=== PATIENT | female | born 1965 | race Caucasian/White ===

== ENCOUNTER 2022-01-21 11:51 | Emergency (ER) | payer SELFPAY ==
[2022-01-21 11:54] VITALS: BP 132/82; PULSE 80; RESP 14; TEMP 36.5; O2SAT 98
--- NOTE | 2022-01-21 12:30 | DI.RAD_ITS ---
Exam(s) XR HAND RT COMPLETE EXAM: XR HAND RT COMPLETE CLINICAL HISTORY: hand trauma, abscess dorsum of hand. TECHNIQUE: 2D digital imaging was performed. COMPARISON: No exams were available for comparison FINDINGS: There is prominent dorsal soft tissue swelling over the metacarpal region. No fractures evident. No radiopaque foreign body. Some degenerative changes noted in the metacarpophalangeal joint of the 2n d-index finger. There are no osseous lesions nor erosions. No radiopaque foreign body. IMPRESSION: Prominent soft tissue swelling but no acute osseous findings. No radiopaque foreign body. DATA REPOSITORY: RADIATION DOSE DELIVERED:
--- NOTE | 2022-01-21 12:30 | DI.RAD_ITS ---
Exam(s) XR WRIST RT COMPLETE EXAM: XR WRIST RT COMPLETE CLINICAL HISTORY: hand and wrist trauma, abscess dorsum of hand. TECHNIQUE: 2D digital imaging was performed. COMPARISON: No exams were available for comparison FINDINGS: 3 views There is prominent dorsal soft tissue swelling. No evidence of fracture nor carpal dislocation. No significant ulnar variance. No abnormal soft tis cortney densities. IMPRESSION: Dorsal soft tissue swelling. No significant osseous findings. DATA REPOSITORY: RADIATION DOSE DELIVERED:
--- NOTE | 2022-01-21 12:44 | W.ED.GENAD ---
Discharge Plan Disposition Patient Disposition: HOME Condition: Improving Discharge Details Clinical Impression: Infection of hand, Tendon injury Primary Care Provider: Royer Reed ED Provider: Isma Levine Home Meds and New Rx's Prescriptions: New clindamycin HCl 300 mg capsule 300 mg PO QID 10 Days Qty: 40 0RF clindamycin HCl 300 mg capsule 300 mg PO QID 10 Days Qty: 40 0RF No Action albuterol sulfate 90 mcg/actuation Hfa Aerosol Inhaler 2 puff INHALATION PRN PRN0RF albuterol sulfate [ProAir HFA] 90 mcg/actuation Hfa Aerosol Inhaler 1 puff INHALATION QAM 0RF fluticasone propion-salmeterol [Advair Diskus] 250-50 mcg/dose Blister With Device 1 ea INHALATION QAM 0RF ipratropium-albuterol [DuoNeb] 0.5 mg-3 mg(2.5 mg base)/3 mL Solution For Nebulization 3 ml INHALATION BID 0RF Medical Decision Making 56-year-old female presents with several days of worsening hand pain, after injuring her hand approximately a week ago, has developed an abscess and localized cellulitis, no evidence of lymphangitic streaking, is hemodynamically stable nontoxic, neurovascular exam of limb intact; no external signs of deformity however given multiple incidents of trauma will obtain x-ray of hand and wrist, will start IV antibiotics clindamycin given localized fluctuance and central purulent head, will cover for MRSA, will assess for underlying fracture although unlikely, bedside incision and drainage to be attempted, basic labs; disposition likely home with p.o. antibiotics and strict return precautions Local anesthesia with 1% lidocaine 1 cc was injected in the middle of area of fluctuance, cloudy serous material expressed spontaneously and was helped with lateral pressure, no incision was performed, central area of necrotic tissue was debrided, underneath was shiny fibrous band consistent with extensor tendon of third digit, spoke with orthopedic team here at [facility] who recommended contacting hand specialist at [facility]. Was put in contact with Dr. Resendez of plastic surgery who reviewed case and images of patient's hands, he would like to see patient early next week in clinic to assure wound is properly healing and then consider further repair as needed once initial infection improves. Patient is hemodynamically stable induration and discomfort have greatly improved after local decompression antibiotics. Patient placed in volar splint for comfort. Given home care instructions and strict return precautions for signs of worsening infection. HPI General Date/Time Provider Initiated Documentation: 01/21/22 12:41. HPI Narrative: 56-year-old female history of COPD presents with several days of right hand pain and swelling, injured the dorsum of her hand while moving wood in [place] within the last week, retraumatized left hand but excellently pain dorsum of right hand 2 days ago, has noticed increased redness and swelling. Decreased range of motion of fingers and wrist due to pain. Related Data Home Medications Medication Instructions Recorded Confirmed albuterol sulfate 90 mcg/actuation 2 puff INHALATION PRN PRN 01/21/22 01/21/22 aerosol inhaler albuterol sulfate 90 mcg/actuation 1 puff INHALATION QAM 01/21/22 01/21/22 aerosol inhaler (ProAir HFA) clindamycin HCl 300 mg capsule 300 mg PO QID 10 Days #40 cap 01/21/22 clindamycin HCl 300 mg capsule 300 mg PO QID 10 Days #40 cap 01/21/22 fluticasone 250 mcg-salmeterol 50 1 ea INHALATION QAM 01/21/22 01/21/22 mcg/dose blistr powdr for inhalation (Advair Diskus) ipratropium 0.5 mg-albuterol 3 mg 3 ml INHALATION BID 01/21/22 01/21/22 (2.5 mg base)/3 mL nebulization soln Previous Rx's Medication Instructions Recorded clindamycin HCl 300 mg capsule 300 mg PO QID 10 Days #40 cap 01/21/22 clindamycin HCl 300 mg capsule 300 mg PO QID 10 Days #40 cap 01/21/22 Allergies Allergy/AdvReac Type Severity Reaction Status Date / Time iodine Allergy Severe Anaphylaxis Unverified 01/21/22 12:01 theophylline Allergy Severe can't Unverified 01/21/22 12:01 breath codeine AdvReac Severe tight chest Unverified 01/21/22 12:01 General Stated Complaint: Cellulitis REHAN: 3 Review of Systems Narrative: Review of Systems Constitutional: negative Eyes: negative ENT: negative Cardiovascular: negative Respiratory: negative Gastrointestinal: negative : negative Musculoskeletal: Hand pain Skin: Cellulitis/abscess Neurologic: negative Psych: negative PFSH All Active Problems (Updated 01/21/22 @ 16:51 by Isma Levine MD) Infection of hand (Acute) Tendon injury (Acute) Social History Smoking/Tobacco Use Status: Current every day Smoking risk assessment performed?: Yes Alcohol Intake: current Alcohol Intake frequency: 0-2 drinks per day Drug use: Daily Substance use type: marijuana Details: 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 Do you feel safe at home: Yes Do you feel safe in your relationship?: Yes Exam Narrative Exam Narrative: Physical Examination General: alert, awake, cooperative, resting comfortably, no acute distress HEENT: normocephalic, atraumatic; PERRL, EOM intact, conjunctiva normal; no nasal discharge; moist mucous membranes, oral and pharyngeal mucosa normal, tolerating secretions Neck: supple, trachea midline; full ROM Chest: normal to inspection Respiratory: normal respiratory effort, speaking in full sentences, clear to auscultation, no wheezing, rales or rhonchi Cardiac: regular rate, regular rhythm, S1S2 intact, no murmurs rubs or gallops GI: abdomen soft, non-tender, non-distended; no palpable mass or hepatosplenomegaly Skin: 4.5 cm diameter area of induration erythema and fluctuance to dorsum of right hand, no evidence of lymphangitic streaking wrist or arm Neuro: AAOx3, normal speech, moving all extremities Extremities: Flexion and extension of fingers intact although extension is painful specifically third digit, good capillary refill sensation median radial and ulnar nerve intact, radial pulse intact no external signs of deformity Psych: Appropriate mood and affect Course Vital Signs Vital signs: Vital Signs Temperature 36.5 C 01/21/22 11:54 Pulse 80 01/21/22 11:54 Respiratory Rate 14 01/21/22 11:54 Blood Pressure 132/82 01/21/22 11:54 Pulse Oximetry 98 01/21/22 11:54 Temperature 36.5 C 01/21/22 11:54 Temperature Source Skin 01/21/22 11:54 Pulse 80 01/21/22 11:54 Respiratory Rate 14 01/21/22 11:54 Respiratory Effort 01/21/22 12:04 Blood Pressure 132/82 01/21/22 11:54 Blood Pressure Position Sitting 01/21/22 11:54 Pulse Oximetry 98 01/21/22 11:54 Oxygen Delivery Method Room Air 01/21/22 11:54 Oxygen Flow Rate 0 01/21/22 11:54 Pain Level 6 01/21/22 11:54 Procedures Abscess I/D Site: Hand Side (if applicable): Right Local Anesthetic: Lidocaine 1% Amount of anesthesia used (mL): 1 Technique: Needle Aspiration and Other (Manual decompression, after injection of lidocaine wound self expressed slightly cloudy serous material) Irrigation: Yes Packing used?: None PAWSS Have you Been Recently Intoxicated or Drunk Within the Last 30 days?: No Have you Ever Experienced Previous Episodes of Alcohol Withdrawal?: No Have you ever Experienced Withdrawal Seizures?: No Have you ever Experienced Delirium Tremens(DT)s?: No Have you ever undergone Alcohol Rehabilitation Treatment (i.e, inpt ot outpatient treatment programs)?: No Have you ever Experienced Blackouts?: No Have you ever Combined Alcohol with other Downers within the last 90 days?: No Have you ever Combined Alcohol with any other Substance of Abuse during the last 90 days?: No Positive Blood Alcohol level on Presentation? [PCS.BAL]: No Evidence of Increased Autonomic Activity (i.e. HR>120, tremor, sweating, agitation, nausea)?: No Result: 0
[2022-01-21] MEDS: Ketorolac 15 MG/ML VIAL IVP (13:12)
[2022-01-21 13:21] LABS: Abs Immature Grans 0.01 10^3/uL (0.0-0.06); Absolute Basophil Count 0.08 10^3/uL (0.0-0.2); Absolute Eosinophil Count 0.09 10^3/uL (0.0-0.7); Absolute Lymphocyte Count 2.81 10^3/uL (1.2-3.4); Absolute Monocyte Count 0.87 10^3/uL (0.1-0.8); Absolute Neutrophil Count 5.46 10^3/uL (1.2-6.7); Basophils % 0.9; HCT 45.9 % (36.0-46.0); HGB 14.7 g/dL (11.2-15.7); Immature Grans % 0.1; Lymphocytes % 30.2; MCH 29.6 pg (27.0-33.0); MCV 92.4 fL (80-95); MPV 8.6 fL (8.0-11.0); Monocytes % 9.3; Neutrophils % 58.5; Nucleated RBC 0 %; Platelet Count 317 10^3/uL (130-400); RBC 4.97 10^6/uL (3.93-5.22); RDW 13.9 % (11.7-14.6); RDW-SD 47.5 fL; WBC 9.32 10^3/uL (4.4-10.8)
[2022-01-21] MEDS: CLINDAMYCIN 600 MG/50 ML BAG 100 MG IVPB (13:35)
[2022-01-21] MEDS: Lidocaine 1% Multi-Dose 20 ML VIAL 10 ML IJ (13:43)
[2022-01-21 13:47] LABS: ALT 31 U/L (14-59); AST 26 U/L (15-37); Albumin 3.8 g/dL (3.4-5.0); Alkaline Phosphatase 55 U/L (46-116); Anion Gap 6.1 mmol/L (3-11); BUN 21 mg/dL (7-18); Bilirubin, Total 0.2 mg/dL (0.2-1.0); CO2 29.9 mmol/L (21.0-32.0); CREATININE 0.8 mg/dL (0.55-1.02); Calcium 8.7 mg/dL (8.5-10.1); Chloride 104 mmol/L (98-107); Glucose 93 mg/dL (74-106); Potassium 4.3 mmol/L (3.5-5.1); Sodium 140 mmol/L (136-145); Total Protein 8.1 g/dL (6.4-8.2)
--- NOTE | 2022-01-21 13:52 | DI.VRAD_ITS ---
PROCEDURE INFORMATION: Exam: XR Right Wrist Exam date and time: 01/21/2022 1:23 PM Age: 56 years old Clinical indication: Pain; Hand; Right TECHNIQUE: Imaging protocol: XR Right wrist. Views: 3 or more views. COMPARISON: CR XR HAND RT COMPLETE 01/21/2022 1:22 PM FINDINGS: Bones/joints: Normal. Soft tissues: Normal. IMPRESSION: No acute findings. Dictated and Authenticated by: Chad Rowley MD. Ordering:JOSE J Ashby MD
--- NOTE | 2022-01-21 13:52 | DI.VRAD_ITS ---
PROCEDURE INFORMATION: Exam: XR Right Hand Exam date and time: 01/21/2022 1:22 PM Age: 56 years old Clinical indication: Pain; Hand; Right TECHNIQUE: Imaging protocol: XR Right hand. Views: 3 or more views. COMPARISON: No relevant prior studies available. FINDINGS: Bones/joints: Normal. Soft tissues: Normal. IMPRESSION: No acute findings. Dictated and Authenticated by: Chad Rowley MD. Ordering:JOSE J Ashby MD
[2022-01-21 15:34] VITALS: BP 137/98; PULSE 67; RESP 16; TEMP 36.7; O2SAT 95
[2022-01-21 16:55] VITALS: BP 135/83
== END 2022-01-21 17:05 | disposition home or self-care (01) ==
PROVIDERS: Emergency Provider Emergency Medicine; PCP Internal Medicine
DX: L02.511 Cutaneous abscess of right hand (principal); S66.891A Other injury of other specified muscles, fascia and tendons at wrist and hand level, right hand, initial encounter; X58.XXXA Exposure to other specified factors, initial encounter
CPT/HCPCS: 10160; 29125; 36415; 80053; 96365; 96375; 99284; 73110; 73130; 85025; 99283; J1885; J3490

== ENCOUNTER 2022-01-25 09:25 | Emergency (ER) | payer SELFPAY ==
[2022-01-25 09:40] VITALS: BP 126/82; PULSE 69; RESP 16; TEMP 36.1; O2SAT 96
--- NOTE | 2022-01-25 10:16 | ED.GENADUL_ITS ---
Discharge Plan Disposition Patient Disposition: [facility] Condition: Serious Discharge Details Clinical Impression: Extensor tendinitis of hand, Cellulitis and abscess of hand Primary Care Provider: Royer Reed ED Provider: Gaurang Bermeo Home Meds and New Rx's Prescriptions: No Action albuterol sulfate [ProAir HFA] 90 mcg/actuation Hfa Aerosol Inhaler 1 puff INHALATION QAM 0RF fluticasone propion-salmeterol [Advair Diskus] 250-50 mcg/dose Blister With Device 1 ea INHALATION QAM 0RF ipratropium-albuterol [DuoNeb] 0.5 mg-3 mg(2.5 mg base)/3 mL Solution For Nebulization 3 ml INHALATION BID 0RF clindamycin HCl 300 mg capsule 300 mg PO QID 10 Days Qty: 40 0RF Discharge Data Discharge Date/Time-TO BE ENTERED AT DEPARTURE: 01/25/22 11:51 Medical Decision Making 56-year-old female with abscess cellulitis of the right dorsal hand, extensor tendon was visible on recent incision and drainage 01/21/2022, has been on clindamycin, now with worsening pain and inability to extend third digit and wrist. Concern for extensor tendinitis. I spoke with on-call orthopedic surgeon, Dr. Freeman, discussed ED presentation course, he recommends consultation with [place] specialist at [facility]. Labs reviewed and no leukocytosis noted. Normal ESR. CRP is pending. I spoke with [facility] orthopedic surgeon on-call, discussed ED presentation and course, he recommends transfer for evaluation for potential washout. I spoke with emergency physician Dr. Boles -he will accept the patient in transfer Patient provides informed refusal of plan for ambulance transportation, she will be traveling by private vehicle. CRP noted to be elevated. Lab Data Lab results reviewed: Yes I reviewed the patient's lab results. Labs: Laboratory Tests Range/Units 01/25/22 01/25/22 01/25/22 10:45 10:45 10:45 WBC (4.4-10.8) 10^3/uL 7.54 RBC (3.93-5.22) 10^6/uL 4.87 Hgb (11.2-15.7) g/dL 14.3 Hct (36.0-46.0) % 45.2 MCV (80-95) fL 92.8 MCH (27.0-33.0) pg 29.4 MCHC (32.0-36.0) % 31.6 L RDW (11.7-14.6) % 14.3 Plt Count (130-400) 10^3/uL 291 MPV (8.0-11.0) fL 8.8 Immature Gran % 0.3 Neutrophils % 55.6 Lymphocytes % 35.5 Monocytes % 6.2 Eosinophils % 1.3 Basophils % 1.1 Nucleated RBC % % 0 Absolute Neutrophils (1.2-6.7) 10^3/uL 4.19 Absolute Lymphocytes (1.2-3.4) 10^3/uL 2.68 Absolute Monocytes (0.1-0.8) 10^3/uL 0.47 Absolute Eosinophils (0.0-0.7) 10^3/uL 0.10 Absolute Basophils (0.0-0.2) 10^3/uL 0.08 ESR (0-30) mm/hr 15 C-Reactive Protein (0.0-0.3) mg/dL 0.79 H HPI General Mode of arrival: ambulatory . Date/Time Provider Initiated Documentation: 01/25/22 09:51 . Limitations to Documentation: no limitations . Information obtained by: patient . HPI Narrative: 56-year-old female presents with chief complaint of right hand and wrist pain. Patient notes that she injured her hand on around 01/14/2022 and then developed subsequent inflammation and was seen here in the emergency department on 01/21/2022 and diagnosed with cellulitis and abscess of the hand. Debridement of trauma carotic abscess was performed and extensor tendon of the hand was visualized. Patient was referred to follow-up with orthopedics hand specialist at [facility]. She has a follow-up appointment scheduled for 02/06/2022. She has been taking clindamycin as prescribed and notes that the swelling has improved but pain has worsened. Pain is localized to her dorsal hand that extends into her wrist forearm. Patient denies associated fever. Patient does also note some confusion recently. She states that she has had trouble operating the controls on her kitchen stove stove which is atypical for her. She denies headache. No urinary symptoms. Related Data Home Medications Medication Instructions Recorded Confirmed albuterol sulfate 90 mcg/actuation 1 puff INHALATION QAM 01/21/22 01/25/22 aerosol inhaler (ProAir HFA) clindamycin HCl 300 mg capsule 300 mg PO QID 10 Days #40 cap 01/21/22 01/25/22 fluticasone 250 mcg-salmeterol 50 1 ea INHALATION QAM 01/21/22 01/25/22 mcg/dose blistr powdr for inhalation (Advair Diskus) ipratropium 0.5 mg-albuterol 3 mg 3 ml INHALATION BID 01/21/22 01/25/22 (2.5 mg base)/3 mL nebulization soln Previous Rx's Medication Instructions Recorded clindamycin HCl 300 mg capsule 300 mg PO QID 10 Days #40 cap 01/21/22 Allergies Allergy/AdvReac Type Severity Reaction Status Date / Time iodine Allergy Severe Anaphylaxis Unverified 01/25/22 09:45 theophylline Allergy Severe can't Unverified 01/25/22 09:45 breath codeine AdvReac Severe tight chest Unverified 01/25/22 09:45 General Stated Complaint: Cellulitis REHAN: 3 PFSH All Active Problems (Updated 01/25/22 @ 11:29 by Gaurang Bermeo MD) Infection of hand (Acute) Tendon injury (Acute) Extensor tendinitis of hand (Acute) Cellulitis and abscess of hand (Acute) Social History Smoking/Tobacco Use Status: Current every day Smoking risk assessment performed?: Yes Alcohol Intake: current Alcohol Intake frequency: 0-2 drinks per day Drug use: Daily Substance use type: marijuana Details: 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 Do you feel safe at home: Yes Do you feel safe in your relationship?: Yes Exam Const General: cooperative and no acute distress HENMT Mouth: moist mucous membranes Resp Auscultation: clear to auscultation bilaterally, no rales, no rhonchi and no wheezes Cardio Rate: regular rate and not tachycardic Rhythm: regular rhythm Skin General skin exam: no rashes or lesions noted Neuro General: patient alert, patient awake, patient oriented x3 and tone normal Extrem Right upper extremity: hand Details: abnormal to inspection (Dorsal hand with abscess cellulitis, unable to extend third digit and pain with ext at wrist) Psych Mental Status: mental status grossly normal Course Vital Signs Vital signs: Vital Signs Temperature 36.1 C L 01/25/22 09:40 Pulse 69 01/25/22 09:40 Respiratory Rate 16 01/25/22 09:40 Blood Pressure 126/82 01/25/22 09:40 Pulse Oximetry 96 01/25/22 09:40 Temperature 36.1 C L 01/25/22 09:40 Temperature Source Skin 01/25/22 09:40 Pulse 69 01/25/22 09:40 Respiratory Rate 16 01/25/22 09:40 Respiratory Effort 01/25/22 09:40 Blood Pressure 126/82 01/25/22 09:40 Blood Pressure Position Sitting 01/25/22 09:40 Pulse Oximetry 96 01/25/22 09:40 Oxygen Delivery Method Room Air 01/25/22 09:40 Oxygen Flow Rate 0 01/25/22 09:40 Pain Level 10 01/25/22 09:40
[2022-01-25 10:55] LABS: Abs Immature Grans 0.02 10^3/uL (0.0-0.06); Absolute Basophil Count 0.08 10^3/uL (0.0-0.2); Absolute Lymphocyte Count 2.68 10^3/uL (1.2-3.4); Absolute Monocyte Count 0.47 10^3/uL (0.1-0.8); Absolute Neutrophil Count 4.19 10^3/uL (1.2-6.7); Basophils % 1.1; Eosinophils % 1.3; HCT 45.2 % (36.0-46.0); HGB 14.3 g/dL (11.2-15.7); Immature Grans % 0.3; Lymphocytes % 35.5; MCH 29.4 pg (27.0-33.0); MCHC 31.6 % (32.0-36.0); MCV 92.8 fL (80-95); MPV 8.8 fL (8.0-11.0); Monocytes % 6.2; Neutrophils % 55.6; Nucleated RBC 0 %; Platelet Count 291 10^3/uL (130-400); RBC 4.87 10^6/uL (3.93-5.22); RDW 14.3 % (11.7-14.6); RDW-SD 49.2 fL; WBC 7.54 10^3/uL (4.4-10.8)
[2022-01-25 10:57] LABS: ESR 15 mm/hr (0-30)
[2022-01-25 11:08] LABS: C-Reactive Protein 0.79 mg/dL (0.0-0.3)
== END 2022-01-25 11:51 | disposition short-term general hospital (02) ==
PROVIDERS: Emergency Provider Student in an Organized Health Care Education/Training Program; PCP Internal Medicine
DX: L03.113 Cellulitis of right upper limb (principal); M77.8 Other enthesopathies, not elsewhere classified
CPT/HCPCS: 85652; 99285; 85025; 86140; 99284

== ENCOUNTER 2022-02-05 21:07 | Emergency (ER) | payer SELFPAY ==
[2022-02-05 21:09] VITALS: BP 132/89; PULSE 72; RESP 18; TEMP 36.6; O2SAT 99
--- NOTE | 2022-02-05 21:18 | ED.GENADUL_ITS ---
Discharge Plan Disposition Patient Disposition: HOME Condition: Stable Discharge Details Clinical Impression: Paresthesia Primary Care Provider: Royer Reed ED Provider: Luis Ibarra Home Meds and New Rx's Prescriptions: Continued albuterol sulfate [ProAir HFA] 90 mcg/actuation Hfa Aerosol Inhaler 1 puff INHALATION QAM 0RF fluticasone propion-salmeterol [Advair Diskus] 250-50 mcg/dose Blister With Device 1 ea INHALATION QAM 0RF ipratropium-albuterol 0.5 mg-3 mg(2.5 mg base)/3 mL Solution For Nebulization 3 ml INHALATION BID 0RF Discharge Instructions Additional Instructions: your exam and blood work did not show concerning findings at this time follow up as scheduled with your surgeon if you feel more ill, have severe worsening pain or difficulty breathing return to the emergency department Medical Decision Making 56 yo female who was [place] [facility] [place] with extensor tendinitis of the right hand and had it drained there comes in because she has some tingling in her right elbow and forearm an hour ago. Denies any pain, chest pain, dyspnea, abdomen pain. She had no weakness, no changes in speech or vision. She has a well healing wound on the posterior right hand without erythema or drainage and has normal sensation and pulses, full rom of the hand, elbow and shoulder. No swelling of the arm. NIH of 0, no focal deficits. Suspect this could have been peripheral neuropathy vs muscle spasm but will check for electrolyte abnormalities and reassess. No findings to suggest cva and denies chest pain or dyspnea so do not feel ekg or troponin indicated Pt stable and has no symptoms, labs unremarkable. ambulating without assistance and still NIH of 0. Do not feel further testing indicated, she has f/u with her surgeon tomorrow and return precautions given Differential Diagnosis Differential Diagnosis: paresthesia, infection, wound healing Medical Records Medical records reviewed: Yes I reviewed the patient's medical records. Lab Data Lab results reviewed: Yes I reviewed the patient's lab results. HPI General Mode of arrival: ambulatory . Date/Time Provider Initiated Documentation: 02/05/22 21:08 . Limitations to Documentation: no limitations . Information obtained by: patient . History of Present Illness 56 year old F presents to the emergency department with the chief complaint of right arm tingling, described as mild, Patient started experiencing this hour(s) (1) and it has been constant. improves with No relieving factors improve symptom(s), No exacerbating factors reported . Patient did receive the following treatments prior to arrival, none Related Data Home Medications Medication Instructions Recorded Confirmed albuterol sulfate 90 mcg/actuation 1 puff INHALATION QAM 01/21/22 01/25/22 aerosol inhaler (ProAir HFA) fluticasone 250 mcg-salmeterol 50 1 ea INHALATION QAM 01/21/22 01/25/22 mcg/dose blistr powdr for inhalation (Advair Diskus) ipratropium 0.5 mg-albuterol 3 mg 3 ml INHALATION BID 01/21/22 01/25/22 (2.5 mg base)/3 mL nebulization soln Allergies Allergy/AdvReac Type Severity Reaction Status Date / Time iodine Allergy Severe Anaphylaxis Unverified 01/25/22 09:45 theophylline Allergy Severe can't Unverified 01/25/22 09:45 breath codeine AdvReac Severe tight chest Unverified 01/25/22 09:45 General Stated Complaint: GenMedical REHAN: 3 Review of Systems All systems reviewed & are unremarkable except as noted in HPI and below Constitutional Constitutional: Denies chills, Denies fever(s) and Denies weakness Eyes Eyes: Denies loss of vision ENT Ears, Nose, Mouth, and Throat: Denies change in voice Cardiovascular Cardiovascular: Denies chest pain and Denies dyspnea Respiratory Respiratory: Denies cough and Denies dyspnea Gastrointestinal Gastrointestinal: Denies abdominal pain, Denies nausea and Denies vomiting Integumentary/Breasts Skin/Breast: Denies rash Neurologic Neurologic: Denies loss of vision and Denies weakness PFSH All Active Problems (Updated 02/05/22 @ 22:16 by Luis Ibarra MD) Infection of hand (Acute) Tendon injury (Acute) Extensor tendinitis of hand (Acute) Cellulitis and abscess of hand (Acute) Paresthesia (Acute) Social History Smoking/Tobacco Use Status: Current every day Tobacco Type: cigarettes Smoking risk assessment performed?: Yes Alcohol Intake: current Alcohol Intake frequency: 0-2 drinks per day Drug use: Daily Substance use type: marijuana Details: 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 Do you feel safe at home: Yes Do you feel safe in your relationship?: Yes Exam Const General: no acute distress Orientation: alert HENMS Head: normal to inspection Ears: external ears normal General nose exam: external nose normal Mouth: moist mucous membranes Eyes General: appearance normal, both eyes and all related structures Neck Neck: normal visual inspection Resp Effort & Inspection: normal respiratory effort and able to speak in complete sentences Cardio Rate: regular rate Skin General skin exam: no rashes or lesions noted Neuro General: patient alert and patient oriented x3 Extrem General: full ROM and capillary refill normal Psych Mental Status: mental status grossly normal Course Vital Signs Vital signs: Vital Signs Temperature 36.6 C 02/05/22 21:09 Pulse 72 02/05/22 21:09 Respiratory Rate 18 02/05/22 21:09 Blood Pressure 132/89 02/05/22 21:09 Pulse Oximetry 99 02/05/22 21:09 Temperature 36.6 C 02/05/22 21:09 Temperature Source Tympanic 02/05/22 21:09 Pulse 72 02/05/22 21:09 Respiratory Rate 18 02/05/22 21:09 Respiratory Effort 02/05/22 21:14 Respiratory Depth Normal 02/05/22 21:14 Respiratory Pattern Normal 02/05/22 21:14 Blood Pressure 132/89 02/05/22 21:09 Blood Pressure Position Supine 02/05/22 21:09 Pulse Oximetry 99 02/05/22 21:09 Oxygen Delivery Method Room Air 02/05/22 21:09 Oxygen Flow Rate 0 02/05/22 21:09 Pain Level 0 02/05/22 21:09 PAWSS Have you Been Recently Intoxicated or Drunk Within the Last 30 days?: No Have you Ever Experienced Previous Episodes of Alcohol Withdrawal?: No Have you ever Experienced Withdrawal Seizures?: No Have you ever Experienced Delirium Tremens(DT)s?: No Have you ever undergone Alcohol Rehabilitation Treatment (i.e, inpt ot outpatient treatment programs)?: No Have you ever Experienced Blackouts?: No Have you ever Combined Alcohol with other Downers within the last 90 days?: No Have you ever Combined Alcohol with any other Substance of Abuse during the last 90 days?: No Positive Blood Alcohol level on Presentation? [PCS.BAL]: No Evidence of Increased Autonomic Activity (i.e. HR>120, tremor, sweating, a gitation, nausea)?: No Result: 0
[2022-02-05 21:47] LABS: Abs Immature Grans 0.01 10^3/uL (0.0-0.06); Absolute Basophil Count 0.11 10^3/uL (0.0-0.2); Absolute Eosinophil Count 0.24 10^3/uL (0.0-0.7); Absolute Lymphocyte Count 4.26 10^3/uL (1.2-3.4); Absolute Monocyte Count 0.64 10^3/uL (0.1-0.8); Absolute Neutrophil Count 2.96 10^3/uL (1.2-6.7); Basophils % 1.3; Eosinophils % 2.9; HCT 46.6 % (36.0-46.0); HGB 14.7 g/dL (11.2-15.7); Immature Grans % 0.1; Lymphocytes % 51.8; MCH 29.3 pg (27.0-33.0); MCHC 31.5 % (32.0-36.0); MPV 8.7 fL (8.0-11.0); Monocytes % 7.8; Neutrophils % 36.1; Nucleated RBC 0 %; Platelet Count 365 10^3/uL (130-400); RBC 5.01 10^6/uL (3.93-5.22); RDW 15.4 % (11.7-14.6); RDW-SD 52.4 fL; WBC 8.22 10^3/uL (4.4-10.8)
[2022-02-05 22:02] LABS: ALT 45 U/L (14-59); AST 28 U/L (15-37); Albumin 3.9 g/dL (3.4-5.0); Alkaline Phosphatase 70 U/L (46-116); Anion Gap 8.8 mmol/L (3-11); BUN 24 mg/dL (7-18); Bilirubin, Total 0.3 mg/dL (0.2-1.0); CO2 26.2 mmol/L (21.0-32.0); CREATININE 0.8 mg/dL (0.55-1.02); Calcium 8.7 mg/dL (8.5-10.1); Chloride 104 mmol/L (98-107); Glucose 83 mg/dL (74-106); Potassium 4.8 mmol/L (3.5-5.1); Sodium 139 mmol/L (136-145); Total Protein 8.2 g/dL (6.4-8.2)
== END 2022-02-05 22:21 | disposition home or self-care (01) ==
LOC: ER 22:22
PROVIDERS: Emergency Provider Emergency Medicine; PCP Internal Medicine
DX: R20.2 Paresthesia of skin (principal)
CPT/HCPCS: 36415; 80053; 99281; 85025; 99282

== ENCOUNTER 2022-05-02 14:52 | Outpatient (REF) | payer MEDICAID, SELFPAY ==
[2022-05-02 14:44] LABS: Abs Immature Grans 0.01 10^3/uL (0.0-0.06); Absolute Basophil Count 0.04 10^3/uL (0.0-0.2); Absolute Lymphocyte Count 2.56 10^3/uL (1.2-3.4); Absolute Monocyte Count 0.52 10^3/uL (0.1-0.8); Absolute Neutrophil Count 2.68 10^3/uL (1.2-6.7); Basophils % 0.7; Eosinophils % 1.7; HCT 46.2 % (36.0-46.0); HGB 15.3 g/dL (11.2-15.7); Immature Grans % 0.2; Lymphocytes % 43.3; MCH 31.6 pg (27.0-33.0); MCHC 33.1 % (32.0-36.0); MCV 96 fL (80-95); Monocytes % 8.8; Neutrophils % 45.3; Platelet Count 292 10^3/uL (130-400); RBC 4.84 10^6/uL (3.93-5.22); RDW 13.6 % (11.7-14.6); RDW-SD 48.4 fL; WBC 5.91 10^3/uL (4.4-10.8)
[2022-05-02 15:08] LABS: ALT 30 U/L (14-59); AST 29 U/L (15-37); Alkaline Phosphatase 53 U/L (46-116); Anion Gap 4.1 mmol/L (3-11); BUN 17 mg/dL (7-18); Bilirubin, Total 0.3 mg/dL (0.2-1.0); CO2 31.9 mmol/L (21.0-32.0); CREATININE 0.7 mg/dL (0.55-1.02); Calcium 9.1 mg/dL (8.5-10.1); Chloride 101 mmol/L (98-107); Glucose 80 mg/dL (74-106); Potassium 4.8 mmol/L (3.5-5.1); Sodium 137 mmol/L (136-145); TSH (W/Ref FT4) 1.12 uIU/mL (0.36-3.74)
== END 2022-05-02 14:53 | disposition home or self-care (01) ==
LOC: NCHCN 14:52
PROVIDERS: PCP Internal Medicine; Visit Provider Nurse Practitioner Family
DX: F41.8 Other specified anxiety disorders (principal); F17.200 Nicotine dependence, unspecified, uncomplicated; F19.10 Other psychoactive substance abuse, uncomplicated; R06.09 Other forms of dyspnea; R07.81 Pleurodynia; Z00.00 Encounter for general adult medical examination without abnormal findings
CPT/HCPCS: 80053; 84443; 85025

== ENCOUNTER 2022-05-18 02:05 | Outpatient (CLI) | payer MEDICAID, SELFPAY ==
[2022-05-18] MEDS: Inhaler, Assist Device 1 EACH MC (09:20)
[2022-05-18] MEDS: Albuterol HFA 18 GM 200 PUFF INH IH (09:20)
--- NOTE | 2022-05-18 09:30 | DI.RAD_ITS ---
Exam(s) XR CHEST 2V PA LATERAL EXAM: XR CHEST 2V PA LATERAL CLINICAL HISTORY: EXERTIONAL SOB, R06.09; LT-SIDED CHEST PAIN, R07.81, X6 WEEKS TECHNIQUE: 2D digital imaging was performed of the chest. Two images were obtained. PA and lateral views were obtained. COMPARISON: No exams were available for comparison FINDINGS: MEDIASTINUM: Normal. HEART: Normal. PULMONARY VASCULATURE: Normal. LUNGS: Clear. The lungs are hyperinflated with flattened diaphragms suggesting underlying COPD. PLEURAL SPACE: No pleural effusion or pneumothorax. BONE:Within normal limits for the patient's age. There is a question of a longitudinal lucency seen through the posterior lateral aspect of the left 9th rib. OTHER FINDINGS:Normal. IMPRESSION: Question of a longitudinal lucency seen through the posterolateral aspect of the left 9th rib. This may represent a nondisplaced fracture. No pneumothorax or pleural effusion. DATA REPOSITORY: RADIATION DOSE DELIVERED:
--- NOTE | 2022-05-22 10:12 | W.PFT ---
Date of service: 05/18/22 Time of Service: 08:03 Pulmonary Function Test Result Requesting Provider Sarah Saul Indications: TAYLOR Interpretation Spirometry: There is severe airflow limitation. There is a significant bronchodilator response. The FVC is low. Lung Volumes: There is evidence of air trapping. Diffusion Capacity: The diffusion is reduced. Airway Pressure: Increased airways resistance. Impression Severe airflow limitation with air trapping and diffused diffusion. There is also a significant bronchodilator response. This is consistent with severe COPD with emphysema. Clinical Correlation therefore is recommended.
== END 2022-05-18 02:06 | disposition home or self-care (01) ==
PROVIDERS: PCP Internal Medicine; Visit Provider Nurse Practitioner Family
DX: R06.09 Other forms of dyspnea (principal); J43.9 Emphysema, unspecified; J45.998 Other asthma; R07.81 Pleurodynia; R94.2 Abnormal results of pulmonary function studies; R06.2 Wheezing; F17.210 Nicotine dependence, cigarettes, uncomplicated
CPT/HCPCS: 94060; 94726; 94729; 71046

== ENCOUNTER 2022-05-23 09:06 | Emergency (ER) | payer MEDICAID, SELFPAY ==
[2022-05-23 09:11] VITALS: BP 136/92; PULSE 78; RESP 16; TEMP 36.5; O2SAT 98
--- NOTE | 2022-05-23 09:30 | RT.EKG_ITS ---
APPROVED REPORT Exam: Resting ECG Reason for Exam: chest/shoulder pain Patient Location: E HR:54 bpm ECG Measurements Heart Rate 54 AXIS MI 205 P 76 QRSd 86 QRS 77 QT 429 T 63 QTc 408 Conclusion Sinus bradycardia...rate< 60 Borderline prolonged MI interval...MI >202, V-rate 50- 90. Sinus. Normal axis. No STEMI. I have reviewed and interpreted ECG and agree with software generated interpretation.
--- NOTE | 2022-05-23 09:30 | DI.RAD_ITS ---
Exam(s) XR PORTABLE CHEST AP EXAM: XR PORTABLE CHEST AP CLINICAL HISTORY: chest pain. TECHNIQUE: 2D digital imaging was performed. COMPARISON: CR XR CHEST 2V PA LATERAL from 05/18/2022 FINDINGS: Single AP portable view. Heart size is upper normal. The mediastinum is not widened. Lungs are clear. No infiltrates nor obvious pleural effusions. IMPRESSION: No acute pulmonary findings on this single AP portable view of the chest. DATA REPOSITORY: RADIATION DOSE DELIVERED: All CT scans at this facility use at least one of these dose optimization techniques: automated exposure control; mA and/or kV adjustment per patient size (includes targeted e xams where dose is matched to clinical indication); or iterative reconstruction.
--- NOTE | 2022-05-23 09:32 | W.ED.GENAD ---
Discharge Plan Disposition Patient Disposition: HOME Condition: Stable Discharge Details Clinical Impression: Left upper lobe pulmonary infiltrate Primary Care Provider: Royer Reed ED Provider: Clive Bernabe Home Meds and New Rx's Prescriptions: New doxycycline hyclate 100 mg capsule 100 mg PO BID Qty: 20 0RF Continued albuterol sulfate [ProAir HFA] 90 mcg/actuation Hfa Aerosol Inhaler 1 puff INHALATION QAM fluticasone propion-salmeterol [Advair Diskus] 250-50 mcg/dose Blister With Device 1 ea INHALATION QAM ipratropium-albuterol 0.5 mg-3 mg(2.5 mg base)/3 mL Solution For Nebulization 3 ml INHALATION BID Discharge Instructions Instructions: Pneumonia (ED) Additional Instructions: Work-up today reveals a left upper lobe nodular infiltrate. I am treating this with doxycycline, this can cause sun sensitivity so be mindful of this with your sun exposure. Incidental findings showed dilatation of the biliary tree, this needs an outpatient ultrasound. Given your blurry vision I also recommend outpatient ophthalmology follow-up. [id number] Tylenol and/or Motrin as directed. Please watch for new or worsening symptoms and return to the ER for any concerns. You will need an outpatient repeat chest x-ray to be sure that the infiltrate is clearing up, if not you will need further evaluation. I personally spoke with your PCP Sarah Saul who is aware of your ER visit, work-up, and need for outpatient reevaluation. He will be seeing you in the office sometime in the next week Discharge Data Discharge Date/Time-TO BE ENTERED AT DEPARTURE: 05/23/22 14:13 Medical Decision Making This is a 56-year-old female, history of COPD, presents to the ER with a multitude of complaints including headache, occasional visual changes, chest pain, back pain, shortness of breath, left-sided neck pain which have all been present for at least 2 months. She reports that she was seen by her PCP approximately 6 weeks ago for this and again today and subsequently sent to the ER. Clinically she appears anxious but appears well, nontoxic, neurologically intact. Visual acuity left eye 20/70, right eye 20/50, bilaterally 20/50. Given her multitude of complaints will obtain IV access, give IV fluid, obtain a cardiac work-up including a D-dimer as well as a head CT for her ongoing headache. Will obtain inflammatory markers for concern of temporal arteritis. Laboratory values reveal no evidence of leukocytosis or anemia. Platelet count is appropriate. Her D-dimer is 1055, will obtain CTA of the chest. Allergy in our system reports anaphylaxis to iodine, patient reports that 20 years ago she had some shortness of breath and required Benadryl. She is agreeable to obtaining CT imaging with contrast here. We will provide IV fluids, Pepcid, Benadryl, Solu-Medrol prior to the CT. Electrolytes unremarkable, GFR greater than 60, magnesium 2.0, AST 101 ALT 100 alk phosphatase 129 total bilirubin 0.4, CRP 0.27 ESR 16, TSH 1.12 BNP 160 will need outpatient Chest x-ray unremarkable, CTA of the chest reveals a nodular infiltrate as well as a dilated biliary tree. Head CT unremarkable. I did discuss the results of this CT with the radiologist. In the setting of no abdominal pain, normal total bili, he felt as though the ultrasound could be obtained as an outpatient and not emergent here in the ER today. Discussed work-up with patient. She is relieved but frustrated. I explained to her that her neck pain certainly seems muscular and I will provide a single dose of Toradol now. Given her multitude of complaints, I believe that she requires close follow-up with multiple additional testing. I spoke with Sarah Saul, who is the patient's [employer]OTOTYPE ENGINEER MANAGER. We discussed her work-up here in the ER and the need for ultrasound of the gallbladder, ophthalmology referral, repeat chest x-ray to evaluate the nodular infiltrate as the patient is a smoker and this certainly could be a mass, etc. I will provide a prescription of doxycycline and provide the first dose now. Standard discharge and return precautions were provided. Patient understands, is agreeable to this plan, and has no additional questions or concerns upon discharge. This documentation was generated using memloomation system, please disregard any oddities of phrase or misspellings. Medical Records Medical records reviewed: Yes I reviewed the patient's medical records. Imaging Data Radiologic Study: Attestation: I personally reviewed and interpreted this imaging study as follows: Imaging: CT Scan Radiologist's impression: Exam(s) CT HEAD WO EXAM: CT HEAD WO CLINICAL HISTORY: KERR. TECHNIQUE: Imaging Protocol: Axial computed tomography images with coronal and sagittal reformatted images were created and reviewed COMPARISON: No exams were available for comparison FINDINGS: There are no skull fractures nor fluid in the visualized paranasal sinuses. There is no evidence of intracranial hemorrhage, mass effect, or shift of midline structures. There are no extra-axial fluid collections. The ventricles are not enlarged or shifted and there is no blood within the ventricular system nor within the basal cisterns. IMPRESSION: No acute intracranial findings on this noninfused CT scan of the brain. Radiologic Study #2: Attestation: I personally reviewed and interpreted this imaging study as follows: Imaging: CT Scan Radiologist's impression: This report is currently processing and HAS NOT BEEN OFFICIALLY SIGNED BY THE PHYSICIAN - ESTIMATED TIME OF APPROVAL IS 05/23/2022 13:01. Exam(s) CT CHEST PE CTA EXAM: CT CHEST PE CTA CLINICAL HISTORY: CP/SOB, elevated dimer. TECHNIQUE: Imaging Protocol: CT angiography of the chest was performed using pulmonary embolus protocol. Multi planar reconstructions were performed. CONTRAST MATERIAL: Intravenous: Omnipaque 350 Contrast volume: 100 cc COMPARISON: No exams were available for comparison FINDINGS: CHEST: PULMONARY ARTERIES: There are no intraluminal filling defects to suggest acute pulmonary emboli. LUNGS: In the left upper lobe there is a 7 x 6 millimeter nodular infiltrate as well as adjacent increased markings, this being in the superior lingular segment of the left lung. No other focal left lung findings nor pleural effusions. No findings in the right lower lobe. Mild atelectasis noted in the right upper lobe and medial segment of the right middle lobe. No significant findings in right lower lobe.. There are no pleural effusions. MEDIASTINUM: There is no hilar nor mediastinal adenopathy. Visualized thyroid unremarkable. CARDIAC: Heart size is upper normal. There is no pericardial effusion.Caliber of the thoracic aorta is within normal limits. There is no significant shift of the interventricular septum. PARTIALLY VISUALIZED UPPERMOST ABDOMEN: Nor most images reveal significant dilatation of the CBD and intrahepatic ducts and only part of the pancreas head was included in the field of view. Additional abdominal imaging is required. No obvious adrenal masses. OSSEOUS: No significant osseous lesions.No fractures.. IMPRESSION: 1. No evidence of acute pulmonary emboli. No evidence of pulmonary infarction.No pleural effusions. 2. 7 x 6 millimeter nodular infiltrate in the left upper lobe as well as some increased markings in the superior lingular segment. No pleural effusions. No intrathoracic adenopathy. 3. Lowermost images reveal significant dilatation of the biliary tree, both intra and extrahepatic. This requires further dedicated imaging of the abdomen. Radiologic Study #3: Attestation: I personally reviewed and interpreted this imaging study as follows: Imaging: X-Ray Radiologist's impression: Exam(s) XR PORTABLE CHEST AP EXAM: XR PORTABLE CHEST AP CLINICAL HISTORY: chest pain. TECHNIQUE: 2D digital imaging was performed. COMPARISON: CR XR CHEST 2V PA LATERAL from 05/18/2022 FINDINGS: Single AP portable view. Heart size is upper normal. The mediastinum is not widened. Lungs are clear. No infiltrates nor obvious pleural effusions. IMPRESSION: No acute pulmonary findings on this single AP portable view of the chest. Lab Data Lab results reviewed: Yes I reviewed the patient's lab results. Labs: Laboratory Tests Range/Units 05/23/22 05/23/22 05/23/22 10:00 10:00 10:15 WBC (4.4-10.8) 10^3/uL RBC (3.93-5.22) 10^6/uL Hgb (11.2-15.7) g/dL Hct (36.0-46.0) % MCV (80-95) fL MCH (27.0-33.0) pg MCHC (32.0-36.0) % RDW (11.7-14.6) % Plt Count (130-400) 10^3/uL MPV (8.0-11.0) fL Immature Gran % Neutrophils % Lymphocytes % Monocytes % Eosinophils % Basophils % Nucleated RBC % (0.0-0.3) % Absolute Neutrophils (1.2-6.7) 10^3/uL Absolute Lymphocytes (1.2-3.4) 10^3/uL Absolute Monocytes (0.1-0.8) 10^3/uL Absolute Eosinophils (0.0-0.7) 10^3/uL Absolute Basophils (0.0-0.2) 10^3/uL ESR (0-30) mm/hr PT (9.3-11.0) sec INR (0.9-1.1) APTT (21.0-27.5) sec D-Dimer (<500) ng/mlFEU Sodium (136-145) mmol/L 139 Potassium (3.5-5.1) mmol/L 3.9 Chloride (98-107) mmol/L 102 Carbon Dioxide (21.0-32.0) mmol/L 28.6 Anion Gap (3-11) mmol/L 8.4 BUN (7-18) mg/dL 21 H Creatinine (0.55-1.02) mg/dL 0.9 Estimated GFR/1.73 m2 (mL/min/1.73m2) >= 60.00 Glucose (74-106) mg/dL 88 Calcium (8.5-10.1) mg/dL 8.8 Magnesium (1.8-2.4) mg/dL Total Bilirubin (0.2-1.0) mg/dL 0.4 AST (15-37) U/L 101 H ALT (14-59) U/L 100 H Alkaline Phosphatase (46-116) U/L 129 H C-Reactive Protein (0.0-0.3) mg/dL 0.27 NT-Pro-B Natriuret Pep (<300) pg/mL 160 Total Protein (6.4-8.2) g/dL 8.1 Albumin (3.4-5.0) g/dL 4.1 Urine Color (Yellow) Yellow Urine Clarity (Clear) Clear Urine pH (5-8) 6.5 Ur Specific [place] (1.005-1.025) 1.015 Urine Protein (Negative) mg/dL Negative Urine Ketones (Negative) mg/dL Negative Urine Blood (Negative) Negative Urine Nitrite (Negative) Negative Urine Bilirubin (Negative) Negative Urine Urobilinogen (Up TO 0.2) EU/dL 0.2 Ur Leukocyte Esterase (Negative) Negative Urine Glucose (Negative) mg/dL Negative Urine Opiates Screen (Negative) Negative Urine Methadone Screen (Negative) Negative Ur Barbiturates Screen (Negative) Negative Ur Tricyclics Screen (Negative) Negative Ur Amphetamines Screen (Negative) Negative U Benzodiazepines Scrn (Negative) Negative Urine Cocaine Screen (Negative) Negative Ur THC Screen (Negative) Positive A Ethyl Alcohol (<10) mg/dL < 3.0 COVID-19 Source SARS-CoV-2 (PCR) (Negative) Influenza Type A (PCR) (Negative) Influenza Type B (PCR) (Negative) RSV (PCR) (Negative) Range/Units 05/23/22 05/23/2205/23/22 10:15 10:15 10:15 WBC (4.4-10.8) 10^3/uL RBC (3.93-5.22) 10^6/uL Hgb (11.2-15.7) g/dL Hct (36.0-46.0) % MCV (80-95) fL MCH (27.0-33.0) pg MCHC (32.0-36.0) % RDW (11.7-14.6) % Plt Count (130-400) 10^3/uL MPV (8.0-11.0) fL Immature Gran % Neutrophils % Lymphocytes % Monocytes % Eosinophils % Basophils % Nucleated RBC % (0.0-0.3) % Absolute Neutrophils (1.2-6.7) 10^3/uL Absolute Lymphocytes (1.2-3.4) 10^3/uL Absolute Monocytes (0.1-0.8) 10^3/uL Absolute Eosinophils (0.0-0.7) 10^3/uL Absolute Basophils (0.0-0.2) 10^3/uL ESR (0-30) mm/hr 16 PT (9.3-11.0) sec 9.3 INR (0.9-1.1) 0.9 APTT (21.0-27.5) sec 25.5 D-Dimer (<500) ng/mlFEU 1055 H Sodium (136-145) mmol/L Potassium (3.5-5.1) mmol/L Chloride (98-107) mmol/L Carbon Dioxide (21.0-32.0) mmol/L Anion Gap (3-11) mmol/L BUN (7-18) mg/dL Creatinine (0.55-1.02) mg/dL Estimated GFR/1.73 m2 (mL/min/1.73m2) Glucose (74-106) mg/dL Calcium (8.5-10.1) mg/dL Magnesium (1.8-2.4) mg/dL 2.0 Total Bilirubin (0.2-1.0) mg/dL AST (15-37) U/L ALT (14-59) U/L Alkaline Phosphatase (46-116) U/L C-Reactive Protein (0.0-0.3) mg/dL NT-Pro-B Natriuret Pep (<300) pg/mL Total Protein (6.4-8.2) g/dL Albumin (3.4-5.0) g/dL Urine Color (Yellow) Urine Clarity (Clear) Urine pH (5-8) Ur Specific [place] (1.005-1.025) Urine Protein (Negative) mg/dL Urine Ketones (Negative) mg/dL Urine Blood (Negative) Urine Nitrite (Negative) Urine Bilirubin (Negative) Urine Urobilinogen (Up TO 0.2) EU/dL Ur Leukocyte Esterase (Negative) Urine Glucose (Negative) mg/dL Urine Opiates Screen (Negative) Urine Methadone Screen (Negative) Ur Barbiturates Screen (Negative) Ur Tricyclics Screen (Negative) Ur Amphetamines Screen (Negative) U Benzodiazepines Scrn (Negative) Urine Cocaine Screen (Negative) Ur THC Screen (Negative) Ethyl Alcohol (<10) mg/dL COVID-19 Source SARS-CoV-2 (PCR) (Negative) Influenza Type A (PCR) (Negative) Influenza Type B (PCR) (Negative) RSV (PCR) (Negative) Range/Units 05/23/22 05/23/22 10:15 10:22 WBC (4.4-10.8) 10^3/uL 6.33 RBC (3.93-5.22) 10^6/uL 4.59 Hgb (11.2-15.7) g/dL 14.4 Hct (36.0-46.0) % 44.8 MCV (80-95) fL 98 H MCH (27.0-33.0) pg 31.4 MCHC (32.0-36.0) % 32.1 RDW (11.7-14.6) % 13.7 Plt Count (130-400) 10^3/uL 287 MPV (8.0-11.0) fL 8.9 Immature Gran % 0.2 Neutrophils % 47.7 Lymphocytes % 40.6 Monocytes % 8.8 Eosinophils % 1.6 Basophils % 1.1 Nucleated RBC % (0.0-0.3) % 0.0 Absolute Neutrophils (1.2-6.7) 10^3/uL 3.02 Absolute Lymphocytes (1.2-3.4) 10^3/uL 2.57 Absolute Monocytes (0.1-0.8) 10^3/uL 0.56 Absolute Eosinophils (0.0-0.7) 10^3/uL 0.10 Absolute Basophils (0.0-0.2) 10^3/uL 0.07 ESR (0-30) mm/hr PT (9.3-11.0) sec INR (0.9-1.1) APTT (21.0-27.5) sec D-Dimer (<500) ng/mlFEU Sodium (136-145) mmol/L Potassium (3.5-5.1) mmol/L Chloride (98-107) mmol/L Carbon Dioxide (21.0-32.0) mmol/L Anion Gap (3-11) mmol/L BUN (7-18) mg/dL Creatinine (0.55-1.02) mg/dL Estimated GFR/1.73 m2 (mL/min/1.73m2) Glucose (74-106) mg/dL Calcium (8.5-10.1) mg/dL Magnesium (1.8-2.4) mg/dL Total Bilirubin (0.2-1.0) mg/dL AST (15-37) U/L ALT (14-59) U/L Alkaline Phosphatase (46-116) U/L C-Reactive Protein (0.0-0.3) mg/dL NT-Pro-B Natriuret Pep (<300) pg/mL Total Protein (6.4-8.2) g/dL Albumin (3.4-5.0) g/dL Urine Color (Yellow) Urine Clarity (Clear) Urine pH (5-8) Ur Specific [place] (1.005-1.025) Urine Protein (Negative) mg/dL Urine Ketones (Negative) mg/dL Urine Blood (Negative) Urine Nitrite (Negative) Urine Bilirubin (Negative) Urine Urobilinogen (Up TO 0.2) EU/dL Ur Leukocyte Esterase (Negative) Urine Glucose (Negative) mg/dL Urine Opiates Screen (Negative) Urine Methadone Screen (Negative) Ur Barbiturates Screen (Negative) Ur Tricyclics Screen (Negative) Ur Amphetamines Screen (Negative) U Benzodiazepines Scrn (Negative) Urine Cocaine Screen (Negative) Ur THC Screen (Negative) Ethyl Alcohol (<10) mg/dL COVID-19 Source Nasopharynx SARS-CoV-2 (PCR) (Negative) Negative Influenza Type A (PCR) (Negative) Negative Influenza Type B (PCR) (Negative) Negative RSV (PCR) (Negative) Negative ECG Data Attestation: I personally reviewed and interpreted this ECG (s) as follows: Interpretation: Sinus bradycardia, ventricular rate of 54, no STEMI. HPI General Mode of arrival: ambulatory. Date/Time Provider Initiated Documentation: 05/23/22 09:10. Limitations to Documentation: no limitations. Information obtained by: patient. HPI Narrative: This is a 56-year-old female, past medical history of COPD, IV heroin abuse but clean for approximately 18 months, presents to the ER for a multitude of complaints that include left-sided temporal headache, intermittent blurry spot of her left eye when the pain is severe, left-sided chest pain, neck pain, shoulder pain, worse with movement of her neck and/or shoulder, chronic back pain, difficulty breathing at times which have all been present daily for approximately 2 months. Patient states that she relocated to this area from [place] in the beginning of January. She states that she had an infection in her hand, was seen at [facility] and this has now resolved. She denies recent illness or trauma, history of migraines, double vision, posterior neck pain, change in her chronic cough, numbness, tingling, weakness. Patient reports intermittent abdominal discomfort, nausea and diarrhea. Currently she denies any visual changes or abdominal pain. Patient states that she has tried [id number] medication with little relief. She is tells me she saw her PCP approximately 6 weeks ago for all of these complaints and again today which resulted in recommendation of the ER visit. Patient reports the pain is mild to moderate at rest but worse with movement. Related Data Home Medications Medication Instructions Recorded Confirmed albuterol sulfate 90 mcg/actuation 1 puff inhalation QAM 01/21/22 05/23/22 aerosol inhaler (ProAir HFA) fluticasone 250 mcg-salmeterol 50 1 ea inhalation QAM 01/21/22 05/23/22 mcg/dose blistr powdr for inhalation (Advair Diskus) ipratropium 0.5 mg-albuterol 3 mg 3 ml inhalation BID 01/21/22 05/23/22 (2.5 mg base)/3 mL nebulization soln doxycycline hyclate 100 mg capsule 100 mg PO BID #20 caps 05/23/22 Previous Rx's Medication Instructions Recorded doxycycline hyclate 100 mg capsule 100 mg PO BID #20 caps 05/23/22 Allergies Allergy/AdvReac Type Severity Reaction Status Date / Time iodine Allergy Severe Anaphylaxis Unverified 05/23/22 09:15 theophylline Allergy Severe can't Unverified 05/23/22 09:15 breath codeine AdvReac Severe tight chest Unverified 05/23/22 09:15 General Stated Complaint: Headache REHAN: 3 Review of Systems Constitutional Constitutional: Reports fatigue, Denies fever(s), Reports headache(s) and Denies weakness Eyes Eyes: Reports blurry vision and Denies diplopia ENT Ears, Nose, Mouth, and Throat: Reports headache(s) and Reports neck pain Cardiovascular Cardiovascular: Reports chest pain and Reports dyspnea Respiratory Respiratory: Reports cough and Reports dyspnea Gastrointestinal Gastrointestinal: Reports abdominal pain, Reports diarrhea, Reports nausea and Denies vomiting Genitourinary Genitourinary: Denies dysuria Musculoskeletal Musculoskeletal: Reports back pain, Reports neck pain, Denies numbness and Denies tingling Integumentary/Breasts Skin/Breast: Denies rash Neurologic Neurologic: Reports headache(s), Denies numbness, Denies tingling and Denies weakness Endocrine Endocrine: Reports fatigue Hematologic/Lymphatic Hematologic/Lymphatic: Denies easy bleeding and Denies easy bruising PFSH All Active Problems (Updated 05/23/22 @ 14:02 by BETO Newton) Left upper lobe pulmonary infiltrate (Acute) Social History Smoking/Tobacco Use Status: Current every day Tobacco Type: cigarettes Smoking risk assessment performed?: Yes Alcohol Intake: former Drug use: Daily Substance use type: marijuana Details: 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 Do you feel safe at home: Yes Do you feel safe in your relationship?: Yes Exam Const General: cooperative, healthy appearing, comfortable, no acute distress and anxious (Tearful at time) Orientation: alert, awake and oriented x3 HENMT Head: normal to inspection, normocephalic and atraumatic Mouth: moist mucous membranes Eyes General: appearance normal, both eyes and all related structures Alignment and Position: alignment normal Periorbital: periorbital findings normal Eyelids: eyelids normal Conjunctivae: conjunctivae normal Sclera: sclerae normal Cornea: corneas normal Pupils: PERRL EOM: EOM intact bilaterally Direct ophthalmoscopy: normal light reflex Neck Neck: normal visual inspection, full ROM, no lymphadenopathy, no meningeal signs, trachea midline, supple and tender (Left trapezius and sternocleidomastoid) Resp Effort & Inspection: normal respiratory effort and able to speak in complete sentences Auscultation: clear to auscultation bilaterally Cardio Rate: regular rate Rhythm: regular rhythm GI Palpation: soft, not firm, no guarding and nontender Auscultation: normal bowel sounds Back/Spine/Pelvis Back: no CVA tenderness and No back tenderness Skin General skin exam: no rashes or lesions noted Neuro General: patient alert, patient awake, patient oriented x3, moves all extremities and no focal motor deficits Cranial Nerves: CN's II-XI intact bilaterally Cognition: normal cognition Speech: speech normal Gait: normal gait Motor: muscle tone normal throughout, strength 5/5 throughout, no pronator drift, no movement abnormalities noted and no fasciculations Sensory Exam: no sensory deficits noted Extrem General: normal to inspection, full ROM, capillary refill normal, no pedal edema and no calf tenderness Psych Appearance: grossly normal Mental Status: mental status grossly normal Course Vital Signs Vital signs: Vital Signs Temperature 36.5 C 05/23/22 09:11 Pulse 78 05/23/22 09:11 Respiratory Rate 16 05/23/22 09:11 Blood Pressure 136/92 H 05/23/22 09:11 Pulse Oximetry 98 05/23/22 09:11 Temperature 36.5 C 05/23/22 09:11 Temperature Source Skin 05/23/22 09:11 Pulse 78 05/23/22 09:11 Respiratory Rate 16 05/23/22 09:11 Respiratory Effort Non-Labored 05/23/22 09:16 Blood Pressure 136/92 H 05/23/22 09:11 Pulse Oximetry 98 05/23/22 09:11 Oxygen Delivery Method Room Air 05/23/22 09:11 Oxygen Flow Rate 0 05/23/22 09:11 Pain Level 10 05/23/22 09:11
[2022-05-23 10:21] LABS: Bilirubin Negative (Negative); Blood Negative (Negative); Clarity Clear (Clear); Glucose Negative (Negative); Ketones Negative (Negative); Leukocyte Esterase Negative (Negative); Nitrite Negative (Negative); Specific Gravity 1.015 (1.005-1.025); Urobilinogen 0.2 EU/dL (Up TO 0.2); pH 6.5 (5-8)
[2022-05-23 10:24] LABS: Abs Immature Grans 0.01 10^3/uL (0.0-0.06); Absolute Basophil Count 0.07 10^3/uL (0.0-0.2); Absolute Lymphocyte Count 2.57 10^3/uL (1.2-3.4); Absolute Monocyte Count 0.56 10^3/uL (0.1-0.8); Absolute Neutrophil Count 3.02 10^3/uL (1.2-6.7); Basophils % 1.1; Eosinophils % 1.6; HCT 44.8 % (36.0-46.0); HGB 14.4 g/dL (11.2-15.7); Immature Grans % 0.2; Lymphocytes % 40.6; MCH 31.4 pg (27.0-33.0); MCHC 32.1 % (32.0-36.0); MCV 98 fL (80-95); MPV 8.9 fL (8.0-11.0); Monocytes % 8.8; Neutrophils % 47.7; Platelet Count 287 10^3/uL (130-400); RBC 4.59 10^6/uL (3.93-5.22); RDW 13.7 % (11.7-14.6); RDW-SD 49.9 fL; WBC 6.33 10^3/uL (4.4-10.8)
[2022-05-23 10:32] LABS: ESR 16 mm/hr (0-30)
[2022-05-23 10:35] LABS: *AMPHETAMINES SCREEN URINE Negative (Negative); *BARBITURATES SCREEN URINE Negative (Negative); *BENZODIAZEPINES SCREEN URINE Negative (Negative); Cannabinoids THC Positive (Negative); Cocaine Screen,Urine Negative (Negative); METHADONE URINE SCREEN Negative (Negative); OPIATES URINE SCREEN Negative (Negative)
[2022-05-23] MEDS: Normal Saline 1,000 ML 1000 ML IV (10:39)
[2022-05-23 10:44] LABS: INR 0.9 (0.9-1.1); PTT Activated 25.5 sec (21.0-27.5); Prothrombin Time 9.3 sec (9.3-11.0)
[2022-05-23 10:47] LABS: Tricyclic Antidepressants Negative (Negative)
[2022-05-23 11:00] LABS: D-Dimer 1055 ng/mlFEU (<500)
--- NOTE | 2022-05-23 11:00 | DI.CT_ITS ---
Exam(s) CT CHEST PE CTA EXAM: CT CHEST PE CTA CLINICAL HISTORY: CP/SOB, elevated dimer. TECHNIQUE: Imaging Protocol: CT angiography of the chest was performed using pulmonary embolus rosa maria col. Multi planar reconstructions were performed. CONTRAST MATERIAL: Intravenous: Omnipaque 350 Contrast volume: 100 cc COMPARISON: No exams were available for comparison FINDINGS: CHEST: PULMONARY ARTERIES: There are no intraluminal filling defects to suggest acute pulmonary emboli. LUNGS: In the left upper lobe there is a 7 x 6 millimeter nodular infiltrate as well as adjacent incr eased markings, this being in the superior lingular segment of the left lung. No other focal left izabel ng findings nor pleural effusions. No findings in the right lower lobe. Mild atelectasis noted in t he right upper lobe and medial segment of the right middle lobe. No significant findings in right lo wer lobe.. There are no pleural effusions. MEDIASTINUM: There is no hilar nor mediastinal adenopathy. Visualized thyroid unremarkable. CARDIAC: Heart size is upper normal. There is no pericardial effusion.Caliber of the thoracic aorta is within normal limits. There is no significant shift of the interventricular septum. PARTIALLY VISUALIZED UPPERMOST ABDOMEN: Nor most images reveal significant dilatation of the CBD and intrahepatic ducts and only part of the pancreas head was included in the field of view. Additional abdominal imaging is required. No obvious adrenal masses. OSSEOUS: No significant osseous lesions.No fractures.. IMPRESSION: 1. No evidence of acute pulmonary emboli. No evidence of pulmonary infarction.No pleural effusions. 2. 7 x 6 millimeter nodular infiltrate in the left upper lobe as well as some increased markings in t he superior lingular segment. No pleural effusions. No intrathoracic adenopathy. 3. Lowermost images reveal significant dilatation of the biliary tree, both intra and extrahepatic. This requires further dedicated imaging of the abdomen. RADIATION DOSE DELIVERED: 213.6mGy.cm Total DLP DATA REPOSITORY: All CT scans at this facility are submitted to the National Radiology Data Registry (NRDR) Dose Index Registry (DIR) with the [employer] (ACR). RADIATION OPTIMIZATION: All CT scans at this facility use at least one of these dose optimization te chniques: automated exposure control; mA and/or kV adjustment per patient size (includes targeted exa ms where dose is matched to clinical indication); or iterative reconstruction.
[2022-05-23 11:03] LABS: COVID-19 PCR Negative (Negative); Influenza A PCR Negative (Negative); Influenza B PCR Negative (Negative); RSV PCR Negative (Negative)
[2022-05-23 11:04] LABS: ALT 100 U/L (14-59); AST 101 U/L (15-37); Albumin 4.1 g/dL (3.4-5.0); Alkaline Phosphatase 129 U/L (46-116); Anion Gap 8.4 mmol/L (3-11); BUN 21 mg/dL (7-18); Bilirubin, Total 0.4 mg/dL (0.2-1.0); C-Reactive Protein 0.27 mg/dL (0.0-0.3); CO2 28.6 mmol/L (21.0-32.0); CREATININE 0.9 mg/dL (0.55-1.02); Calcium 8.8 mg/dL (8.5-10.1); Chloride 102 mmol/L (98-107); Glucose 88 mg/dL (74-106); NT-proBNP 160 pg/mL (<300); Potassium 3.9 mmol/L (3.5-5.1); Sodium 139 mmol/L (136-145); Total Protein 8.1 g/dL (6.4-8.2)
[2022-05-23 11:05] LABS: Source Nasopharynx
[2022-05-23 11:07] LABS: ETHANOL BLOOD < 3.0 mg/dL (<10)
--- NOTE | 2022-05-23 11:15 | DI.CT_ITS ---
Exam(s) CT HEAD WO EXAM: CT HEAD WO CLINICAL HISTORY: KERR. TECHNIQUE: Imaging Protocol: Axial computed tomography images with coronal and sagittal reformatted images were created and reviewed COMPARISON: No exams were available for comparison FINDINGS: There are no skull fractures nor fluid in the visualized paranasal sinuses. There is no evidence of intracranial hemorrhage, mass effect, or shift of midline structures. There are no extra-axial fluid collections. The ventricles are not enlarged or shifted and there is no blo od within the ventricular system nor within the basal cisterns. IMPRESSION: No acute intracranial findings on this noninfused CT scan of the brain. RADIATION DOSE DELIVERED: 704.4mGy.cm Total DLP DATA REPOSITORY: All CT scans at this facility are submitted to the National Radiology Data Registry (NRDR) Dose Index Registry (DIR) with the [employer] (ACR). RADIATION OPTIMIZATION: All CT scans at this facility use at least one of these dose optimization te chniques: automated exposure control; mA and/or kV adjustment per patient size (includes targeted exa ms where dose is matched to clinical indication); or iterative reconstruction.
[2022-05-23] MEDS: diphenhydrAMINE 50 MG/ML VIAL IVP (11:36)
[2022-05-23] MEDS: methylPREDNISolone SUCC 125 MG VIAL IVP (11:36)
[2022-05-23 11:43] VITALS: BP 128/80; PULSE 65; RESP 16; TEMP 36.6; O2SAT 95
[2022-05-23] MEDS: FAMOTIDINE 20 MG in Normal Saline 100 ML 400 MG IVPB (11:48)
[2022-05-23] MEDS: Omnipaque 350 MG/ML 100 ML BTL IJ (12:32)
[2022-05-23] MEDS: Normal Saline Flush 10 ML SYR IVP (12:34)
[2022-05-23] MEDS: Ketorolac 30 MG/ML VIAL IVP (13:36)
[2022-05-23] MEDS: Doxycycline Hyclate 100 MG CAP PO (13:36)
[2022-05-23 14:14] VITALS: BP 128/80; PULSE 65; RESP 16; TEMP 36.6; O2SAT 95
== END 2022-05-23 14:13 | disposition home or self-care (01) ==
PROVIDERS: Emergency Provider Physician Assistant; PCP Internal Medicine
DX: R91.8 Other nonspecific abnormal finding of lung field (principal); R07.9 Chest pain, unspecified; R06.02 Shortness of breath; M25.512 Pain in left shoulder; H53.8 Other visual disturbances; R79.1 Abnormal coagulation profile; F17.210 Nicotine dependence, cigarettes, uncomplicated; Z20.822 Contact with and (suspected) exposure to COVID-19
CPT/HCPCS: 71275; 80053; 80307; 85652; 87637; 93005; 96361; 96374; 96375; 99284; 99285; 70450; 71045; 80320; 81003; 83735; 83880; 85025; 85379; 85610; 85730; 86140; 93010; J1200; J1885; J2930; J3490

== ENCOUNTER → 2022-06-28 01:24 | Outpatient (CLI) | payer MEDICAID, SELFPAY ==
--- NOTE | 2022-06-28 07:44 | DI.MAMMO_ITS ---
Exam(s) MAMMO SCREENING EXAM: MAMMO SCREENING CLINICAL HISTORY: SCREENING, Z12.39. TECHNIQUE: Bilateral full field digital CC and MLO mammographic images were obtained with 3D tomosyn thesis and utilizing computer aided detection (CAD). COMPARISON: Patient's prior exams from [place] are not available for comparison. FINDINGS: Masses/Architectural Distortion: None seen. Microcalcifications: No suspicious pleomorphic-type are seen. Skin Thickening/Nipple Retraction: None. IMPRESSION: 1. No significant interval change with no specific features of malignancy noted. 2. Unless there is more urgent need, annual screening mammography is recommended, as per [place] [employer] guidelines. BI-RADS Category 1-negative Breast Density - Category D - Extremely dense Breast Density Category D: The mammogram demonstrates the patient's breast tissue is dense. Dense michelle ast tissue is very common and is not abnormal but dense breast tissue can make it harder to find canc er on a mammogram. Also, dense breast tissue may increase their breast cancer risk. This information about the result of the mammogram report was provided to the patient to raise their awareness. Use th is report when you speak with the patient about their risks for breast cancer, which includes their f amily history. At that time, you may recommend for more screening tests (Ultrasound or MRI) as they m ight be useful based on their risk. A negative radiographic report should not delay biopsy if a dominant or clinically suspicious mass is present. Up to ten percent of cancers are not identified on mammography. A negative report may reinforce clinical impression. Adenosis and dense breasts may obscure an underlying neoplasm. False positive reports average 6 to 10%.
== END ==
PROVIDERS: PCP Internal Medicine; Visit Provider Nurse Practitioner Family
DX: Z12.31 Encounter for screening mammogram for malignant neoplasm of breast (principal); R92.8 Other abnormal and inconclusive findings on diagnostic imaging of breast
CPT/HCPCS: 77063; 77067

== ENCOUNTER → 2022-07-19 00:41 | Outpatient (CLI) | payer MEDICAID, SELFPAY | PROVIDERS: PCP Internal Medicine; Visit Provider Nurse Practitioner Family | DX: R06.09 Other forms of dyspnea (principal) | CPT/HCPCS: 93306 ==

== ENCOUNTER 2022-11-07 07:36 | Outpatient (CLI) | payer MEDICAID, SELFPAY ==
--- NOTE | 2022-11-07 14:00 | W.PFT ---
Date of service: 11/07/22 Time of Service: 08:23 Pulmonary Function Test Result Requesting Provider Sid Indications: ACOS Note: 6 Minute Walk Test Distance walked: 1200 feet Desaturations:86% at 1 min 30 seconds and placed on 2LPM which maintained sats >88% Heart rate changes: 88bpm to a max of 96bpm Recommendation: Recommend supplemental oxygen at 2LPM with exertion Dayanara Lau MD Pulmonary & Critical Care Medicine Clinical Correlation therefore is recommended.
== END 2022-11-07 07:37 | disposition home or self-care (01) ==
PROVIDERS: PCP Internal Medicine; Visit Provider Student in an Organized Health Care Education/Training Program
DX: J44.9 Chronic obstructive pulmonary disease, unspecified (principal)
CPT/HCPCS: 94618

== ENCOUNTER 2022-11-20 03:08 | Outpatient (CLI) | payer MEDICAID, SELFPAY ==
[2022-11-20 12:55] LABS: Absolute Basophil Count 0.08 10^3/uL (0.0-0.2); Absolute Eosinophil Count 0.06 10^3/uL (0.0-0.7); Absolute Lymphocyte Count 3.44 10^3/uL (1.2-3.4); Absolute Monocyte Count 0.47 10^3/uL (0.1-0.8); Absolute Neutrophil Count 2.46 10^3/uL (1.2-6.7); Basophils % 1.2; Eosinophils % 0.9; HCT 40.7 % (36.0-46.0); HGB 13.3 g/dL (11.2-15.7); Lymphocytes % 52.8; MCH 30.4 pg (27.0-33.0); MCHC 32.7 % (32.0-36.0); MCV 93 fL (80-95); MPV 8.3 fL (8.0-11.0); Monocytes % 7.2; Neutrophils % 37.9; Platelet Count 231 10^3/uL (130-400); RBC 4.38 10^6/uL (3.93-5.22); RDW 13.2 % (11.7-14.6); RDW-SD 44.9 fL; WBC 6.51 10^3/uL (4.4-10.8)
[2022-11-20 13:59] LABS: ALT 23 U/L (14-59); AST 23 U/L (15-37); Albumin 3.9 g/dL (3.4-5.0); Alkaline Phosphatase 56 U/L (46-116); Anion Gap 7.1 mmol/L (3-11); BUN 14 mg/dL (7-18); Bilirubin, Total 0.2 mg/dL (0.2-1.0); CO2 27.9 mmol/L (21.0-32.0); CREATININE 0.9 mg/dL (0.55-1.02); Calcium 8.7 mg/dL (8.5-10.1); Calculated LDL 121 mg/dL (<100); Chloride 102 mmol/L (98-107); Cholesterol 206 mg/dL (<200); Glucose 81 mg/dL (74-106); HDL Cholesterol 75 mg/dL (40-60); Potassium 4.4 mmol/L (3.5-5.1); Sodium 137 mmol/L (136-145); Total Protein 7.2 g/dL (6.4-8.2); Triglyceride 54 mg/dL (<150)
[2022-11-21 10:05] LABS: HIV-1/2 Ag & Ab Screen Negative (Negative)
[2022-11-21 11:43] LABS: Hepatitis B Surface Ag Negative (Negative)
[2022-11-21 11:51] LABS: HBs Antibody, Quant >1000.0 mIU/mL (See Note); Hepatitis B Surface Ab Positive (See Note)
[2022-11-21 14:24] LABS: Hepatitis C Ab w Rflx HCV PCR Reactive (Negative)
[2022-11-22 13:21] LABS: HCV RNA Detection Quantitative 1330000 IU/mL (Undetected); HCV RNA Qualitative Detected (Undetected)
== END 2022-11-20 03:09 | disposition home or self-care (01) ==
PROVIDERS: PCP Internal Medicine; Visit Provider Nurse Practitioner Family
DX: F41.8 Other specified anxiety disorders (principal); J43.9 Emphysema, unspecified; F11.99 Opioid use, unspecified with unspecified opioid-induced disorder; Z87.19 Personal history of other diseases of the digestive system; Z11.4 Encounter for screening for human immunodeficiency virus [HIV]; Z11.59 Encounter for screening for other viral diseases
CPT/HCPCS: 36415; 80053; 80061; 86706; 86803; 87340; 87389; 87522; 85025

== ENCOUNTER 2022-11-21 01:57 | Outpatient (CLI) | payer MEDICAID, SELFPAY ==
--- NOTE | 2022-11-21 08:45 | DI.CT_ITS ---
Exam(s) CT CHEST WO EXAM: CT CHEST WO CLINICAL HISTORY: f/u nodule on last scan,r91.1. TECHNIQUE: Multi planar reconstructions were performed. CONTRAST MATERIAL: None COMPARISON: CT CT CHEST PE CTA from 05/23/2022 FINDINGS: CHEST: LUNGS: In the left upper lobe the previously described 7 x 6 millimeter nodule and adjacent increased markings are unchanged.. Just above this level is another slightly smaller unchanged nodule measuri ng 5 x 4 millimeters also adjacent to mildly increased markings which remain unchanged. There are no new increased markings nor nodules in either lung field and there are no pleural effusio ns. MEDIASTINUM: There is no obvious hilar nor mediastinal adenopathy. Visualized thyroid unremarkable.No obvious axillary adenopathy CARDIAC: Heart size is normal. There is no pericardial effusion.Caliber of the thoracic aorta is wit hin normal limits. VISUALIZED UPPER ABDOMEN:No adrenal masses. No splenomegaly. OSSEOUS: No significant osseous lesions.No fractures evident.. IMPRESSION: 1. Stable appearance of 2 small nodular densities in left upper lobe and adjacent increased markings, unchanged from CT scan of 05/23/2022. Recommend continued CT surveillance. 2. No pleural effusions nor in adenopathy RADIATION DOSE DELIVERED: 425.11mGy.cm Total DLP DATA REPOSITORY: All CT scans at this facility are submitted to the National Radiology Data Registry (NRDR) Dose Index Registry (DIR) with the [employer] (ACR). RADIATION OPTIMIZATION: All CT scans at this facility use at least one of these dose optimization te chniques: automated exposure control; mA and/or kV adjustment per patient size (includes targeted exa ms where dose is matched to clinical indication); or iterative reconstruction.
== END 2022-11-21 02:17 ==
LOC: DI 01:59
PROVIDERS: PCP Internal Medicine; Visit Provider Student in an Organized Health Care Education/Training Program
DX: R91.8 Other nonspecific abnormal finding of lung field (principal)
CPT/HCPCS: 71250

== ENCOUNTER 2022-12-28 12:48 | Outpatient (CLI) | payer MEDICAID, SELFPAY ==
[2022-12-28 13:13] LABS: INR 0.9 (0.9-1.1); Prothrombin Time 9.3 sec (9.3-11.0)
[2022-12-29 10:52] LABS: Hep A Total Ab w Rflx IgM Negative (Negative)
[2022-12-29 13:34] LABS: Hep B Core Antibody Positive (Negative)
[2023-01-01 14:45] LABS: ALT 20 U/L (7-45); ActiTest Grade A0; ActiTest Interpretation no activity; ActiTest Score 0.07; Alpha-2-Macroglobulin 353 mg/dL (100 - 280); Apoliprotein A1 156 mg/dL (>=140); Bilirubin, Total 0.2 mg/dL (<=1.2); FibroTest Interpretation no fibrosis; FibroTest Score 0.18; FibroTest Stage F0; GGT 15 U/L (5 - 36); Haptoglobin 157 mg/dL (30 - 200)
[2023-01-01 16:18] LABS: HCV Genotype 3 (Undetected)
== END 2022-12-28 12:49 | disposition home or self-care (01) ==
LOC: LBO 12:48
PROVIDERS: PCP Internal Medicine; Visit Provider Nurse Practitioner Family
DX: Z87.19 Personal history of other diseases of the digestive system (principal); F11.99 Opioid use, unspecified with unspecified opioid-induced disorder
CPT/HCPCS: 36415; 81596; 86704; 86709; 85610; 87521

== ENCOUNTER 2023-03-12 06:41 | Day surgery (SDC) | payer MEDICAID, SELFPAY ==
--- NOTE | 2023-03-11 20:06 | W.PM.DSUDISC ---
Date of service: 03/12/23 Time of Service: 08:22 Discharge Plan Disposition Patient Disposition: Home Condition: Good Discharge Details Reason For Visit: Colonoscopy Attending Provider: Adam Dawson Primary Care Provider: Royer Reed Home Meds and New Rx's Prescriptions: Continued buprenorphine-naloxone [Suboxone] 8-2 mg film 1 film buccal DAILY Spiriva Respimat 2.5 mcg/actuation mist 2 puff inhalation DAILY Qty: 4 12RF Advair HFA 230-21 mcg/actuation HFA aerosol inhaler 2 puff inhalation BID Qty: 12 12RF azithromycin 250 mg tablet 250 mg PO DAILY Qty: 90 12RF (DME) Oxygen Tank See Rx Instructions .Route Qty: 1 0RF Rx Instructions: 2 LPM with exertion aripiprazole [Abilify] 30 mg tablet 30 mg PO DAILY lorazepam [Ativan] 1 mg tablet 1 mg PO BID PRN albuterol sulfate [ProAir HFA] 90 mcg/actuation Hfa Aerosol Inhaler 1 puff INHALATION QAM ipratropium-albuterol 0.5 mg-3 mg(2.5 mg base)/3 mL Solution For Nebulization 3 ml INHALATION BID Discontinued polyethylene glycol 3350 17 gram/dose powder 238 g PO ONCE Qty: 238 0RF Rx Instructions: take per colonoscopy instructions bisacodyl [Dulcolax (bisacodyl)] 5 mg tablet,delayed release (DR/EC) 5 mg PO ONCE Qty: 4 0RF Rx Instructions: take per colonoscopy instructions Discharge Instructions Instructions: Colorectal Polyps (GEN) Additional Instructions: Meka, we were able to complete your colonoscopy today without any difficulty. He did have 4 polyps in the large intestine. I removed these all completely. I also perform some random biopsies along the length of your colon. Do not be surprised if you have a little bit of blood in your bowel movements over the next 24 hours or so. This usually resolves spontaneously. I will be in touch when I have the results of the pathology report. If you have any questions in the meantime, please do not hesitate to call. 1. If tolerated, consume a soft, low fiber diet for 1-2 days. 2. Do not drive, drink alcohol, operate machinery, make critical decisions, or do activities that require coordination or balance for 24 hours. 3. Because air was put into your colon during the procedure, expelling air from your rectum (passing gas or farting) is normal. 4. You may not have a bowel movement for 1-3 days because of the colonoscopy prep. This is normal. 5. Go directly to the emergency room if you notice any of the following: Develop chills (warm to touch), or if you have a thermometer and your temperature is above 101 Difficulty breathing or difficultly swallowing Persistent vomiting Severe abdominal pain, other than gas cramps Severe chest pain Black, tarry stools Any bleeding ? exceeding one tablespoon 6. Call your physician if the site where your intravenous was started becomes red, swollen, painful, and warm to touch. 7. Your physician has reviewed your pre-procedure medications. Please continue to take those medications as previously ordered. You will be given specific information/education regarding any changes to your medications before leaving. Activity:: Activity as Tolerated Diet:: As Tolerated Discharge Orders Discharge Orders: Discharge Order (Routine); Ordered 03/11/23 Ordered By: Adam Dawson DS: Diagnosis Discharge Diagnosis (1) Screening for colon cancer: Asessment and Plan: Follow-up on polypectomy results
--- NOTE | 2023-03-11 20:07 | W.COLOREPORT ---
Date of service: 03/12/23 Time of Service: 08:24 Colonoscopy Report Date of procedure: 03/12/23 Pre-op diagnosis general: colonoscopy Post-op diagnosis procedure note: other (Colorectal polyps) Procedure: Colonoscopy with polypectomy Surgeon: Adam Dawson Anesthesia Type: General:No Airway Estimated blood loss (mL): 20 Pathology: other (Cecal polyp, ascending colon polyp, polyp at 70 cm, rectal polyp) Complications: None Disposition: same day Indications: Meka is 57 years old and she is due for a screening colonscopy Prep: Miralax/Dulcolax Procedure Start Time: 07:51 Procedure End Time: 08:14 Retraction Time: 14 Findings: Polyps in the rectum, cecum, ascending colon, and 70 cm heike Procedure Description: After the induction of monitored anesthetic care, and with the patient in left lateral decubitus position, I began by performing an external anorectal exam.? Perineum and skin were normal, as was the anal verge.? There was no evidence of external hemorrhoids.? Next, I performed a digital rectal exam.? I did not appreciate any abnormal findings.? Next, I advanced a colonoscope into the rectal vault.? I performed retroflexion.? This appeared normal.? Using insufflation, I then advanced the colonoscope beyond the rectal folds and into the sigmoid colon before advancing towards the cecum.? In the upper portion of the rectum was a 1.75 cm pedunculated polyp. I removed this with cold snare polypectomy. There was minimal bleeding. The quality of the prep was adequate.? The scope was noted to be in the cecum by identification of the ileocecal valve and appendiceal orifice.? There was a polyp in the cecum, as well as 1 in the ascending colon. The cecal polyp was mostly sessile, with a small stalk. This was approximately 0.75 cm. I removed it with snare polypectomy. The polyp in the ascending colon was approximately 0.5 cm. This was mostly sessile. I removed this with cold forceps polypectomy. I then began withdrawing the colonoscope using repeated irrigation as necessary for full evaluation of the colonic mucosa. Around 70 cm from the anal verge I identified a 0.5 cm polyp. ?It appeared sessile in character. ?I was able to remove this with a cold forcep polypectomy. ?I examined the site, and there was minimal bleeding. ?Once this was completed, I continued to withdraw the scope and examine the remainder of the colonic mucosa. Because of Meka's complaints of inconsistent constipation and diarrhea, I did perform some random biopsies along the length of the colon to rule out microcytic colitis. Once the scope was withdrawn to the level of the rectum, great care was taken to examine portions of the rectal folds.? Finally, the scope was withdrawn and the patient was brought to the same-day surgery recovery unit as the anesthetic wore off. ?The findings and instructions were shared with the patient prior to discharge.
--- NOTE | 2023-03-12 06:07 | W.ANESPRE ---
General Info Date of Service Date Performed: 03/12/23 Height: 5 ft 6 in Weight: 64.92 kg Body Mass Index (BMI): 23.1 Surgical Procedure: Operation Date: 03/12/23 08:35 Proposed Procedure Side Surgeon p Colonoscopy w/Biopsy, possible polypectomy Adam aDwson MD Meds Allergies and Home Medications Allergies Allergy/AdvReac Type Severity Reaction Status Date / Time iodine Allergy Severe Anaphylaxis Unverified 03/09/23 09:32 Sulfa (Sulfonamide Allergy Severe Anaphylaxis Verified 03/09/23 09:32 Antibiotics) theophylline Allergy Severe can't Unverified 03/09/23 09:32 breath codeine AdvReac Severe tight chest Unverified 03/09/23 09:32 Home Medication Medication Instructions Recorded albuterol sulfate 90 mcg/actuation 1 puff inhalation QAM 01/21/22 aerosol inhaler (ProAir HFA) ipratropium 0.5 mg-albuterol 3 mg 3 ml inhalation BID 01/21/22 (2.5 mg base)/3 mL nebulization soln azithromycin 250 mg tablet 250 mg PO DAILY #90 tabs 10/06/22 buprenorphine 8 mg-naloxone 2 mg 1 film buccal DAILY 10/06/22 sublingual film (Suboxone) fluticasone propionate 230 2 puff inhalation BID #12 grams 10/06/22 mcg-salmeterol 21 mcg/actuation HFA inhaler (Advair HFA) tiotropium bromide 2.5 2 puff inhalation DAILY #4 grams 10/06/22 mcg/actuation mist for inhalation (Spiriva Respimat) Oxygen #1 ea 11/10/22 aripiprazole 30 mg tablet (Abilify) 30 mg PO DAILY 02/14/23 lorazepam 1 mg tablet (Ativan) 1 mg PO BID PRN 02/14/23 Current Visit Medications: Current Medications Generic Name Dose Route Start Last Admin Trade Name Freq PRN Reason Stop Dose Admin Hyoscyamine Sulfate 0.125 mg 03/11/23 20:09 Hyoscyamine 0.125 Mg Sl/Oral/Chew SL DIRECTED PRN Ringer's Solution 1,000 mls @ 80 mls/hr 03/12/23 06:00 IV 04/08/23 23:59 INFUSION TALAT IV Miscellaneous Supplies 1 each 03/12/23 06:00 Iv Access IV 04/08/23 23:59 DIRECTED TALAT Ondansetron HCl 4 mg 03/11/23 20:09 Ondansetron 4 Mg/2 Ml Vial IVP Q4H PRN PRN Nausea / Vomiting Sodium Chloride 0 ml 03/12/23 06:00 Normal Saline Flush 10 Ml Syr IV 04/08/23 23:59 PRN PRN Sodium Chloride 0 ml 03/12/23 06:00 Normal Saline 10 Ml Vial IJ 04/08/23 23:59 DIRECTED PRN Sterile Water 0 ml 03/12/23 06:00 Water,Injection,Sterile 10 Ml Vial IJ 04/08/23 23:59 DIRECTED PRN PFSH Active Problems Active Problems: Problem Status Onset Code Edentulous K08.109 Lung nodule R91.1 Personal history of nicotine dependence Z87.891 Asthma-COPD overlap syndrome J44.9 Anxiety and depression F41.9, F32.A Asthma J45.909 Back pain M54.9 Methamphetamine abuse F15.10 Cocaine abuse F14.10 Substance abuse F19.10 Cellulitis of hand, right L03.113 Poor dentition K08.9 Exertional shortness of breath R06.02 Rib pain R07.81 Tobacco dependence F17.200 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 Medical History Medical History (Updated 03/11/23 @ 20:06 by Adam Dawson MD) Emphysema of lung History of hepatitis Hep C History of heroin abuse Screening for colon cancer Tobacco Smoking/Tobacco Use Status: Current every day Tobacco Type: e-cigarettes Alcohol Alcohol Intake: former Substance Use Substance use: Daily Substance use type: former substance user, marijuana, crack/cocaine, heroin and amphetamines Details: 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 Vital Signs and Lab Results Lab Results Blood Type / Crossmatch: No Data to Display Complete Blood Count: No Data to Display Complete Metabolic Panel: No Data to Display Liver Function Panel: No Data to Display Coagulation Panel: No Data to Display Cardiac Panel: No Data to Display Arterial Blood Gas: No Data to Display Venous Blood Gas: No Data to Display Pancreas Panel: No Data to Display Thyroid Panel: No Data to Display Infectious Disease: No Data to Display Blood Cultures: No Data to Display Toxicology Panel: No Data to Display Imaging and Studies Imaging and Studies Study information below may be from another EMR and interpreted by another provider. Please see original notes in EMR for more complete details. EKG Summary: 05/26: sinus ashli, CO 202. Echocardiogram Summary: 07/27: LVEF 65%, no sig valve issues. Pulmonary Function Summary: 11/27 6 min walk test: supplemental O2 with exertion. Anesthesia Assessment and Plan Anesthesia History Personal History: No History of Anesthesia Complications Family History: No Family History of Anesthesia Complications Exercise Tolerance Exercise Tolerance: Metabolic Equivalents>4 Cardiac & Pulmonary Exam Cardiac Exam: Normal S1/S2 Heart Sounds Pulmonary Exam: Clear Bilateral Breath Sounds Implantable Cardiac Device Does patient have a Pacemaker or an ICD?: No Airway Exam Known Difficult Airway: No Mallampati Class: 3 Mouth Opening: Narrow (< 3cm) Thyromental Distance: Less than 3 cm Neck Range of Motion: Full ROM Neck Circumference: Normal Teeth Condition: Edentulous ASA Classification ASA Score: ASA 3 Emergency Case?: No NPO Status NPO Status: NPO Clears >2 hours, Solids >8 hours Anesthesia Plan Resuscitation Status: Full Code Anesthesia Technique: General Anesthesia Airway Planned: Natural Airway Monitors Used: Standard Monitors Preoperative Comments:: 57 yo female for colo. Sig PMHx: asthma/COPD (3 inhalers, frequent albuterol use), O2 use, lung nodule, former substance/cocaine/meth use, smoker, former EtOH, chronic bronchitis (azithromycin)
[2023-03-12 07:00] VITALS: BP 100/71; PULSE 57; RESP 17; TEMP 36.7; O2SAT 97
[2023-03-12 07:10] VITALS: BMI 23.1
[2023-03-12] MEDS: Lactated Ringers 1,000 ML 80 ML IV (07:37)
--- NOTE | 2023-03-12 07:54 | BOWEL_PTH ---
PATIENT: Meka Ray LOC: [facility] U#:[id number] AGE/SX: 57/F ROOM: RE03/12/[address]: Adam Dawson MD : 1965 BED: DIS: 03/12/2023 SPEC #: [id number] RECD: 03/12/23 11:44 STATUS: DELMER RE #: [id number] KAJAL: 03/12/23 07:[address]: Adam Dawson DEPT: Surgical Specimen RECD BY: Sayra Trevino ENTERED: 03/12/23 11:46 SP TYPE: Bowel OTHR DR: Royer Reed Tissues: 1 - BIOPSY BOWEL 2 - BIOPSY BOWEL 3 - BIOPSY BOWEL 4 - BIOPSY BOWEL 5 - BIOPSY BOWEL Procedures: GROSS AND MICRO LEVEL 4 Comments: [id number]
[2023-03-12 08:21] VITALS: BP 108/86; PULSE 61; RESP 17; TEMP 36.1; O2SAT 99
--- NOTE | 2023-03-12 08:29 | W.ANESPOSTOP ---
Postoperative Evaluation Date, Time and Location Date Performed: 03/12/23 Time Performed: 08:29 Patient Location: Day Surgery Unit Vital Signs Most Recent Imported Vital Signs: Most Recent Vital Signs Temp Pulse Resp BP Pulse Ox 36.1 C L 61 17 108/86 99 03/12/23 08:21 03/12/23 08:21 03/12/23 08:21 03/12/23 08:21 03/12/23 08:21 Pain Score Most Recent Pain Score: Most Recent Pain Score Pain Level 0 03/12/23 08:21 Assessment Mental Status: Awake (Alert & Oriented to Patient Baseline) Airway and Respiratory Function: Patent airway with normal (patient baseline) respiratory exam Cardiovascular Function: Hemodynamically Stable Hydration Status: Adequately Hydrated Nausea & Vomiting: No Nausea or Vomiting Pain: Pt. Denies Any Pain Peripheral Nerve Block: Patient did not receive a nerve block
[2023-03-12 08:49] VITALS: BP 100/71; PULSE 57; RESP 17; TEMP 36.7; O2SAT 97
== END 2023-03-12 08:53 | disposition home or self-care (01) ==
PROVIDERS: PCP Internal Medicine; Visit Provider Surgery
PROC: 0DJD8ZZ Inspection of Lower Intestinal Tract, Via Natural or Artificial Opening Endoscopic (ICD-10-PCS; CPT 45378; principal; 2023-03-12 08:30)
DX: Z12.11 Encounter for screening for malignant neoplasm of colon (principal); K59.00 Constipation, unspecified; D12.8 Benign neoplasm of rectum; D12.0 Benign neoplasm of cecum; D12.4 Benign neoplasm of descending colon
CPT/HCPCS: 45385; 45380; 88305

== ENCOUNTER 2023-04-09 03:44 | Outpatient (CLI) | payer MEDICAID, SELFPAY ==
[2023-04-09] MEDS: Albuterol HFA 18 GM 200 PUFF INH IH (16:00)
[2023-04-09] MEDS: Inhaler, Assist Device 1 EACH MC (16:00)
--- NOTE | 2023-04-10 07:22 | W.PFT ---
Date of service: 04/09/23 Time of Service: 14:48 Pulmonary Function Test Result Indications: ACOS Interpretation Spirometry: There is moderate airflow limitation. There is no significant bronchodilator response. Lung Volumes: There is air trapping and hyperinflation. Diffusion Capacity: Decreased diffusion Airway Pressure: Increased airways resistance Impression Moderate airflow obstruction with a decreased diffusion and air trapping. Consistent with known history of asthma-COPD overlap syndrome. Note: When compared to 05/18/22, FEV1, FVC and diffusion have improved. Clinical Correlation therefore is recommended.
== END 2023-04-09 03:45 | disposition home or self-care (01) ==
LOC: RT 03:44
PROVIDERS: PCP Internal Medicine; Visit Provider Student in an Organized Health Care Education/Training Program
DX: J44.9 Chronic obstructive pulmonary disease, unspecified (principal)
CPT/HCPCS: 94060; 94726; 94729

== ENCOUNTER 2023-07-18 03:32 | Outpatient (CLI) | payer MEDICAID, SELFPAY ==
[2023-07-18 12:46] LABS: Absolute Basophil Count 0.07 10^3/uL (0.0-0.2); Absolute Eosinophil Count 0.06 10^3/uL (0.0-0.7); Absolute Lymphocyte Count 4.71 10^3/uL (1.2-3.4); Absolute Monocyte Count 0.62 10^3/uL (0.1-0.8); Absolute Neutrophil Count 2.05 10^3/uL (1.2-6.7); Basophils % 0.9; Eosinophils % 0.8; HCT 44.2 % (36.0-46.0); HGB 14.7 g/dL (11.2-15.7); Lymphocytes % 62.7; MCHC 33.3 % (32.0-36.0); MCV 90 fL (80-95); Monocytes % 8.3; Neutrophils % 27.3; Platelet Count 248 10^3/uL (130-400); RDW-SD 43.2 fL; WBC 7.51 10^3/uL (4.4-10.8)
[2023-07-18 13:36] LABS: ALT 10 U/L (14-59); AST 17 U/L (15-37); Albumin 3.7 g/dL (3.4-5.0); Alkaline Phosphatase 60 U/L (46-116); Anion Gap 4.9 mmol/L (3-11); BUN 16 mg/dL (7-18); Bilirubin, Total 0.3 mg/dL (0.2-1.0); CO2 28.1 mmol/L (21.0-32.0); Chloride 101 mmol/L (98-107); Estimated GFR 66.53 (mL/min/1.73m2); Glucose 82 mg/dL (74-106); Potassium 3.9 mmol/L (3.5-5.1); Sodium 134 mmol/L (136-145); Total Protein 7.6 g/dL (6.4-8.2)
[2023-07-19 11:10] LABS: Hepatitis C Ab w Rflx HCV PCR Reactive (Negative)
[2023-07-20 12:30] LABS: HCV RNA Qualitative Undetected (Undetected)
== END 2023-07-18 03:33 | disposition home or self-care (01) ==
LOC: LBO 03:32
PROVIDERS: PCP Internal Medicine; Visit Provider Nurse Practitioner Family
DX: Z51.81 Encounter for therapeutic drug level monitoring (principal); B19.20 Unspecified viral hepatitis C without hepatic coma
CPT/HCPCS: 36415; 80053; 86803; 87522; 85025

== ENCOUNTER 2023-10-03 15:01 | Outpatient (RCR) | payer MEDICAID, SELFPAY | END 2023-10-04 23:59 | disposition home or self-care (01) | LOC: PRC 15:01 | PROVIDERS: PCP Internal Medicine; Referring Provider Student in an Organized Health Care Education/Training Program; Visit Provider Student in an Organized Health Care Education/Training Program | DX: J44.1 Chronic obstructive pulmonary disease with (acute) exacerbation (principal); Z51.89 Encounter for other specified aftercare | CPT/HCPCS: 94626 ==

== ENCOUNTER 2023-10-17 04:46 | Outpatient (CLI) | payer MEDICAID, SELFPAY ==
[2023-10-17 14:08] LABS: Absolute Basophil Count 0.07 10^3/uL (0.0-0.2); Absolute Eosinophil Count 0.03 10^3/uL (0.0-0.7); Absolute Lymphocyte Count 2.83 10^3/uL (1.2-3.4); Absolute Monocyte Count 0.42 10^3/uL (0.1-0.8); Absolute Neutrophil Count 2.72 10^3/uL (1.2-6.7); Basophils % 1.2; Eosinophils % 0.5; HCT 41.7 % (36.0-46.0); HGB 13.7 g/dL (11.2-15.7); Lymphocytes % 46.6; MCH 30.2 pg (27.0-33.0); MCHC 32.9 % (32.0-36.0); MCV 92 fL (80-95); MPV 9.2 fL (8.0-11.0); Monocytes % 6.9; Neutrophils % 44.8; Platelet Count 242 10^3/uL (130-400); RBC 4.54 10^6/uL (3.93-5.22); RDW 13.4 % (11.7-14.6); RDW-SD 45.9 fL; WBC 6.07 10^3/uL (4.4-10.8)
[2023-10-17 14:39] LABS: ALT 14 U/L (14-59); AST 15 U/L (15-37); Albumin 3.6 g/dL (3.4-5.0); Alkaline Phosphatase 52 U/L (46-116); BUN 16 mg/dL (7-18); Bilirubin, Total 0.2 mg/dL (0.2-1.0); CREATININE 0.9 mg/dL (0.55-1.02); Calcium 8.8 mg/dL (8.5-10.1); Chloride 103 mmol/L (98-107); Estimated GFR 75.03 (mL/min/1.73m2); Glucose 126 mg/dL (74-106); Potassium 4.3 mmol/L (3.5-5.1); Sodium 138 mmol/L (136-145); TSH 1.36 uIU/mL (0.36-3.74); Total Protein 7.2 g/dL (6.4-8.2)
== END 2023-10-17 04:47 | disposition home or self-care (01) ==
PROVIDERS: PCP Internal Medicine; Visit Provider Nurse Practitioner Family
DX: R53.83 Other fatigue (principal)
CPT/HCPCS: 36415; 80053; 84443; 85025

== ENCOUNTER 2023-11-02 14:00 | Outpatient (RCR) | payer MEDICAID, SELFPAY ==
--- NOTE | 2023-10-24 14:00 | RT.EKG_ITS ---
APPROVED REPORT Exam: Resting ECG Reason for Exam: SOB Patient Location: O HR:58 bpm ECG Measurements Heart Rate 58 AXIS RI 194 P 82 QRSd 87 QRS 75 QT 434 T 63 QTc 427 Conclusion Sinus rhythm...normal P axis, V-rate 50- 99 Left atrial enlargement...P, P'>60mS, <-0.15mV V1 Baseline wander in lead(s) V3 I have reviewed and interpreted ECG and agree with software generated interpretation.
== END 2023-11-04 23:59 | disposition home or self-care (01) ==
LOC: PRC 14:00
PROVIDERS: PCP Internal Medicine; Referring Provider Student in an Organized Health Care Education/Training Program; Visit Provider Student in an Organized Health Care Education/Training Program
DX: J44.1 Chronic obstructive pulmonary disease with (acute) exacerbation (principal); Z51.89 Encounter for other specified aftercare
CPT/HCPCS: 94626

== ENCOUNTER 2023-11-30 14:00 | Outpatient (RCR) | payer MEDICAID, SELFPAY ==
--- NOTE | 2023-11-30 14:52 | W.EVENT ---
Date of service: 11/30/23 Time of Service: 14:52 Event Note: Patient is participating in her last pulmonary rehab session. I received a call from Gwendolyn Brdashaw RN stating patient scored a 21 on her exit PHQ9 and refused to answer the question on the survey asking about suicidal thoughts. On a quick review, depression and anxiety are long standing problems and on her intake PHQ9 she scored a 27. I urgently presented to the [facility] program to assess the mental state of the patient. She was in good spirits and felt as though she got alot out of the [facility] program. When asked about her depression, she states that she feels as though if anything her depression is slightly improved from the program as compared to before. She states her head is more clear' without all her brain meds. She has a history of a suicide attempt 3-[address] of overdose[address] She states that she would never do that again and would never put her kids through that. I asked her if she as having any suicidal thoughts, which she denied. I asked if she had a plan for suicide and she stated no. On my assessment I do not feel that she is actively suicidal. She has uncontrolled depression that should be further addressed, but there is no indication for escalation of mental health services today. Time Spent with Patient Time spent in critical care(minutes): 15 Time Spent Included: Time at immediate bedside
--- NOTE | 2023-11-30 16:16 | W.PFT ---
Date of service: 11/30/23 Time of Service: 14:00 Pulmonary Function Test Result Indications: Completion of pulmonary rehab Interpretation Spirometry: There is moderate airflow limitation. Impression Moderate airflow obstruction Note: When compared to 04/09/23, FEV1 and FVC have both significantly improved. Clinical Correlation therefore is recommended.
== END 2023-12-05 23:59 | disposition home or self-care (01) ==
LOC: PRC 14:00
PROVIDERS: PCP Internal Medicine; Referring Provider Student in an Organized Health Care Education/Training Program; Visit Provider Student in an Organized Health Care Education/Training Program
DX: J44.9 Chronic obstructive pulmonary disease, unspecified (principal)
CPT/HCPCS: 94626

== ENCOUNTER 2024-03-06 11:23 | Outpatient (REF) | payer MEDICAID, SELFPAY ==
--- NOTE | 2024-03-06 10:40 | PAPFT_PTH ---
PATIENT: Meka Ray LOC: [facility] U#:[id number] AGE/SX: 58/F ROOM: RE03/06/[address]: Marilyn Rios DO : 1965 BED: DIS: 03/06/2024 SPEC #: [id number] RECD: 03/06/24 12:44 STATUS: DELMER REQ #: [id number] KAJAL: 03/06/24 10:[address]: Marilyn Rios DEPT: [facility] Cytology RECD BY: Sayra Trevino ENTERED: 03/06/24 12:44 SP TYPE: PAPFT CLAUDIA DR: VASU MORENO NP Tissues: 1 - CX/ENDOCX FOR PAP SMEARS Procedures: PAP THIN PREP/UVM Screening HPV DNA PROBE Comments: [id number]
== END 2024-03-06 11:24 | disposition home or self-care (01) ==
LOC: LBN 11:23
PROVIDERS: PCP Nurse Practitioner Family; Visit Provider Obstetrics & Gynecology
DX: Z01.419 Encounter for gynecological examination (general) (routine) without abnormal findings (principal); Z11.51 Encounter for screening for human papillomavirus (HPV)
CPT/HCPCS: 88142; 87624

== ENCOUNTER → 2024-03-21 01:02 | Outpatient (CLI) | payer MEDICAID, SELFPAY ==
--- NOTE | 2024-03-21 06:45 | DI.MAMMO_ITS ---
Exam(s) MAMMO SCREENING EXAM: MAMMO SCREENING CLINICAL HISTORY: screening,Z12.39 TECHNIQUE: Bilateral full field digital CC and MLO mammographic images were obtained with 3D tomosyn thesis and utilizing computer aided detection (CAD). COMPARISON: Available for comparison. FINDINGS: Masses/Architectural Distortion: No suspicious nodules. No areas of architectural distortion are pre sent. Microcalcifications: No suspicious pleomorphic-type are seen. Skin Thickening/Nipple Retraction: None. IMPRESSION: 1. No significant interval change with no specific features of malignancy noted. 2. Unless there is more urgent need, screening mammography is recommended, as per [place] [employer] guidelines. BI-RADS Category 1 - Negative Breast Density - Category D - Extremely dense Breast density category C or D implies that the patient has dense breast tissue. Dense breast tissue is very common and is not abnormal but dense breast tissue can make it harder to find cancer on a ma mmogram. Also, dense breast tissue may increase their breast cancer risk. This information about the result of the mammogram report was provided to the patient to raise their awareness. Use this report when you speak with the patient about their risks for breast cancer, which includes their family hist ory. At that time, you may recommend for more screening tests (Ultrasound or MRI) as they might be us eful based on their risk. A negative radiographic report should not delay biopsy if a dominant or clinically suspicious mass is present. Up to ten percent of cancers are not identified on mammography. A negative report may reinforce clinical impression. Adenosis and dense breasts may obscure an underlying neoplasm. False positive reports average 6 to 10%. Patient will receive a letter notifying them of these results.
== END ==
PROVIDERS: PCP Nurse Practitioner Family; Visit Provider Obstetrics & Gynecology
DX: Z12.31 Encounter for screening mammogram for malignant neoplasm of breast (principal); R92.343 Mammographic extreme density, bilateral breasts
CPT/HCPCS: 77063; 77067

== ENCOUNTER 2024-04-14 06:09 | Outpatient (CLI) | payer MEDICAID, SELFPAY ==
[2024-04-14] MEDS: Levalbuterol HFA 15 GM INH 4 PUFF IH (09:28)
[2024-04-14] MEDS: Inhaler, Assist Device 1 EACH MC (09:29)
--- NOTE | 2024-04-14 10:30 | W.PFT ---
Date of service: 04/14/24 Time of Service: 08:39 Pulmonary Function Test Result Indications: COPD Interpretation Spirometry: There is severe airflow limitation. Borderline bronchodilator response. Lung Volumes: There is hyperinflation and air trapping Diffusion Capacity: Decreased diffusion Airway Pressure: Increased airways resistance Impression Severe airflow limitation with air trapping and a decreased diffusion. Clinical Correlation therefore is recommended.
== END 2024-04-14 06:10 | disposition home or self-care (01) ==
LOC: RT 06:09
PROVIDERS: PCP Nurse Practitioner Family; Visit Provider Internal Medicine
DX: J44.9 Chronic obstructive pulmonary disease, unspecified (principal); R91.8 Other nonspecific abnormal finding of lung field
CPT/HCPCS: 94060; 94726; 94729

== ENCOUNTER 2024-04-17 00:57 | Outpatient (CLI) | payer MEDICAID, SELFPAY ==
[2024-04-17 13:51] LABS: ALT 22 U/L (14-59); AST 17 U/L (15-37); Albumin 3.9 g/dL (3.4-5.0); Alkaline Phosphatase 45 U/L (46-116); Anion Gap 8.8 mmol/L (3-11); BUN 13 mg/dL (7-18); Bilirubin, Total 0.2 mg/dL (0.2-1.0); CO2 28.2 mmol/L (21.0-32.0); CREATININE 0.9 mg/dL (0.55-1.02); Calcium 8.8 mg/dL (8.5-10.1); Calculated LDL 111 mg/dL (<100); Chloride 102 mmol/L (98-107); Cholesterol 204 mg/dL (<200); Estimated GFR 75.03 (mL/min/1.73m2); Glucose 101 mg/dL (74-106); HDL Cholesterol 77 mg/dL (40-60); Potassium 4.5 mmol/L (3.5-5.1); Sodium 139 mmol/L (136-145); Total Protein 7.3 g/dL (6.4-8.2); Triglyceride 80 mg/dL (<150)
[2024-04-17 19:40] LABS: TSH (W/Ref FT4) 1.01 uIU/mL (0.36-3.74)
[2024-04-18 12:14] LABS: HCV RNA Qualitative Undetected (Undetected)
== END 2024-04-17 00:58 | disposition home or self-care (01) ==
LOC: LBO 00:57
PROVIDERS: PCP Nurse Practitioner Family; Visit Provider Obstetrics & Gynecology
DX: R23.2 Flushing (principal); Z13.220 Encounter for screening for lipoid disorders; B19.20 Unspecified viral hepatitis C without hepatic coma
CPT/HCPCS: 80053; 80061; 87522; 84443

== ENCOUNTER → 2024-05-19 02:19 | Outpatient (CLI) | payer MEDICAID, SELFPAY ==
--- NOTE | 2024-05-19 11:10 | DI.CT_ITS ---
Exam(s) CT ABDOMEN PELVIS WO EXAM: CT ABDOMEN PELVIS WO CLINICAL HISTORY: UPPER ABD PAIN, R10.10. TECHNIQUE: Imaging Protocol: Axial computed tomography images with coronal and sagittal reformatted images were created and reviewed CONTRAST MATERIAL: Intravenous: none Oral: Yes. Oral contrast was administered for bowel opacification COMPARISON: CT CT CHEST PE CTA from 05/23/2022 FINDINGS: VISUALIZED LUNG BASES: No nodules nor pleural effusions evident. ABDOMEN: There is no ascites. LIVER: Difficult to assess without IV contrast. However, there is some dilatation of intrahepatic du cts. GALLBLADDER/BILIARY: The CBD is again noted to be dilated, measuring 1.5 cm proximally and 1.0 cm dis tally. There is no radiopaque calculus in the CBD. No obvious radiopaque calculus in the gallbladder although the gallbladder appears to contain some sludge. There is no gallbladder wall edema nor peric holecystic fluid PANCREAS: No evidence of obvious pancreatic mass nor obvious dilatation of the pancreatic duct. SPLEEN: Spleen is not enlarged. No obvious intrasplenic lesions. ADRENALS: There are no significant adrenal masses. KIDNEYS:No cysts evident. No solid renal masses. No calculi nor hydronephrosis. . ABDOMINAL AORTA: Abdominal aorta is not enlarged. LYMPH NODES: There is no retroperitoneal nor paraaortic adenopathy. ABDOMINAL WALL: No evidence of significant anterior abdominal wall nor inguinal hernia. GI: There is no evidence of bowel obstruction, free air, nor abscess. Oral contrast has progressed to the transverse colon level. PELVIS: LYMPH NODES: There is no intrapelvic nor inguinal adenopathy. GI: No evidence of appendicitis.No evidence of sigmoid diverticulitis. URINARY BLADDER: No calculi nor obvious masses evident REPRODUCTIVE: Uterus and adnexal regions unremarkable. No pelvic masses nor free fluid. OSSEOUS: No significant osseous lesions. Degenerative anterolisthesis L4 upon L5 and L5 on S1. There are no pars defects. No significant oss eous lesions. IMPRESSION: 1. Although somewhat difficult to assess without IV contrast, the main finding here is dilatation of the biliary tree, both intra and extrahepatic, as was also evident on prior CT scan of 05/23/2022, 2 years ago. CBD measures 1.5 cm proximally and 1 cm distally, not associated with obvious radiopaque intraluminal calculus than the CBD and there are no radiopaque calculi seen within the gallbladder izabel men. Recommend follow-up ultrasound. 2. There is no obvious pancreatic head mass. Pancreatic duct is not dilated. There are no peripancr eatic fluid collections. 3. Moderate increased amount of fecal material throughout of colon noted. RADIATION DOSE DELIVERED: 603.37mGy.cm Total DLP DATA REPOSITORY: All CT scans at this facility are submitted to the National Radiology Data Registry (NRDR) Dose Index Registry (DIR) with the [employer] (ACR). RADIATION OPTIMIZATION: All CT scans at this facility use at least one of these dose optimization te chniques: automated exposure control; mA and/or kV adjustment per patient size (includes targeted exa ms where dose is matched to clinical indication); or iterative reconstruction.
[2024-05-19] MEDS: Barium Sulfate 2% W/V-Berry Smoothie 450 ML BTL PO ×2 (11:12→11:13)
[2024-05-19 14:06] LABS: HGB 13.8 g/dL (11.2-15.7); MCHC 32.9 % (32.0-36.0); MCV 94 fL (80-95); MPV 8.9 fL (8.0-11.0); Platelet Count 202 10^3/uL (130-400); RBC 4.45 10^6/uL (3.93-5.22); RDW 13.6 % (11.7-14.6); RDW-SD 47.2 fL; WBC 5.02 10^3/uL (4.4-10.8)
[2024-05-19 14:13] LABS: Lipase 14 U/L (16-77)
== END ==
PROVIDERS: PCP Nurse Practitioner Family; Visit Provider Nurse Practitioner Family
DX: R10.10 Upper abdominal pain, unspecified (principal)
CPT/HCPCS: 36415; 83690; 85027; 74176

== ENCOUNTER 2024-05-19 12:24 | Emergency (ER) | payer MEDICAID, SELFPAY ==
[2024-05-19 12:26] VITALS: BP 124/74; PULSE 74; RESP 16; TEMP 36.6; O2SAT 96
== END 2024-05-19 18:39 ==
LOC: ER 12:50
PROVIDERS: PCP Nurse Practitioner Family
DX: Z53.21 Procedure and treatment not carried out due to patient leaving prior to being seen by health care provider (principal)

== ENCOUNTER → 2024-05-26 00:37 | Outpatient (CLI) | payer MEDICAID, SELFPAY ==
--- OUTSIDE RECORDS SUMMARY | 2024-05-19 02:21 | XMS_ITS | Encounter Summary ---
Author Organization [facility]ly [facility] [place] [address] Care Team Providers Care Night Worker Name Role Phone None Primary Care Provider Unavailabl e Reason for Referral * Occupational Therapy (Routine) - Closed Specialty Diagnoses / Procedures Referred By Lory mazariegos Referred To Contact Diagnoses Surgery follow-up Sarah Beth Plasencia APRN [facility] [place] [address] Physical Therapy, [address] [address] Referral ID Status Reason Start Date Expiration Date V isits Requested Visits Authorized [id number] Closed Evaluate and Treat 02/20/2022 08/19/2022 12 12 Reason for Visit * Reason Comments Follow Up Surgery S/p debridement and tendon repair Encounter Details Date Type Department Care Team (Late st Contact Info) Description 02/20/2022 9:00 AM EDT Office [place] [address] Sarah Beth Plasencia MAKE UP ARRANGER [facility] [place] [address] Surgery follow-up; Cellulitis of right hand Social History Tobacco Use Types Packs/Day Years Used Date Smoking Tobacco: Every Day Smokeless Tobacco: Never Sex and Gender Information Value Date Recorded Sex Assigned at Not on file Gender Identity Not on file Sexual Orientation Not on file documented as of this encounter Last Filed Vital Signs Vital Sign Reading Time Taken Comments Blood Pressure 137/83 02/20/2022 9:26 AM EDT Pulse 77 02/20/2022 9:26 AM EDT Temperature 36.6 ??C (97.8 ??F) 02/20/2022 9:26 AM ED T Respiratory Rate 20 02/20/2022 9:26 AM EDT Oxygen Saturation 96% 02/20/2022 9:26 AM EDT Inhaled Oxygen Concentration - - Weight - - Height - - Body Mass Index - - documented in this encounter Patient Instructions * Patient Instructions* Sarah Beth Plasencia APRN - 02/20/2022 10:19 AM EDT Establish care with PCP. Follow up: 1 month Referral to PT --Kang Veronica in [facility] CBC, CRP, sed rate today. documented in this encounter Progress Notes * Sarah Beth Plasencia APRN - 02/20/2022 9:00 AM EDT Plastic Surgery Post Op Note Provider: Sarah Beth Plasencia APRN. Reason for visit: F/U status post procedure Date of surgery: 01/25/22 Procedure(s): debridement and tendon repair ([place]igr[place]) Complications: None reported HPI: Pt reports she's feeling sore. She has a good day and then a bad day. Today she is feeling poorly and sweating and has a feeling of pins and needles in all five fingers of her right hand. She has finished her course of antibiotics. The patient reports she has not been contacted about OT. Patient notes show she had an appointment with [facility] OT on 02/10/22. She plans to transition care clos er to home due to transportation issues. For the past three years she just hasn't felt good and deals with terrible night sweats. She recently moved due to bad situation and has not yet establishedcare with a new PCP. The patient is accompanied today by her friend. The patient has not been diagnosed with diabetes but does have a significant family history. The patient reports compliance with wearing her splint. Examination: BP 137/83 Pulse 77 Temp 36.6 ??C (97.8 ??F) (Oral) Resp 20 SpO2 96% Patient is alert, conversant, comfortable, ambulating Hands warm and well perfused, bilateral hand erythema Right hand: Incision: CDI, healing well. Edema, no palpable collection. Impression: Meka Ray is a 56 y.o. female who was seen today for follow-up after the aboveprocedure. Please see the operative note for details. She is doing well without complaints. Plan: Establish care with PCP. Follow up: 1 month Referral to PT --Kang Veronica in [facility] CBC, CRP, sed rate today. I, Joya Huff, have performed the documentation for this encounter in the presence of and acting as a scribe for Sarah Beth Plasencia APRN. I performed the services which were documented by the scribe, and I agree with the accuracy of the documentation in this encounter. SARAH BETH PLASENCIA APRN documented in this encounter Miscellaneous Notes * Addendum Note - Daniel Menezes - 02/20/2022 9:00 AM EDTAddended by: DANIEL MENEZES on: 02/20/2022 10:34 AM Modules accepted: Orders documented in this encounter Plan of Treatment Scheduled Referrals Name Type Priority Associated Diagnoses Order Schedule Referral to Occupational Therapy Outpatient Referral Routine Surgery follow-up Ordered: 02/20/2022 documented as of this encounter Procedures Procedure Name Priority Date/Time Associated Diagnosis Comments HC C-REACTIVE PROTEIN Routine 02/20/2022 10:52 AM EDT Cellulitis of right hand documented in this encounter Results * CRP, acute inflammation (02/20/2022 10:52 AM EDT) CRP <3.0 <=4.9 mg/L [facility] Blood 02/20/2022 10:5 2 AM EDT 02/20/2022 11:03 AM EDT Narrative Resulting Agency Comment Spec In Lab Sarah Beth E Plasencia MAKE UP ARRANGER CHEMISTRY ORDERABLES [facility] [place] [address] documented in this encounter Visit Diagnoses Diagnosis Surgery follow-up Follow-up examination, following unspecified surgery Cellulitis of right hand Cellulitis and abscess of hand, except fingers and thumb documented in this encounter Care Teams Night Worker Relationship Specialty Start Date End Date None None PCP - General 01/25/22 documented as of this encounter
--- OUTSIDE RECORDS SUMMARY | 2024-05-19 02:21 | XMS_ITS | Encounter Summary ---
Author Organization [facility] Address [address] [place] [id number] Care Team Providers Care Soil Fertility Extension Specialist Name Role Phone Royer Reed MD Primary Care Provider [phone] Encounter Details Date Type Department Care Team (Late st Contact Info) Description 11/20/2022 Lab Requisition [facility] Pathology & Laboratory Medicine - [address] [id number] Outr Resulting Lab, Provider Social History Tobacco Use Types Packs/Day Years Used Date Smoking Tobacco: Never Assessed Sex and Gender Information Value Date Recorded Sex Assigned at Not on file Gender Identity Not on file Sexual Orientation Not on file documented as of this encounter Plan of Treatment Not on file documented as of this encounter Procedures Procedure Name Priority Date/Time Associated Diagnosis Comments HIV 1/2 ANTIGEN AND ANTIBODY, 4TH GENERATION Routine 11/20/2022 12:41 EST documented in this encounter Results * HIV 1/2 ANTIGEN AND ANTIBODY, 4TH GENERATION (11/20/2022 12:41 EST) HIV 1 and 2 Antibody/p24 Antigen, 4th Generation Negative Negative 11/21/2022 10:00 EST [facility] Comment:If acute HIV-1 infec tion is suspected in a high risk patient, submit plasma specimen for HIV-1 RNA quantitation test. Blood VENOUS BLOOD / Unknown 11/20/2022 12:41 EST 11/20/2022 21:45 EST Narrative [facility] - 11/21/2022 10:00 EST Fourth Generation assay performed on the Siemens Centaur XPT. Provider Outr Resulting Lab IMMUNOLOGY A ND SEROLOGY ORDERABLES [facility] [address] [place] [address] documented in this encounter Visit Diagnoses Not on filedocumented in this encounter Care Teams Soil Fertility Extension Specialist Relationship Specialty Start Date End Date Royer Reed MD [address] [place] [address] PCP - General Internal Medicine - Primary Care 06/01/23 documented as of this encounter
--- OUTSIDE RECORDS SUMMARY | 2024-05-19 02:21 | XMS_ITS | Data Portability ---
Author Organization [facility] [place] [address] Care Team Providers Care Multigraph Operator Name Role Phone VASU SAUL Primary Care Provider Assessment Encounter Date Assessment Date Assessment LastModified by Organization Details LastModified Time 10/11/2023 10/11/2023 Total Provider Time TODAY: 35 Minutes [email or web address] Not available 10/12/2023 10:28:43 01/17/2024 01/17/2024 Total Provider Time TODAY: 35 Minutes [email or web address] Not available 01/17/2024 12:17:48 Plan of Treatment Reminders Order Date Submit Date Provider Last Modified By Organization Details Last Modified Time Details Appointments None recorded. Lab hepatitis C virus RNA, quant, PCR, serum or plasma 2022 023 [email or web address] [facility] ([facility]), [address] [place] [address] [place], [address], 4 07:51:51 CBC w/ auto diff 2022 023 [facility] ([facility]), [address] [place] [address] [place], [address], 3 14:11:28 CMP, serum or plasma 2022 023 [facility] ([facility]), [address] [place] [address] [place], [address], 3 14:42:13 TSH, serum, reflex free T4 2022 023 [email or web address] [facility] ([facility]), [address] [place] [address] [place], [address], 3 08:31:10 drug screen, urine 2023 024 [email or web address] [facility], [address] , [place], [address], 4 11:42:54 CBC 2023 024 [email or web address] [facility] ([facility]), [address] [place] [address] [place], [address], 4 18:06:46 lipase, serum or plasma 2023 024 [email or web address] [facility] ([facility]), [address] [place] [address] [place], [address], 4 18:06:46 Referral gynecologis t referral 2023 024 [facility] (Obn), [address] [place] [address] [place], [address], 4 09:01:09 Procedures None recorded. Surgeries None recorded. Imaging CT, abdomen + pelvis, w/ contrast [address] (Radiology), [address] [place] [address] [place] [facility] [place], [address], 4 08:43:16 Medication Orders buprenorphi ne 8 mg-naloxone 2 mg sublingual film 2022 023 [place] [address] [address] [place], [address], 3 10:20:23 buprenorphi ne 4 mg-naloxone 1 mg sublingual film 2022 023 [place] [address] [address] [facility] [place], [address], 3 10:20:22 buprenorphi ne 8 mg-naloxone 2 mg sublingual film 2023 024 [place] [address] [address] [facility] [place], [address], 4 11:28:08 buprenorphi ne 4 mg-naloxone 1 mg sublingual film 2023 024 [place] [address] [address], [address] [facility] [place], [address], 4 11:28:09 escitalopra m 5 mg tablet 2023 024 [place] [address] [address], [address] [facility] [place], [address], 4 13:33:54 lorazepam 0.5 mg tablet 2023 024 [place] [address] [address] [facility] [place], [address], 4 11:28:07 buprenorphi ne 8 mg-naloxone 2 mg sublingual film 2023 024 [place] [address] [address] [facility] [place], [address], 4 14:51:45 buprenorphi ne 4 mg-naloxone 1 mg sublingual film 2023 024 [place] [address] [address] [facility] [place], [address], 4 14:51:46 omeprazole 20 mg capsule,del ayed release 2023 024 [email or web address] [facility]- [address] [place], [address], 4 14:51:46 Carafate 100 mg/mL oral suspension 2023 024 [email or web address] [facility] [address] [place], [address], 4 14:51:46 ondansetron 8 mg disintegrat ing tablet 2023 024 NATALEE [facility]- [address] [place], [address], 14:54:34 Patient TargetsNo targets recorded. Patient Instructions Encounter Date Encounter Id Patient Instructions Last Modified By Organization Details Last Modified Time 10/11/2023 [id number] 3 month follow up. Suboxone refilled - acute script for additional 4 mg dose in the afternoon. If you continue to struggle with fatigue, lets consider returning to Vyvanse vs continued increase in suboxone. Please let me know in 3-4 weeks about suboxone refill (ie. are we refilling extra 4 mg dose or trying Vyvanse again). Basic labs - sent to hospital. Call with questions. [email or web address] Not available 10/11/2023 14:06:18 01/17/2024 [id number] abnormal sweatin g: care instructions [email or web address] Not available 01/17/2024 12:18:19 3 month follow up. Suboxone refilled - 2 PRESCRIPTIONS - 8 MG + 4 MG. LORAZEPAM REFILLED. Try ESCITALOPRAM (Lexapro). [facility] for a pap and to discuss excessive sweating (hot flashes?) We'll call the hospital regarding your Hep C labs. Call with questions. 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 Sc reening for malignant neoplasm of cervix Referring Physician: Vasu Saul, Family Medicine, Encounter Date: 01/17/2024 Results Created Date Observation Date Name Description Value Unit Range Abnormal Flag LastModifiedBy Organization Detail LastModifiedTime 10/17/2010/17/2023 COMPL ETE BLOOD COUNT W/DIF F WBC 6.07 10_3/ uL 4.4-10 .8 normal Not Available [address] [place], [address] 10/17/2023 14:11:28 10/17/2010/17/2023 COMPL ETE BLOOD COUNT W/DIF F RBC 4.54 10_6/ uL 3.93-5 .22 normal Not Available [address] [place], [address] 10/17/2023 14:11:28 10/17/2010/17/2023 COMPL ETE BLOOD COUNT W/DIF F HGB 13.7 g/dL 11.2-1 5.7 normal Not Available [address] [place], [address] 10/17/2023 14:11:28 10/17/2010/17/2023 COMPL ETE BLOOD COUNT W/DIF F HCT 41.7 % 36.0-4 6.0 normal Not Available [address] [place], [address] 10/17/2023 14:11:28 10/17/20 23 10/17/2023 COMPL ETE BLOOD COUNT W/DIF F MCV 92 fL 80-95 normal Not Available [address] [place], [address] 10/17/2023 14:11:28 10/17/2010/17/2023 COMPL ETE BLOOD COUNT W/DIF F MCH 30.2 pg 27.0-3 3.0 normal Not Available [address] [place], [address] 10/17/2023 14:11:28 10/17/20 23 10/17/2023 COMPL ETE BLOOD COUNT W/DIF F MCHC 32.9 % 32.0-3 6.0 normal Not Available [address] [place], [address] 10/17/2023 14:11:28 10/17/20 23 10/17/2023 COMPL ETE BLOOD COUNT W/DIF F RDW 13.4 % 11.7-1 4.6 normal Not Available [address] [place], [address] 10/17/2023 14:11:28 10/17/20 23 10/17/2023 COMPL ETE BLOOD COUNT W/DIF F platelet count 242 10_3/ uL 130-40 0 normal Not Available [address] [place], [address] 10/17/2023 14:11:28 10/17/20 23 10/17/2023 COMPL ETE BLOOD COUNT W/DIF F MPV 9.2 fL 8.0-11 .0 normal Not Available [address] [place], [address] 10/17/2023 14:11:28 10/17/20 23 10/17/2023 COMPL ETE BLOOD COUNT W/DIF F neutrophils % 44.8 Not Available [address] [place], [address] 10/17/2023 14:11:28 10/17/20 23 10/17/2023 COMPL ETE BLOOD COUNT W/DIF F lymphocytes % 46.6 Not Available [address] [place], [address] 10/17/2023 14:11:28 10/17/20 23 10/17/2023 COMPL ETE BLOOD COUNT W/DIF F monocytes % 6.9 Not Available [address] [place], [address] 10/17/2023 14:11:28 10/17/20 23 10/17/2023 COMPL ETE BLOOD COUNT W/DIF F eosinophils % 0.5 Not Available [address] [place], [address] 10/17/2023 14:11:28 10/17/20 23 10/17/2023 COMPL ETE BLOOD COUNT W/DIF F basophils % 1.2 Not Available [address] [place], [address] 10/17/2023 14:11:28 10/17/20 23 10/17/2023 COMPL ETE BLOOD COUNT W/DIF F immature grans % 0.0 Not Available [address] [place], [address] 10/17/2023 14:11:28 10/17/20 23 10/17/2023 COMPL ETE BLOOD COUNT W/DIF F nucleated RBC 0.0 % 0.0-0. 3 normal Not Available [address] [place], [address] 10/17/2023 14:11:28 10/17/20 23 10/17/2023 COMPL ETE BLOOD COUNT W/DIF F absolute neutrophil count 2.72 10_3/ uL 1.2-6. 7 normal Not Available [address] [place], [address] 10/17/2023 14:11:28 10/17/20 23 10/17/2023 COMPL ETE BLOOD COUNT W/DIF F absolute lymphocyte count 2.83 10_3/ uL 1.2-3. 4 normal Not Available [address] [place], [address] 10/17/2023 14:11:28 10/17/20 23 10/17/2023 COMPL ETE BLOOD COUNT W/DIF F absolute monocyte count 0.42 10_3/ uL 0.1-0. 8 normal Not Available [address] [place], [address] 10/17/2023 14:11:28 10/17/20 23 10/17/2023 COMPL ETE BLOOD COUNT W/DIF F absolute eosinophil count 0.03 10_3/ uL 0.0-0. 7 normal Not Available [address] [place], [address] 10/17/2023 14:11:28 10/17/20 23 10/17/2023 COMPL ETE BLOOD COUNT W/DIF F absolute basophil count 0.07 10_3/ uL 0.0-0. 2 normal Not Available [address] [place], [address] 10/17/2023 14:11:28 10/17/20 23 10/17/2023 COMPR EHENS JANICE METAB OLIC PANEL calcium 8.8 mg/dL 8.5-10 .1 normal Not Available [address] [place], [address] 10/17/2023 14:42:13 10/17/20 23 10/17/2023 COMPR EHENS JANICE METAB OLIC PANEL glucose 126 mg/dL 74-106 high Not Available [address] [place], [address] 10/17/2023 14:42:13 10/17/20 23 10/17/2023 COMPR EHENS JANICE METAB OLIC PANEL BUN 16 mg/dL 7-18 normal Not Available [address] [place], [address] 10/17/2023 14:42:13 10/17/20 23 10/17/2023 COMPR EHENS JANICE METAB OLIC PANEL creatinine 0.9 mg/dL 0.55-1 .02 normal Not Available [address] [place], [address] 10/17/2023 14:42:13 10/17/20 23 10/17/2023 COMPR EHENS JANICE METAB OLIC PANEL estimated GFR 75.03 mL/min /1.73m 2 Not Available [address] [place], [address] 10/17/2023 14:42:13 10/17/20 23 10/17/2023 COMPR EHENS JANICE METAB OLIC PANEL total protein 7.2 g/dL 6.4-8. 2 normal Not Available [address] [place], [address] 10/17/2023 14:42:13 10/17/20 23 10/17/2023 COMPR EHENS JANICE METAB OLIC PANEL albumin 3.6 g/dL 3.4-5. 0 normal Not Available [address] [place], [address] 10/17/2023 14:42:13 10/17/20 23 10/17/2023 COMPR EHENS JANICE METAB OLIC PANEL bilirubin, total 0.2 mg/dL 0.2-1. 0 normal Not Available [address] [place], [address] 10/17/2023 14:42:13 10/17/2010/17/2023 COMPR EHENS JANICE METAB OLIC PANEL alk phos 52 U/L 46-116 normal Not Available [address] [place], [address] 10/17/2023 14:42:13 10/17/2010/17/2023 COMPR EHENS JANICE METAB OLIC PANEL sodium 138 mmol/ L 136-14 5 normal Not Available [address] [place], [address] 10/17/2023 14:42:13 10/17/2010/17/2023 COMPR EHENS JANICE METAB OLIC PANEL potassium 4.3 mmol/ L 3.5-5. 1 normal Not Available [address] [place], [address] 10/17/2023 14:42:13 10/17/2010/17/2023 COMPR EHENS JANICE METAB OLIC PANEL chloride 103 mmol/ L 98-107 normal Not Available [address] [place], [address] 10/17/2023 14:42:13 10/17/2010/17/2023 COMPR EHENS JANICE METAB OLIC PANEL CO2 29.0 mmol/ L 21.0-3 2.0 normal Not Available [address] [place], [address] 10/17/2023 14:42:13 10/17/2010/17/2023 COMPR EHENS JANICE METAB OLIC PANEL anion gap 6.0 mmol/ L 3-11 normal Not Available [address] [place], [address] 10/17/2023 14:42:13 10/17/2010/17/2023 COMPR EHENS JANICE METAB OLIC PANEL AST 15 U/L 15-37 normal Not Available [address] [place], [address] 10/17/2023 14:42:13 10/17/20 23 10/17/2023 COMPR EHENS JANICE METAB OLIC PANEL ALT 14 U/L 14-59 normal Not Available [facility] [address] [facility] , [place], [address] 10/17/2023 14:42:13 10/17/20 23 10/17/2023 TSH TSH 1.36 uIU/m L 0.36-3 .74 normal Not Available [address] [facility] , [place], [address] 10/17/2023 14:42:14 01/17/20 24 01/17/2024 drug scree n, urine Amphetamines : negati ve Not Available [facility] [address], [place], [address], 01/17/2024 11:34:41 01/17/20 24 01/17/2024 drug scree n, urine Barbiturates : negati ve Not Available [facility] [address], [place], [address], 01/17/2024 11:34:41 01/17/20 24 01/17/2024 drug scree n, urine BUP: positi ve Not Available [facility] [address], [place], [address], 01/17/2024 11:34:41 01/17/20 24 01/17/2024 drug scree n, urine Benzodiazepi erendira: negati ve Not Available [facility] [address], [place], [address], 01/17/2024 11:34:41 01/17/20 24 01/17/2024 drug scree n, urine Cocaine: negati ve Not Available [facility] [address], [place], [address], 01/17/2024 11:34:41 01/17/20 24 01/17/2024 drug scree n, urine EDDP (Methadone Metabolite) negati ve Not Available [facility] [address], [place], [address], 01/17/2024 11:34:41 01/17/20 24 01/17/2024 drug scree n, urine (MET) Methamphetam ine: negati ve Not Available [facility] [address], [place], [address], 01/17/2024 11:34:41 01/17/20 24 01/17/2024 drug scree n, urine MDMA: negati ve Not Available [facility] [address], [place], [address], 01/17/2024 11:34:41 01/17/20 24 01/17/2024 drug scree n, urine MTD (Methadone): negati ve Not Available [facility] [address], [place], [address], 01/17/2024 11:34:41 01/17/20 24 01/17/2024 drug scree n, urine [id number] (Opiate): negati ve Not Available [facility] [address], [place], [address], 01/17/2024 11:34:41 01/17/20 24 01/17/2024 drug scree n, urine OXY (Oxycodone): negati ve Not Available [facility] [address], [place], [address], 01/17/2024 11:34:41 01/17/20 24 01/17/2024 drug scree n, urine TCA: negati ve Not Available [facility] [address], [place], [address], 01/17/2024 11:34:41 01/17/20 24 01/17/2024 drug scree n, urine THC: positi ve Not Available [facility] [address] , [facility] [place], [address], 01/17/2024 11:34:41 04/17/20 24 04/17/2024 COMPR EHENS JANICE METAB OLIC PANEL calcium 8.8 mg/dL 8.5-10 .1 normal Not Available [address] [place], [address] 04/17/2024 13:54:12 04/17/20 24 04/17/2024 COMPR EHENS JANICE METAB OLIC PANEL glucose 101 mg/dL 74-106 normal Not Available [address] [place], [address] 04/17/2024 13:54:12 04/17/20 24 04/17/2024 COMPR EHENS JANICE METAB OLIC PANEL BUN 13 mg/dL 7-18 normal Not Available [address] [place], [address] 04/17/2024 13:54:12 04/17/20 24 04/17/2024 COMPR EHENS JANICE METAB OLIC PANEL creatinine 0.9 mg/dL 0.55-1 .02 normal Not Available [address] [place], [address] 04/17/2024 13:54:12 04/17/20 24 04/17/2024 COMPR EHENS JANICE METAB OLIC PANEL estimated GFR 75.03 mL/min /1.73m 2 Not Available [address] [place], [address] 04/17/2024 13:54:12 04/17/20 24 04/17/2024 COMPR EHENS JANICE METAB OLIC PANEL total protein 7.3 g/dL 6.4-8. 2 normal Not Available [address] [place], [address] 04/17/2024 13:54:12 04/17/20 24 04/17/2024 COMPR EHENS JANICE METAB OLIC PANEL albumin 3.9 g/dL 3.4-5. 0 normal Not Available [address] [place], [address] 04/17/2024 13:54:12 04/17/20 24 04/17/2024 COMPR EHENS JANICE METAB OLIC PANEL bilirubin, total 0.2 mg/dL 0.2-1. 0 normal Not Available [address] [place], [address] 04/17/2024 13:54:12 04/17/20 24 04/17/2024 COMPR EHENS JANICE METAB OLIC PANEL alk phos 45 U/L 46-116 low Not Available [address] [place], [address] 04/17/2024 13:54:12 04/17/20 24 04/17/2024 COMPR EHENS JANICE METAB OLIC PANEL sodium 139 mmol/ L 136-14 5 normal Not Available [address] [place], [address] 04/17/2024 13:54:12 04/17/20 24 04/17/2024 COMPR EHENS JANICE METAB OLIC PANEL potassium 4.5 mmol/ L 3.5-5. 1 normal Not Available [address] [place], [address] 04/17/2024 13:54:12 04/17/20 24 04/17/2024 COMPR EHENS JANICE METAB OLIC PANEL chloride 102 mmol/ L 98-107 normal Not Available [address] [place], [address] 04/17/2024 13:54:12 04/17/20 24 04/17/2024 COMPR EHENS JANICE METAB OLIC PANEL CO2 28.2 mmol/ L 21.0-3 2.0 normal Not Available [address] [place], [address] 04/17/2024 13:54:12 04/17/20 24 04/17/2024 COMPR EHENS JANICE METAB OLIC PANEL anion gap 8.8 mmol/ L 3-11 normal Not Available [address] [place], [address] 04/17/2024 13:54:12 04/17/20 24 04/17/2024 COMPR EHENS JANICE METAB OLIC PANEL AST 17 U/L 15-37 normal Not Available [address] [place], [address] 04/17/2024 13:54:12 04/17/20 24 04/17/2024 COMPR EHENS JANICE METAB OLIC PANEL ALT 22 U/L 14-59 normal Not Available [address] [place], [address] 04/17/2024 13:54:12 04/17/20 24 04/17/2024 LIPID 2 cholesterol 204 mg/dL <200 high Not Available [facility] ([facility]) [address] [place] [address] [place], [address], 04/17/2024 13:54:13 04/17/20 24 04/17/2024 LIPID 2 triglyceride 80 mg/dL <150 Not Available [facility] [address] [place] [address] [place], [address], 04/17/2024 13:54:13 04/17/20 24 04/17/2024 LIPID 2 HDL cholesterol 77 mg/dL 40-60 Not Available [facility] ([facility]) [address] [place] [address] [place], [address], 04/17/2024 13:54:13 04/17/20 24 04/17/2024 LIPID 2 calculated LDL 111 mg/dL <100 high Not Available [facility] ([facility]) [address] [place] [address] [place], [address], 04/17/2024 13:54:13 04/17/20 24 04/17/2024 TSH (W/RE F FT4) TSH (w/ref FT4) 1.01 uIU/m L 0.36-3 .74 normal Not Available [address] [place], [address] 04/17/2024 19:43:06 04/17/20 24 04/18/2024 HCV RNA DETEC TION QUANT ITATI VE HCV RNA qualitative UNDETE CTED undete cted Not Available [facility] ([facility]) [address] [facility] [place], [address], 04/18/2024 14:09:28 10/27/2010/26/2023 elect rocosmani diogr am EKG CARLITO Mazariegos NAME: Yeimy Loera UNIT #: [id number] ORDERI NG PROVID ER: Sophy Mckeon M.D. ACCOUN T #: [id number] PRIMAR Y CARE PROVID ER: MIGUEL QUINONEZ, SEB Y DATE/T TODD OF S ERVICE : 1408 : 1964 PERFOR BEN LOCATI ON: PRC ------ ------ --- APPROV ED REPORT ------ ------ -- Exam: Restin g ECG Reason for Exam: SOB Patien t Locati on: O HR:58 bpm ECG Measur ements Heart Rate 58 AXIS WY 194 P 82 QRSd 87 QRS 75 QT 434 T 63 QTc 427 Conclu [place] Sinus rhythm ...nor mal P axis, V-rate 50- 99 Left atrial enlarg ement. ..P, P'>60m S, <-0.15 mV V1 Baseli ne wander in lead(s ) V3 I have review ed and interp reted ECG and agree with zackery rendon interp retati on. ------ ------ ------ ------ ------ ------ ------ ------ ------ ------ ------ ------ ------ ------ ------ ------ ---- ------ - E-Sign Date: E-Sign Time: 1052 [email or web address] [address] [facility] [place], [address] 10/30/2023 10:52:12 11/30/19 24 11/30/2023 criti arian event note Critic al Event Note CARLITO Mazariegos NAME: Yeimy Loera UNIT #: [id number] ADMITT ING PROVID ER: Sophy Mckeon M.D. ACCOUN T #: [id number] PRIMAR Y CARE PROVID ER: SEB RIVERA MD Y DATE OF ADMIT: : 1964 Date of servic e: Time of Servic e: 14:52 Event Note: Carlito mazariegos is partic ipatin g in her last [facility] sessio n. I receiv ed a call from Gwendolyn Bradshaw , RN statin g carlito mazariegos scored a 21 on her exit PHQ9 and refuse d to answer the questi on on the survey asking about suicid al though ts. On a quick review , depres [place] and anxiet y are long standi ng proble ms and on her intake PHQ9 she scored a 27. I urgent ly steven rendon to the [place] [facility] to assess the mental state of the carlito mazariegos. She was in good spirit s and felt as though she got alot out of the [place] [facility]. When asked about her depres [place], she states that she feels as though if anythi ng her depres [place] is slight ly improv ed from the [facility] as compar ed to before . She states her head is more clear ' withou t all her brain meds. She has a histor y of a suicid e attemp t 3-[address] She states that she would never do that again and would never put her kids throug h that. I asked her if she as having any suicid al though ts, which she denied . I asked if she had a plan for suicid e and she stated no. On my assess ment I do not feel that she is active ly suicid al. She has uncont rolled depres [place] that should be furthe r addres sed, but there is no indica tion for escala tion of mental health servic es today. Time Spent with Carlito mazariegos Time spent in critic al care(m inutes ): 15 Time Spent Includ ed: Time at immedi ate bedsid e cc: ------ ------ ------ ------ ------ ------ ------ ------ ------ ------ ------ --- Dictat ed by: JAY Madden MD,MAY TTANY E Dictat ed: Time: 145 Date: 1 459 Date: Date: Transc ribed Date: Transc ribed Time: 1451 By: PEPE This is privil eged, confid ential inform ation, intend ed only for the provid er named. Any use or distri bution by any person other than this provid er is strict ly prohib ited. If you receiv e this report in error, please notify us [facility] at and return the origin al report to us at the addres s above. Thank you. [email or web address] [address], [place], [address] 01/17/2024 12:07:51 11/30/19 24 11/30/2023 PFT, compl ete Pulmon [facility] on Test PATIMARIA ANTONIA T NAME: Yeimy Loera UNIT #: [id number] ADMITT ING PROVID ER: Sophy Mckeon M.D. ACCOUN T #: [id number] PRIMAR Y CARE PROVID ER: SEB RIVERA MD DATE OF ADMIT: : 1964 Date of servic e: Time of Servic e: 14:00 Pulmon [facility] on Test Result Indica tions: Comple tion of [facility] Interp retati on Spirom etry: There is modera te airflo w limita tion. Impres [place] Modera te airflo w obstru ction Note: When compar ed to 04/09/23 , FEV1 and FVC have both signif icantl y improv ed. Clinic al Correl ation theref ore is recomm ended. cc: ------ ------ ------ ------ ------ ------ ------ ------ ------ ------ ------ --- Dictat ed by: JAY Madden MD,MAY TTANY E Dictat ed: Time: 161 Date: 1 618 Date: Date: Transc ribed Date: Transc ribed Time: 1615 By: PEPE This is privil eged, confid ential inform ation, intend ed only for the provid er named. Any use or distri bution by any person other than this provid er is strict ly prohib ited. If you receiv e this report in error, please notify us immedi terencely at and return the origin al report to us at the addres s above. Thank you. [email or web address] [address], [place], [address] 12/02/2023 05:56:24 03/21/20 24 03/21/2024 mammo graph y imagi ng repor t Carlito t Name: Yeimy Loera Unit #: [id number] Loc: DI Orderi ng Provid er: Sherrill drakeMarilyn SIMPSON Accoun t #: [id number] Status : REG CLI Primar y Care Provid er: VASU SAUL LOSS PREVENTION AGENT Date of Exam: 03/05 05/28 Sex: F Admiss ion Date: : 1964 Age: 58 Exam(s ) MG MAMMO SCREEN ING EXAM: MG MAMMO SCREEN ING CLINIC AL HISTOR Y: screen ing,Z1 2.39 TECHNI QUE: Bilate ral full field digita l CC and MLO mammog raphic images were obtain ed with 3D tomosy nthesi s and utiliz ing comput er aided detect ion (CAD). COMPAR AMEE: Availa ble for compar amee. FINDIN GS: Masses /Archi tectur al Distor tion: No suspic ious nodule s. No areas of hanny ectura l distor tion are presen t. Microc alcifi cation s: No suspic ious pleomo rphic- type are seen. Skin Thicke loni/N ipple Retrac tion: None. IMPRES [place]: 1. No signif icant interv al change with no specif ic featur es of malign yvette noted. 2. Unless there is more urgent need, screen ing mammog leandra is recomm ended, as per [facility] guidel stevei. BI-RAD S Catego ry 1 - Negati ve Breast Densit y - Catego ry D - Extrem romeo dense Breast densit y catego ry C or D implie s that the patien t has dense breast tissue . Dense breast tissue is very common and is not abnorm al but dense breast tissue can make it harder to find cancer on a mammog roxanna. Also, dense breast tissue may increa se their breast cancer risk. This inform ation about the result of the mammog roxanna report was provid ed to the patien t to raise their awaren ess. Use this report when you speak with the patien t about their risks for breast cancer , which includ es their family histor y. At that time, you may recomm end for more screen ing tests (Ultra sound or MRI) as they might be useful based on their risk. A negati ve radiog raphic report should not delay biopsy if a domina nt or clinic ally suspic ious mass is presen t. Up to ten percen t of cancer s are not identi fied on mammog leandra. A negati ve report may reinfo rce clinic al impres [place]. [place] is and dense breast s may obscur e an underl claritza neopla sm. False positi ve report s averag e 6 to 10%. Patien t will receiv e a letter notify ing them of these result s. Ordere d By: Marilyn Herrera DO CC: ------ ------ ------ ------ ------ ------ ------ ------ ------ ------ ------ ------ - Dictat ed By: Gregor Dawson M.D. [id number] Transc ribed By: Gregor Dawson 928 This is privil eged, confid ential inform ation intend ed only for the provid er named. Any use or distri bution by any person other than this provid er is strict ly prohib ited. If you receiv e this report in error, please notify us immedi terencely at [phone] and return the origin al report to us at the addres s above. Thank- you. [email or web address] [address] [place], [address] 03/21/2024 10:26:38 Result Notes None recorded. Problems Name Status Onset Date Resolution Date Notes Provider Name and Address Organization Details Recorded Time Asthma Active 2021 JEFF castillo [facility] 4 09:07:18 Pain in thoracic spine Active 2021 Problem Code: M54.9; Problem Code Type: ICD-10; Not Available [facility] 3 05:22:05 Nicotine dependence Active 2021 Problem Code: F17.200; Problem Code Type: ICD-10; Not Available [facility] 3 05:22:05 History of psychiatric disorder Active 2021 Problem Code: Z86.59; Problem Code Type: ICD-10; Not Available [facility] 3 05:22:05 Stimulant abuse Active 2021 Problem Code: F15.10; Problem Code Type: ICD-10; Not Available [facility] 3 05:22:05 Cocaine abuse Active 2021 JEFF castillo [facility] 4 09:07:24 Psychoactive substance abuse Active 2021 Problem Code: F19.10; Problem Code Type: ICD-10; Not Available [facility] 3 05:22:06 Cellulitis of right upper limb Active 2021 Problem Code: L03.113; Problem Code Type: ICD-10; Not Available [facility] 3 05:22:06 Pulmonary emphysema Active 2021 JEFF MANCINIUE jonathan, [facility] 4 09:08:01 Disorder of tooth development Active 2021 Problem Code: K00.9; Problem Code Type: ICD-10; Not Available [facility] 3 05:22:06 Screening for malignant neoplasm of breast Active 2021 Problem Code: Z12.39; Problem Code Type: ICD-10; Not Available [facility] 3 05:22:06 Dyspnea Active 2021 JEFF MANCINIUE jonathan, [facility] 4 09:07:35 Pleuritic pain Completed 202106/01/2022 Problem Code: R07.81; Problem Code Type: ICD-10; Not Available [facility] 3 05:22:06 Counseling Completed 202105/09/2022 Problem Code: Z71.89; Problem Code Type: ICD-10; Not Available [facility] 3 05:22:07 Nicotine dependence in remission Active 2021 JEFF MANCINIUE jonathan, [facility] 4 09:07:50 Congenital anomaly of bile ducts Active 202105/31/2022 - Comments only - Vasu Saul PHYSICIAN SURGEON - Incidental finding of biliary tree dilation on recent CT, will benefit from future abdominal ultrasound. Discuss again at 3 to 4-week follow-up. Primary focus today is pulmonology follow-up, starting Ellipta, completing doxycycline. Problem Code: Q44.5; Problem Code Type: ICD-10; Not Available [facility] 3 05:22:07 Lung field abnormal Active 2021 Problem Code: R91.8; Problem Code Type: ICD-10; Not Available [facility] 3 05:22:07 History of disorder of digestive system Active 2021 Problem Code: Z87.19; Problem Code Type: ICD-10; Not Available [facility] 3 05:22:07 Narcotic drug user Active 2021 Problem Code: F11.99; Problem Code Type: ICD-10; Not Available [facility] 3 05:22:07 Therapeutic drug monitoring assay Active 2022 Problem Code: Z51.81; Problem Code Type: ICD-10; Not Available [facility] 3 05:22:07 Screening for malignant neoplasm of colon Active 2022 Problem Code: Z12.11; Problem Code Type: ICD-10; Not Available [facility] 3 05:22:07 Depressed bipolar I disorder in partial remission Active 2022 JEFF castillo, [facility] 4 09:07:29 Viral hepatitis C Active 2022 JEFF castillo, [facility] 4 09:08:06 Generalized anxiety disorder Active 2022 JEFF castillo, [facility] 4 09:07:45 Cognitive deficit in attention Active 202205/04/2023 - Deteriorated - 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 Patient is unable to tolerate the patch due to rash, the gum due to teeth, and lozenges have no effectiveness . She is currently using [employer] vape unit but she finds this is too expensive to upkeep. Problem Code: F17.200; Problem Code Type: ICD-10; Not Available [facility] 3 05:22:08 Anxiety Completed 202103/16/2023 Problem Code: F41.8; Problem Code Type: ICD-10; Not Available [facility] 3 05:22:08 Fatigue Active 2022 VASU SAUL, MELISSA [address], [place], [address] , [facility] 3 13:55:21 Disorder in remission Active [address], [facility] [address] , [facility] 3 13:59:26 Mixed anxiety and depressive disorder Active [address], [facility] [address] , [facility] 3 10:25:34 Chronic constipation Active [address], [facility] [address] , [facility] 3 10:27:15 Opioid dependence in remission Active [address], [facility] [address] , [facility] 3 13:37:19 Acute upper respiratory infection Completed 202209/26/2023 Problem Code: J06.9; Problem Code Type: ICD-10; Not Available [facility] 4 05:38:18 Excessive sweating Active [address], [place], [address] , [facility] 4 12:08:38 Upper abdominal pain Active [address], [place], [address] , [facility] 4 11:26:23 Problem Notes None recorded. Procedures Surgical History None recorded. Imaging Results Imaging Date Name Status LastModified by Organization Details LastModified Time 10/26/2023 electrocardiogram completed [id number] [facility] [address] , [place], [address] 10/30/2023 10:52:12 11/30/2023 critical event note completed [email or web address] [place] [id number] [facility] [place], [address] 01/17/2024 12:07:51 11/30/2023 PFT, complete completed [id number] [place], [address] 12/02/2023 05:56:24 03/21/2024 mammography imaging report completed [address] [place], [address] 03/21/2024 10:26:38 Procedure Notes None recorded. Medical Equipment None Reported. Allergies Allergen ID Allergen Name Allergen Category Reaction Reaction Severity Criticality Documentation Date Start Date Code Code System Note Provider Name and Address Organization Details Recorded Time 30357 iodine medicatio n Not available Not available Not available 09/14/20232021 5933 RxNorm Not Available [facility] 3 16:21:57 05028 codeine medicatio n Not available Not available Not available 09/14/20232021 2670 RxNorm Aller gyCod e: '0040 [id number] 32'; Aller gyNam e: 'CODE INE'; Aller gyCon ceptT ype: 'NDC' ; Not Available [facility] 3 16:21:58 Medications Name Sig Start Date Stop Date Status Note LastModified by Organization Details LastModified Time albuterol sulfate 0.63 mg/3 mL solution for nebulizat ion Inhale 2 puff using nebulize r every four hours 05/02 completed Not Available Not Available Not Available doxycycli ne hyclate 100 mg capsule Take 1 capsule by mouth twice a day 07/03 completed Not Available Not Available Not Available ipratropi um 0.5 mg-albute rol 3 mg (2.5 mg base)/3 mL nebulizat ion soln INHALE THE CONTENTS OF ONE VIAL VIA NEBULIZE R EVERY 6 HOURS NEEDED; DO NOT COMBINE WITH INCRUSE active Not Available Not Available No t Available Carafate 100 mg/mL oral suspensio n Take 10 mL 4 times a day by oral route as directed for 14 days. 2023 active Not Available Not Available Not Avai lable albuterol sulfate 2.5 mg/3 mL (0.083 %) solution for nebulizat ion INHALE ONE VIAL VIA NEBULIZE R EVERY 4 HOURS NEEDED 2022 active Not Available Not Available Not Avai lable azithromy nayely 250 mg tablet active RX PULMONOL OGY Not Available Not Available Not Available Ativan 1 mg tablet Take 1 tablet by mouth twice a day as needed 03/16 completed Not Available Not Available Not Available Nicotrol 10 mg inhalatio n cartridge Inhale 10 cartridg e as directed as directed 6-10 cartridg es per day for up to 12 weeks 01/16 completed Not Available Not Available Not Available amitripty line 50 mg tablet Take 1 tablet by mouth every evening 12/20 completed Not Available Not Available Not Available ondansetr on 8 mg disintegr ating tablet Place 1 tablet twice a day by translin gual route as needed for 14 days, for nausea. 2023 active Not Available Not Available Not Avai lable lorazepam 0.5 mg tablet TAKE 1 TABLET BY MOUTH THREE TIMES A DAY NEEDED 2023 active Not Available Not Available Not Avai lable mirtazapi ne 30 mg tablet TAKE ONE TABLET BY MOUTH AT BEDTIME 10/11 completed Not Available Not Available Not Available omeprazol e 20 mg capsule,d elayed release Take 1 capsule every day by oral route as directed for 90 days. 2023 active Not Available Not Available Not Avai lable mirtazapi ne 45 mg tablet TAKE ONE TABLET BY MOUTH AT BEDTIME 10/11 completed Not Available Not Available Not Available hydroxyzi ne HCl 25 mg tablet TAKE ONE-HALF TO ONE TABLET BY MOUTH EVERY 6 HOURS NEEDED 10/11 completed Not Available Not Available Not Available bisacodyl 5 mg tablet,de layed release TAKE 5MG BY MOUTH ONCE FOR COLONOSC OPY BOWEL PREP , PER COLONOSC OPY INSTRUCT IONS 10/11 completed Not Available Not Available Not Available polyethyl liz glycol 3350 17 gram/dose oral powder TAKE 238 GRAMS ONCE FOR COLONOSC OPY BOWEL PREP, PER COLONOSC OPY INSTRUCT IONS 10/11 completed Not Available Not Available Not Available albuterol sulfate HFA 90 mcg/actua tion aerosol inhaler Inhale 2 puff using inhaler every four hours as needed 2021 active Not Available Not Available Not Avai lable Abilify 30 mg tablet Take 1 tablet by mouth once a day 01/19 completed Not Available Not Available Not Available Abilify 5 mg tablet 1 tablet by mouth once a day 10/11 completed RX PSYCHIAT RY Not Available Not Available Not Available Wellbutri n XL 150 mg 24 hr tablet, extended release Take 1 tablet by mouth every morning 08/29 completed Not Available Not Available Not Available escitalop roxanna 5 mg tablet Take 1 tablet every day by oral route for 90 days. 04/22 completed Not Available Not Available Not Available Advair HFA 45 mcg-21 mcg/actua tion aerosol inhaler Inhale 2 puff using inhaler twice a day 05/03 completed Not Available Not Available Not Available Advair HFA 230 mcg-21 mcg/actua tion aerosol inhaler INHALE TWO PUFFS BY MOUTH TWICE A DAY DIRECTED active Not Available Not Available No t Available Abilify 2 mg tablet 1 tablet by mouth once a day 03/23 completed Not Available Not Available Not Available Symbicort 80 mcg-4.5 mcg/actua tion HFA aerosol inhaler Inhale 2 puff using inhaler twice a day 05/03 completed Not Available Not Available Not Available Vyvanse 20 mg capsule Take 1 capsule by mouth once a day 10/11 completed RX PSYCHIAT RY Not Available Not Available Not Available buprenorp neirssa 8 mg-naloxo ne 2 mg [address] l film Place 1 film every day by sublingu al route. 2023 active Not Available Not Available Not Avai lable buprenorp nerissa 4 mg-naloxo ne [address] l film [address] 1 film under tongue once a day. Combine with 8 mg dose for a total of 12 mg suboxone daily. 2023 active Not Available Not Available Not Avai lable Spiriva Respimat 2.5 mcg/actua tion solution for inhalatio n INHALE TWO PUFFS BY MOUTH EVERY DAY 10/12 completed Not Available Not Available Not Available Incruse Ellipta 62.5 mcg/actua tion powder for inhalatio n Inhale 1 puff as directed once a day 2022 active Not Available Not Available Not Avai lable Vyvanse 10 mg capsule Take 1 capsule by mouth once a day 05/04 completed Not Available Not Available Not Available Vraylar 1.5 mg capsule Take 1 capsule by mouth twice a day 01/19 completed Not Available Not Available Not Available Vraylar 3 mg capsule Take 1 capsule by mouth once a day 01/23 completed Not Available Not Available Not Available Vosevi 400 mg-100 mg-100 mg tablet TAKE ONE TABLET BY MOUTH EVERY DAY 10/11 completed Not Available Not Available Not Available Loreev XR 1 mg capsule,e xtended release TAKE ONE CAPSULE BY MOUTH EVERY MORNING 10/11 completed Not Available Not Available Not Available Vitals Date Recorded Body height Body mass index (BMI) Body weight Body temperature Oxygen saturation Oxygen saturation in Arterial blood by Pulse oximetry Heart rate Systolic blood pressure Diastolic blood pressure Provider Name and Address Organization Details Last Updated DateTime 3 169.6 cm 20.1 kg/m2 75739.9 5 g 98.2 [degF] 98 % 98 % 89 /min 128 mm[Hg] 78 mm[Hg] Atiya Jacobsen MA [facility] 3 13:35:32 Date Recorded Body height Body mass index (BMI) Body weight Body temperature Oxygen saturation Oxygen saturation in Arterial blood by Pulse oximetry Heart rate Systolic blood pressure Diastolic blood pressure Provider Name and Address Organization Details Last Updated DateTime 4 169.6 cm 20.9 kg/m2 66963.2 9 g 98.1 [degF] 96 % 96 % 93 /min 124 mm[Hg] 71 mm[Hg] Atiya Jacobsen MA [facility] 4 11:00:22 Date Recorded Body height Body mass index (BMI) Body weight Body temperature Oxygen saturation Oxygen saturation in Arterial blood by Pulse oximetry Heart rate Systolic blood pressure Diastolic blood pressure Provider Name and Address Organization Details Last Updated DateTime 4 169.6 cm 19.3 kg/m2 58756.0 7 g 98.1 [degF] 97 % 97 % 88 /min 118 mm[Hg] 64 mm[Hg] Atiya Jacobsen MA [facility] 4 11:15:37 Social History Question Answer Notes LastModified by Organizat ion Details LastModified Time Tobacco Smoking Status Current Every Day Smoker patient vapes Atiya Jacobsen MA [facility], [facility] 01/17/2024 10:59:12 Do You Or Have You Ever Used E-cigarettes Or Vape? Current User Of Electronic Cigarettes Information not available 01/17/2024 What Was The Date Of Your Most Recent Tobacco Screening? 01/17/2024 [email or web address] Information not available 01/17/2024 What Is Your Current Pack Years? [email or web address] Information not available 01/17/2024 At What Age Did You Start Smoking Tobacco? 10 [email or web address] Information not available 01/17/2024 Do You Or Have You Ever Used Smokeless Tobacco? Never Used Smokeless Tobacco [email or web address] Information not available 01/17/2024 How Much Tobacco Do You Smoke? 2 PPD Former Smoker [email or web address] Information not available 01/17/2024 Has Tobacco Cessation Counseling Been Provided? No [email or web address] Information not available 01/17/2024 How Many Years Have You Smoked Tobacco? 45 [email or web address] Information not available 01/17/2024 Do You Or Have You Ever Used Any Other Forms Of Tobacco Or Nicotine? Yes Information not available 01/17/2024 How Many Years Have You Used E-cigarettes Or Vape? 1 Information not available 01/17/2024 Sex: Female Functional Status None recorded. Mental Status None recorded. Family History Relationship Description Onset Age of this Age Resolved Age Notes Unspecified Relation Family history of malignant neoplasm Bladder Relative: 'Niece'; Unspecified Relation Family history of breast cancer x4 Relative: 'Aunt'; Unspecified Relation Family history of malignant neoplasm of ovary Relative: 'Aunt'; Brother Family history of malignant neoplasm of lung Mother Family history of malignant neoplasm of lung Sister Family history of malignant neoplasm of lung Medical History No medical history recorded. Gynecological HistoryNo gynecological history recorded. Obstetrics History GPAL:G 0 P 0 0 0 0 Immunizations Vaccine Type Date Status Provider Name and Address Organization Details Recorded Time Influenza, split virus, quadrivalent, PF 08/29/2022 completed Not Available [facility] 09/14/2023 06:09:21 SARS-COV-2 (COVID-19) vaccine, UNSPECIFIED 07/20/2021 completed Not Available [facility] 09/14/2023 06:09:21 SARS-COV-2 (COVID-19) vaccine, UNSPECIFIED 08/17/2021 completed Not Available [facility] 09/14/2023 06:09:21 Pneumococcal conjugate PCV20, polysaccharide [id number] conjugate, adjuvant, PF 10/18/2022 completed Not Available [facility] 09/14/2023 06:09:21 COVID-19, mRNA, LNP-S, bivalent, PF, 30 mcg/0.3 mL dose 08/29/2022 completed Not Available [facility] 09/14/20 06:09:21 Past Encounters Encounter ID Performer Location Encounter Start Date Encounter Closed Date Diagnosis/Indication Diagnosis SNOMED-CT Code [id number] VASU SAUL [facility] [address] [place] [address] 10/11/2023 13:17:46 10/11/2023 14:10:43 Fatigue 93138276 Pulmonary emphysema 8743 3001 Viral hepatitis C 197908 07 Opioid dep endence in remission 170030604 Mixed anxi ety and depressive disorder 315208024 Chronic constipation 236 143193 [id number] VASU SAUL [facility] [address] [place] [address] 01/17/2024 10:48:29 01/17/2024 11:31:31 Fatigue 95861585 Opioid dep endence in remission 069618084 Pulmonary emphysema 8743 3001 Viral hepatitis C 389902 07 Mixed anxi ety and depressive disorder 473908841 Chronic constipation 236 315775 Excessive sweating 74309 005 Screening for malignant neoplasm of cervix 890037309 [id number] Windy Pimentel [facility] [address] [place] [address] 04/22/2024 10:56:51 04/22/2024 11:44:26 Opioid dependence in remission 395900435 Pulmonary emphysema 8743 3001 Viral hepatitis C 963810 07 Mixed anxi ety and depressive disorder 069335799 Chronic constipation 236 113997 Upper abdominal pain 831 81401 Health Concerns Section Related Observation LastModified by Organization Detai ls LastModified Time None Recorded Concern Status LastModified by Organization Details LastModified Time None Recorded Advance Directives Directive None Recorded Payers Encounter Date Sequence Insurance Name Policy Number Policy Atkinson Covered Member ID Atkinson Member ID Guarantor Name 10/11/2023 1 [facility] (MEDICAID) Meka Gibson Flor [id number] Meka M Flor 01/17/2024 1 [facility] (MEDICAID) Meka M Flor [id number] Meka M Flor 04/22/2024 1 [facility] (MEDICAID) Meka Gibson Flor [id number] Meka Paige Flor Notes Date Note Type Note Provider Name and Address Organization Details Recorded Time 10/11/2023 text/html HPI Notes: Meka presents via telephone to [facility] for 3-month chronic care follow-up, to include opioid use disorder, emphysema, anxiety and depression, and continued tobacco dependence. Participates in MAT here at [facility]. [address], [place], [address], [facility] 10/12/2023 10:30:48 01/17/2024 text/html HPI Notes: Meka presents via telephone to [facility] for 3-month chronic care follow-up, to include opioid use disorder, emphysema, anxiety and depression, and continued tobacco dependence. Participates in MAT here at [facility]. [address], [place], [address], [facility]. 01/17/2024 12:18:23 04/22/2024 text/html HPI Notes: Meka presents to [facility] for 3-month chronic care follow-up + Evaluation of acute upper abdominal pain + nausea and vomiting x 6 weeks since returning from a cruise. Complex medical history to include anxiety and depression, mood disorder, opioid use disorder, history of stimulant dependence in remission, severe pulmonary emphysema, current tobacco use. Participates in Medication assisted treatment here at [facility]. VASU SAUL, MELISSA [address], [place], [address], [facility]. 04/22/2024 14:58:32 OBGyn Episode No OBEpisode recorded.
--- OUTSIDE RECORDS SUMMARY | 2024-05-19 02:21 | XMS_ITS | Encounter Summary ---
Author Organization [facility] Address [address] [place] [address] Care Team Providers Care Business Unit Leader Name Role Phone Royer Reed MD Primary Care Provider [phone] Encounter Details Date Type Department Care Team (Late st Contact Info) Description 03/07/2024 Lab Requisition [facility] Pathology & Laboratory Medicine - [facility] [address] [place] [address] Marilyn Rios [address] [place] [address] [place] [address] Encounter for other general examination Social History Tobacco Use Types Packs/Day Years Used Date Smoking Tobacco: Never Assessed Sex and Gender Information Value Date Recorded Sex Assigned at Not on file Gender Identity Not on file Sexual Orientation Not on file documented as of this encounter Plan of Treatment Not on file documented as of this encounter Procedures Procedure Name Priority Date/Time Associated Diagnosis Comments PAP TEST Today 03/06/2024 10:40 EDT Encounter for other general examination HPV DNA DETECTION WITH GENOTYPING, PCR Today 03/06/2024 10:40 EDT Encounter for other general examination documented in this encounter Results * HUMAN PAPILLOMAVIRUS (HPV) DETECTION-HIGH RISK TYPES (03/06/2024 10:40 EDT) HPV other High Risk types, PCR Negative Negative 03/13/2024 15:24 EDT [facility] Comment:No E6 or E7 mRNA is detected from HPV types 16,18,31,33,35,39,45,51,52,56,58,59,66, and 68 by dowel sander operator mediated amplification. Pap Test CERVIX UTERI STRUCTURE / Unknown 03/06/2024 10:40 EDT 03/12/2024 14:56 EDT Marilyn Rios MICROBIOLOGY - GENER AL ORDERABLES Performing Organization Address City/[facility]/ZIP Co de Phone Number [facility] [address] [place] [address] * PAP TEST (03/06/2024 10:40 EDT) Specimens A. Cervix and/or Endocervix , ThinPrep Imaging System with Manual Evaluation 03/13/2024 15:24 EDT [facility] Specimen Adequacy Satisfactory for Evaluation - transformation zone component present 03/13/2024 15:24 EDT [facility] General Categorization Negative for intraepithelial lesion or malignancy 03/13/2024 15:24 EDT [facility] Attestation . 03/13/2024 15:24 EDT [facility] at 1523 Clinical History See below 03/13/20 24 15:24 EDT [facility] HPV The result for the Human Papillomavirus (HPV) Detection-High Risk Types is Negative. No E6 or E7 mRNA is detected from HPV types 16,18,31,33,35,39 ,45,51,52,56,58,5 9,66, and 68 by dowel sander operator mediated amplification.Francesca ting was performed on specimen [id number] and was resulted on 03/13/2024 1523 EDT by CHIKIS, LAB INSTRUMENT RESULTS IN 03/13/2024 15:24 EDT [facility] Performing Lab [facility] 03/13/2024 15:24 EDT [facility] Scanned Images 03/13/2024 15:24 EDT [facility] Pap Test CERVIX UTERI STRUCTURE / Unknown 03/06/2024 10:40 EDT 03/07/2024 12:09 EDT Marilyn Rios PATHOLOGY ORDERABLES Performing Organization Address City/[facility]/ZIP Co de Phone Number [facility] [address] [place] [address] documented in this encounter Visit Diagnoses Diagnosis Encounter for other general examination documented in this encounter Care Teams Business Unit Leader Relationship Specialty Start Date End Date Royer Reed MD [address] [place] [address] PCP - General Internal Medicine - Primary Care 06/01/23 documented as of this encounter
--- OUTSIDE RECORDS SUMMARY | 2024-05-19 02:21 | XMS_ITS | Encounter Summary ---
Author Organization [facility] Address [facility] [place] [address] Care Team Providers Care Project Admin Name Role Phone None Primary Care Provider Unavailabl e Reason for Referral * Diagnostic Test (Routine) - Authorized Specialty Diagnoses / Procedures Referred By Lory mazariegos Referred To Contact Radiology Diagnoses Chronic obstructive pulmonary disease, unspecified COPD type Multiple lung nodules on CT SOB (shortness of breath) Procedures CT Chest wo Contrast (Generic) CT Chest wo Contrast (Generic) Allen Tovar MD [facility] [place] [address] [facility] [place] [address] Referral ID Status Reason Start Date Expiration Date Visits Requested Visits Authorized [id number] Authorized Specialty Service Requested 03/19/2024 09/19/2025 1 1 Reason for Visit * Consultation (Routine) - Closed Specialty Diagnoses / Procedures Referred By Lory t Referred To Contact Pulmonology Diagnoses Asthma-COPD overlap syndrome [place] valve eval Procedures [place] Valve eval Dayanara Lau MD [address] [place] [address] [facility] [address] [place] [address] Referral ID Status Reason Start Date Expiration Date Visits Re quested Visits Authorized [id number] Closed 05/29/2023 05/28/2024 1 1 Encounter Details Date Type Department Care Team (Late st Contact Info) Description 03/19/2024 11:20 AM EDT Office [place] [address] Allen Tovar MD [facility] [place] [address] lung nodules on CT; Chronic obstructive pulmonary disease, unspecified COPD type; Centrilobular emphysema; SOB (shortness of breath); Tobacco abuse counseling Social History Tobacco Use Types Packs/Day Years Used Date Smoking Tobacco: Former Smokeless Tobacco: Never Comments:Quit longer than si x months Sex and Gender Information Value Date Recorded Sex Assigned at Not on file Gender Identity Not on file Sexual Orientation Not on file documented as of this encounter Last Filed Vital Signs Vital Sign [place] Time Taken Comments Blood Pressure 112/79 03/19/2024 9:46 AM EDT Pulse 61 03/19/2024 9:46 AM EDT Temperature 36.4 ??C (97.6 ??F) 03/19/2024 9:46 AM ED T Respiratory Rate - - Oxygen Saturation - - Inhaled Oxygen Concentration - - Weight 58.2 kg (128 lb 4.9 oz) 03/19/2024 9:46 A M EDT Height 170.2 cm (5' 7.01) 03/19/2024 9:46 AM ED T Body Mass Index 20.09 03/19/2024 9:46 AM EDT documented in this encounter Patient Instructions * Patient Instructions* Irene Alvarado RT - 03/19/2024 11:20 AM EDT Order of inhalers and nebulizer treatments: Albuterol HFA 2 puffs every 4 hours as needed- with spacer: deep sigh in and hold for 8-10 seconds ( barely hear the whistle on the spacer) Or Duoneb every 4 hours as needed -Advair HFA 115/21 mcg 2 puffs every 12 hours- with spacer: deep sigh in and hold for 8-10 seconds ( barely hear the whistle on the spacer) -Incruse 62.5 mcg once a day- medium fast deep breath in and hold for 8-10 seconds Cleaning instructions for ( spacer) Valved holding chamber to be done a minimum of weekly: - remove inhaler holding end and mouth piece - soak in hot soapy ( dish detergent) water for 10 minutes - Rinse all parts well with hot water -Air dry overnight Cleaning instructions for nebulizer kit to be done a minimum of daily: or place in top rack of the geotechnical engineer for your non disposable nebulizer kit - soak nebulizer parts in hot soapy ( dish detergent) water for 10 minutes - Rinse all parts well with hot water -Air dry overnight Disinfecting instruction for nebulizer kit to be done weekly: ( for non disposable nebulizer kit) 1.soak nebulizer parts in a solution of 1 part distilled white vinegar and 3 parts hot water for 1 hour -Rinse all parts well with hot water - Air dry or dry with a clean, lint free cloth 2. Wash in the geotechnical engineer (if your geotechnical engineer achieves > 158?? for 30 minutes) on the top rack 3. Place in an electric steam sterilizer (baby bottle sterilizer) on six to eight minute steam cycle 4. Soak in 3% hydrogen peroxide for 30 minutes 5. Soak in 70%-90% isopropyl alcohol (rubbing alcohol) for 3 minutes Rinse Do not use tap water Rinse with sterile water Air Dry Lay on a clean surface to thoroughly air dry 6. Alternatively, nebulizer cup may be disinfected by boiling in clean pot of water for 5 minutes. (Set a timer so you remember to take it out of the water after 5 minutes - otherwise the cup will melt !) CHANGE the nebulizer cup every 6 months. Disposable nebulizer replace weekly Non-disposable nebulizer replace every 6 months documented in this encounter Progress Notes * Allen Tovar MD - 03/19/2024 11:20 AM EDT Images from the original note were not included. BRONCHOSCOPIC LUNG VOLUME REDUCTION CONSULTATION NOTE ADVANCED LUNG DISEASE PROGRAM SECTION OF PULMONARY & CRITICAL CARE MEDICINE PATIENT NAME: Meka Ray : 1965 MEDICAL RECORD: [id number] DATE OF SERVICE: 03/19/2024 REFERRING PHYSICIAN: Dr. Lau PRIMARY CARE PHYSICIAN: None StratX ID #: [id number] Reason for Consultation: I have been asked to see Ms. Ray by Dr. Lau for evaluation for bronchoscopic lung volume reduction (BLVR) candidacy History of Present Illness: Ms. Meka Ray is a 58 y.o. woman with a history of severe emphysema and associated air-trapping and dyspnea. This was initially diagnosed ~3y ago. She currently denies SOB at rest unless sheis talking too much or gets upset / excited. She does have a chronic cough though denies any hemoptysis, fever, or chills though has had drenching night sweats for the past three years. She has also lost ~ 5lbs over the last 6w but thinks she is gaining some of it back. She does utilize home oxygenat 2L/min with activity and at night. The patient is actively vaping. Her last cigarette was ~1y. The patient has been enrolled in pulmonary rehabilitation. The last pulmonary rehabilitation session was in November of this year. Review of Systems: A 12 point ROS was negative aside from as listed in the HPI. PMH COPD/Emphysema Depression She denies any history of HTN, CAD, DM She has received the covid-19 vaccine / boosters though is not sure if she received the influenza vaccine Medications: Prior to Admission medications Medication Sig Start Date End Date Taking? Authorizing Provider albuteroL 90 mcg/actuation HFA Aerosol Inhaler Inhale 2 puffs into the lungs every 4 hours as needed for Wheezing. Use with spacer PROVIDER, HISTORICAL albuteroL (ACCUNEB) 1.25 mg/3 mL Solution for Nebulization Take 1 ampule by nebulization 2 times daily. PROVIDER, HISTORICAL fluticasone propion-salmeteroL (ADVAIR HFA) 115-21 mcg/actuation HFA Aerosol Inhaler Inhale 2 puffsinto the lungs 2 times daily. Unsure of strength PROVIDER, HISTORICAL ipratropium-albuteroL (Duoneb) 0.5 mg-3 mg(2.5 mg base)/3 mL Solution for Nebulization Take 3 mLs by nebulization daily. PROVIDER, HISTORICAL Allergies: Allergies Allergen Reactions Codeine Iodine And Iodide Containing Products Theophylline (Bulk) Family History: Father at 68yo from lung CA Mother at 71yo from lung CA Brother, sister, a niece and 1/2 niece also had lung cancer Social History: Smoking status: up to 2ppd x 40y, quit 1y, now vaping EtOH: none Other drugs: marijuana 2 puffs / night The patient lives with best friend Employment: retired offshore fisherman Occupational exposures: glue exposure Objective: 36.4 112/79 61 16 General: This is a 58 y.o. female, NAD, raspy voice HEENT: Moist mucous membranes, sclera are white, PERRL Neck: Supple, trachea is midline, no gross deformity Lymphatics: No obvious lymphadenopathy or masses Cardiovascular: Nl s1/s2, rrr, no murmurs, no gallops Respiratory: Clear to auscultation bilaterally, no adventitious LS GI: soft, nt, nd, +bs Musculoskeletal: Normal bulk and tone and muscles Extremities: no LE edema noted, no cyanosis, no clubbing Integument: No rash, exposed skin appears grossly normal. Neurologic: Alert and oriented, moves all extremities appropriately, no obvious focal deficits Psychologic: Normal mood and affect. Labs: Arterial blood gas (on room air x10 minutes) performed 03/19/24: 7.26/41/67, COHb 6.6% PFTS: DATE Post-BD FVC Post-BD FEV1 FEV1/FVC DLCO TLC RV 6MWT 03/19/24 05/29/23 84% 50% 47% 69% 132% 177% meters Imaging: (Images personally reviewed) 11/21/22 CT chest: StratX protocol?: Yes There is a 7x6mm nodule in the LEONARDO as well as a nearby 5x4mm nodule in the LEONARDO. There is underlyingcentrilobular emphysema, there are no pleural or pericardial effusions or significant mediastinal adenopathy. Transthoracic Echocardiogram (TTE): 03/19/24: normal LV, EF 61%, normal RV, unable to assess PASP mMRC (Modified Medical Research Calendar Control Clerk Blood Bank) Dyspnea Scale: Grade +2: Walks slower than people of the same age because of dyspnea or has to stop for breath when walking at own pace. BLVR Criteria: Indications Age 45-74 years old Yes 58 y.o. Post-BD FEV1 15-50% Yes 50% RV >/ 150% (>/200% if homogeneous) Yes 177% TLC >/ 100% Yes 132% DLco >/20% Yes 69% 6MWT 100-500 meters Unknown ? meters Contraindications Smoking last 4 months Yes Quit date: 2022 PCO2 >60 mmHg? No 41 mmHg PaO2 <45 mmHg? No 67 mmHg PASP >45 mmHg Unknown ? mmHg LVEf <45% No 61% BMI >/ 35 No 20 kg/m2 Pulmonary nodules in target lobe being monitored Unknown Any new pulmonary nodules last 3 months Unknown Prior lobectomy/LVRS No Pulmonary rehab last 1 year Yes ACS or CHF event last 6 mo No >/ 2 AECOPD last 12 mo No >/2 Pneumonia last 12 mo No Allergy to valve components (nickel, titanium, silicone) No Presence of A1AT deficiency Unknown Prednisone >/ 20 mg/d No Assessment & Plan: My assessment at this time is that Ms. Ray is a pleasant 58 y.o. emale with severe emphysema that is significantly impacting the quality of her life. We discussed that the severity of her emphysema is below our typical threshold for proceeding with BLVR, however, her CT and PFTs are somewhat outdated. I have ordered a repeat CT to assess interval change in the lung nodules and we can re-import into Stratx. We will review her case at our multi-disciplinary advanced obstructive lung disease conference and if she now meets criteria and all are in agreement, the next step would be bronchoscopy with Chartis assessment of collateral ventilation. If evaluation of the fissures with Chartis documents the absence of collateral ventilation, Ms. Ray would potentially be a candidate for BLVR, though again, this depends on the repeat CT and PFTs. The target(s) for lobar occlusion will be based on a combination of the quantitative CT analysis, StratX assessment and quantitative perfusions scan. The details of bronchoscopic lung volume reduction, risks and benefits were discussed at length with the patient. I explained that prior to insertion of valves, the Chartis system will be used to establish the absence of collateral ventilation (CV-) in the zone targeted for treatment. The patient is aware that should the Chartis evaluation identify that the patient is collateral ventilation positive (CV+), endobronchial valves (EBV) will not be placed. In this case, the procedure would be terminated and the patient discharged home that day without valves. Patients with >95%, 80-95%, and <80% fissure completeness on StratX have a 14%, 46% and 84% change of being CV+ at the time of Chartis respectively. If the patient's Chartis assessment is found to be consistent with the absence of collateral ventilation, the plan will be to proceed with EBV placement with goal of achieving total lobar occlusion. We reviewed some of the associated data including: In the Liberate study, 65% of patients have clinically significant improvements in lung function, exercise tolerance and quality of life. If the patient is CV - and valves are placed the patient will remain in the hospital for at least 3nights to observe for pneumothorax. We specifically discussed the risks including the major complications of pneumothorax, COPD exacerbation, respiratory failure, pneumonia and overall mortality. Pneumothorax occurred in 26.6% of the treatment population and 82% of those required a chest tube. 76% of the pneumothoraces occurred in the first 72 hours post-procedure. COPD exacerbation occurred in approximately 8.4% of the treatment population in the first 45 days post procedure. Respiratory failure was seen in about 1.6% in the first 45 days post procedure Pneumonia was seen in about 7% within the first 45 days, typically in untreated regions. Mortality was 3.3% at 1 year compared to 2.8% in the group receiving optimal medical care. The patient also is aware that after 45 days, the risk of COPD exacerbation, pneumonia, as well as respiratory failure is less in the group that received EBV's compared to those receiving traditionaloptimized standard of care. Ms. Ray states that she understands the risk and benefits of the procedure and agrees, that at this time, she is not interested in BLVR, though again, we will see whatthe new PFTs and CT show. Ms. Ray was provided ample time to ask questions which were answered to her liking. We discussed tobacco cessation in detail and she understands she should stop vaping. I personally performed a total of 60 minutes or greater of aggregate time involved in patient evaluation, reviewing medical records, interpreting diagnostic studies (imaging and/or labs), formulatingmy plan, and documentation of this consultation note. Allen Tovar MD, 03/19/2024, 11:46 AM Interventional Pulmonology Chief, Section of Pulmonary & Critical Care Pager: [phone] I provided medical care services that are part of the ongoing care related to the patient's serious/complex condition. documented in this encounter Plan of Treatment Scheduled Orders Name Type Priority Associated Diagnoses Orde r Schedule CT Chest wo Contrast (Generic) Imaging Routine Chronic obstructive pulmonary disease, unspecified COPD type Multiple lung nodules on CT SOB (shortness of breath) Expected: 03/19/2024 (Approximate), Expires: 06/19/2024 Common Pulmonary Function Test PFT Routine Chronic obstructive pulmonary disease, unspecified COPD type Multiple lung nodules on CT SOB (shortness of breath) Expected: 03/19/2024, Expires: 09/18/2024 documented as of this encounter Procedures Procedure Name Priority Date/Time Associated Diagnosis Comments POINT OF CARE BLOOD GAS HISTORICAL Routine 03/19/2024 8:35 AM EDT documented in this encounter Results * (ABNORMAL) Point of Care Blood Gas Historical (03/19/2024 8:35 AM EDT) POC pH 7.37 7.35 - 7.45 [facility] POC PCO2 47(H) 35 - 45 mmHg [facility] POC PO2 62(L) 85 - 104 mmHg [facility] POC Base Excess 1.0 -3.0 - 3.0 mmol/L [facility] POC HCO3 26.7(H) 20.0 - 26.0 mmol/L [facility] POC Sodium 138 135 - 145 mmol/L [facility] POC Potassium 4.2 3.5 - 5.0 mmol/L [facility] POC Ionized Ca 1.26 1.15 - 1.33 mmol/L [facility] POC Hematocrit 45.0 34.0 - 45.0 % [facility] POC Calc Hgb 15.3 11.2 - 15.7 g/dL [facility] Comment:The calculation of h emoglobin from hematocrit assumes a normal MCHC. POC Bgas Loc Resp [facility] Blood 03/19/2024 8:35 AM EDT 03/18/2024 12:00 PM EDT Allen Tovar MD CHEMISTRY ORDER OUMAR [facility] [place] [address] documented in this encounter Visit Diagnoses Diagnosis Multiple lung nodules on CT Chronic obstructive pulmonary disease, unspecified COPD type Centrilobular emphysema Other emphysema SOB (shortness of breath) Shortness of breath Tobacco abuse counseling Counseling on substance use and abuse documented in this encounter Care Teams Project Admin Relationship Specialty Start Date End Date None None PCP - General 01/25/22 documented as of this encounter
--- OUTSIDE RECORDS SUMMARY | 2024-05-19 02:21 | XMS_ITS | Encounter Summary ---
Author Organization [facility] Address [address] [place] [address] Care Team Providers Care Certified Control Systems Technician Name Role Phone Royer Reed MD Primary Care Provider Encounter Details Date Type Department Care Team (Late st Contact Info) Description 03/12/2023 Lab Requisition [facility] Pathology & Laboratory Medicine - [facility] [address] [place] [address] Adam Dawson MD [address] [place] [address], [address] [place] [address] Encounter for screening for malignant neoplasm of colon Social History Tobacco Use Types Packs/Day Years Used Date Smoking Tobacco: Never Assessed Sex and Gender Information Value Date Recorded Sex Assigned at Not on file Gender Identity Not on file Sexual Orientation Not on file documented as of this encounter Plan of Treatment Not on file documented as of this encounter Procedures Procedure Name Priority Date/Time Associated Diagnosis Comments SURGICAL PATHOLOGY Today 03/12/2023 7:54 EDT Encounter for screening for malignant neoplasm of colon documented in this encounter Results * SURGICAL PATHOLOGY (03/12/2023 7:54 EDT) Note to Patient The following pathology results have been interpreted by your pathologist and may be available to you before your health provider has had the opportunity to review them. Please allow time for your provider to receive these results and explore management options, if applicable. 03/15/2023 9:10 EDT [facility] Final Diagnosis A. COLON, RECTAL, POLYP, BIOPSY: - Tubulovillous adenoma. B. COLON, CECUM, POLYP, BIOPSY: - Tubular adenoma. C. COLON, ASCENDING, POLYP, BIOPSY: - Colonic mucosa with no significant diagnostic abnormalities. - No definite polyp identified. - Deeper sections x3 examined. D. COLON, RANDOM, BIOPSY: - Colonic mucosa with no significant diagnostic abnormality. E. COLON, 70 CM, POLYP, BIOPSY: - Tubular adenoma. 03/15/2023 9:10 [facility] Attestation There was significant resident/fellow involvement in the diagnostic evaluation of this case. By the signature below, the attending physician certifies that they have personally conducted a gross and/or microscopic examination of the described specimens and rendered or confirmed the above diagnosis. 03/15/2023 9:10 [facility] at 0910 Clinical History Screening/constip ation 03/15/2023 9:10 [facility] Gross Description A. Received in formalin labelled with proper patient identification (initials C, J) and 1. Rectal polyp is a single pink-brown lobular polypoid tissue (1.0 x 0.8 x 0.5 cm). Trisected and entirely submitted in A1. B. Received in formalin labelled with proper patient identification (initials C, J) and 2. Cecal polyp is a single handley polypoid tissue (0.5 x 0.3 x 0.3 cm). Submitted intact in B1. C. Received in formalin labelled with proper patient identification (initials C, J) and 3. Ascending colon polyp is a single handley tissue (0.4 x 0.2 x 0.1 cm). Submitted intact in C1. D. Received in formalin labelled with proper patient identification (initials C, J) and 4. Random colon Bx are 7 handley to handley-brown tissues (0.5 x 0.2 x 0.1 cm to 0.2 x 0.1 by less than 0.1 cm). Entirely submitted in D1-D2. Please note the smallest tissue may not survive processing. E. Received in formalin labelled with proper patient identification (initials C, J) and 5. Polyp @ 70 cm is a single handley tissue (0.9 x 0.1 x 0.1 cm). Submitted intact in E1. Cait Jung 03/13/2023 10:03 03/15/2023 9:10 [facility] Resident/Georgi w: Edgar Hernandez MD 03/15/2023 9:10 EDT [facility] Performing Lab [facility] 03/15/2023 9:10 EDT [facility] Scanned Images 03/15/2023 9:10 EDT [facility] Tissue ENTIRE COLON / Unknown 03/12/2023 7:54 EDT 03/12/2023 19:50 EDT Tissue specimen (specimen) CECUM STRUCTURE / Unknown 03/12/2023 7:54 EDT 03/12/2023 19:50 EDT Tissue specimen (specimen) ASCENDING COLON STRUCTURE / Unknown 03/12/2023 7:54 EDT 03/12/2023 19:50 EDT Tissue specimen (specimen) COLON STRUCTURE / Unknown 03/12/2023 7:54 EDT 03/12/2023 19:50 EDT Tissue specimen (specimen) COLON STRUCTURE / Unknown 03/12/2023 7:54 EDT 03/12/2023 19:50 EDT Adam Dawson MD PATHOLOGY ORDERABLES [facility] [address] [place] [address] documented in this encounter Visit Diagnoses Diagnosis Encounter for screening for malignant neoplasm of colon Special screening for malignant neoplasms, colon documented in this encounter Care Teams Certified Control Systems Technician Relationship Specialty Start Date End Date Royer Reed MD [address] [place] [address] PCP - General Internal Medicine - Primary Care 06/01/23 documented as of this encounter
--- OUTSIDE RECORDS SUMMARY | 2024-05-19 02:21 | XMS_ITS | Encounter Summary ---
Author Organization [facility] Address [facility] [place] [address] [place] [address] Care Team Providers Care Finish Remover Name Role Phone None Primary Care Provider Unavailabl e Encounter Details Date Type Department Care Team (Late st Contact Info) Description 03/19/2024 9:00 AM EDT Office Visit Pulmonology at [facility] [place] [id number] Irene Alvarado RT Chronic obstructive pulmonary disease, unspecified COPD type Social History Tobacco Use Types Packs/Day Years Used Date Smoking Tobacco: Former Smokeless Tobacco: Never Tobacco Cessation:Counseling Given: Not Answered Comments:Quit longer than six months Sex and Gender Information Value Date Recorded Sex Assigned at Not on file Gender Identity Not on file Sexual Orientation Not on file documented as of this encounter Last Filed Vital Signs Vital Sign Reading Time Taken Comments Blood Pressure 112/79 03/19/2024 8:49 AM EDT Pulse 61 03/19/2024 8:49 AM EDT Temperature 36.4 ??C (97.6 ??F) 03/19/2024 8:49 AM ED T Respiratory Rate 20 03/19/2024 8:49 AM EDT Oxygen Saturation 94% 03/19/2024 8:49 AM EDT Inhaled Oxygen Concentration - - Weight 58.2 kg (128 lb 6.4 oz) 03/19/2024 8:49 A M EDT Height 170.2 cm (5' 7) 03/19/2024 8:49 AM EDT Body Mass Index 20.11 03/19/2024 8:49 AM EDT documented in this encounter Progress Notes * Irene Alvarado RT - 03/19/2024 9:00 AM EDT Arterial Blood Gas Procedure Last's test performed on right radial and ulnar arteries. Result: Positive Resting SpO2 on room air: 91% HR: 82 bpm ABG attempt x 1- obtained < 1 ml, Then IP RT ABG x 1. Obtained (1-2 mL) sample from right radial artery. Post procedure care: - Applied pressure to area with gauze for 5-10 minutes. ABG specimen ran on Istat: 7.365, 46.6, 562, 26.7 90%, hb: 15.3 Then ABG specimen ran on [place] 500: 7.395, 41.4, 66.8, 24.8 87.7, COHB 6.6, Hb: 15 - The specimen was labeled in accordance with the [facility] lab protocols. MDI/DPI instruction for Meka Ray: Inspiratory Flows Resistance via Incheck dial Peak Inspiratory Flow Rate in LPM Low resistance ( MDI/Respimat): 1) 30 2) 35 3) 55 Medium resistance( most DPIs) 1)75 2) 60 -Instructed in MDI with valved holding chamber technique: initial inspiratory flow: 30 lpm with 10 second breath hold, after instruction Meka Ray Able to demonstrate technique correctly, Inspiratory flow after instruction: 55 lpm, deep sigh breath in with 8-10 second breath hold. - DPI: Instructed in ellipta technique: initial inspiratory flow= 75 lpm with 10 second breath hold, after instruction Meka Ray Able to demonstrate technique, Inspiratory flow after instruction: 60 lpm, medium fast deep breath in with 8-10 second breath hold. Reviewed importance of priming initially and re-priming MDI HFA if not used within 2 weeks. Reviewed importance of rinsing the mouth after the Advair- she is doing this Reviewed cleaning instructions for Valved holding chamber to be done a minimum of weekly: - remove inhaler holding end and mouth piece - soak in hot soapy ( dish detergent) water for 10 minutes - Rinse all parts well with hot water -Air dry overnight Reviewed cleaning instructions for nebulizer kit to be done a minimum of daily: she was doing this monthly - soak nebulizer parts in hot soapy ( dish detergent) water for 10 minutes - Rinse all parts well with hot water -Air dry overnight Reviewed Disinfecting instruction for nebulizer kit to be done weekly: 1.soak nebulizer parts in a solution of 1 part distilled white vinegar and 3 parts hot water for 1 hour -Rinse all parts well with hot water - Air dry or dry with a clean, lint free cloth 2. Wash in the cash applications associate (if your cash applications associate achieves > 158?? for 30 minutes) on [...] - otherwise the cup will melt !) - Replace Disposable nebulizer kit weekly - Replace Non disposable nebulizer kit every 6 months. Provided non disposable nebulizer kit - Reviewed order of inhalers and nebulizer treatments: Albuterol HFA 2 puffs every 4 hours as needed Or Duoneb every 4 hours as needed -Advair HFA 115/21 mcg 2 puffs every 12 hours -Incruse 62.5 mcg once a day RT ANGY documented in this encounter Plan of Treatment Not on file documented as of this encounter Procedures Procedure Name Priority Date/Time Associated Diagnosis Comments BLOOD GAS ARTERIAL (NL) Routine 03/19/2024 9:37 AM EDT documented in this encounter Results * (ABNORMAL) Blood Gas Arterial (NL) (03/19/2024 9:37 AM EDT) pH Art 7.40 7.35 - 7.45 [facility] pCO2 Art 41 35 - 45 mmHg [facility] pO2 Art 67(L) 85 - 104 mmHg [facility] HCO3 Art 24.8 20.0 - 26.0 mmol/L [facility] BE Art -0.1 -3.0 - 3.0 mmol/L [facility] Hgb Blood Gas 15.0 11.7 - 15.5 g/dL [facility] O2HB Art 87.7(L) 94.0 - 97.0 % [facility] COHB Art 6.6 % [facility] Comment: Nonsmokers: ??0.5-1.5% COHB Smokers: ??Variable, but usually less than 10% Toxic: 20 - 30% COHB Lethal: ??Greater than 60% COHB METHB Art 0.3 <=1.5 % [facility] Na Whole Blood 138 135 - 145 mmol/L [facility] K Whole Blood 4.2 3.5 - 5.0 mmol/L [facility] Comment: Please note: ??Patients with WBC >100,000 may have falsely elevated Potassium levels. ??Contact the Clinical Chemistry Laboratory if there are any questions. ICa Whole Blood 1.17 1.15 - 1.33 mmol/L [facility] Comment: Note: ??Total bilirubin higher than 20 mg/dL may lead to falsely low ionized calcium. CL Whole Blood 102 98 - 107 mmol/L [facility] Gluc Whole Bld 97 65 - 199 mg/dL [facility] Comment:Diabetes: >=200 mg/d L plus symptoms. Lactate WB 0.9 0.5 - 2.2 mmol/L [facility] FIO2 Art 21 % [facility] PF Ratio Art 319 [facility] Blood Arterial Draw / Unknown 03/19/2024 9:37 AM EDT 03/19/2024 9:37 AM EDT Narrative Resulting Agency Comment Spec In Lab Kareen Spivey APRN CHEMISTRY ORDERABL ES [facility] [place] [address] documented in this encounter Visit Diagnoses Diagnosis Chronic obstructive pulmonary disease, unspecified COPD type documented in this encounter Care Teams Finish Remover Relationship Specialty Start Date End Date None None PCP - General 01/25/22 documented as of this encounter
--- OUTSIDE RECORDS SUMMARY | 2024-05-19 02:21 | XMS_ITS | Encounter Summary ---
Author Organization [facility] Address [address] [place] [address] Care Team Providers Care Leaf Tinner Name Role Phone Royer Reed MD Primary Care Provider [phone] Encounter Details Date Type Department Care Team (Late st Contact Info) Description 11/20/2022 Lab Requisition [facility] Pathology & Laboratory Medicine - [facility] [address], [place] [id number] Outr Resulting Lab, Provider Social History Tobacco [...] Procedure Name Priority Date/Time Associated Diagnosis Comments HCV RNA DETECT QUANT Today 11/20/2022 12:41 EST HEPATITIS C AB W REFLEX TO HCV RNA BY PCR Routine 11/20/2022 12:41 EST HEPATITIS B SURFACE ANTIBODY Routine 11/20/2022 12:41 EST HEPATITIS B SURFACE ANTIGEN Routine 11/20/2022 12:41 EST documented in this encounter Results * (ABNORMAL) HCV RNA DETECT QUANT (11/20/2022 12:41 EST) HCV RNA Qualitative Detected( A) Undetected 11/22/2022 13:16 EST [facility] HCV RNA Quantitative 1,330,000 (H) Undetected IU/mL 11/22/2022 13:16 EST [facility] Blood VENOUS BLOOD / Unknown 11/20/2022 12:41 EST 11/20/2022 21:45 EST Narrative [facility] - 11/22/2022 13:16 EST The quantification range of this assay is 15 IU/mL to 100,000,000 IU/mL. Testing was performed using the Jatinder HCV test ([employer] with the jatinder [id number] System. Provider Outr Resulting Lab CHEMISTRY & BLOOD GAS ORDERABLES Performing Organization Address [facility] Co de Phone Number [facility] [address] [place] [address] * HEPATITIS B SURFACE ANTIBODY (11/20/2022 12:41 EST) Hep B Surface Ab, Quantitative >1,000.0 See Note mIU/mL 11/21/2022 11:47 EST [facility] Comment: Reference Range for Hep B Surface Ab, Quant: Positive: >= 10.0 mIU/mL Negative: ??< 10.0 mIU/mL Patient is presumed to be immune to infection with Hepatitis B Virus. Hep B Surface Ab, Qualitative Positive See Note 11/21/2022 11:47 EST [facility] Comment: Reference Range for Hep B Surface Ab, Qual: Unvaccinated: ??Negative Vaccinated: ??Positive Blood VENOUS BLOOD / Unknown 11/20/2022 12:41 EST 11/20/2022 21:45 EST Provider Outr Resulting Lab CHEMISTRY & BLOOD GAS ORDERABLES Performing Organization Address [facility] Co de Phone Number [facility] [address] [place] [phone] * HEPATITIS B SURFACE ANTIGEN (11/20/2022 12:41 EST) Hep B Surface Ag Negative Negative 11/21/2022 11:37 EST [facility] Blood VENOUS BLOOD / Unknown 11/20/2022 12:41 EST 11/20/2022 21:45 EST Provider Outr Resulting Lab CHEMISTRY & BLOOD GAS ORDERABLES Performing Organization Address [facility] Co de Phone Number [facility] [address] [place] [address] * (ABNORMAL) HEPATITIS C AB W REFLEX TO HCV RNA BY PCR (11/20/2022 12:41 EST) Hep C Antibody Reactive(A ) Negative 11/21/2022 14:19 EST [facility] Comment: Supplemental testing for HCV RNA is ordered to rule out active HCV infection. Blood VENOUS BLOOD / Unknown 11/20/2022 12:41 EST 11/20/2022 21:45 EST Provider Outr Resulting Lab CHEMISTRY & BLOOD GAS ORDERABLES [facility] [address] [place] [address] documented in this encounter Visit Diagnoses Not on filedocumented in this encounter Care Teams Leaf Tinner Relationship Specialty Start Date End Date Royer Reed MD [address] [place] [address] PCP - General Internal Medicine - Primary Care 06/01/23 documented as of this encounter
--- OUTSIDE RECORDS SUMMARY | 2024-05-19 02:21 | XMS_ITS | Encounter Summary ---
[place] [address] Care Team Providers Care Signals Collection Technician Name Role Phone None Primary Care Provider Unavailabl e Encounter Details Date Type Department Care Team (Late st Contact Info) Description 06/22/2023 Telephone [place] [address] Brielle Turner Social History Tobacco Use Types Packs/Day Years Used Date Smoking Tobacco: Every Day Smokeless Tobacco: Never Sex and Gender Information Value Date Recorded Sex Assigned at Not on file Gender Identity Not on file Sexual Orientation Not on file documented as of this encounter Plan of Treatment Not on file documented as of this encounter Visit Diagnoses Not on filedocumented in this encounter Care Teams Signals Collection Technician Relationship Specialty Start Date End Date None None PCP - General 01/25/22 documented as of this encounter
--- OUTSIDE RECORDS SUMMARY | 2024-05-19 02:21 | XMS_ITS | Encounter Summary ---
Author Organization [facility] Address [facility] [place] [address] [place] [address] Care Team Providers Care Senior Salesforce Developer Name Role Phone None Primary Care Provider Unavailabl e Encounter Details Date Type Department Care Team (Late st Contact Info) Description 04/25/2024 Telephone Pulmonology at [facility] [place] [phone] Lauren Munson RN Social History Tobacco Use Types Packs/Day Years Used Date Smoking Tobacco: Former Smokeless Tobacco: Never Comments:Quit longer than si x months Sex and Gender Information Value Date Recorded Sex Assigned at Not on file Gender Identity Not on file Sexual Orientation Not on file documented as of this encounter Miscellaneous Notes * Telephone Encounter - Lauren Munson RN - 04/25/2024 1:33 PM EDT Copied from [facility] #[id number]. Topic: Specialty Dept CRMs - Generic Call >> Apr 25, 2024 11:11 AM Jenny Brower wrote: Specialist: Guy Relationship (if other than patient-full name): patient Reason for Call: patient states Faxed PFT orders to [facility] Pulmonology has not been received please re fax to [phone] Phone number to follow up is [phone]. Refaxed order to new fax number above. FALGUNI Yen, RN [facility] Pager: [phone] documented in this encounter Plan of Treatment Not on file documented as of this encounter Visit Diagnoses Not on filedocumented in this encounter Care Teams Senior Salesforce Developer Relationship Specialty Start Date End Date None None PCP - General 01/25/22 documented as of this encounter
--- OUTSIDE RECORDS SUMMARY | 2024-05-19 02:21 | XMS_ITS | Encounter Summary ---
Author Organization [facility] [place] [address] Care Team Providers Care Treater Helper Name Role Phone None Primary Care Provider Unavailabl e Encounter Details Date Type Department Care Team (Latest Contact Info) Description 03/19/2024 Travel Social History Tobacco Use Types Packs/Day Years [...] on filedocumented in this encounter Care Teams Treater Helper Relationship Specialty Start Date End Date None None PCP - General 01/25/22 documented as of this encounter
--- OUTSIDE RECORDS SUMMARY | 2024-05-19 02:21 | XMS_ITS | Encounter Summary ---
Author Organization [facility] [place] [address] Care Team Providers Care Reading Aide Name Role Phone None Primary Care Provider Unavailabl e Reason for Referral * Diagnostic Test (Routine) - Closed Specialty Diagnoses / Procedures Referred By Contac t Referred To Contact Cardiology Diagnoses Chronic obstructive pulmonary disease, unspecified COPD type Procedures Echocardiogram Transthoracic [place] [address] [facility] [place] [address] Referral ID Status Reason Start Date Expiration Date V isits Requested Visits Authorized [id number] Closed Specialty Service Requested 11/27/2023 11/26/2024 1 1 Reason for Visit * Diagnostic Test (Routine) - Closed Specialty Diagnoses / Procedures Referred By Contac t Referred To Contact Cardiology Diagnoses Chronic obstructive pulmonary disease, unspecified COPD type Procedures Echocardiogram Transthoracic [place] [address] [facility] [place] [address] Referral ID Status Reason Start Date Expiration Date V isits Requested Visits Authorized [id number] Closed Specialty Service Requested 11/27/2023 11/26/2024 1 1 Encounter Details Date Type Department Care Team (Latest Contact Info) Description 03/19/2024 9:47 AM EDT - 03/19/2024 11:59 PM EDT Hospital Encounter [place] [address] Jennifer Spivey APRN [facility] [place] [address] Chronic obstructive pulmonary disease, unspecified COPD type Discharge Disposition: Home Social History Tobacco Use Types Packs/Day Years Used Date Smoking Tobacco: Former Smokeless Tobacco: Never Comments:Quit longer than si x months Sex and Gender Information Value Date Recorded Sex Assigned at Not on file Gender Identity Not on file Sexual Orientation Not on file documented as of this encounter Medications at Time of Discharge Medication Sig Dispensed Refills Start Date End Date buprenorphine-naloxone (Suboxone) 4-[address] 1 film under tongue once a day. Combine with 8 mg dose for a total of 12 mg suboxone daily. 01/17/2024 buprenorphine-naloxone (Suboxone) 8-[address] 1 film every day by sublingual route. 01/17/2024 umeclidinium (Incruse Ellipta) 62.5 mcg/actuation inhaler (DPI) Inhale 1 puff as directed once a day 05/29/2023 LORazepam (Ativan) 0.5 mg tablet Take 1 tablet by mouth 3 times daily as needed. 03/13/2024 azithromycin (Zithromax) 250 mg tablet albuteroL 90 mcg/actuation HFA Aerosol Inhaler Inhale 2 puffs into the lungs every 4 hours as needed for Wheezing. Use with spacer albuteroL (ACCUNEB) 1.25 mg/3 mL Solution for Nebulization Take 1 ampule by nebulization 2 times daily. fluticasone propion-salmeteroL (ADVAIR HFA) 115-21 mcg/actuation HFA Aerosol Inhaler Inhale 2 puffs into the lungs 2 times daily. Unsure of strength ipratropium-albuteroL (Duoneb) 0.5 mg-3 mg(2.5 mg base)/3 mL Solution for Nebulization Take 3 mLs by nebulization daily. documented as of this encounter Plan of Treatment Not on file documented as of this encounter Procedures Procedure Name Priority Date/Time Associated Diagnosis Comments ECHO COMPLETE Routine 03/19/2024 11:16 AM EDT Chronic obstructive pulmonary disease, unspecified COPD type documented in this encounter Results * ECHO COMPLETE (03/19/2024 11:16 AM EDT) EF 61 HEARTLAB SYSTEM Anatomical Region Laterality Modality Cardiac Other 03/19/2024 10:0 6 AM EDT Narrative 03/19/2024 12:48 PM EDT [address] [place] [address] ? Echocardiogram Report Name: SHEY RAY ? Study Date: 03/19/2024 10:06 AMBP: 112/79 mmHg ? Patient Location: 4A : 1965 ? Height: 170 cm ? Account: [id number] Age: 58 yrs ? Weight: 58 kg Gender: Female ?BSA: 1.7 m2 Ordering Physician: JENNIEFR SPIVEY Referring Physician: JENNIFER SPIVEY Performed By: KARMA Hobson RCS Reason For Study: COPD, Evaluation for Bronchoscopic Lung Volume Reduction Procedure Exam Location: [facility]. Interpretation Summary Left ventricular systolic function is normal. The left ventricular ejection fraction is 61% by Plunkett's biplane. Right ventricular systolic function is normal. PASP could not be assessed given insufficient tricuspid regurgitant jet. Compared with study of 07/19/22. no change. Procedure Complete-[id number]. Satisfactory quality. Regular rhythm. Left Ventricle Left ventricle is of normal size. Wall thickness is normal. There is no ventricular septal defect. Left ventricular systolic function is normal. The left ventricular ejection fraction is 61% by Plunkett's biplane. There are no segmental wall motion abnormalities. Right Ventricle The right ventricle is of normal size. Right ventricular systolic function is normal. Left Atrium The left atrium is normal. There is no evidence for a patent foramen ovale. Right Atrium The right atrium is normal. Aortic Valve The aortic valve is tricuspid. The aortic valve is mildly calcified. There is no aortic stenosis. There is no aortic regurgitation. Mitral Valve The mitral valve is structurally and functionally normal. There is mild mitral regurgitation. Tricuspid Valve The tricuspid valve is structurally and functionally normal. There is trace tricuspid regurgitation. Pulmonic Valve The pulmonic valve is not well visualized. There is no pulmonic valve regurgitation. Great Arteries The diameter at the level of the sinuses of Valsalva is 2.9 cm. The ascending aorta is not well visualized. No abnormalities of the pulmonary artery are identified. Venous Inferior vena cava is normal in size. Inferior vena cava collapse greater than 50% with respiration. Pericardium/Pleural There is no pericardial effusion. Hemodynamics The peak right ventricular systolic pressure is 16.8 mmHg . The estimated right atrial pressure is 3mmHg. Left ventricular diastolic function is normal. Ejection Fraction ?2D Measurements ? Volumes EF(MOD-bp): 61.2 % ?IVSd: 0.69 cm ?LAV(MOD- bp) Indexed: ?LVIDd: 4.6 cm ?LVIDs: 3.5 cm ?27.5 ml/m2 ?LVPWd: 0.50 cm ? RA A4Cs_phl: 12.0 cm2 ? EDV(MOD-bp) Indexed: ?RWT: 0.22 {ratio} ?LV mass(C)d: 79.7 grams ?65.5 ml/m2 ?LV mass(C)dI: 47.7 grams/m2 ?ESV(MOD- bp) Indexed: ?Ao root diam: 2.9 cm ? 25.4 ml/m2 ?Ao root diam index: 1.7 ?SV(LVOT): 77.0 ml ?LVOT diam: 2.0 cm ?TAPSE_phl: 2.0 cm ?SI(LVOT): 46.1 ml/m2 Doppler LV V1 VTI: 24.5 cm Ao V2 VTI: 25.1 cm Ao Max: 116.1 cm/sec Ao valve max: 5.4 mmHg Ao valve mean: 2.9 mmHg MV E max bhavin: 66.1 cm/sec MV A max bhavin: 66.6 cm/sec MV E/A: 0.99 MV dec time: 0.15 sec Lat Peak E' Bhavin: 11.2 cm/sec E/ e' (lat): 5.9 Med Peak E' Bhavin: 9.7 cm/sec E/e' (med): 6.8 E/e' Average: 6.4 NAILA(I,D): 3.1 cm2 Dimensionless index Aov: 0.98 TR max bhavin: 185.4 cm/sec RVSP(TR): 16.8 mmHg Procedure Note Wyatt Shea MD - 03/19/2024 1 [place] [address] Echocardiogram Report Name: SHEY RAY Study Date: 0:06 AMBP: 112/79 mmHg Patient Location: : 1965 Height: 170 cm Account: [id number] Age: 58 yrs Weight: 58 kg Gender: Female BSA: 1.7 m2 Ordering Physician: JENNIFER SPIVEY Referring Physician: JENNIFER SPIVEY Performed By: KARMA Hobson RCS Reason For Study: COPD, Evaluation for Bronchoscopic Lung VolumeReduction Procedure Exam Location: [facility]. Interpretation Summary Left ventricular systolic function is normal. The left ventricularejection fraction is 61% by Plunkett's biplane. Right ventricular systolic function is normal. PASP could not be assessed given insufficient tricuspid regurgitant jet. Compared with study of 07/19/22. no change. Procedure Complete-[id number]. Satisfactory quality. Regular rhythm. Left Ventricle Left ventricle is of normal size. Wall thickness is normal. There is no ventricular septal defect. Left ventricular systolic function is normal.The left ventricular ejection fraction is 61% by Plunkett's biplane. There are nosegmental wall motion abnormalities. Right Ventricle The right ventricle is of normal size. Right ventricular systolic functionis normal. Left Atrium The left atrium is normal. There is no evidence for a patent foramenovale. Right Atrium The right atrium is normal. Aortic Valve The aortic valve is tricuspid. The aortic valve is mildly calcified. Thereis no aortic stenosis. There is no aortic regurgitation. Mitral Valve The mitral valve is structurally and functionally normal. There is mildmitral regurgitation. Tricuspid Valve The tricuspid valve is structurally and functionally normal. There istrace tricuspid regurgitation. Pulmonic Valve The pulmonic valve is not well visualized. There is no pulmonic valve regurgitation. Great Arteries The diameter at the level of the sinuses of Valsalva is 2.9 cm. Theascending aorta is not well visualized. No abnormalities of the pulmonary arteryare identified. Venous Inferior vena cava is normal in size. Inferior vena cava collapse greaterthan 50% with respiration. Pericardium/Pleural There is no pericardial effusion. Hemodynamics The peak right ventricular systolic pressure is 16.8 mmHg . The estimatedright atrial pressure is 3mmHg. Left ventricular diastolic function is normal. Ejection Fraction 2D Measurements Volumes EF(MOD-bp): 61.2 % IVSd: 0.69 cm LAV(MOD-bp)Indexed: LVIDd: 4.6 cm LVIDs: 3.5 cm 27.5 ml/m2 LVPWd: 0.50 cm RA A4Cs_phl: 12.0cm2 EDV(MOD-bp)Indexed: RWT: 0.22 {ratio} LV mass(C)d: 79.7 grams 65.5 ml/m2 LV mass(C)dI: 47.7 grams/m2 ESV(MOD-bp)Indexed: Ao root diam: 2.9 cm 25.4 ml/m2 Ao root diam index: 1.7 SV(LVOT): 77.0ml LVOT diam: 2.0 cm TAPSE_phl: 2.0 cm SI(LVOT): 46.1ml/m2 Doppler LV V1 VTI: 24.5 cm Ao V2 VTI: 25.1 cm Ao Max: 116.1 cm/sec Ao valve max: 5.4 mmHg Ao valve mean: 2.9 mmHg MV E max bhavin: 66.1 cm/sec MV A max bhavin: 66.6 cm/sec MV E/A: 0.99 MV dec time: 0.15 sec Lat Peak E' Bhavin: 11.2 cm/sec E/ e' (lat): 5.9 Med Peak E' Bhavin: 9.7 cm/sec E/e' (med): 6.8 E/e' Average: 6.4 NAILA(I,D): 3.1 cm2 Dimensionless index Aov: 0.98 TR max bahvin: 185.4 cm/sec RVSP(TR): 16.8 mmHg Jennifer Spivey APRN ECHO ORDERABLES documented in this encounter Visit Diagnoses Diagnosis Chronic obstructive pulmonary disease, unspecified COPD type documented in this encounter Care Teams Reading Aide Relationship Specialty Start Date End Date None None PCP - General 01/25/22 documented as of this encounter
--- OUTSIDE RECORDS SUMMARY | 2024-05-19 02:21 | XMS_ITS | Encounter Summary ---
Author Organization [facility] [place] [address] Care Team Providers Care Forming Process Worker Name Role Phone None Primary Care Provider Unavailabl e Reason for Referral * Diagnostic Test (Routine) - Closed Specialty Diagnoses / Procedures Referred By Contac t Referred To Contact Cardiology Diagnoses Chronic obstructive pulmonary disease, unspecified COPD type Procedures Echocardiogram Transthoracic [place] [address] [facility] [place] [address] Referral ID Status Reason Start Date Expiration Date V isits Requested Visits Authorized [id number] Closed Specialty Service Requested 11/27/2023 11/26/2024 1 1 Encounter Details Date Type Department Care Team (Late st Contact Info) Description 11/27/2023 [place] [id number] Jennifer [place] [address] Chronic obstructive pulmonary disease, unspecified COPD type Social History Tobacco Use Types Packs/Day Years Used Date Smoking Tobacco: Every Day Smokeless Tobacco: Never Sex and Gender Information Value Date Recorded Sex Assigned at Not on file Gender Identity Not on file Sexual Orientation Not on file documented as of this encounter Plan of Treatment Scheduled Orders Name Type Priority Associated Diagnoses Orde r Schedule Request for Blood Gas Draw (Leb/CGP) Lab Routine Chronic obstructive pulmonary disease, unspecified COPD type Expected: 11/28/2023 (Approximate), Expires: 11/27/2024 documented as of this encounter Results * ECHO COMPLETE (03/19/2024 11:16 AM EDT) EF 61 HEARTLAB SYSTEM Anatomical Region Laterality Modality Cardiac Other 03/19/2024 10:0 6 AM EDT Narrative 03/19/2024 12:48 PM EDT 1 [place] [address] ? Echocardiogram Report Name: SHEY RAY ? Study Date: 03/19/2024 10:06 AMBP: 112/79 mmHg ? Patient Location: 4A : 1965 ? Height: 170 cm ? Account: [id number] Age: 58 yrs ? Weight: 58 kg Gender: Female ?BSA: 1.7 m2 Ordering Physician: JENNIFER SPIVEY Referring Physician: JENNIFER SPIVEY Performed By: KARMA Hobson RCS Reason For Study: COPD, Evaluation for Bronchoscopic Lung Volume Reduction Procedure Exam Location: [facility]. Interpretation Summary Left ventricular systolic function is normal. The left ventricular ejection fraction is 61% by Plunkett's biplane. Right ventricular systolic function is normal. PASP could not be assessed given insufficient tricuspid regurgitant jet. Compared with study of 07/19/22. no change. Procedure Complete-[id number]. Satisfactory quality. Regular rhythm. Left Ventricle Left [...] Note Wyatt Shea MD - 03/19/2024 1 [facility] [place] [address] Echocardiogram Report Name: SHEY RAY Study Date: 0:06 AMBP: 112/79 mmHg Patient Location: : 1965 Height: 170 cm Account: [id number] Age: 58 yrs Weight: 58 kg Gender: Female BSA: 1.7 m2 Ordering Physician: JENNIFER SPIVEY Referring Physician: JENNIFER SPIVEY Performed By: Arelis Espino [facility], [facility] Reason For Study: COPD, Evaluation for Bronchoscopic Lung VolumeReduction Procedure Exam Location: [facility]. Interpretation Summary Left ventricular systolic function is normal. The left ventricularejection fraction is 61% by Plunkett's biplane. Right ventricular systolic function is normal. PASP could not be assessed given insufficient tricuspid regurgitant jet. Compared with study of 07/19/22. no change. Procedure Complete-[id number]. Satisfactory quality. Regular rhythm. Left Ventricle Left [...] max bhavin: 185.4 cm/sec RVSP(TR): 16.8 mmHg Jennifer Spivey APRN ECHO ORDERABLES documented in this encounter Visit Diagnoses Diagnosis Chronic obstructive pulmonary disease, unspecified COPD type Chronic obstructive pulmonary disease, unspecified COPD type documented in this encounter Care Teams Forming Process Worker Relationship Specialty Start Date End Date None None PCP - General 01/25/22 documented as of this encounter
--- OUTSIDE RECORDS SUMMARY | 2024-05-19 02:21 | XMS_ITS | Encounter Summary ---
Author Organization [facility] Address [address] [place] [address] Care Team Providers Care Core Layer Machine Operator Name Role Phone Royer Reed MD Primary Care Provider [phone] Encounter Details Date Type Department Care Team (Late st Contact Info) Description 04/17/2024 Lab Requisition [facility] Pathology & Laboratory Medicine - [facility] [address] [place] [address] Outr Resulting Lab, Provider Social History Tobacco [...] Associated Diagnosis Comments HCV RNA DETECT QUANT Routine 04/17/2024 9:40 EDT documented in this encounter Results * HCV RNA DETECT QUANT (04/17/2024 9:40 EDT) HCV RNA Qualitative Undetected Undetected 04/18/2024 12:08 EDT [facility] Blood VENOUS BLOOD / Unknown 04/17/2024 9:40 EDT 04/17/2024 21:41 EDT Narrative [facility] - 04/18/2024 12:08 EDT The quantification range of this assay is 15 IU/mL to 100,000,000 IU/mL. Testing was performed using the Jatinder HCV test ([employer] with the jatinder 6800 System. Provider Outr Resulting Lab CHEMISTRY & BLOOD GAS ORDERABLES [facility] [address] [place] [address] documented in this encounter Visit Diagnoses Not on filedocumented in this encounter Care Teams Core Layer Machine Operator Relationship Specialty Start Date End Date Royer Reed MD [address] [place] [address] PCP - General Internal Medicine - Primary Care 06/01/23 documented as of this encounter
--- OUTSIDE RECORDS SUMMARY | 2024-05-19 02:21 | XMS_ITS | Encounter Summary ---
[place] [address] Care Team Providers Care Creative Writing Teacher Name Role Phone None Primary Care Provider Unavailabl e Encounter Details Date Type Department Care Team (Late st Contact Info) Description 11/27/2023 [place] [address] Brielle Turner Social History Tobacco Use Types [...] on filedocumented in this encounter Care Teams Creative Writing Teacher Relationship Specialty Start Date End Date None None PCP - General 01/25/22 documented as of this encounter
--- OUTSIDE RECORDS SUMMARY | 2024-05-19 02:21 | XMS_ITS | Encounter Summary ---
Author Organization [facility] [place] [address] Care Team Providers Care Land Agent Name Role Phone None Primary Care Provider Unavailabl e Encounter Details Date Type Department Care Team (Late st Contact Info) Description 01/08/2024 Orders [place] [address] Kareen Spivey, [facility] [place] [address] Chronic obstructive pulmonary disease, unspecified COPD type [...] documented as of this encounter Visit Diagnoses Diagnosis Chronic obstructive pulmonary disease, unspecified COPD type documented in this encounter Care Teams Land Agent Relationship Specialty Start Date End Date None None PCP - General 01/25/22 documented as of this encounter
--- OUTSIDE RECORDS SUMMARY | 2024-05-19 02:21 | XMS_ITS | Clinical Summary ---
Author Organization [facility] Address [address] [place] [address] Care Team Providers Care Technical Writer And Editor Name Role Phone Royer Reed MD Primary Care Provider [phone] Encounters Date Type Department Care Team Description 04/17/[address] [facility] Pathology & Laboratory [facility] [address] [place] [address] Outr Resulting Lab, Provider 03/07/[address] [facility] Pathology & Laboratory [facility] [address] [place] [address] Marilyn Rios Encounter for other general examination from Last 3 Months Social History Tobacco Use Types Packs/Day Years Used Date Smoking Tobacco: Never Assessed Sex and Gender Information Value Date Recorded Sex Assigned at Not on file Gender Identity Not on file Sexual Orientation Not on file Plan of Treatment Health Maintenance Due Date Last Done Comments Hepatitis B Vaccine (1 of 3 - 19+ 3-dose series) 1986 COVID-19 Vaccine (2022-2 4 season) 2023 Hepatitis C Screen Completed 04/17/2024, 0 07/18/2023, 07/18/2023, Additional history exists Procedures Procedure Name Priority Date/Time Associated Diagnosis Comments HCV RNA DETECT QUANT Routine 04/17/2024 9:40 EDT PAP TEST Today 03/06/2024 10:40 EDT Encounter for other general examination HPV DNA DETECTION WITH GENOTYPING, PCR Today 03/06/2024 10:40 EDT Encounter for other general examination from Last 3 Months Results * HCV RNA DETECT QUANT (04/17/2024 9:40 EDT) HCV RNA Qualitative Undetected Undetected 04/18/2024 12:08 EDT [facility] Blood VENOUS BLOOD / Unknown 04/17/2024 9:40 EDT 04/17/2024 21:41 EDT Narrative [facility] - 04/18/2024 12:08 EDT The quantification range of this assay is 15 IU/mL to 100,000,000 IU/mL. Testing was performed using the Jatinder HCV test ([employer] with the jatinder 6800 System. Provider Outr Resulting Lab CHEMISTRY & BLOOD GAS ORDERABLES [facility] [address] [place] [address] * PAP TEST (03/06/2024 10:40 EDT) Specimens A. Cervix and/or Endocervix , ThinPrep Imaging System with Manual Evaluation 03/13/2024 15:24 [facility] Specimen Adequacy Satisfactory for Evaluation - transformation zone component present 03/13/2024 15:24 [facility] General Categorization Negative for intraepithelial lesion or malignancy 03/13/2024 15:24 [facility] Attestation . 03/13/2024 15:24 [facility] at 1523 Clinical History See below 03/13/20 24 15:24 [facility] HPV The result for the Human Papillomavirus (HPV) Detection-High Risk Types is Negative. No E6 or E7 mRNA is detected from HPV types 16,18,31,33,35,39 ,45,51,52,56,58,5 9,66, and 68 by roping machine tender mediated amplification.Francesca ting was performed on specimen [id number] and was resulted on 03/13/2024 1523 EDT by CHIKIS, LAB INSTRUMENT RESULTS IN 03/13/2024 15:24 T [facility] Performing Lab [facility] 03/13/2024 15:24 T [facility] Scanned Images 03/13/2024 15:24 EDT [facility] Pap Test CERVIX UTERI STRUCTURE / Unknown 03/06/2024 10:40 EDT 03/07/2024 12:09 EDT Marilyn Rios PATHOLOGY ORDERABLES Performing Organization Address City/[facility]/ZIP Co de Phone Number [facility] [address], [place] [address] * HUMAN PAPILLOMAVIRUS (HPV) DETECTION-HIGH RISK TYPES (03/06/2024 10:40 EDT) HPV other High Risk types, PCR Negative Negative 03/13/2024 15:24 EDT [facility] Comment:No E6 or E7 mRNA is detected from HPV types 16,18,31,33,35,39,45,51,52,56,58,59,66, and 68 by roping machine tender mediated amplification. Pap Test CERVIX UTERI STRUCTURE / Unknown 03/06/2024 10:40 EDT 03/12/2024 14:56 EDT Marilyn Rios MICROBIOLOGY - GENER AL ORDERABLES Performing Organization Address City/[facility] Co de Phone Number [facility] [address], [place] [phone] from Last 3 Months Care Teams Technical Writer And Editor Relationship Specialty Start Date End Date Royer Reed MD [address] [place] [address] PCP - General Internal Medicine - Primary Care 06/01/23
--- OUTSIDE RECORDS SUMMARY | 2024-05-19 02:21 | XMS_ITS | Encounter Summary ---
Author Organization [facility] [place] [address] Care Team Providers Care Count Room Clerk Name Role Phone None Primary Care Provider Unavailabl e Reason for Visit * Reason Onset Date Comments Other 04/03/2024 Faxed PFT orders to [facility] Pulmonology [phone] Encounter Details Date Type Department Care Team (Late st Contact Info) Description 04/03/2024 [place] [phone] Lauren Munson RN Other (Faxed PFT orders to [facility] Pulmonology [phone]) Social History Tobacco Use Types Packs/Day Years Used Date Smoking Tobacco: Former Smokeless Tobacco: Never Comments:Quit longer than si x months Sex and Gender Information Value Date Recorded Sex Assigned at Not on file Gender Identity Not on file Sexual Orientation Not on file documented as of this encounter Miscellaneous Notes * Telephone Encounter - Lauren Munson RN - 04/03/2024 10:35 AM EDT Faxed PFT orders to [phone]. Phone number to follow up is [phone]. FALGUNI Yen, RN Pulmonary [facility] Pager: [phone] documented in this encounter Plan of Treatment Not on file documented as of this encounter Visit Diagnoses Not on filedocumented in this encounter Care Teams Count Room Clerk Relationship Specialty Start Date End Date None None PCP - General 01/25/22 documented as of this encounter
--- OUTSIDE RECORDS SUMMARY | 2024-05-19 02:21 | XMS_ITS | Referral Summary ---
Author Organization [facility] Address [address] [place] [address] Care Team Providers Care Advanced Developer Name Role Phone Royer Reed MD Primary Care Provider [phone] Encounters Date Type Department Care Team Description 04/17/2024 Lab Requisition [facility] Pathology & Laboratory [facility] [address] [place] [address] Outr Resulting Lab, Provider 03/07/2024 Lab Requisition [facility] Pathology & Laboratory [facility] [address] [place] [address] Marilyn Rios Encounter for other general examination from Last 3 Months Social History Tobacco Use Types Packs/Day Years Used Date Smoking Tobacco: Never Assessed Sex and Gender Information Value Date Recorded Sex Assigned at Not on file Gender Identity Not on file Sexual Orientation Not on file Plan of Treatment Not on file Procedures Procedure Name Priority Date/Time Associated Diagnosis Comments HCV RNA DETECT QUANT Routine 04/17/2024 9:40 EDT PAP TEST Today 03/06/2024 10:40 EDT Encounter for other general examination HPV DNA DETECTION WITH GENOTYPING, PCR Today 03/06/2024 10:40 EDT Encounter for other general examination from Last 3 Months Results * HCV RNA DETECT QUANT (04/17/2024 9:40 EDT) HCV RNA Qualitative Undetected Undetected 04/18/2024 12:[address] [facility] Blood VENOUS BLOOD / Unknown 04/17/2024 9:40 EDT 04/17/2024 21:[address] [facility] - 04/18/2024 12:08 EDT The quantification range of this assay is 15 IU/mL to 100,000,000 IU/mL. Testing was performed using the Jatinder HCV test ([employer] with the jatinder 6800 System. Provider Outr Resulting Lab CHEMISTRY & BLOOD GAS ORDERABLES [facility] [address] [place], [place] [id number] * PAP TEST (03/06/2024 10:40 EDT) Specimens A. Cervix and/or Endocervix , ThinPrep Imaging System with Manual Evaluation 03/13/2024 15:[address] [facility] Specimen Adequacy Satisfactory for Evaluation - transformation zone component present 03/13/2024 15:[address] [facility] General Categorization Negative for intraepithelial lesion or malignancy 03/13/2024 15:[address] [facility] Attestation . 03/13/2024 15:[address] [facility] at 1523 Clinical History See below 03/13/20 15:[address] [facility] HPV The result for the Human Papillomavirus (HPV) Detection-High Risk Types is Negative. No E6 or E7 mRNA is detected from HPV types 16,18,31,33,35,39 ,45,51,52,56,58,5 9,66, and 68 by veneer stock layer mediated amplification.Francesca ting was performed on specimen [id number] and was resulted on 03/13/2024 1523 EDT by CHIKIS, LAB INSTRUMENT RESULTS IN 03/13/2024 15:[address] [facility] Performing Lab [facility] 03/13/2024 15:[address] [facility] Scanned Images 03/13/2024 15:[address] [facility] Pap Test CERVIX UTERI STRUCTURE / Unknown 03/06/2024 10:40 EDT 03/07/2024 12:09 EDT Marilyn Rios PATHOLOGY ORDERABLES [facility] [address] [place] [address] * HUMAN PAPILLOMAVIRUS (HPV) DETECTION-HIGH RISK TYPES (03/06/2024 10:40 EDT) HPV other High Risk types, PCR Negative Negative 03/13/2024 15:[address] [facility] Comment:No E6 or E7 mRNA is detected from HPV types 16,18,31,33,35,39,45,51,52,56,58,59,66, and 68 by veneer stock layer mediated amplification. Pap Test CERVIX UTERI STRUCTURE / Unknown 03/06/2024 10:40 EDT 03/12/2024 14:56 EDT Marilyn Rios MICROBIOLOGY - GENER AL ORDERABLES Performing Organization Address [facility]/ZIP Co de Phone Number [facility] [address] [place] [address] from Last 3 Months Care Teams Advanced Developer Relationship Specialty Start Date End Date Royer Reed MD [address] [place] [id number] PCP - General Internal Medicine - Primary Care 06/01/23
--- OUTSIDE RECORDS SUMMARY | 2024-05-19 02:21 | XMS_ITS | Encounter Summary ---
Author Organization [facility] Address [address] [place] [address] Care Team Providers Care Network Architect Name Role Phone Royer Reed MD Primary Care Provider [phone] Encounter Details Date Type Department Care Team (Late st Contact Info) Description 07/18/2023 Lab Requisition [facility] Pathology & Laboratory Medicine - [facility] [address] [place] [address] Outr Resulting Lab, Provider Social [...] Diagnosis Comments HCV RNA DETECT QUANT Today 07/18/2023 12:27 EDT HEPATITIS C AB W REFLEX TO HCV RNA BY PCR Routine 07/18/2023 12:27 EDT documented in this encounter Results * HCV RNA DETECT QUANT (07/18/2023 12:27 EDT) HCV RNA Qualitative Undetected Undetected 07/20/2023 12:24 EDT [facility] Blood VENOUS BLOOD / Unknown 07/18/2023 12:27 EDT 07/18/2023 21:42 EDT Narrative [facility] - 07/20/2023 12:24 EDT The quantification range of this assay is 15 IU/mL to 100,000,000 IU/mL. Testing was performed using the Jatinder HCV test ([employer] with the jatinder [employer] System. Provider Outr Resulting Lab CHEMISTRY & BLOOD GAS ORDERABLES Performing Organization Address [facility] Co de Phone Number [facility] [address] [place] [address] * (ABNORMAL) HEPATITIS C AB W REFLEX TO HCV RNA BY PCR (07/18/2023 12:27 EDT) Hep C Antibody Reactive(A ) Negative 07/19/2023 11:04 EDT [facility] Comment: Supplemental testing for HCV RNA is ordered to rule out active HCV infection. Blood VENOUS BLOOD / Unknown 07/18/2023 12:27 EDT 07/18/2023 21:42 EDT Provider Outr Resulting Lab CHEMISTRY & BLOOD GAS ORDERABLES Performing Organization Address [facility] Co de Phone Number [facility] [address] [place] [address] documented in this encounter Visit Diagnoses Not on filedocumented in this encounter Care Teams Network Architect Relationship Specialty Start Date End Date Royer Reed MD [address] [place] [address] PCP - General Internal Medicine - Primary Care 06/01/23 documented as of this encounter
--- OUTSIDE RECORDS SUMMARY | 2024-05-19 02:21 | XMS_ITS | Encounter Summary ---
[place] [address] Care Team Providers Care Pull Over Machine Operator Name Role Phone None Primary Care Provider Unavailabl e Encounter Details Date Type Department Care Team (Late st Contact Info) Description 11/28/2023 [place] [address] Brielle Turner Social History Tobacco Use Types [...] on filedocumented in this encounter Care Teams Pull Over Machine Operator Relationship Specialty Start Date End Date None None PCP - General 01/25/22 documented as of this encounter
--- OUTSIDE RECORDS SUMMARY | 2024-05-19 02:21 | XMS_ITS | Encounter Summary ---
Author Organization [facility] Address [facility] [place] [address] Care Team Providers Care Gun Number Name Role Phone None Primary Care Provider Unavailabl e Reason for Visit * Consultation (Routine) - Closed Specialty Diagnoses / Procedures Referred By Lory mazariegos Referred To Contact Plastic Surgery Diagnoses concern about abscess of dorsum of left hand Procedures consult Luis Resendez MD [facility] [place] [address] [facility] [address] [address] Referral ID Status Reason Start Date Expiration Date Visits Re quested Visits Authorized [id number] Closed 01/24/2022 01/24/2023 1 1 Encounter Details Date Type Department Care Team (Latest Contact Info) Description 02/09/2022 9:00 AM EDT Clinical Support [place] [address] Follow-up examination, following other surgery Social History Tobacco Use Types Packs/Day Years Used Date Smoking Tobacco: Every Day Sex and Gender Information Value Date Recorded Sex Assigned at Not on file Gender Identity Not on file Sexual Orientation Not on file documented as of this encounter Patient Instructions * Patient Instructions* Luci Farrar RN - 02/09/2022 9:19 AM EDT Patient Instructions Follow up: 2 weeks with Sarah Beth Plasencia APRN for incision check Care of Incision/Wound: Activity Restrictions: From the date of your surgery we would request that you don't do any heavy, lifting, pushing, pulling, anything over 5 pounds for 6 weeks after your surgery, Unless other restrictions were discussed with your surgeon. Continue to wear right arm splint Spitting sutures: Occasionally an area of redness and tenderness develops where a dissolving stitchbecomes irritated and pushes to the surface. This stitch is clear or white and looks like fish line. If this occurs, it is not an emergency. You may clip the stitch or call the clinic for an appointment with the nurse. Signs of Infection : A temperature over 100.4 F or 38 C. Redness at the incision line that is beginning to spread away from the incision after the first 48 hours. Yellow pus-like or foul smelling drainage larger than a dime size from the incision or drain sites. Increased pain / discomfort that is not relieved by your pain medicine such as extra strength tylenol, or NSAIDS -SCAR MASSAGE TECHNIQUE: to begin 4-6 weeks following surgery What is a scar? When an injury occurs, the body immediately begins to repair itself & the area becomes swollen & sore. Eventually small collagen fibers form, becoming a solid tissue that results in a scar. This scar will continue to change in appearance for 1-2 years. Ideally, a scar is smooth & flat, blending in with the surrounding skin. However, some scars may become highly visible & unattractive due to factors such as your age, scar location & size, nutrition, genetics, or infection. A hypertrophic scar occurs when there is an excess production of collagen tissue that is elevated but remains within the wound boundaries. The scar is tense, red, & can be associated with itching & tenderness. A hypertrophic scar can be ordinary (usually stabilizes in 3 months & may even get smaller and smoother) or keloid. The keloid scar invades nearby tissue that was not part of the original wound, tends to enlarge even after 6 months & does not get softer. Will scar massage make my scars disappear? Nothing can make scars disappear. However, massaging the scar assists the body in breaking down thescar tissue to give it a flatter, softer, appearance. Massage also mobilizes the scar, preventing it from adhering to underlying tissue, tendons, & nerves. You can make the greatest difference in the appearance of the scar if you massage it in the first 3months. What should I use on my scars? You will hear many recommendations. This clinic finds that it is the massage itself that reduces the scar & not necessarily the choice of ointments or creams. We do discourage the use of Vitamin E oil, however, due to studies that have reported scar inflammation & deterioration. How do I massage my scars? Apply the lotion or cream into the scar 3-4 times a day for 8 weeks on new scars, and 3-4 times perday for 3 to 6 months on existing scars. Using your finger, apply pressure to the scar in a crosswise & circular direction, bearing down as hard as tolerated. Remember to protect your scar from the sun, especially in the first 6-12 months, by using a moisturizer with sunblock and wearing a physical barrier (ie: a hat) when possible For any questions or concerns, please call our nurse's line at [phone] M - F 8 - 5 For after hours, and on weekends; Call [phone] and ask for our plastic surgeon electronic development technician documented in this encounter Progress Notes * Luci Farrar RN - 02/09/2022 9:00 AM EDT Images from the original note were not included. Reason for Visit: Postoperative Evaluation s/p 01/26/22 JFN Postoperative diagnosis: Right hand abscess ?? Procedure(s) (LRB): DEBRIDEMENT SKIN, SUBCU, MUSCLE, BONE UPPER EXTREMITY (WRVU 4.1) (Right) TENDON REPAIR, EXTENSOR, HAND, W/O FREE GRAFT 1?? OR 2??, EA (WRVU 4.77) (Right) SPLINT APPLICATION, SHORT ARM (WRVU 0.5) (Right) POD # 14 Meka is here for an incision check and staple removal. Subjective: Meka states she has mild discomfort, she states has had good relief from extra strength tylenol and motrin. Meka denies fevers or chills. She stated she was unaware of her OT appointment this morning. Objective: Bruising: no right hand Swelling: mild right hand [place] removed,,incision well approximated, steri-strips applied after wound care wash. Surgical splint placed back on until follow up appointment with OT OT appointment rescheduled for tomorrow 02/10/22 morning for the volar resting splint Assessment: No signs of delayed healing,erythema,or fluid collection.Incisions CDI. Plan: We reviewed post op incision instructions including: Begin scar massage in four to six weeks, instructions provided in avs. We reviewed signs and symptoms of infection, spitting sutures, parameters for normal post op swelling and bruising. We reviewed sun precautions, increase protein in the diet, and correct phone numbers to call us forconcerns. Dressing instructions: Leave steri strips on until they fall off Continue wearing splint Meka expressed understanding of instructions,and agrees with the plan of care. Follow up in 2 weeks with Yao Plasencia for an incision check, coordinated with OT. documented in this encounter Plan of Treatment Not on file documented as of this encounter Visit Diagnoses Diagnosis Follow-up examination, following other surgery documented in this encounter Care Teams Gun Number Relationship Specialty Start Date End Date None None PCP - General 01/25/22 documented as of this encounter
--- OUTSIDE RECORDS SUMMARY | 2024-05-19 02:21 | XMS_ITS | Encounter Summary ---
Author Organization [facility] Address [facility] [place] [address] Care Team Providers Care Director Of Retail Marketing Name Role Phone None Primary Care Provider Unavailabl e Encounter Details Date Type Department Care Team (Late st Contact Info) Description 04/08/2024 Telephone Administration [facility] [place] [id number] Urvashi Mendosa RN Social History Tobacco Use Types Packs/Day Years Used Date Smoking Tobacco: Former Smokeless Tobacco: Never Comments:Quit longer than si x months Sex and Gender Information Value Date Recorded Sex Assigned at Not on file Gender Identity Not on file Sexual Orientation Not on file documented as of this encounter Miscellaneous Notes * Telephone Encounter - Urvashi Mendosa RN - 04/08/2024 9:10 AM EDT Reaching out to assist pt in scheduling the CT (chest) ordered on 01/07/2024 by PA. Spivey. The patient stated that she plans on having it done at [place], [place]. It appears that an outside order was placed on 03/19/[address] Tovar. Ordering provider contacted re: order duplication. documented in this encounter Plan of Treatment Not on file documented as of this encounter Visit Diagnoses Not on filedocumented in this encounter Care Teams Director Of Retail Marketing Relationship Specialty Start Date End Date None None PCP - General 01/25/22 documented as of this encounter
--- OUTSIDE RECORDS SUMMARY | 2024-05-19 02:21 | XMS_ITS | Encounter Summary ---
Author Organization [facility] Address [facility] [address] Care Team Providers Care General Labor Forklift Operator Name Role Phone None Primary Care Provider Unavailabl e Reason for Visit * Occupational Therapy (Routine) - Closed Specialty Diagnoses / Procedures Referred By Lory t Referred To Contact Hand Surgery / Occupational Therapy Diagnoses Open wound of right hand except fingers with tendon involvement, initial encounter Catalina Bill APRN [facility] [place] [address] [facility] [address] [place] [address] Referral ID Status Reason Start Date Expiration Date V isits Requested Visits Authorized [id number] Closed Evaluate and Treat 01/27/2022 01/27/2023 12 12 Encounter Details Date Type Department Care Team (Late st Contact Info) Description 02/10/2022 8:45 AM EDT Office Visit Occupational Therapy at [facility] [address] [place] [address] Sarah Beth Mcneal OT Cellulitis of right hand Social History Tobacco Use Types Packs/Day Years Used Date Smoking Tobacco: Every Day Sex and Gender Information Value Date Recorded Sex Assigned at Not on file Gender Identity Not on file Sexual Orientation Not on file documented as of this encounter Miscellaneous Notes * Initial Evaluation - Sarah Beth Mcneal OT - 02/10/2022 8:45 AM EDT OCCUPATIONAL THERAPY ORTHOTIC EVALUATION Certification Period: One time visit Referral Source: Dr. Asencio/Sarah Beth Ayala MD Follow-up: 02/20/22 Total Treatment time: 35 Minutes Timed Code Treatment Time: 0 minutes OCCUPATIONAL PROFILE: Meka Ray is a 56 y.o. year old Right hand dominant female who developed an infection in the dorsum of her hand, requiring a 4 strand repair of the EDC at her long finger. Meka Ray is referred to Occupational Therapy for evaluation and treatment to include fabrication of a custom orthosis. Patient presents today alone. She reports that she has occasionally removed her post-op splint and actively moved fingers. Date of onset of symptoms: January 2022 Date of surgery: 01/26/22 Pertinent History and/or Co-morbidities: No diagnosis found. Occupation: Not currently working Vocational status: off work Avocational Activities: Time with friend, gardening OCCUPATIONAL PERFORMANCE DEFICITS: Meka Ray is limited with current performance due to limited mobility/range of motion, limited strength and open wound. Precautions: patient may move IP's within confines of splint. NROM at MPs, wrist. AROM thumb ok. NWB. Global Mental Function: With gross screening of patient???s global mental functions, patient demonstrates orientation to person, place, time, and situation. Patient???s affect/behavior is appropriateand cooperative today. Patient Specific Functional Scale (PSFS) (unable to perform 0/10 - Able to perform without difficulty 10/10) Activity At Evaluation 1.) Dressing 8 2.) Grooming 5 3.) Meal prep 5 Average Score: 6 Disabilities of the Arm, Shoulder, and Hand (DASH): THE DISABILITIES OF THE ARM,SHOULDER AND HAND SCORE (DASH) 02/10/2022 1. Open a tight or new jar Moderate Difficulty 2. Write Moderate difficulty 3. Turn a herman Moderate difficulty 4. Prepare a meal Severe difficulty 5. Push open a heavy door Moderate difficulty 6. Place an object on a shelf above your head Mild difficulty 7. Do heavy staffing branch manager (eg wash reyez, wash floors) Severe difficulty 8. Garden or do yard work Severe difficulty 9. Make a bed Moderate difficulty 10. Carry a shopping bag or briefcase Mild difficulty 11. Carry a heavy object (over 10 lbs) Unable 12. Change a lightbulb overhead Unable 13. Wash or blow dry your hair Severe difficulty 14. Wash your back Unable 15. Put on a pullover sweater Moderate difficulty 16. Use a knife to cut food Unable 17. Recreational activities which require little effort (eg cardplaying, knitting, etc) Unable 18. Recreational activities in which you take some force or impact through your arm, shoulder or hand (eg golf, hammering, tennis, etc) Unable 19. Recreational activities in which you move your arm freely (eg playing frisbee, badD'Elyse[place], etc) Unable 20. Manage transportation needs (getting from one place to another) No difficulty 21. Sexual activities Unable 22. During the past week, to what extent has your arm, shoulder or hand problem interfered with your normal social activities with family, friends, neighbours or groups? Extremely 23. During the past week, were you limited in your work or other regular daily activities as a result of your arm, shoulder or hand problem? Very limited 24. Arm, shoulder or hand pain Moderate 25. Arm, shoulder or hand pain when you performed any specific activity Moderate 26. Tingling (pins and needles) in your arm, shoulder or hand Moderate 27. Weakness in your arm, shoulder or hand Moderate 28. Stiffness in your arm, shoulder or hand Moderate 29. During the past week, how much difficulty have you had sleeping because of the pain in your arm, shoulder or hand? Moderate difficulty 30. I feel less capable, less confident or less useful because of my arm, shoulder or hand problem Strongly agree DASH Score 67.5 Standardized measurement of functional limitation related to an upper extremity disability, using 0-100 scale indicating percent of perceived functional impairment. Pain: (Assessed using the Visual Analog Pain Scale) At Rest: 10 With Activity: 12/15 Treatment Today: Orthosis - Etwfc-Kkfe-Yacckm Orthotic, Rigid, WO Jts, Custom Fit & Adj ([id number]) Educated patient in etiology and biomechanics as related to patient's symptoms Fabricated volar extension orthosis with MP's in extension, IP's free. Additionally, fabricated nighttime add-on for full finger extension Instructed in orthosis wear and care: on at all times. AROM of IP's within splint is ok. NWB/no pinch/no squeeze. Wear finger extension portion for nighttime to prevent PIP flexion contractures. CLINICAL DECISION MAKING: Meka Ray has a well fitting orthosis post therapy. Meka Ray is able to independently verbalize and demonstrate the recommended home program following instructions today. Meka Ray has good potential for gains with therapy/home program use. Patient knows to call with any questions or concerns. Meka Ray lives a considerable distance from this clinic; continued therapy will be arranged at a clinic closer to home. I have communicated my concern re: potential compliance with splint wear issues, as well as the need for an outside referral to her referring provider. Short Term Goals (to be met by end of the visit today): Date Goal Met: Today 1. eMka Ray will demonstrate independence with donning and doffing of her orthosis and verbalization of purpose. Goal Status: Meets. Today 2. Meka Ray will be independent with home exercises as evident with demonstration in therapy. Goal Status: Meets PLAN: Therapeutic exercises to increase functional mobility, Orthosis to provide support and protection to the joint (X) Meka Ray participated in the evaluation, collaborated on treatment goals, and agrees to the treatment plan. documented in this encounter Plan of Treatment Not on file documented as of this encounter Visit Diagnoses Diagnosis Cellulitis of right hand Cellulitis and abscess of hand, except fingers and thumb documented in this encounter Care Teams General Labor Forklift Operator Relationship Specialty Start Date End Date None None PCP - General 01/25/22 documented as of this encounter
--- OUTSIDE RECORDS SUMMARY | 2024-05-19 02:21 | XMS_ITS | Encounter Summary ---
[place] [address] Care Team Providers Care Coil Spring Assembler Name Role Phone None Primary Care Provider Unavailabl e Encounter Details Date Type Department Care Team (Late st Contact Info) Description 11/30/2023 [place] [address] Brielle Turner Social History Tobacco Use Types [...] on filedocumented in this encounter Care Teams Coil Spring Assembler Relationship Specialty Start Date End Date None None PCP - General 01/25/22 documented as of this encounter
--- OUTSIDE RECORDS SUMMARY | 2024-05-19 02:21 | XMS_ITS | Encounter Summary ---
Author Organization [facility] [place] [address] Care Team Providers Care Telephony Engineer Name Role Phone None Primary Care Provider Unavailabl e Encounter Details Date Type Department Care Team (Late st Contact Info) Description 02/27/2024 [place] [id number] Urvashi Mendosa RN Social History Tobacco Use Types Packs/Day Years Used Date Smoking Tobacco: Every Day Smokeless Tobacco: Never Sex and Gender Information Value Date Recorded Sex Assigned at Not on file Gender Identity Not on file Sexual Orientation Not on file documented as of this encounter Miscellaneous Notes * Telephone Encounter - Urvashi Mendosa RN - 02/27/2024 4:59 PM EDT Reaching out to assist pt in scheduling the CT (chest) ordered on 01/07/2024 by PA. Spivey. M asking pt to call the CT Dept [phone]) to schedule imaging. documented in this encounter Plan of Treatment Not on file documented as of this encounter Visit Diagnoses Not on filedocumented in this encounter Care Teams Telephony Engineer Relationship Specialty Start Date End Date None None PCP - General 01/25/22 documented as of this encounter
--- OUTSIDE RECORDS SUMMARY | 2024-05-19 02:21 | XMS_ITS | Encounter Summary ---
Author Organization [facility] [address] Care Team Providers Care Absorption Plant Operator Helper Name Role Phone None Primary Care Provider Unavailabl e Encounter Details Date Type Department Care Team (Late st Contact Info) Description 11/21/2022 Ancillary Procedure [place] [address] Kareen Spivey APRN [facility] [place] [address] Social History Tobacco Use Types Packs/Day Years Used Date Smoking Tobacco: Every Day Smokeless Tobacco: Never Sex and Gender Information Value Date Recorded Sex Assigned at Not on file Gender Identity Not on file Sexual Orientation Not on file documented as of this encounter Plan of Treatment Not on file documented as of this encounter Procedures Procedure Name Priority Date/Time Associated Diagnosis Comments FILM LIBRARY STORAGE ONLY CT CHEST Routine 11/21/2022 12:00 AM EST documented in this encounter Results * Film Library- Storage Only CT Chest (11/21/2022 12:00 AM EST) Narrative SHERRI - 11/27/2023 10:57 AM EST This exam is auto-finalizing. It's purpose is for storage only. Kareen Spivey APRN [employer] FILM LIBRARY O RDERABLES [place], [place] documented in this encounter Visit Diagnoses Not on filedocumented in this encounter Care Teams Absorption Plant Operator Helper Relationship Specialty Start Date End Date None None PCP - General 01/25/22 documented as of this encounter
--- OUTSIDE RECORDS SUMMARY | 2024-05-19 02:21 | XMS_ITS | Encounter Summary ---
Author Organization [facility] Address [address] [place] [address] Care Team Providers Care Rock Dust Sprayer Name Role Phone Royer Reed MD Primary Care Provider [phone] Encounter Details Date Type Department Care Team (Late st Contact Info) Description 12/28/2022 Lab Requisition [facility] Pathology & Laboratory Medicine - [facility] [address] [place] [address] Outr Resulting Lab, Provider Social History Tobacco [...] Procedure Name Priority Date/Time Associated Diagnosis Comments HOLD SST Today 12/28/2022 12:55 EST HEPATITIS A TOTAL ANTIBODY W REFLEX Today 12/28/2022 12:55 EST HEPATITIS B CORE ANTIBODY (TOTAL) Today 12/28/2022 12:55 EST documented in this encounter Results * HOLD SST (12/28/2022 12:55 EST) Hold Hold 12/29/2022 0:01 EST [facility] Blood VENOUS BLOOD / Unknown 12/28/2022 12:55 EST 12/28/2022 23:00 EST Provider Outr Resulting Lab LAB INFO SER VICE AND SUPPORT & PHONE RESULT [facility] [address] [place] [address] * (ABNORMAL) HEPATITIS B CORE ANTIBODY (TOTAL) (12/28/2022 12:55 EST) Hepatitis B Core Ab, Total Positive( A) Negative 12/29/2022 13:28 EST [facility] Comment:A positive result fo r Hepatitis B Core Antibody (Total) indicates either a remote past infection with Hepatitis B Virus OR a Window period between disappearance of HBsAg and seroconversion to HBsAb. Blood VENOUS BLOOD / Unknown 12/28/2022 12:55 EST 12/28/2022 23:00 EST Provider Outr Resulting Lab CHEMISTRY & BLOOD GAS ORDERABLES Performing Organization Address City/[facility]/ZIP Co de Phone Number [facility] [address] [place] [address] * HEPATITIS A TOTAL ANTIBODY W REFLEX (12/28/2022 12:55 EST) Hepatitis A Antibody, Total Negative Negative 12/29/2022 10:47 EST [facility] Blood VENOUS BLOOD / Unknown 12/28/2022 12:55 EST 12/28/2022 23:00 EST Narrative [facility] - 12/29/2022 10:47 EST The result of this assay can be falsely elevated (Positive) due to the consumption of Biotin. Provider Outr Resulting Lab CHEMISTRY & BLOOD GAS ORDERABLES Performing Organization Address City/[facility] Co de Phone Number [facility] [address] [place] [address] documented in this encounter Visit Diagnoses Not on filedocumented in this encounter Care Teams Rock Dust Sprayer Relationship Specialty Start Date End Date Royer Reed MD [address] [place] [id number] PCP - General Internal Medicine - Primary Care 06/01/23 documented as of this encounter
--- OUTSIDE RECORDS SUMMARY | 2024-05-19 02:21 | XMS_ITS | Encounter Summary ---
Author Organization [facility] [place] [address] Care Team Providers Care Retail Wireless Sales Consultant Name Role Phone None Primary Care Provider Unavailabl e Reason for Referral * Diagnostic Test (Routine) - Closed Specialty Diagnoses / Procedures Referred By Contac t Referred To Contact Cardiology Diagnoses SOB (shortness of breath) on exertion Chronic obstructive pulmonary disease, unspecified COPD type Substance abuse Procedures Mobile Vasu Valenzuela APRN [address] [place] [address] [facility] [place] [address] Referral ID Status Reason Start Date Expiration Date V isits Requested Visits Authorized [id number] Closed Specialty Service Requested 07/19/2022 07/19/2023 1 1 Reason for Visit * Diagnostic Test (Routine) - Closed Specialty Diagnoses / Procedures Referred By Contac t Referred To Contact Cardiology Diagnoses SOB (shortness of breath) on exertion Chronic obstructive pulmonary disease, unspecified COPD type Substance abuse Procedures Mobile Vasu Valenzuela APRN [address] [place] [address] [facility] [place] [address] Referral ID Status Reason Start Date Expiration Date V isits Requested Visits Authorized [id number] Closed Specialty Service Requested 07/19/2022 07/19/2023 1 1 Encounter Details Date Type Department Care Team (Latest Contact Info) Description 07/19/2022 9:19 AM EDT - 07/19/2022 11:59 PM EDT Hospital Encounter [place] [address] Vasu Moreno, [employer] [address] [place] [address] SOB (shortness of breath) on exertion; Chronic obstructive pulmonary disease, unspecified COPD type; Substance abuse Discharge Disposition: Home Social History Tobacco Use Types Packs/Day Years Used Date Smoking Tobacco: Every Day Smokeless Tobacco: Never Sex and Gender Information Value Date Recorded Sex Assigned at Not on file Gender Identity Not on file Sexual Orientation Not on file documented as of this encounter Medications at Time of Discharge Medication Sig Dispensed Refills Start Date End Date albuteroL 90 mcg/actuation HFA Aerosol Inhaler Inhale [...] Date/Time Associated Diagnosis Comments ECHO COMPLETE Routine 07/19/2022 10:31 AM EDT SOB (shortness of breath) on exertion Chronic obstructive pulmonary disease, unspecified COPD type Substance abuse documented in this encounter Results * ECHO COMPLETE (07/19/2022 10:31 AM EDT) EF 65 [employer] Anatomical Region Laterality Modality Other 07/19/2022 7:30 AM EDT Narrative 07/19/2022 10:47 AM EDT ? Echocardiogram Report Name: SHEY RAY ? Study Date: 07/19/2022 07:30 AM ? Patient Location: [id number] : 1965 ? Height: 67 in ? Account: [id number] Age: 56 yrs ? Weight: 135 lb Gender: Female ?BSA: 1.7 m2 Ordering Physician: VASU MORENO Referring Physician: VASU MORENO Performed By: SOPHIA Reason For Study: Dyspnea Exam Location: [facility]. Interpretation Summary -Left ventricle is of normal size. Wall thickness is normal. There is no left ventricular outflow tract obstruction. There is no ventricular septal defect. Left ventricular systolic function is normal. Left ventricular ejection fraction is estimated visually at 65%. There are no segmental wall motion abnormalities. Left ventricular diastolic function is normal. -The right ventricle is of normal size. Right ventricular systolic function is normal. -No significant valvular disease noted on this study. - Pulmonary artery hypertension could not be assessed due to inadequate tricuspid regurgitation jet. -See report for additional findings. Procedure Complete-[id number]. Satisfactory quality. Left Ventricle Left ventricle is of normal size. Wall thickness is normal. There is no left ventricular outflow tract obstruction. There is no ventricular septal defect. Left ventricular systolic function is normal. Left ventricular ejection fraction is estimated visually at 65%. There are no segmental wall motion abnormalities. Right Ventricle The right ventricle is of normal size. Right ventricular systolic function is normal. Left Atrium The left atrium is normal. No abnormality of the interatrial septum is identified. Right Atrium The right atrium is normal. Aortic Valve The aortic valve is tricuspid. There is no aortic stenosis. There is no aortic regurgitation. Mitral Valve The mitral valve is structurally normal. There is no mitral stenosis. There is trace mitral regurgitation. Tricuspid Valve The tricuspid valve is structurally normal. There is no tricuspid stenosis. There is trace tricuspid regurgitation. Pulmonic Valve The pulmonic valve appears to be structurally normal. There is no valvular pulmonic stenosis. There is no pulmonic valve regurgitation. Great Arteries The aortic root is of normal size. No abnormalities are identified. The ascending aorta is not well visualized. The transverse aorta is not well visualized. Venous Inferior vena cava is normal in size. Inferior vena cava collapse greater than 50% with respiration. Pericardium/Pleural The pericardium appears normal. Hemodynamics The estimated right atrial pressure is 3mmHg. Pulmonary artery hypertension could not be assessed due to inadequate tricuspid regurgitation jet. Left ventricular diastolic function is normal. Ejection Fraction ?2D Measurements ? Volumes LV Biplane EF: 62.2 % ? IVSd: 0.84 cm ?EDV Biplane: 93.1 ml ?LVPWd: 0.84 cm ? EDV Biplane Index: 54.4 ? ESV Biplane: 35.1 ml ? ESV Biplane Index: 20.5 Doppler TR max rosario: 208.6 cm/sec RVSP(TR): 20.4 mmHg LV V1 VTI: 25.5 cm Ao V2 VTI: 27.8 cm Ao Max: 158.1 cm/sec Ao valve max: 10.0 mmHg MV E max rosario: 81.5 cm/sec MV A max rosario: 82.0 cm/sec MV E/A: 0.99 Dimensionless index Aov: 0.92 I ?WMSI = 1.00 ? % Normal = 100 ?Segments ??Size X - Cannot ?2 - ?4 - ?1-2 ? small Interpret ?1 - Normal ?? Hypokinetic 3 - Akinetic Dyskinetic ?? 3-5 ? moderate 5 - ? 6-14 ?large Aneurysmal ?15-16 ?? diffuse Procedure Note Allen Johnston MD - 07/19/2022 Echocardiogram Report Name: SHEY RAY Study Date:07/19/2022 07:30 AM Patient Location: [id number] : 1965 Height: 67 in Account: [id number] Age: 56 yrs Weight: 135 lb Gender: Female BSA: 1.7 m2 Ordering Physician: VASU MORENO Referring Physician: VASU MORENO Performed By: SOPHIA Reason For Study: Dyspnea Exam Location: [facility]. Interpretation Summary -Left ventricle is of normal size. Wall thickness is normal. There is noleft ventricular outflow tract obstruction. There is no ventricular septaldefect. Left ventricular systolic function is normal. Left ventricular ejectionfraction is estimated visually at 65%. There are no segmental wall motionabnormalities. Left ventricular diastolic function is normal. -The right ventricle is of normal size. Right ventricular systolicfunction is normal. -No significant valvular disease noted on this study. - Pulmonary artery hypertension could not be assessed due to inadequatetricuspid regurgitation jet. -See report for additional findings. Procedure Complete-[id number]. Satisfactory quality. Left Ventricle Left ventricle is of normal size. Wall thickness is normal. There is noleft ventricular outflow tract obstruction. There is no ventricular septaldefect. Left ventricular systolic function is normal. Left ventricular ejectionfraction is estimated visually at 65%. There are no segmental wall motionabnormalities. Right Ventricle The right ventricle is of normal size. Right ventricular systolic functionis normal. Left Atrium The left atrium is normal. No abnormality of the interatrial septum isidentified. Right Atrium The right atrium is normal. Aortic Valve The aortic valve is tricuspid. There is no aortic stenosis. There is noaortic regurgitation. Mitral Valve The mitral valve is structurally normal. There is no mitral stenosis.There is trace mitral regurgitation. Tricuspid Valve The tricuspid valve is structurally normal. There is no tricuspidstenosis. There is trace tricuspid regurgitation. Pulmonic Valve The pulmonic valve appears to be structurally normal. There is novalvular pulmonic stenosis. There is no pulmonic valve regurgitation. Great Arteries The aortic root is of normal size. No abnormalities are identified. Theascending aorta is not well visualized. The transverse aorta is not wellvisualized. Venous Inferior vena cava is normal in size. Inferior vena cava collapse greaterthan 50% with respiration. Pericardium/Pleural The pericardium appears normal. Hemodynamics The estimated right atrial pressure is 3mmHg. Pulmonary arteryhypertension could not be assessed due to inadequate tricuspid regurgitation jet. Leftventricular diastolic function is normal. Ejection Fraction 2D Measurements Volumes LV Biplane EF: 62.2 % IVSd: 0.84 cm EDV Biplane: 93.1ml LVPWd: 0.84 cm EDV BiplaneIndex: 54.4 ESV Biplane: 35.1ml ESV BiplaneIndex: 20.5 Doppler TR max rosario: 208.6 cm/sec RVSP(TR): 20.4 mmHg LV V1 VTI: 25.5 cm Ao V2 VTI: 27.8 cm Ao Max: 158.1 cm/sec Ao valve max: 10.0 mmHg MV E max rosario: 81.5 cm/sec MV A max rosario: 82.0 cm/sec MV E/A: 0.99 Dimensionless index Aov: 0.92 I WMSI = 1.00 % Normal = 100 SegmentsSize X - Cannot 2 - 4 - 1-2small Interpret 1 - Normal Hypokinetic 3 - Akinetic Dyskinetic 3-5moderate 5 - 6-14large Aneurysmal 15-16diffuse Vasu Moreno APRN ECHO ORDERABLES documented in this encounter Visit Diagnoses Diagnosis SOB (shortness of breath) on exertion Shortness of breath Chronic obstructive pulmonary disease, unspecified COPD type Substance abuse Other, mixed, or unspecified nondependent drug abuse, unspecified documented in this encounter Care Teams Retail Wireless Sales Consultant Relationship Specialty Start Date End Date None None PCP - General 01/25/22 documented as of this encounter
--- OUTSIDE RECORDS SUMMARY | 2024-05-19 02:21 | XMS_ITS | Continuity of Care Document ---
Author Organization [facility] [place] [address] Care Team Providers Care Marketing Strategy Lead Name Role Phone [email or web address] Primary Care Provider Assessment No assessment recorded. Plan of Treatment Reminders Order Date Submit Date Provider Last Modified By Organization Details Last Modified Time Details Appointments None recorded. Lab CBC 2023 024 [email or web address] [facility] ([facility]), [address] [place] [address] [place], [address], 4 18:06:46 lipase, serum or plasma 2023 024 [facility] ([facility]), [address] [place] [address] [place], [address], 4 18:06:46 Referral None recorded. Procedures None recorded. Surgeries None recorded. Imaging CT, abdomen + pelvis, w/ contrast 2023 024 [email or web address] (Radiology), [address] [place] [address] [place], [address], 4 08:43:16 Medication Orders buprenorphi ne 8 mg-naloxone 2 mg sublingual film 2023 024 [email or web address] [facility]- [address] [place], [address], 4 14:51:45 buprenorphi ne 4 mg-naloxone 1 mg sublingual film 2023 024 [email or web address] [place] [address] [address] [place], [address], 4 14:51:46 omeprazole 20 mg capsule,del ayed release 2023 024 [email or web address] [address] [address] [place], [address], 4 14:51:46 Carafate 100 mg/mL oral suspension 2023 024 [email or web address] [address] [address] [place], [address], 4 14:51:46 ondansetron 8 mg disintegrat ing tablet 2023 024 [facility]- [address] [place], [address], 4 14:54:34 Patient TargetsNo targets recorded. Patient InstructionsNo instructions recorded. Reason for Referral Language And Literature Division Chair Referral for Sc reening for malignant neoplasm of cervix Referring Physician: Vasu Moreno, Family Medicine, Encounter Date: 01/17/2024 Problems Name Status Onset Date Resolution Date Notes Provider Name and Address Organization Details Recorded Time Asthma Active 2021 AUREA Kumar - [facility]. 4 09:07:18 Pain in thoracic spine Active 2021 Problem Code: M54.9; Problem Code Type: ICD-10; Not Available [facility] 3 05:22:05 Nicotine dependence Active 2021 Problem Code: F17.200; Problem Code Type: ICD-10; Not Available [facility] 3 05:22:05 History of psychiatric disorder Active 2021 Problem Code: Z86.59; Problem Code Type: ICD-10; Not Available [facility] 3 05:22:05 Stimulant abuse Active 2021 Problem Code: F15.10; Problem Code Type: ICD-10; Not Available [facility] 3 05:22:05 Cocaine abuse Active 2021 JEFF castillo, [facility] 4 09:07:24 Psychoactive substance abuse Active 2021 Problem Code: F19.10; Problem Code Type: ICD-10; Not Available [facility] 3 05:22:06 Cellulitis of right upper limb Active 2021 Problem Code: L03.113; Problem Code Type: ICD-10; Not Available [facility] 3 05:22:06 Pulmonary emphysema Active 2021 JEFF castillo, [facility] 4 09:08:01 Disorder of tooth development Active 2021 Problem Code: K00.9; Problem Code Type: ICD-10; Not Available [facility] 3 05:22:06 Screening for malignant neoplasm of breast Active 2021 Problem Code: Z12.39; Problem Code Type: ICD-10; Not Available [facility] 3 05:22:06 Dyspnea Active 2021 JEFF castillo [facility] 4 09:07:35 Pleuritic pain Completed 202106/01/2022 Problem Code: R07.81; Problem Code Type: ICD-10; Not Available [facility] 3 05:22:06 Counseling Completed 202105/09/2022 Problem Code: Z71.89; Problem Code Type: ICD-10; Not Available [facility] 3 05:22:07 Nicotine dependence in remission Active 2021 JEFF castillo [facility] 4 09:07:50 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 Discuss again at 3 to 4-week follow-up. Primary focus today is pulmonology follow-up, starting Ellipta, completing doxycycline. Problem Code: Q44.5; Problem Code Type: ICD-10; Not Available [facility] 3 05:22:07 Lung field abnormal Active 2021 Problem Code: R91.8; Problem Code Type: ICD-10; Not Available [facility] 3 05:22:07 History of disorder of digestive system Active 2021 Problem Code: Z87.19; Problem Code Type: ICD-10; Not Available [facility] 3 05:22:07 Narcotic drug user Active 2021 Problem Code: F11.99; Problem Code Type: ICD-10; Not Available [facility] 3 05:22:07 Therapeutic drug monitoring assay Active 2022 Problem Code: Z51.81; Problem Code Type: ICD-10; Not Available [facility] 3 05:22:07 Screening for malignant neoplasm of colon Active 2022 Problem Code: Z12.11; Problem Code Type: ICD-10; Not Available [facility] 3 05:22:07 Depressed bipolar I disorder in partial remission Active 2022 JEFF castillo, [facility] 4 09:07:29 Viral hepatitis C Active 2022 JEFF castillo, [facility] 4 09:08:06 Generalized anxiety disorder Active 2022 JEFF castillo, [facility] 4 09:07:45 Cognitive deficit in attention Active 202205/04/2023 - Deteriorated - Crystal Josefa FISH NET STRINGER - Improved with Vyvanse, still on a low dose. Problem Code: R41.840; Problem Code Type: ICD-10; Not Available [facility] 3 05:22:08 Nicotine dependence Completed 202108/01/2023 01/23/2023 - Comments only - Vanessa Rivero APRN - Will order nicotrol inhaler again as previous PA did not go through. Patient is unable to tolerate the patch due to rash, the gum due to teeth, and lozenges have no effectiveness . She is currently using [employer] vape unit but she finds this is too expensive to upkeep. Problem Code: F17.200; Problem Code Type: ICD-10; Not Available [facility] 3 05:22:08 Anxiety Completed 202103/16/2023 Problem Code: F41.8; Problem Code Type: ICD-10; Not Available [facility] 3 05:22:08 Fatigue Active [address], [facility] [address] 3 13:55:21 Disorder in remission Active [address], [facility] [phone] [address] 3 13:59:26 Mixed anxiety and depressive disorder Active [address], [facility] [phone] 3 10:25:34 Chronic constipation Active [address], [facility] [address] , [facility] 3 10:27:15 Opioid dependence in remission Active [address], [facility] [address] [place] [address] 3 13:37:19 Acute upper respiratory infection Completed 202209/26/2023 Problem Code: J06.9; Problem Code Type: ICD-10; Not Available [facility] 4 05:38:18 Excessive sweating Active 2023 VASU MORENO, MELISSA [address], [place], [address] , [facility] 4 12:08:38 Upper abdominal pain Active 2023 MELISSA MANCILLA [address], [place], [address] , [facility] 4 11:26:23 Problem Notes None recorded. Medical Equipment None Reported. Allergies Allergen ID Allergen Name Allergen Category Reaction Reaction Severity Criticality Documentation Date Start Date Code Code System Note Provider Name and Address Organization Details Recorded Time 98459 iodine medicatio n Not available Not available Not available 09/14/20232021 5933 RxNorm Not Available [facility] 3 16:21:57 58653 codeine medicatio n Not available Not available Not available 09/14/20232021 2670 RxNorm Aller gyCod e: '0040 16639 32'; Aller gyNam e: 'CODE INE'; Aller gyCon ceptT ype: 'NDC' ; Not Available [facility] 3 16:21:58 Medications Name Sig Start Date [...] Not Available Not Available Not Available buprenorp nerissa 8 mg-naloxo ne 2 mg sublingua l [...] and Address Organization Details Last Updated DateTime 169.6 cm 19.3 kg/m2 38449.0 7 g 98.1 [degF] 97 % 97 % 88 /min 118 mm[Hg] 64 mm[Hg] Atiya Jacobsen MA [facility] 11:15:37 Social History Question Answer Notes LastModified by Organizat ion Details LastModified Time Tobacco Smoking Status Current Every Day Smoker patient vapes Atiya Jacosben MA [facility], [facility] 01/17/2024 10:59:12 Do You Or Have You Ever Used E-cigarettes Or Vape? Current User Of Electronic Cigarettes [email or web address] Information not available 01/17/2024 What Was The Date Of Your Most Recent Tobacco Screening? 01/17/2024 [email or web address] Information not available 01/17/2024 What Is Your Current Pack Years? 30ormorepackye ars [email or web address] Information not available 01/17/2024 At What Age Did You Start Smoking Tobacco? 10 [email or web address] Information not available 01/17/2024 Do You Or Have You Ever Used Smokeless Tobacco? Never Used Smokeless Tobacco [email or web address] Information not available 01/17/2024 How Much Tobacco Do You Smoke? 2 PPD Former Smoker [email or web address] Information not available 01/17/2024 Has Tobacco Cessation Counseling Been Provided? No [email or web address] Information not available 01/17/2024 How Many Years Have You Smoked Tobacco? 45 [email or web address] Information not available 01/17/2024 Do You Or Have You Ever Used Any Other Forms Of Tobacco Or Nicotine? Yes [email or web address] Information not available 01/17/2024 How Many Years [...] virus, quadrivalent, PF 08/29/2022 completed Not Available [facility] 09/14/2023 06:09:21 SARS-COV-2 (COVID-19) vaccine, UNSPECIFIED 07/20/2021 completed Not Available [facility] 09/14/2023 06:09:21 SARS-COV-2 (COVID-19) vaccine, UNSPECIFIED 08/17/2021 completed Not Available [facility] 09/14/2023 06:09:21 Pneumococcal conjugate PCV20, polysaccharide [id number] conjugate, adjuvant, PF 10/18/2022 completed Not Available [facility] 09/14/2023 06:09:21 COVID-19, mRNA, LNP-S, bivalent, PF, 30 mcg/0.3 mL dose 08/29/2022 completed Not Available [facility] 09/14/20 06:09:21 Past Encounters Encounter ID Performer Location Encounter Start Date Encounter Closed Date Diagnosis/Indication Diagnosis SNOMED-CT Code [id number] Windy Pimentel [facility] [address] [place] [address] 04/22/2024 10:56:51 04/22/2024 11:44:26 Opioid dependence in remission 562136995 Pulmonary emphysema 8743 3001 Viral hepatitis C 596893 07 Mixed anxi ety and depressive disorder 390806738 Chronic constipation 236 348381 Upper abdominal pain 831 71863 Health Concerns Section Related Observation LastModified by Organization Detai ls LastModified Time None Recorded Concern Status LastModified by Organization Details LastModified Time None Recorded Payers Encounter Date Sequence Insurance Name Policy Number Policy Atkinson Covered Member ID Atkinson Member ID Guarantor Name 04/22/2024 1 [facility] (MEDICAID) Meka Ray [id number] Meka Ray Notes Date Note Type Note Provider Name and Address Organization Details Recorded Time 04/22/2024 text/html HPI Notes: Meka presents to [facility] today for 3-month chronic care follow-up + Evaluation of acute upper abdominal pain + nausea and vomiting x 6 weeks since returning from a cruise. Complex medical history to include anxiety and depression, mood disorder, opioid use disorder, history of stimulant dependence in remission, severe pulmonary emphysema, current tobacco use. Participates in Medication assisted treatment here at [facility]. MELISSA MANCILLA [address], [place], [address], [place] [facility], [facility]. 04/22/2024 14:58:32 OBGyn Episode No OBEpisode recorded.
--- OUTSIDE RECORDS SUMMARY | 2024-05-19 02:21 | XMS_ITS | Clinical Summary ---
Author Organization [facility] Address [facility] [place] [address] Care Team Providers Care Pressure Testing Technician Name Role Phone None Primary Care Provider Unavailabl e Allergies Active Allergy Reactions Criticality Noted Date Comments Codeine 01/25/2022 Iodine And Iodide Containing Products 01/25/2022 Theophylline (Bulk) 01/25/2022 Medications Medication Sig Dispensed Refills Start Date End Date Status albuteroL 90 mcg/actuation HFA Aerosol Inhaler Inhale 2 puffs into the lungs every 4 hours as needed for Wheezing. Use with spacer Active albuteroL (ACCUNEB) 1.25 mg/3 mL Solution for Nebulization Take 1 ampule by nebulization 2 times daily. Active fluticasone propion-salmeteroL (ADVAIR HFA) 115-21 mcg/actuation HFA Aerosol Inhaler Inhale 2 puffs into the lungs 2 times daily. Unsure of strength Active ipratropium-albutero L (Duoneb) 0.5 mg-3 mg(2.5 mg base)/3 mL Solution for Nebulization Take 3 mLs by nebulization daily. Active buprenorphine-naloxo ne (Suboxone) 4-[address] 1 film under tongue once a day. Combine with 8 mg dose for a total of 12 mg suboxone daily. 01/17/2024 Active buprenorphine-naloxo ne (Suboxone) 8-[address] 1 film every day by sublingual route. 01/17/2024 Active umeclidinium (Incruse Ellipta) 62.5 mcg/actuation inhaler (DPI) Inhale 1 puff as directed once a day 05/29/2023 Active LORazepam (Ativan) 0.5 mg tablet Take 1 tablet by mouth 3 times daily as needed. 03/13/2024 Active azithromycin (Zithromax) 250 mg tablet Active Active Problems Problem Noted Date Diagnosed Date Cellulitis of right hand 01/25/2022 Encounters Date Type Department Care Team Description 04/25/2024 [place]phone [place] [phone] Lauren Munson RN 04/08/2024 [place] [address] Urvashi Mendosa RN 04/03/2024 [place] [address] Lauren Munson RN Other (Faxed PFT orders to [facility] Pulmonology [phone]) 03/19/2024 11:20 AM EDT Office [place] [phone] Allen Tovar MD Multiple lung nodules on CT; Chronic obstructive pulmonary disease, unspecified COPD type; Centrilobular emphysema; SOB (shortness of breath); Tobacco abuse counseling 03/19/2024 9:47 AM EDT - 03/19/2024 11:59 PM EDT Hospital Encounter Non-[place] [phone] Kareen Spivey, TABLET REPAIR Chronic obstructive pulmonary disease, unspecified COPD type Discharge Disposition: Home 03/19/2024 9:00 AM EDT Office [place] [phone] Irene Alvarado RT Chronic obstructive pulmonary disease, unspecified COPD type 03/19/2024 Travel 02/27/2024 [place] [phone] Urvashi Mendosa RN from Last 3 Months Social History Tobacco Use Types Packs/Day Years Used Date Smoking Tobacco: Former Smokeless Tobacco: Never Tobacco Cessation:Counseling Given: Not Answered Comments:Quit longer than six months Sex and Gender Information Value Date Recorded Sex Assigned at Not on file Gender Identity Not on file Sexual Orientation Not on file Last Filed Vital Signs Vital Sign Reading Time Taken Comments Blood Pressure 112/79 03/19/2024 9:46 AM EDT Pulse 61 03/19/2024 9:46 AM EDT Temperature 36.4 ??C (97.6 ??F) 03/19/2024 9:46 AM ED T Respiratory Rate 20 03/19/2024 8:49 AM EDT Oxygen Saturation 94% 03/19/2024 8:49 AM EDT Inhaled Oxygen Concentration - - Weight 58.2 kg (128 lb 4.9 oz) 03/19/2024 9:46 A M EDT Height 170.2 cm (5' 7.01) 03/19/2024 9:46 AM ED T Body Mass Index 20.09 03/19/2024 9:46 AM EDT Plan of Treatment Health Maintenance Due Date Last Done Comments CT Colonography 1967 Colonoscopy 1967 Colorectal Cancer Screening 1967 FIT DNA 1967 FIT 1967 Sigmoidoscopy (10 year) with FIT yearly 1967 Sigmoidoscopy 1967 HIV screen 1985 Hepatitis C Screening 1985 Hepatitis B vaccine (0-59 yrs) (1) 1986 Tdap adult 1986 Tetanus vaccine 1986 HPV test 1997 PAP Smear 1997 Breast Cancer Share Decision Needed 2007 Breast Cancer screening 2007 Zoster vaccine (1 of 2) 2017 Advance Directive 2022 Covid-19 Vaccine (2 - 2022- season) 2023 Influenza (Flu) vaccine (1 o f 1 - Influenza standard series) 07/06/2024 Procedures Procedure Name Priority Date/Time Associated Diagnosis Comments PFT SCAN 04/14/2024 12:00 AM EDT ECHO COMPLETE Routine 03/19/2024 11:16 AM EDT Chronic obstructive pulmonary disease, unspecified COPD type BLOOD GAS ARTERIAL ([facility]) Routine 03/19/2024 9:37 AM EDT POINT OF CARE BLOOD GAS HISTORICAL Routine 03/19/2024 8:35 AM EDT from Last 3 Months Results * Scan Doc: PFT (04/14/2024 12:00 AM EDT) Narrative 04/14/2024 12:00 AM EDT Ordered by an unspecified provider. Scanning Provider MEDIA MGR SCAN EXT O RDR/RSLT * ECHO COMPLETE (03/19/2024 11:16 AM EDT) EF 61 HEARTInverted Edge SYSTEM Anatomical Region Laterality Modality Cardiac Other 03/19/2024 10:0 6 AM EDT Narrative 03/19/2024 12:48 PM EDT 1 [place] [address] ? Echocardiogram Report Name: MEKA RAY ? Study Date: 03/19/2024 10:06 AMBP: 112/79 mmHg ? Patient Location: 4A : 1965 ? Height: 170 cm ? Account: [id number] Age: 58 yrs ? Weight: 58 kg Gender: Female ?BSA: 1.7 m2 Ordering Physician: KAREEN SPIVEY Referring Physician: KAREEN SPIVEY Performed By: KARMA Hobson, PREMA Reason For Study: COPD, Evaluation for Bronchoscopic Lung Volume Reduction Procedure Exam Location: [facility]. Interpretation Summary Left ventricular systolic function is normal. The left ventricular ejection fraction is 61% by Plunkett's biplane. Right ventricular systolic function is normal. PASP could not be assessed given insufficient tricuspid regurgitant jet. Compared with study of 07/19/22. no change. Procedure Complete-91232. Satisfactory quality. Regular rhythm. Left Ventricle Left [...] Note Wyatt Shea MD - 03/19/2024 1 [place] [address] Echocardiogram Report Name: MEKA RAY Study Date: 410:06 AMBP: 112/79 mmHg Patient Location: : 1965 Height: 170 cm Account: [id number] Age: 58 yrs Weight: 58 kg Gender: Female BSA: 1.7 m2 Ordering Physician: KAREEN SPIVEY Referring Physician: KAREEN SPIVEY Performed By: KARMA Hobson RCS Reason For Study: COPD, Evaluation for Bronchoscopic Lung VolumeReduction Procedure Exam Location: [facility]. Interpretation Summary Left ventricular systolic function is normal. The left ventricularejection fraction is 61% by Plunkett's biplane. Right ventricular systolic function is normal. PASP could not be assessed given insufficient tricuspid regurgitant jet. Compared with study of 07/19/22. no change. Procedure Complete-85708. Satisfactory quality. Regular rhythm. Left Ventricle Left [...] max bhavin: 185.4 cm/sec RVSP(TR): 16.8 mmHg Kareen Spivey APRN ECHO ORDERABLES * (ABNORMAL) Blood Gas Arterial ([facility]) (03/19/2024 9:37 AM EDT) pH Art 7.40 7.35 - 7.45 [facility] pCO2 Art 41 35 - 45 mmHg [facility] pO2 Art 67(L) 85 - 104 mmHg [facility] HCO3 Art 24.8 20.0 - 26.0 mmol/L [facility] BE Art -0.1 -3.0 - 3.0 mmol/L [facility] Hgb Blood Gas 15.0 11.7 - 15.5 g/dL [facility] O2HB Art 87.7(L) 94.0 - 97.0 % [facility] COHB Art 6.6 % [facility] Comment: Nonsmokers: ??0.5-1.5% COHB Smokers: ??Variable, but usually less than 10% Toxic: 20 - 30% COHB Lethal: ??Greater than 60% COHB METHB Art 0.3 <=1.5 % [facility] Na Whole Blood 138 135 - 145 mmol/L [facility] K Whole Blood 4.2 3.5 - 5.0 mmol/L [facility] Comment: Please note: ??Patients with WBC >100,000 may have falsely elevated Potassium levels. ??Contact the Clinical Chemistry Laboratory if there are any questions. ICa Whole Blood 1.17 1.15 - 1.33 mmol/L [facility] Comment: Note: ??Total bilirubin higher than 20 mg/dL may lead to falsely low ionized calcium. CL Whole Blood 102 98 - 107 mmol/L [facility] Gluc Whole Bld 97 65 - 199 mg/dL [facility] Comment:Diabetes: >=200 mg/d L plus symptoms. Lactate WB 0.9 0.5 - 2.2 mmol/L [facility] FIO2 Art 21 % [facility] PF Ratio Art 319 [facility] Blood Arterial Draw / Unknown 03/19/2024 9:37 AM EDT 03/19/2024 9:37 AM EDT Narrative Resulting Agency Comment Spec In Lab Kareen Spivey TABLET REPAIR CHEMISTRY ORDERABL ES [facility] [place] [address] * (ABNORMAL) Point of Care Blood Gas Historical (03/19/2024 8:35 AM EDT) POC pH 7.37 7.35 - 7.45 [facility] POC PCO2 47(H) 35 - 45 mmHg [facility] POC PO2 62(L) 85 - 104 mmHg [facility] POC Base Excess 1.0 -3.0 - 3.0 mmol/L [facility] POC HCO3 26.7(H) 20.0 - 26.0 mmol/L [facility] POC Sodium 138 135 - 145 mmol/L [facility] POC Potassium 4.2 3.5 - 5.0 mmol/L [facility] POC Ionized Ca 1.26 1.15 - 1.33 mmol/L [facility] POC Hematocrit 45.0 34.0 - 45.0 % [facility] POC Calc Hgb 15.3 11.2 - 15.7 g/dL [facility] Comment:The calculation of h emoglobin from hematocrit assumes a normal MCHC. POC Bgas Loc Resp [facility] Blood 03/19/2024 8:35 AM EDT 03/18/2024 12:00 PM EDT Allen Tovar MD CHEMISTRY ORDER OUMAR [facility] [place] [address] from Last 3 Months Advance Directives * Attempt Cardiopulmonary Resuscitation - Inpatient (Latest Code Status on File) Date Activated Date Inactivated Comments 01/26/2022 7:54 PM 01/27/2022 9:07 PM Question Answer Comments Code Status decision made by: Patient * Attempt Cardiopulmonary Resuscitation - Inpatient Date Activated Date Inactivated Comments 01/25/2022 7:20 PM 01/26/2022 7:54 PM Question Answer Comments Code Status decision made by: Patient Care Teams Pressure Testing Technician Relationship Specialty Start Date End Date None None PCP - General 01/25/22
--- OUTSIDE RECORDS SUMMARY | 2024-05-19 02:21 | XMS_ITS | Encounter Summary ---
[place] [address] Care Team Providers Care Top Stop Attacher Name Role Phone None Primary Care Provider Unavailabl e Encounter Details Date Type Department Care Team (Late st Contact Info) Description 01/22/2024 [place] [address] Brielle Turner Social History Tobacco Use Types [...] on filedocumented in this encounter Care Teams Top Stop Attacher Relationship Specialty Start Date End Date None None PCP - General 01/25/22 documented as of this encounter
--- OUTSIDE RECORDS SUMMARY | 2024-05-19 02:22 | XMS_ITS | Encounter Summary ---
Author Organization [facility] Address [facility] [place] [address] Care Team Providers Care Photography Instructor Name Role Phone None Primary Care Provider Unavailabl e Encounter Details Date Type Department Care Team (Late st Contact Info) Description 01/25/2022 Telephone [place] [address] Clarence Quigley MD [facility] [place] [address] Social History Tobacco Use Types Packs/Day Years Used Date Smoking Tobacco: Never Assessed Sex and Gender Information Value Date Recorded Sex Assigned at Not on file Gender Identity Not on file Sexual Orientation Not on file documented as of this encounter Miscellaneous Notes * Telephone Encounter - Clarence Quigley MD - 01/25/2022 11:13 AM EDT Transfer Center Call from Gaurang Bermeo MD at [facility] Patient is a 56-year-old female who presented to [facility] last week on 01/21 with hand pain and concern for infection. See Dr. Green's telephone note for more detail. In short concern for dorsal aspect abscess involving extensor mechanism. The wound was I&D in the emergency room at [facility] patient was discharged in a resting splint with antibiotics with plan to follow-up in plastics clinic for further evaluation. Follow up scheduled with plastics team on 02/06/[address] Asencio. Patient represented to [facility] ED this morning due to continued and worsening pain in her hand and wrist especially with 3rd finger and wrist extension. She still has dorsal swelling although it has improved. She has no recent fevers, chills, redness surrounding the I&D site, warmth or other signsof active infection. She has been taking clindamycin [address] Bermeo reports patient is currently afebrile ESR and white blood cell count are normal, CRP is pending. He is repeating hand x-ray although not back yet at this time. He is wondering if patient can be seen on a more urgent basis for this issue. Discussed with Dr. Bermeo that as the call was initially fielded by plastic surgery and she is currently scheduled for follow-up on 02/[address] Asencio in plastic surgery he could call their clinic tosee if a urgent appointment could be made. If patient was more concerned about her hand she could present here to our emergency department for evaluation by our hand team today. Dr. Bermeo reports hewill chat with the patient about the options and he will call back if she plans to present to our emergency department today. Clarence Quigley MD Orthopaedic Surgery Pager: [phone] documented in this encounter Plan of Treatment Not on file documented as of this encounter Visit Diagnoses Not on filedocumented in this encounter Care Teams Photography Instructor Relationship Specialty Start Date End Date None None PCP - General 01/25/22 documented as of this encounter
--- OUTSIDE RECORDS SUMMARY | 2024-05-19 02:22 | XMS_ITS | Encounter Summary ---
Author Organization [facility] Address [facility] [place] [address] Care Team Providers Care Hydraulic Miner Name Role Phone Refugio Meyer MD Primary Care Provider [phone] Encounter Details Date Type Department Care Team (Late st Contact Info) Description 01/21/2022 3:25 PM EDT Ancillary Procedure [place] [id number] Isma Levine MD [address] [place] [address] [place] [address] Social History Tobacco Use Types Packs/Day Years [...] Associated Diagnosis Comments FILM LIBRARY STORAGE ONLY DX HAND Routine 01/21/2022 3:22 PM EDT documented in this encounter Results * Film Library- Storage Only DX Hand (01/21/2022 3:22 PM EDT) Narrative [facility] - 01/21/2022 3:22 PM EDT This exam is auto-finalizing. It's purpose is for storage only. Isma Major MD IMG FILM LIBRAR Y ORDERABLES [place], [place] documented in this encounter Visit Diagnoses Not on filedocumented in this encounter Care Teams Hydraulic Miner Relationship Specialty Start Date End Date Refugio Meyer MD [address] [place] [address] PCP - General 02/24/19 01/24/22 documented as of this encounter
--- OUTSIDE RECORDS SUMMARY | 2024-05-19 02:22 | XMS_ITS | Encounter Summary ---
Author Organization [facility] Address [facility] [place] [address] Care Team Providers Care Tool And Cutter Grinder Name Role Phone None Primary Care Provider Unavailabl e Reason for Visit * Auth/Cert Specialty Diagnoses / Procedures Referred By Lory t Referred To Contact Diagnoses Cellulitis of right hand hand abscess Procedures emerg obsvo Referral ID Status Reason Start Date Expiration Date Visits Re quested Visits Authorized [id number] 1 1 Encounter Details Date Type Department Care Team (Late st Contact Info) Description 01/26/2022 6:09 PM EDT Anesthesia Event [place] [address] Espinoza Oh MD [facility] [place] [address] Zulema Nunez MD [facility] [place] [address] Anesthesia Record Procedure Summary Procedure Name Responsible Anesthesiologist Anesthesia Start Time Anesthesia Stop Time DEBRIDEMENT SKIN, SUBCU, MUSCLE, BONE UPPER EXTREMITY (WRVU 4.1) (Right) Espinoza Oh MD 01/26/22 18001/26/221922 Events Date Time Event Comment 01/26/2022 1753 1809 AN Verify 1809 Start 1809 An Start Data 1817 An Induction 1820 An Intubation 1821 Anesthesia Ready 1837 An Tourn Inflated 1858 Handoff Intra-procedure anesthesia care was transferred after review of the patient's history, current anesthetic/surgical status and procedural plan, anticipated issues and expected post-operative course (including disposition.) Allen Teran CRNA 1911 An Tourn Deflated 1916 Extubation/LMA Out 1917 an stop data 1920 Recovery or ICU Handoff Gauri ent care was transferred to the destination unit staff after review of the patient's medical history, current anesthetic/surgical status and plan, according to the Provider Handoff Checklist. 1922 Stop Meds Name Total Propofol 250 mg fentaNYL 50 mcg IV Lidocaine 50 mg Ondansetron 4 mg ketorolac (Toradol) (30 mg/mL) injection 15 mg 15 mg ceFAZolin 2 g Lactated Ringers 500 mL * Agents Name O2 Air N2O Sevoflurane (et) * Blood No blood administrations on file. Lines, Drains, and Airways Type Details Placement Removal Drain/Device Site 01/26/22; Right; jaci k of hand; Moro 01/26/22 0000 by Richard Grey, CASEY Incision 01/26/22; 1838; Righ t; hand 01/26/22 183 by Richard Grey, CASEY (RETIRED) PICC Line - Double Lumen 01/26/22; 1124; basilic vein (medial side of arm), left; pressure injectable catheter; 5 Fr; 0 cm; 39 cm; 39 cm; 28; placement verified by x-ray; caval atrial junction; Kimber Lilly RN; intradermal injection, tolerated well; 0; no longer indicated, removed per policy/procedure, site care per policy/procedure, catheter/device intact; 01/27/22; 1835 01/26/22 1124 by Gina Lilly RN 01/27/22 183 by Gina Lilly RN Supraglottic Mask Ventilation: Ea sy (1); LMA Type: iGel; LMA Size: 4; Inserted by: Radha BATEMAN; Removal Date: 01/26/22; Removal Time: 191601/26/221825 by Zuleima Lawson CRNA 01/26/221916 by Allen Teran CRNA documented in this encounter Social History Tobacco Use Types Packs/Day Years Used Date Smoking Tobacco: Never Assessed Sex and Gender Information Value Date Recorded Sex Assigned at Not on file Gender Identity Not on file Sexual Orientation Not on file documented as of this encounter OR Notes * Anesthesia Postprocedure Evaluation - Espinoza Oh MD - 01/26/2022 8:54 PM EDT Department of Anesthesiology Post-procedure Note Patient: Meka Ray Procedure Summary Date: 01/26/22 Room / Location: [facility] OR Anesthesia Start: 1808 Anesthesia Stop: 1922 Procedures: DEBRIDEMENT SKIN, SUBCU, MUSCLE, BONE UPPER EXTREMITY (WRVU 4.1) (Right ) TENDON REPAIR, EXTENSOR, HAND, W/O FREE GRAFT 1?? OR 2??, EA (WRVU 4.77) (Right Hand) SPLINT APPLICATION, SHORT ARM (WRVU 0.5) (Right Arm Lower) Diagnosis: (Right hand abscess) Surgeons: Refugio Light MD Responsible Provider: Espinoza Oh MD Anesthesia Type: general ASA Status: 2 All Anesthesia Providers: Anesthesiologist: Espinoza Oh MD; Martita Sadler MD HALL WORKER: Allen Teran CRNA; Zuleima Lawson CRNA Vitals Value Taken Time BP 115/78 01/26/222046 Temp 36.3 ??C (97.3 ??F) 01/26/222029 Pulse 85 01/26/222052 Resp 16 01/26/222052 SpO2 97 % 01/26/222052 Pain Level 7 01/26/222042 Vitals shown include unvalidated device data. Patient Location: PACU/[facility] Level of Consciousness: Awake and Alert Pain Management: Satisfactory Analgesia PONV: None Cardiovascular Status: At Baseline and Hemodynamically Stable Respiratory Status: At Baseline and Room Air Postoperative Fluid Status: Intravascular EUvolemia Possible Anesthetic Complications: NONE apparent at time of evaluation Final Primary Anesthesia Type: General (The anesthetic type performed was the same as planned.) Comments: ESPINOZA OH MD * Anesthesia Preprocedure Evaluation - Martita Sadler MD - 01/26/2022 5:51 PM EDT Pre-Anesthesia Evaluation for: Meka Ray a 56 y.o. female. Procedure(s): DEBRIDEMENT SKIN, SUBCU, MUSCLE, BONE UPPER EXTREMITY (WRVU 4.1) Patient Active Problem List Diagnosis Date Noted ??? Cellulitis of right hand 01/25/2022 No past medical history on file. No past surgical history on file. Social History Tobacco Use ??? Smoking status: Not on file ??? Smokeless tobacco: Not on file Substance Use Topics ??? Alcohol use: Not on file Social History Substance and Sexual Activity Drug Use Not on file Allergies Allergen Reactions ??? Codeine ??? Iodine And Iodide Containing Products ??? Theophylline (Bulk) Medications: MAR and/or home medications have been reviewed. Physical Exam: Preprocedure Vitals Current as of 01/26/22 1751 BP: 94/80 Pulse: 76 Resp: 16 SpO2: 96 Temp: 36.5 ??C (97.7 ??F) Height: Weight: 56.7 kg (125 lb) (01/25/22) BMI: IBW: Last edited 01/26/22 1300 by BC Airway Assessment: Mallampati: II TM distance: >3 FB Neck ROM: full Cardiovascular Assessment: Rate: normal Pulmonary Assessment: unlabored breathing Dental Assessment: Comment: edentulous Misc Assessment: IV access: Peripheral line Last Filed Perioperative Cognitive Screening None Anesthesia Plan: ASA 2 general, with a(n) intravenous induction 56 yo presents for right hand washout Smokes 1ppd COPD + MJ, no etoh Denies recent CP SOB URI or GERD NPO > 4 mets Risks and benefits of GA discussed All questions answered MARTITA SADLER MD Region - Other Informed Consent: Anesthetic plan and risks discussed with patient. Plan discussed with HALL WORKER. Anesthesia Screening documented in this encounter Plan of Treatment Not on file documented as of this encounter Visit Diagnoses Not on filedocumented in this encounter Administered Medications Inactive Administered Medications - up to 3 most recent administrations Medication Order MAR Action Action Date Dose Rate Site ceFAZolin (Ancef) 1 g in dextrose 5% 50 mL infusion Intravenous, PRN, Starting on Margarita 01/26/22 at 1855, Until Margarita 01/26/22 at 1927, Administer over 30 Minutes, Anesthesia Intra-op Given 01/26/2022 6:55 PM EDT 2 g fentaNYL (pf) (50 mcg/mL) multi-dose injection Intravenous, PRN, Starting on Margarita 01/26/22 at 1828, Until Margarita 01/26/22 at 1927, Anesthesia Intra-op, Routine Given 01/26/2022 6:28 PM EDT 50 mcg ketorolac (Toradol) (30 mg/mL) injection 15 mg 15 mg, Intravenous, EVERY 6 HOURS PRN, Starting on Sun01/25/22 at 1920, Until Sun01/27/22 at 2102, Pain, Routine Given 01/27/2022 3:38 PM EDT 15 mg Given 01/26/2022 11:18 PM EDT 15 mg Given 01/26/2022 6:48 PM EDT 15 mg lactated ringers infusion Intravenous, CONTINUOUS PRN, Starting on Margarita 01/26/22 at 1809, Until Margarita 01/26/22 at 1927, Anesthesia Intra-op New Bag 01/26/2022 6:09 PM EDT lidocaine (pf) (Xylocaine) (20 mg/mL) 2% injection syringe Intravenous, PRN, Starting on Margarita 01/26/22 at 1817, Until Margarita 01/26/22 at 1927, Anesthesia Intra-op, Routine Given 01/26/2022 6:17 PM EDT 50 mg ondansetron (pf) (Zofran) (2 mg/mL) injection Intravenous, PRN, Starting on Margarita 01/26/22 at 1907, Until Margarita 01/26/22 at 1927, Anesthesia Intra-op, Routine Given 01/26/2022 7:07 PM EDT 4 mg propofoL (Diprivan) 10 mg/mL bolus injection (Anesthesia) Intravenous, PRN, Starting on Margarita 01/26/22 at 1828, Until Margarita 01/26/22 at 1927, Anesthesia Intra-op Given 01/26/2022 6:28 PM EDT 50 mg Given 01/26/2022 6:17 PM EDT 200 mg documented in this encounter Care Teams Tool And Cutter Grinder Relationship Specialty Start Date End Date None None PCP - General 01/25/22 documented as of this encounter
--- OUTSIDE RECORDS SUMMARY | 2024-05-19 02:22 | XMS_ITS | Encounter Summary ---
Author Organization [facility] Address [facility] [place] [address] Care Team Providers Care Space Planner Name Role Phone Refugio Meyer MD Primary Care Provider [phone] Encounter Details Date Type Department Care Team (Late st Contact Info) Description 01/21/2022 Telephone [place] [address] Luis Resendez MD [facility] [place] [place] [address] Social History Tobacco Use Types Packs/Day Years Used Date Smoking Tobacco: Never Assessed Sex and Gender Information Value Date Recorded Sex Assigned at Not on file Gender Identity Not on file Sexual Orientation Not on file documented as of this encounter Miscellaneous Notes * Telephone Encounter - Luis Resendez MD - 01/21/2022 5:[address] Disla of [facility] ED calls in regards to a hand consult. The patient is a right hand dominant 56 year old female with left hand trauma by hitting it on wood a week ago. She states in the last couple days she hit the hand again and noted new swelling and redness over the dorsum of the hand. Thepatient was evaluated in the ED where they were noted to have concern of an abscess of the dorsum of the hand. When trying to clean the skin over this area there was a new opening in the skin and concern of visible tendon. The ED did an I and D of this area with serous drainage noted. No cultures were taken of this fluid. On further exam the hand was noted to be neurovasc intact. There was also note of inability to extend the long finger. The ED could passively extend the finger but the patientcould not maintain extension. The patient noted inability to extend the finger for about a week. All other ROM of the fingers and wrist was normal. Vitals and labs including WBC were noted to be WNL.A wrist and hand x- ray showed no bone pathology or concerns. The provider did state he could not rule out picking as the inciting event for these hand concerns. Recommendations were given including discharge the patient on antibiotic for 10 days (Bactrim, Keflex, or Clindamycin), place in volar resting splint for protection, keep hand elevated above the heart as much as possible, and keep I and Dincision open to allow for further drainage. We will schedule the patient for an appointment in clinic for reevaluation of infection and tendon injury. Return precautions were give. The patient's contact number is [phone]. The provider stated understanding and agreed to the plan. documented in this encounter Plan of Treatment Not on file documented as of this encounter Visit Diagnoses Not on filedocumented in this encounter Care Teams Space Planner Relationship Specialty Start Date End Date Refugio Meyer MD [address] [place] [id number] PCP - General 02/24/19 01/24/22 documented as of this encounter
--- OUTSIDE RECORDS SUMMARY | 2024-05-19 02:22 | XMS_ITS | Encounter Summary ---
Author Organization [facility] Address [facility] [place] [address] Care Team Providers Care Hardener Helper Name Role Phone None Primary Care Provider Unavailabl e Reason for Visit * Reason Comments Hand Injury Infection Hospital Transfer * Auth/Cert Specialty Diagnoses / Procedures Referred By Contac t Referred To Contact Diagnoses Cellulitis of right hand hand abscess Procedures emerg obsvo Referral ID Status Reason Start Date Expiration Date Visits Re quested Visits Authorized [id number] 1 1 Encounter Details Date Type Department Care Team (Latest Contact Info) Description 01/25/2022 2:14 PM EDT - 01/27/2022 6:57 PM EDT Hospital [place] [id number] German Harrell MD [facility] [place] [address] Arabella Guevara MD [facility] [place] [address] Cellulitis of right hand (Primary Dx) Discharge Disposition: Home Social History Tobacco Use Types Packs/Day Years Used Date Smoking Tobacco: Never Assessed Sex and Gender Information Value Date Recorded Sex Assigned at Not on file Gender Identity Not on file Sexual Orientation Not on file documented as of this encounter Last Filed Vital Signs Vital Sign Reading Time Taken Comments Blood Pressure 112/80 01/27/2022 3:38 PM EDT Pulse 75 01/27/2022 7:41 AM EDT Temperature 37.1 ??C (98.8 ??F) 01/27/2022 3:38 PM ED T Respiratory Rate 18 01/27/2022 3:38 PM EDT Oxygen Saturation 94% 01/27/2022 3:38 PM EDT Inhaled Oxygen Concentration - - Weight 56.7 kg (125 lb) 01/25/2022 1:50 PM EDT Height - - Body Mass Index - - documented in this encounter Discharge Summaries * Georgi Parker PA - 01/27/2022 6:56 AM EDT Images from the original note were not included. Discharge Summary Patient Name: Meka Ray Patient Age: 56 y.o. Language: Setswana Race: White Ethnicity: Not nor Admit date: 01/25/2022 Discharge date and time: 01/27/2022 Attending Physician: Arabella Guevara MD Discharge Physician: Arabella Guevara MD Follow-up Recommendations for Providers: See discharge instructions for additional details. Future Appointments Date Time Provider Department Center 02/09/2022 8:00 AM Sarah Beth Mcneal, [facility] 02/09/2022 9:00 AM NURSE, PLASTIC SURGERY [facility] PLAS [facility] Inpatient Provider Contact Information: Arabella Guevara MD Plastic Surgery [phone] After hours and weekends, call [facility] Business Change Manager, , and have the Plastic Surgery resident paged. Discharge Diagnoses (Hospital Problems) and Secondary Diagnoses (Chronic Problems): Active Hospital Problems Diagnosis ??? Cellulitis of right hand Resolved Hospital Problems No resolved problems to display. There are no active non-hospital problems to display for this patient. Operations/Major Procedures: 01/26/2022 PICC INSERTION Catheter type: PICC Lot number: [id number] Procedure Details: Order received for catheter placement. A 5 Fr. double lumen Bard Power catheter was placed into theleft basilic vein over a 0.018 inch guidewire using modified seldinger technique and fluoroscopy. Arm circumference was 28 cm at 2 cm above the insertion site. Final catheter length (with trimming): 39 cm Internal: 39 cm External: 0 cm Tip in SVC per Dr. Natarajan. 01/26/2022 Surgeon(s) and Role: * Arabella Guevara MD - Primary * Makeda Sosa MD - Resident Procedure(s): DEBRIDEMENT SKIN, SUBCU, MUSCLE, BONE UPPER EXTREMITY (WRVU 4.1) TENDON REPAIR, EXTENSOR, HAND, W/O FREE GRAFT 1?? OR 2??, EA (WRVU 4.77) SPLINT APPLICATION, SHORT ARM (WRVU 0.5) History of Presentation (as written in pre-op notes): Meka Ray is a 56 y.o. LHD female with COPD who presents with 6 days of worsening hand pain, swelling, and redness with drainage. She reports she got a splinter last Sunday and injured her hand after hitting it on a tree. Per patient, she had increased pain and swelling, presented to OSH where her dorsal hand swelling was aspirated and frayed presumed tendon sheath was noted from the wound. She received IV clindamycin at that time and was discharged on oral clindamycin. She has had worsening symptoms since then with cottage cheese drainage. She has pain with using her hand, but denies numbness or tingling. She denies fevers, chills, other injuries, chest pain, or SOB. Worsening dorsal R hand swelling, redness, and drainage concerning for infection. Given previous failed ED aspiration and extensor involvement on CT, the patient would benefit from operative I&D. Hospital Course: Meka Ray was admitted from the Emergency Department for evaluation and treatment of the above identified injuries. On HD#2 she was taken to surgery for the above procedure. Meka Ray tolerated the procedure and did well post-operatively. Infectious disease was consulted for assistance with antibiotic selection and management. On POD#1 the patient was started on oral pain medications. Drain removed on POD#1, drain site benign. On POD#1 and the patient was voiding spontaneously. She was taking po without difficulty. On POD#2 the patient was medically clear, and was deemed safe for discharge to home. Infectious Disease: Consulted for recommendations on PO antibiotics for discharge. Vital Signs at Discharge: Weight: Wt Readings from Last 1 Encounters: 01/25/22 56.7 kg (125 lb) Height: Ht Readings from Last 1 Encounters: No data found for Ht HC: HC Readings from Last 1 Encounters: No data found for HC BMI: There is no height or weight on file to calculate BMI. Last value Range last 24 hrs Temperature Temp: 37.1 ??C (98.8 ??F) Temp: [36.1 ??C (97 ??F)-37.1 ??C (98.8 ??F)] Heart Rate Heart Rate: 75 Heart Rate: [70-89] Blood Pressure BP: 112/80 BP: (102-148)/(68-122) Respiratory Rate Resp: 18 Resp: [11-23] SpO2 SpO2: 94 % SpO2: [90 %-99 %] Art BP BP (Arterial Line): -- Important Lab Data: Last 3 wbc, hgb, hct plt Recent Labs 01/27/22 0401 01/25/22 1622 WBC 7.9 9.1 HGB 12.0 15.1 HCT 36.6 47.0* PLATELET 258 314 Last 3 Lytes Recent Labs 01/25/22 1820 CREATININE 0.75 Recent Labs 01/25/22 1820 01/25/22 1622 CRP 6.1* -- SEDRATE -- 23 Pending Studies and Lab Data at Discharge: Lab Results Component Value Date LABANAE No anaerobic organisms isolated to date 01/26/2022 GRAMSTAIN (A) 01/26/2022 Many Neutrophils seen Moderate Gram Positive Cocci seen No results for input(s): URINECULTURE in the last 720 hours. No results for input(s): BLOODCX in the last 720 hours. Discharge Conditions/Prognosis: Stable, awake, and alert. Mobilizing as noted above, pain controlled on oral medications. Discharge to: Home Updated Allergies/ADRs: Allergies Allergen Reactions ??? Codeine ??? Iodine And Iodide Containing Products ??? Theophylline (Bulk) Immunizations Given this Hospitalization: There is no immunization history on file for this patient. Discharge Medications: Your Medications New Medications Dose Details doxycycline 100 mg Tab Commonly known as: VIBRA-TABS Take 1 tablet by mouth 2 times daily for 14 days. 100 mg Quantity: 28 tablet Refills: 0 oxyCODONE 5 mg Tab Commonly known as: Roxicodone Take 1 tablet by mouth every 6 hours as needed for Pain. 5 mg Quantity: 8 tablet Refills: 0 Continued medications, unchanged Dose Details * albuteroL 90 mcg/actuation Hfaa Inhale 2 puffs into the lungs every 4 hours as needed for Wheezing. Use with spacer 2 puff Refills: 0 * albuteroL 1.25 mg/3 mL Nebu Commonly known as: ACCUNEB Take 1 ampule by nebulization 2 times daily. 1 ampule Refills: 0 fluticasone propion-salmeteroL 115-21 mcg/actuation Hfaa Commonly known as: ADVAIR HFA Inhale 2 puffs into the lungs 2 times daily. Unsure of strength 2 puff Refills: 0 ipratropium-albuteroL 0.5 mg-3 mg(2.5 mg base)/3 mL Nebu Commonly known as: Duoneb Take 3 mLs by nebulization daily. 3 mL Refills: 0 * This list has 2 medication(s) that are the same as other medications prescribed for you. Read thedirections carefully, and ask your doctor or other care provider to review them with you. Smoking Status at Discharge: Social History Tobacco Use Smoking Status Not on file Smokeless Tobacco Not on file Instructions Given to Patient at Discharge: Patient Instructions Hand Discharge Instructions Keep splint on and dry at all times until your follow-up appointment. Put a bag over to shower. For fingers not included in the splint: OK to move your fingers. Keep hand elevated at all times until your follow-up appointment. Take Tylenol/acetominophen (do not exceed max daily dose of 3,000mg) and Advil/ibuprofen (do not exceed max daily dose of 2,400mg) alternated around the clock for pain relief. Take opioid pain medication only as needed for breakthrough pain. Take your antibiotics as directed until your course is complete. Call our office if: ??? Fingers in splint are white, numb or cold. ??? You have signs of infection o A temperature over 100.4 F. o Redness of the incision lines that is beginning to spread away from the incision. o Yellow pus-like or foul smelling drainage from the incision or drain site. o Increase pain/discomfort that is not relieved by your pain medication. To make an appointment or for questions about scheduling, please contact our administrative officesat [phone] For clinical questions, please call our nurses at [phone] Both offices are open Sunday thru Sunday 8a - 5p. With emergencies after hours, call the hospital screen printing machine operator at [phone] and ask for the Plastic Surgery Resident salesperson children's shoes. General Instructions None Future Appointments and Orders Future Appointments and Orders Future Appointments Provider Department Dept Phone 02/09/2022 8:00 AM Sarah Beth Mcneal OT Occupational Therapy at [facility] Arrive at: Hardboard Factory Worker 1 [facility] [phone] 02/09/2022 9:00 AM NURSE, PLASTIC SURGERY Plastic Surgery at [facility] Arrive at: Hardboard Factory Worker Area [phone] Plastic Surgery Nursing Orders: - wound check - staple removal around 2 weeks - coordinated appointment with OT for custom splint documented in this encounter Discharge Instructions * Patient Instructions* Georgi Parker PA - 01/27/2022 7:07 AM EDT Hand Discharge Instructions Keep splint on and dry at all times until your follow-up appointment. Put a bag over to shower. For fingers not included in the splint: OK to move your fingers. Keep hand elevated at all times until your follow-up appointment. Take Tylenol/acetominophen (do not exceed max daily dose of 3,000mg) and Advil/ibuprofen (do not exceed max daily dose of 2,400mg) alternated around the clock for pain relief. Take opioid pain medication only as needed for breakthrough pain. Take your antibiotics as directed until your course is complete. Call our office if: Fingers in splint are white, numb or cold. You have signs of infection A temperature over 100.4 F. Redness of the incision lines that is beginning to spread away from the incision. Yellow pus-like or foul smelling drainage from the incision or drain site. Increase pain/discomfort that is not relieved by your pain medication. To make an appointment or for questions about scheduling, please contact our administrative officesat [phone] For clinical questions, please call our nurses at [phone] Both offices are open Sunday thru Sunday 8a - 5p. With emergencies after hours, call the hospital screen printing machine operator at [phone] and ask for the Plastic Surgery Resident salesperson children's shoes. documented in this encounter Medications at Time of Discharge [...] Nebulization Take 3 mLs by nebulization daily. doxycycline (VIBRA-TABS) 100 mg Tablet Take 1 tablet by mouth 2 times daily for 14 days. 28 tablet 01/27/2022 02/10/2022 oxyCODONE (Roxicodone) 5 mg Tablet Take 1 tablet by mouth every 6 hours as needed for Pain. 8 tablet 01/27/2022 02/20/2022 documented as of this encounter Progress Notes * Gina Lilly RN - 01/27/2022 6:36 PM EDT Picc Catheter Removal: PICC Removal Catheter Removal: Double lumen Bard Power PICC Date: 01/27/2022 [ x ] Catheter removed intact with 39 cm removed from left arm, per MD order. Reason for removal: [ x ] End of Therapy [ ] Phlebitis [ ] Cellulitis [ ] Catheter-related infection: [ ] Suspected [ ] Documented [ ] Thrombus: [ ] Suspected [ ] Documented [ ] Infiltration [ ] Other Description of insertion/exit site: [x] no signs of infection, no bleeding at site [ ] other (see narrative below) Patient Education: [ x ] Patient instructed to observe site for redness, swelling, discomfort and /or exudates and call a Healthcare Provider if any of these signs/symptoms present. Comments: Patient Guidelines for Self-Care after PICC (Peripherally Inserted Central Catheter) Removal Your PICC was removed on 01/27/22 at 6:30 pm A Petroleum ointment was applied to the insertion site (where the PICC went into your skin). The nurse applied gauze and a transparent (see-through) dressing over the insertion site. To help your PICC insertion site heal: *Avoid heavy lifting (for example, no more than a gallon of milk) or vigorous activities for 24 hours * Keep the dressing over the insertion site dry for 24 hours * You can remove the dressing after 24 hours. Call your doctor after your PICC has been removed if you experience any of the following: * Fever (temperature over 100.1F) * Chills * Drainage from the insertion site ( including bleeding). *Redness, warmth, pain, swelling, or a pink/red streak going up your arm *A knot at the insertion site or anywhere in the arm *If bleeding should occur, hold firm pressure for 3-5 minutes. Do not remove the dressing that the nurse put on when the PICC was removed. If needed, apply another dressing over the first dressing. If bleeding does not stop, call or seek medical attention. * Janine Avelar RN - 01/27/2022 5:33 PM EDT [facility] Short Stay Unit Discharge Note All relevant discharge milestones have been met by the patent. After Visit Summary and discharge teaching reviewed with the patient. IV access has been discontinued. All personal belongings have been returned to the patient/family upon their departure from the unit. Patient has been discharged to home The patient has been discharged without VNA services. * Catalina Bill, BAROMETERS CALIBRATOR - 01/27/2022 6:53 AM EDT Plastic Surgery Inpatient Progress Note (Team Pager #[phone]) Date of surgery: 01/26/22 CC/Procedure(s): I & D washout / tendon repair right hand Surgeon: Kuldeep (consult by Ortho Hand Mary Barbosa) Subjective: Awake, seated in bed, c/o right hand pain and burning despite PO Oxycodone. Hand elevated on pillows. Splint on. Objective: BP 111/76 (BP Location (NBP): Right arm) Pulse 70 Temp 36.7 ??C (98.1 ??F) (Oral) Resp 20 Wt 56.7 kg (125 lb) SpO2 93% Intake/Output Summary (Last 24 hours) at 01/27/2022 0653 Last data filed at 01/26/2022 2306 Gross per 24 hour Intake 1044 ml Output 605 ml Net 439 ml General: Resting in no acute distress. Neuro: Awake, alert, responds to questions appropriately. CV: HRR, skin pink, warm, dry Pulm: non labored breathing on RA Incision: right hand with dorsal juma intact No evidence of hematoma/seroma/infection. Drains: consuelo DCd today on rounds Labs: Recent Labs 01/27/22 0401 01/25/22 1820 WBC 7.9 -- HGB 12.0 -- HCT 36.6 -- CREATININE -- 0.75 Micro: Preliminary 01/26 Component Value Abscess/Wound Aspirate Culture ??Abnormal?? Growth too young to evaluate, culture reincubated Gram Stain ??Abnormal?? Many Neutrophils seen Moderate Gram Positive Cocci seen Assessment: Meka Ray is a 56 y.o. female with a history of right hand abscess / tendon injury after splitting wood 6 days ago. Now admitted s/p I & D, washout and tendon repair. Plan: 1. Dressings/Drains: consuelo out 01/27 2. Pain control: Oxycodone 3. Antibiotics: Vanco / Ceftriaxone / Zosyn 4. Diet: advance 5. Activity: ad alley - elevate right hand on pillows 6. DVT prophylaxis: 7. Home medications: resume 8. Other active issues: Pain management 9. Dispo (please indicated anticipated d/c date in addition to home needs for the bottle caser to consider): Home with PO antibiotics 01/27 or 01/28? 10. Adjust antibiotics therapy pending culture results Plastic Surgery Inpatient Team Pager #[phone] Catalina Bill APRN * Be Qureshi MD - 01/27/2022 4:16 AM EDT Plastic Surgery Post Op Check Patient ID: Meka Ray is a 56 y.o. female S/p debridement of right hand abscess, tendon repair. Procedure(s): DEBRIDEMENT SKIN, SUBCU, MUSCLE, BONE UPPER EXTREMITY (WRVU 4.1) TENDON REPAIR, EXTENSOR, HAND, W/O FREE GRAFT 1?? OR 2??, EA (WRVU 4.77) SPLINT APPLICATION, SHORT ARM (WRVU 0.5) Subjective: No nausea/vomiting, chest pain, SOB, pain well controlled, offers no complaints Objective: Temp: [36.1 ??C (97 ??F)-36.7 ??C (98.1 ??F)] Heart Rate: [70-83] Resp: [11-20] BP: (102-119)/(68-85) SpO2: [90 %-97 %] Heart Rate from SpO2: [70 bpm-83 bpm] I/O this shift: In: 644 [P.O.:240; I.V.:404] Out: 605 [Urine:600; Blood:5] Physical Exam General: Resting comfortably. HEENT: normocephalic, atraumatic CVS: regular rate Pulm: Speaks in complete sentences, late expiratory wheezes on auscultation. Abd: soft, non tender, non distended Neuro: no focal deficits, moving all extremities RUE: Hand wrapped in JULIAN bandage. NO strike through. Able to wiggle fingers. Brisk capillary refill. Assessment/Plan: Meka Ray is a 56 y.o. female s/p debridement of right hand abscess, tendon repair currently in stable condition and recovering well. - pain well controlled - hemodynamically stable - UOP adequate Be Qureshi MD Pager: [phone] * Royer Turcios RN - 01/27/2022 2:00 AM EDT [facility] Short Stay Unit Shift Note The patient is progressing as expected except Pain Management. Details: Pt had numbness to right upper extremity upon return from the OR. Per anesthesia notes, itis unclear whether patient had a block to the extremity during anesthesia. Julian wrap taken down, to determine if extremity was wrapped too tight. Splinting felt loose and could easily handle two fingers under splint. Cap refill to right hand <3 seconds. Re-wrapped julian bandage loose fitting aroundsplint. Pt medicated with tylenol, motrin and oxycodone. Pt currently resting comfortably, will continue to monitor. VSS. Patient Vitals for the past 24 hrs: Temp Heart Rate From SP02 Pulse Resp BP SpO2 O2 Flow Rate (L/min) O2 Device 01/26/224 -- -- 74 16 123/87 95 % -- -- 01/26/22 1300 36.5 ??C (97.7 ??F) 76 bpm 76 16 94/80 96 % -- RA 01/26/221920 36.7 ??C (98.1 ??F) 73 bpm -- -- (!) 148/99 99 % -- -- 01/26/221929 -- 75 bpm 75 21 108/81 97 % -- RA 01/26/221944 -- 79 bpm 82 23 (!) 142/122 95 % -- -- 01/26/221999 -- 78 bpm 82 17 -- 92 % -- -- 01/26/222014 -- 85 bpm 89 21 (!) 111/93 90 % -- -- 01/26/222029 36.3 ??C (97.3 ??F) 80 bpm 81 20 102/68 90 % 2 L/min NC 01/26/222044 -- 80 bpm 76 18 115/78 96 % 2 L/min NC 01/26/222099 -- 73 bpm 73 11 103/73 97 % -- -- 01/26/224 -- 73 bpm 80 15 -- 97 % -- -- 01/26/22 2200 36.1 ??C (97 ??F) 77 bpm 77 20 115/76 96 % 2 L/min NC 01/26/22 2343 36.6 ??C (97.9 ??F) 83 bpm 83 18 119/85 95 % -- -- Intake/Output Summary (Last 24 hours) at 01/27/2022 0200 Last data filed at 01/26/2022 2306 Gross per 24 hour Intake 1044 ml Output 605 ml Net 439 ml Will continue to progress the patient as tolerated to meet their relevant discharge milestones. * Cindy Kate RN - 01/26/2022 9:14 PM EDT Received report, Pt ready to go to room. * Lindsey Youssef RN - 01/26/2022 7:52 PM EDT Arrived from OR In bed, tossing and turning Anesthetics without narcotic during procedure Had blockyesterday (worn off) Incontinent of urine Linen changed 1934 medicated with Dilaudid to total 1 mg Waiting on effect 1954 repeated Dilaudid Spoke to Dr Sosa Oxy range increased and given 15mg Oxycodone po Arm elevated on two pillows 2021 Pain coming down to 6-7 range Held further Dilaudid at this time Still throbbing but intensityis lessened 2039 Requiring pain med (Dilaudid IV)again for 7/10 pain 2100 report to CASEY White * Aranza Coleman MD - 01/26/2022 3:38 AM EDT ORTHOPAEDIC SURGERY INPATIENT PROGRESS NOTE Patient Name: Meka Ray Age: 56 y.o. Surgery/Issue: Right hand abscess Attending: Dr. Guevara SUBJECTIVE / INTERVAL HISTORY: Patient with increased pain this AM as nerve block from yesterday has worn off. Swelling stable to dorsum of hand, moderate tenderness. Still with some small amount of drainage from wound. No fever, nausea, vomiting, chest pain, shortness of breath. FOCUSED REVIEW OF SYSTEMS: as above. Active Hospital Problems Diagnosis ??? Cellulitis of right hand Resolved Hospital Problems No resolved problems to display. There are no active non-hospital problems to display for this patient. MEDICATIONS: ??? cefTRIAXone (Rocephin) 1 g vial attach to sodium chloride 0.9% 50 mL Mini- Bag Plus ??? nicotine (Nicoderm CQ) 14 mg/24 hr patch 14 mg ??? nicotine polacrilex (Commit) lozenge 4 mg ??? BUpivacaine (pf) (Marcaine) (7.5 mg/mL) 0.75% injection 7.5 mg ??? BUpivacaine (pf) (Marcaine) 0.25 % (2.5 mg/mL) injection ??? ipratropium-albuteroL (Duoneb) 0.5 mg-3 mg(2.5 mg base)/3 mL nebulizer solution 3 mL ??? acetaminophen (Tylenol) tablet 650 mg ??? ketorolac (Toradol) (30 mg/mL) injection 15 mg ??? vancomycin (Vancocin) 1 gram in sodium chloride 0.9% 250 mL infusion No current outpatient medications on file. OBJECTIVE: Temp: [36.7 ??C (98 ??F)] Heart Rate: [67] Resp: [16] BP: (110)/(76) No intake or output data in the 24 hours ending 01/25/22 1489 BMI: Weight: 56.7 kg (125 lb) (01/25/22 1350) There is no height or weight on file to calculate BMI. PE: General: awake/alert, responds to questions CV: RRR assessed peripherally Resp: Breathing comfortably on RA RUE: Splint, Dressing c/d/i. Removed and wound examined, swelling stable s/p I+D with moderate TTP to dorsum of hand. Sensation intact to light touch in ax/r/m/u distributions Motor intact to wrist flexion/extension, digit flexion/extension though significantly limited by pain and swelling Brisk capillary refill distally, fingers warm/well-perfused. Lab Results Component Value Date CREATININE 0.75 01/25/2022 Lab Results Component Value Date WBC 9.1 01/25/2022 HGB 15.1 01/25/2022 HCT 47.0 (H) 01/25/2022 MCV 93.6 01/25/2022 PLATELET 314 01/25/2022 IMAGING: No new imaging ASSESSMENT / PLAN: Meka Ray is a 56 y.o. female who presents with right hand abscess. Plan for I+D in OR today, please keep NPO. - Activity: NWB RUE in splint - Antibiotics: Vanc per ED - DVT px: Hold for OR - Diet: NPO Aranza Coleman MD 01/25/2022 Future Appointments Date Time Provider Department Center 02/06/2022 8:30 AM Randall Asencio MD [facility] PLAS [address] [place] [address] documented in this encounter H&P Notes * Aranza Coleman MD - 01/26/2022 3:38 AM EDT Preop H+P The patient's history and physical exam have been reviewed and completed. There has been no interval change from that of the pre-operative history and physical exam done within the last 30 days. General: NAD CV: RRR Pulm: CTAB RUE marked documented in this encounter Procedure Notes * Gina Lilly RN - 01/26/2022 11:20 AM EDTAssociated Order(s): PLACE PICC LINE: CONTACT VASCULAR ACCESS PICC/Midline Insertion Procedure Note Indications: Access This insertion was not to replace a malfunctioning catheter. This insertion was not due to a suspected line-associated infection. Location of Procedure: X-Ray Room 11 Risks and Benefits: The risks and benefits of this procedure were reviewed and informed consent was obtained. Time Out: Prior to the start of the procedure, the patient's identity, intended procedure, site/side, correctpatient positioning and presence of the site heike was confirmed as applicable. The medical history and chart were reviewed to rule out potential contraindications to the planned procedure. Hand Hygiene: The hand paint mixer did perform hand hygiene prior to line insertion. Catheter type: PICC Lot number: [id number] Procedure Technique: Skin was prepped with chlorhexidine. Skin preparation agent was completely dry at the time of first skin puncture. The following barrier precaution methods were used:large sterile drape, maske/eye shield, large sterile gown, sterile gloves and cap. 3 ml of 1% Lidocaine was used for skin wheal. Ultrasound was used for guidance. Radiographic contrast agent was not injected for vein identification. Procedure Details: Order received for catheter placement. A 5 Fr. double lumen Bard Power catheter was placed into theleft basilic vein over a 0.018 inch guidewire using modified seldinger technique and fluoroscopy. Arm circumference was 28 cm at 2 cm above the insertion site. Final catheter length (with trimming): 39 cm Internal: 39 cm External: 0 cm Tip in SVC per Dr. Natarajan. The line was not placed over a guidewire. Post Procedure: Diagnosis: cellulitis Blood return noted on aspiration of line after placement confirmed. 5 mls of normal saline infused free flowing to gravity via PICC after insertion. Sterile dressing applied: CHG Impregnated Tegaderm. Findings: The patient did tolerate the procedure well. No Complications. Procedure Comments: Gina Lilly RN 01/26/2022 documented in this encounter ED Notes * Blayne Rosado - 01/26/2022 8:20 AM EDT IV tested to flush prior to vancomycin infusion. Immediately after initiation, pt reports pain at IV site. Some swelling noted. Infusion stopped. Pt reports additional pain on subsequent flush. IV team paged. [id number]: PT seen by IV team, IV removed, plan for PICC * Blayne Rosado - 01/26/2022 7:25 AM EDT Pt asleep in bed. She roused with light tactile stimulation, then drowsy in bed. She reports 7/10 pain, but reports pain is tolerable at this time. * Jodie Britt RN - 01/26/2022 4:16 AM EDT Bupivacaine pulled, scanned and at bedside for MD use. * Jodie Britt RN - 01/26/2022 4:15 AM EDT Tylenol and Toradol had little effect in reduction of right hand pain. Pt fell asleep following Ativan. * Jodie Britt RN - 01/26/2022 3:54 AM EDT ER and Ortho at bedside to re evaluate pain level and plan. Plan is for patient to go to OR in Morning. * Jodie Britt RN - 01/26/2022 2:05 AM EDT Pt woke crying in pain. * Jodie Britt RN - 01/26/2022 1:37 AM EDT Pt sleeping but wakes easily, antibiotics complete. * Shelly Nagy RN - 01/25/2022 3:05 PM EDT IV team paged- pt reporting she needs a long IV, high in her arm. Does not want staff to attempt. * Joel Ashley PA - 01/25/2022 2:37 PM EDT ED Provider Note HPI: Meka Ray is a 56 y.o. female history of COPD, IV drug abuse in the past off any chronic medications, hysterectomy, . She comes in emerge department for being seen twice at [facility] for problems with a right hand infection. She injured the knee about 7 days ago when she was moving firewood at home and had a splinter in the dorsal aspect of the hand. She says she reinjured it on Sunday when she fell striking the top of the hand. Since that time she had increased pain, swelling, redness. She has pain with moving the hand and fingers. She was seen about 4 days ago and placed on clindamycin 4 times a day which she has been taking. She subsequent was still having worsening pain and swelling with back today for reevaluation. They were concerned by the signs of infection on the dorsal aspect and spoke to the orthopedic hand surgery about transfer here for evaluation. Here in theemerge department she has been history as outlined. She denies any fevers or chills. Says she has been taking the clindamycin as prescribed. She does admit she still smokes cigarettes, does not drink, does smoke marijuana occasionally does not use any other drugs. Review of Systems Constitutional: Negative for chills and fever. HENT: Negative for sore throat. Eyes: Negative. Respiratory: Negative for cough and shortness of breath. Cardiovascular: Negative for chest pain and palpitations. Gastrointestinal: Negative for diarrhea, nausea and vomiting. Endocrine: Negative. Genitourinary: Negative for difficulty urinating and frequency. Musculoskeletal: Positive for joint swelling and myalgias. Negative for back pain and neck pain. Skin: Negative. Neurological: Negative for weakness, numbness and headaches. Psychiatric/Behavioral: Negative. Pertinent positives and negatives are included in the HPI, otherwise at least ten systems were reviewed and negative. Past Medical and Surgical Histories, Social History, Medications, Allergies were reviewed in the chart. Vitals: ED Triage Vitals [01/25/22 1350] BP: 110/76 Heart Rate: 67 Resp: 16 Temp: 36.7 ??C (98 ??F) Temp src: Temporal SpO2: 95 % O2 Device: RA O2 Flow Rate (L/min): n/a Physical Exam Vitals and nursing note reviewed. Constitutional: General: She is not in acute distress. Appearance: Normal appearance. She is not ill-appearing. HENT: Head: Normocephalic and atraumatic. Mouth/Throat: Mouth: Mucous membranes are moist. Pharynx: Oropharynx is clear. Pulmonary: Effort: Pulmonary effort is normal. Chest: Chest wall: No tenderness. Abdominal: General: Abdomen is flat. Palpations: Abdomen is soft. Tenderness: There is no abdominal tenderness. Musculoskeletal: Cervical back: Normal range of motion and neck supple. Comments: Patient's upper extremities were both examined. Left arm is nontender nonswollen normal range of motion throughout. Right arm has no tenderness on the shoulder, elbow, wrist. Right hand haserythema on the dorsal aspect over the mid metacarpals. There is erythema extending out about 3 cm in all directions from the central ulcerated area with some purulent drainage draining. Moving her fi ngers causes pain but she is able to bend and pains. She cannot fully extend because of pain. Radial pulses 3+. Skin: General: Skin is warm and dry. Neurological: General: No focal deficit present. Mental Status: She is alert. Motor: No weakness. Psychiatric: Mood and Affect: Mood normal. ED Course: I have reviewed labs and imaging, images and available reports, No orders to display ED Course as of 01/25/221901Jan 25, 2022 1744 WBC: 9.1 1744 Hemoglobin: 15.1 1744 Platelets: 314 1902 Sed Rate: 1901 COMPARISON: Hand radiographs 01/21/2022. ?? FINDINGS: Prominent swelling over the dorsum of the hand. No subcutaneous air or radiodense foreign body. No underlying fracture or dislocation. No periostitis or erosion. ?? IMPRESSION Prominent right hand dorsal soft tissue swelling. Procedures Assessment and Plan: 56 y.o. female with 7 days of increasing pain, swelling, redness in her right hand. She had a splinter in the top of the right hand on the dorsal aspect moving some firewood at home. Is gradually gotten worse and more painful. Has been draining for a few days. She was seen at [facility] a few days ago and placed on clindamycin which has been taking. Went back today he was noted to have worsening symptoms and pain with movement they were concerned for a deep infection in the hand and sent her here. Here in the emerge department she has significant erythema over the dorsal aspect of the hand with a central ulcerated area with some purulent drainage. I am concerned for tenosynovitis. Will reach outto orthopedics. I am to get some basic labs including inflammatory markers. We will give her a doseof IV Rocephin. Will reevaluate following orthopedic evaluation 4:40 PM-was called by radiology because the patient was in for a contrast CT of the hand by orthopedics. Patient reports to me she had significant anaphylactic type reaction to IV contrast previously. Based on that we will not give IV contrast. We will get a Noncon and CT. 6:55 PM-patient was evaluated by the orthopedic team. They are doing a drainage at bedside. Feel she would benefit from admission to the hospital overnight. She is reasonable for the CDU. They will reassess in the morning if she has worsening symptoms she will need to be taken the operating room atthat point for further washout. We will continue her on IV clindamycin. Have given her her routine medications 7:50 PM-Case was reviewed with the pharmacy team. The do not feel clindamycin is of any added benefit. Would recommend placing the patient on vancomycin which we will order. This was discussed with orthopedics and they were comfortable with our plan to have Vanco and she is already received IV Rocephin. Final diagnosis #1 right hand cellulitis Disposition admission to CDU under CDU cellulitis protocol Joel Ashley PA 01/25/22 7570 Joel Ashley PA 01/25/22 190 Joel Ashley PA 01/25/221954 * Demond Fowler, - 01/25/2022 11:27 AM EDT EM attending brief transfer acceptance note: Meka Ray is a 56 y.o. who is coming from [facility] The patient will be evaluated in the Emergency Department for hand infection. Stable, discussed with ortho, refusing ambulance and coming by POV. The EM team will contact the ortho hand team as needed The OSH does not agree to take the patient back in transfer after our evaluation and treatment. Transfer and stabilization prior to transfer were discussed Demond Fowler DO 01/25/22 1129 documented in this encounter Miscellaneous Notes * Consult Note - Cait Castro MD - 01/27/2022 4:10 PM EDT Infectious Disease Service - Initial Consultation ID: Meka Ray Room: [address] Consulting Service: Consulting Attending: Arabella Guevara MD Admission Date: 01/25/2022 Subjective Reason for Consult: R hand abscess s/p I&D HPI: Meka Ray is a 56 y.o. female with Hx of IVDU who developed R hand injury around 01/18, reportedly from a splinter, resulting in subsequent infection. She was seen at [facility] ED on 01/21, at which point she underwent I&D of her dorsal R hand was apparently aspirated. Apparently, presence offrayed presumed tendon sheath was noted from the wound. No fluid was sent off for culture. She was placed on oral clindamycin and discharged to home. However, at home, she continued to experience progressive erythema, swelling, and tenderness of her R hand, along with purulent drainage from the wound. She did not have any fevers or chills. Ultimately, she re-presented to [facility] on 12/28 for evaluation, at which point it was felt that she would likely benefit from evaluation by a hand surgeon. She was subsequently referred to the [facility] ED on 12/28, at which point her ESR was normal at 23, w/ CRP mildly elevated at 6.1. CT head showed no obvious underlying osseous erosion or periostitis. Ultimately, she was taken to the OR by hand surgery on 01/26, at which point she was noted to have an infected dorsal hand wound extending down to bone, along with a lacerated extensor tendon to her R middle finger. Wound Cxs were taken, with Gram stain many PMNs and moderate GPCs. The plastic surgery team is planning to discharge the patient prior to cultures finalizing and are consulting ID to comment on empiric choice of antibiotic, as well as antibiotic duration. During today's interview, the patient was tearful, stating that she wanted to go home MK, as being in the hospital has not been good for her mental well-being. She stated that she would be willing to comply with any recommendation for oral antibiotics that was made, as well as recommended follow-up. Antimicrobials: Vancomycin (01/25-) Pip-tazo (01/26-) S/p Ceftriaxone (01/25-01/26) Review of Systems: As above, otherwise 14 point ROS negative Past Medical History: No past medical history on file. Medications: ??? lidocaine (Lidoderm) 5% patch 3 patch AND lidocaine (Lidoderm) topical patch REMOVAL ??? Vancomycin Level - MAR Order Reminder ??? acetaminophen (Tylenol) tablet 1,000 mg ??? dronabinoL (Marinol) capsule 10 mg ??? LORazepam (Ativan) tablet 1 mg ??? BUpivacaine-EPINEPHrine (Marcaine-epiNEPHrine) 0.25 %-1:200,000 injection ??? docusate sodium (Colace) capsule 100 mg ??? bisacodyL (Dulcolax) suppository 10 mg ??? piperacillin-tazobactam (Zosyn) 3.375 g vial attach to sodium chloride 0.9% 50 mL Mini-Bag Plus ??? oxyCODONE (Roxicodone) tablet 5 mg OR oxyCODONE (Roxicodone) tablet 10 mg OR oxyCODONE (Roxicodone) tablet 15 mg ??? nicotine polacrilex (Commit) lozenge 4 mg ??? ipratropium-albuteroL (Duoneb) 0.5 mg-3 mg(2.5 mg base)/3 mL nebulizer solution 3 mL ??? ketorolac (Toradol) (30 mg/mL) injection 15 mg ??? vancomycin (Vancocin) 1 gram in sodium chloride 0.9% 250 mL infusion Allergies: Allergies Allergen Reactions ??? Codeine ??? Iodine And Iodide Containing Products ??? Theophylline (Bulk) Immunizations: There is no immunization history on file for this patient. Family History: As above, otherwise non-contributory Social History: States that she lives with her best friend in [place]. Previously worked as a fisherman. Objective Vitals: Last value Range last 24 hrs Temperature Temp: 37.1 ??C (98.8 ??F) Temp: [36.1 ??C (97 ??F)-37.1 ??C (98.8 ??F)] Heart Rate Heart Rate: 75 Heart Rate: [70-89] Blood Pressure BP: 112/80 BP: (102-148)/(68-122) Respiratory Rate Resp: 18 Resp: [11-23] SpO2 SpO2: 94 % SpO2: [90 %-99 %] Physical Exam: General: In no acute distress, resting in bed comfortably, emotionally labile Neck: Supple, trachea midline Pulmonary: Clear to auscultation bilaterally, no wheezes or crackles CV: Regular rate and rhythm, no murmurs Abdomen: Soft, non-distended, non-tender to palpation in all quadrants Extremities: No peripheral edema Skin: No rashes or lesions noted on visible skin. R hand wrapped in large, post- surgical dressing. LUE PICC in place without erythema or drainage. Neuro: Alert and oriented, no focal deficits, moving all extremities spontaneously Psych: Extremely emotionally labile, intermittently hostile, other times tearful and overly apologetic Laboratory: Recent Labs 01/27/22 0401 01/25/22 1622 WBC 7.9 9.1 HGB 12.0 15.1 HCT 36.6 47.0* PLATELET 258 314 Recent Labs 01/25/22 1820 CREATININE 0.75 No results for input(s): AST, ALT, ALKPHOS, BILITOT, BILIDIR in the last 168 hours. Microbiology: 01/26 Abscess GS - many PMNs, moderate GPCs I called the [facility] microbiology, who stated that no cultures were collected on 01/21. Radiology/Studies/Procedures: CT hand w/o IV contrast (01/25/2022) Stents of dorsal soft tissue swelling without evidence of underlying osseous erosion or periostitis. No gross collection. No radiopaque foreign body seen. Impression & Recommendations Impression: Meka Ray is a 56 y.o. female with Hx of IVDU who was transferred to [facility] on 12/28 for management of a R dorsal hand abscess, now s/p I&D on 01/26, at which point she was noted to have an infected dorsal hand wound extending down to bone, along with a lacerated extensor tendon to her R middle finger. On discussion with the plastic surgery team, even though her abscess abutted bone, thebone itself did not appear grossly infected. In addition, even though her tendon was lacerated, it did not look infected and actually appeared healthy enough for a primary repair. Thus, after discussion with the plastic surgery team, it was decided that the patient could be prescribed treated with a 14 day course of antibiotics on discharge, with clinical reassessment prior to stopping antibiotics to determine whether the course warranted extension. Of note, the patient's OR cultures have not finalized. As her Gram stain showed GPCs, the most likely organism would be either MRSA or MSSA. As such, if the plan is to discharge the patient prior to availability of antimicrobial susceptibility data, it would be reasonable to choose an antibiotic that is likely to target both, such as as doxycycline. Since the patient's process is likely monomicrobial based on her history and Gram stain, I would not empirically continue Gram negative or anaerobic coverage. Recommendations: - Stop IV vancomycin and pip-tazo, and begin oral doxycycline 100 mg twice daily to treat presumed S aureus hand abscess - F/U wound Cx and adjust antimicrobial therapy as needed - Duration of therapy will tentatively be 14 days from date of I&D, w/ end date of 02/09/2022, though patient should be reassessed clinically prior to stopping antibiotics - Patient does not strictly require ID follow-up on an outpatient basis unless her wound fails to improve Monitor for toxicity of doxycycline by checking CBC w/ diff, CMP. Recommendations discussed with primary team. The Infectious Disease consult service will continue to follow the patient. Do not hesitate to pageID Green team with any further questions or concerns. X ID will sign off. Please contact us if further consultation required. Cait Castro MD Staff Physician in Infectious Diseases * Brief Op Note - Arabella Guevara MD - 01/26/2022 7:18 PM EDT Brief Operative Note Patient Name: Meka Ray : [id number] MR#: [id number] Case Date: 01/26/2022 Surgeon: Surgeon(s) and Role: * Arabella Guevara MD - Primary * Makeda Sosa MD - Resident Preoperative diagnosis: Right hand abscess Postoperative diagnosis: Right hand abscess Procedure(s) (LRB): DEBRIDEMENT SKIN, SUBCU, MUSCLE, BONE UPPER EXTREMITY (WRVU 4.1) (Right) TENDON REPAIR, EXTENSOR, HAND, W/O FREE GRAFT 1?? OR 2??, EA (WRVU 4.77) (Right) SPLINT APPLICATION, SHORT ARM (WRVU 0.5) (Right) Anesthesia: General Findings: Lacerated extensor tendon to right middle finger zone 5, infected dorsal hand wound to bone Complications: none apparent Intake: 300 ml Intraprocedure Crystalloid Total Intake Lactated Ringers 300.00 mL Total Intake 300 mL Transfusion No data found in the last 1 encounters. Output: Estimated Blood Loss: 1 ml Urine Output:: (no urine output recorded) Other Output: (no other output recorded) Drains: 1/4 inch consuelo Specimens removed during surgery: Disposition: awakened from anesthesia, extubated and taken to the recovery room in a stable condition, having suffered no apparent untoward event. Condition: doing well without problems Attestation: Case Date: 01/26/2022 I was present and I participated during the entire procedure (does not need to include opening and closing). (Please see the Surgical Encounter Summary for any Implant and Specimen details pertinent to this patient.) Surgical Infection Prevention Bundle Used? No * Op Note - Arabella Guevara MD - 01/26/2022 6:35 PM EDT [facility] Operative Note Patient Name: Meka Ray : [id number] MR#: [id number] Case Date: 01/26/2022 Surgeon: Surgeon(s) and Role: * Arabella Guevara MD - Primary * Makeda Sosa MD - Resident Preoperative diagnosis: Right hand abscess Postoperative diagnosis: Right hand abscess Procedure(s) (LRB): DEBRIDEMENT SKIN, SUBCU, MUSCLE, BONE UPPER EXTREMITY (WRVU 4.1) (Right) TENDON REPAIR, EXTENSOR, HAND, W/O FREE GRAFT 1?? OR 2??, EA (WRVU 4.77) (Right) SPLINT APPLICATION, SHORT ARM (WRVU 0.5) (Right) Anesthesia: General Estimated Blood Loss: 1 ml Specimens removed during surgery: Drains: 1/4 inch consuelo Drain/Device Site 01/26/22 Right back of hand Bern (Active) Surgical Closure: Primary Closure - skin incision is closed but with open spaces for wires, guille, drains or other devices Disposition: awakened from anesthesia, extubated and taken to the recovery room in a stable condition, having suffered no apparent untoward event. Condition: doing well without problems (Please see the Surgical Encounter Summary for any Implant and Specimen details pertinent to this patient.) HPI/Surgical Indications: 56 year old female with a week or more history of an infected right dorsal hand wound. She was admitted for IV antibiotics and surgical exploration. She understood the risksand elected to proceed. Procedure Description: The patient was identified and marked preoperatively in her inpatient room. I examined her right hand and she had a dorsal wound which appeared grossly infected with some weakness of extension of the right middle finger. We offered her exploration and washout of the wound with debridement and possible extensor tendon repair as needed. She agreed understanding the potential risks and complications and electing to proceed. Patient was brought to the operating room and placed on the operating room table in the the supine position. Anesthetic monitors and SCDs were applied. After induction of general anesthesia the patient was intubated orally and maintained on general anesthesia throughout the remainder of the case. Apadded nonsterile tourniquet was applied to the proximal right upper extremity. The right arm and hand were prepped and draped in a standard sterile fashion. We outlined an ellipse on the dorsum of the right hand in zone 6 of the extensor tendons. This was directly over the middle finger metacarpal. A total wrist block was performed with quarter percent Marcaine with epinephrine. The right arm and hand were exsanguinated with an Esmarch bandage and the tourniquet placed up at 250 mmHg. The wound was excised and the tract was cultured. The culture was sent for aerobic, anaerobic culture and sensitivity. The wound was then sharply debrided with scissors and curettes over 6 cm2 of skin, subcuticular tissue, devitalized and lacerated extensor tendon in zone 6, muscle, and metacarpal bone. There is a mild amount of purulence in the wound was irrigated copiously with 3 L of saline. After sharply debriding the ruptured extensor tendon of devitalized tissue a 4 strand repair was performed utilizing 4-0 Prolene suture with a modified Marquez technique. 1/4 inch Consuelo drain was inserted andbrought out through the dorsal wrist skin. The incision was then closed in layers with 3-0 Vicryl for deep sutures and juma for skin. The operative site was cleansed and dried Xeroform and bacitracin were applied across the wound margins. The patient was placed in a fluffed bulky volar splint with the wrist and fingers in full extension. The tourniquet was released and all digits regained brisk capillary refill. The drapes were removed and the patient was weaned from anesthesia and extubatedin the operating room. She was transitioned to her hospital bed and transported to the postanesthesia care unit where she was reported to be stable and breathing spontaneously. There were no apparent complications to the procedure and the patient tolerated the procedure well. All sponge, needle, and instrument counts were reported as correct by nursing staff at the end of the case. Surgical Infection Prevention Bundle Used? No Attestation: Case Date: 01/26/2022 I was present and I participated during the entire procedure (does not need to include opening and closing). ARABELLA GUEVARA MD 01/30/2022 * Consult Note - Isaura Chávez [facility] - 01/26/2022 11:59 AM EDT TelePharmacy Home Medication List Update for Medication Reconciliation 01/26/22 11:59 AM Meka Ray 1965 Allergies Allergen Reactions ??? Codeine ??? Iodine And Iodide Containing Products ??? Theophylline (Bulk) ??? Person Interviewed: patient ??? Quality of Interview/accuracy of medication list: good ??? Sources used to compile medication list: [x] Epic medication list [x] SureScripts [] PCP/Specialist list [] Retail pharmacy [] Patient list [] MAR [] Other ??? Changes made to home medication list: o Additions: - Proair inhaler 2 puffs every 4 hours prn - Albuterol nebulizer 1 ampule via nebulizer BID - Duoneb 1 ampule via nebulizer daily - Advair HF inhaler 2 puffs BID o Deletions: - None o Changes: - None ??? Additional Notes: Patient unsure of Advair inhaler strength, doesn't have list or inhaler with her. ??? Recommended changes: None The home medication list is now updated to the best of my knowledge and is ready to be reconciled by the provider. Please contact the TelePharmacy Medication Reconciliation Pharmacist at for any questions. Isaura Chávez RPH * Plan of Care - Gina Lilly RN - 01/26/2022 10:47 AM EDT Peripherally Inserted Central Catheter (PICC) Teaching Sheet Peripherally inserted central catheters ([id number]) (PICC) are used when you need IV (intravenous) medicines and fluids. A catheter is a small flexible plastic tube. The catheter is put in througha vein under your skin. A vein is a tube inside your body that carries blood from the body to the heart. The catheter is usually put into a vein on the inside of your upper arm. Then it is threaded up this vein and ends in the blood vessel near your heart. The PICC catheter may be used for taking blood for laboratory tests. You may also get IV fluids andmedicines quickly and easily. Having the catheter may keep your arm from being stuck many times with a needle. The catheter will have 1-3 small tails (tubes) coming from your arm where the catheter was put in. Why do I need a PICC line or midline catheter? PICC lines are used for fci treatments. PICC lines may be used for up to a year. They are often put in to give you IV medicines at home. You may need a PICC catheter because caregivers cannot use smaller veins in your body. Smaller veins may be damaged, or they may have poor blood flow. Catheters are also used in case of emergency when you would need medicines or fluids very quickly. The following are medicines and treatments you may get when you have a PICC line. ?? Antibiotics. These are medicines to prevent infection. ?? Frequent blood sample collection. ?? IV medicines that would make your smaller veins sore or damaged. ?? Receiving IV fluids for a long period of time. ?? Pain medicine. ?? Total Parenteral Nutrition: This is also called TPN. TPN is a special liquid food that goes directly into your veins. ?? Blood ?? Chemotherapy (Medicine for cancer) What are the benefits of having a PICC line put in? Having a PICC line may keep your arm from being stuck many times with a needle to draw blood or start an IV (intravenous catheter) . Through a PICC catheter, you may have blood taken for tests. You may also get IV fluids and medicines quickly and easily. Small veins can be damaged or irritated by certain drugs or nutritional solutions. A PICC line helps to decrease vein irritation from antibiotics, IV pain drugs, or IV cancer drugs. A PICC line can be left in place when you go home. If you go home with a PICC line in place, home care can be set up via the nurse [facility] to help you. What are possible complications of having a PICC line put in? Some possible complications are: bruising, swelling, or infection in the arm with the PICC line mal-positioned catheter (catheter tip in wrong place) occlusion (blocked catheter) mechanical phlebitis (vein irritation) and thrombosis (clot) Your doctor is the person you should talk to if you have questions about what would happen if you do not choose to have a PICC line put in. Your doctor can talk to you about other choices you may have. What should I expect when it is put in? A written consent that gives your ok to have it put in needs to be signed after you understand thatyou are going to have a PICC put in, and all your questions about the procedure have been answered to your satisfaction. This is a safety feature that the hospital practices before doing procedures. An experienced nurse who has been through special training and education will be putting this catheter in. The procedure is done in a specially equipped room in Interventional Radiology on the third floor. The PICC nurse will first talk to you about any questions that you may have. The PICC nurse will explain to you what is going to be done before starting. Once you arrive in the procedure room in Interventional Radiology, the PICC nurse will then set up for the procedure. She will unwrap the sterile kit and open the needed supplies. A gown and mask andgloves will be worn while putting it in. An ultrasound machine will be used to help guide the catheter in the right place. This machine uses a handle with sound waves to find the vein. The area on your arm where the catheter will be put in is then numbed with a medicine put under your skin with a tiny needle. The nurse will then put in the catheter using fluoroscopy (a type of x-ray) as a guide. Once the catheter is in your vein, it will be threaded up your arm to the area beforeyour heart. While it is being threaded, you may be asked to turn your head. When the catheter is in, the nurse will place a small dressing on the site along with a little herron which will help keep the catheter in place. After the procedure is done, a radiologist (doctor in x-ray department) will look at your x-ray to make sure that the end of the catheter is in proper position to give your fluids and/or medications. What should I expect in the care of my PICC? A dressing that is specially made to prevent infections will be put on. After this, the dressing will only be changed once a week unless it needs it sooner. If you go home with the catheter in, you may take a shower as long as you keep the site dry. You can do this by wearing a specially fitted PICC protector that will be provided to you before dischargefrom the hospital. The dressing at the site must be kept clean and dry. It is important that you watch for signs of infection at the site. Your healthcare provider should be notified if these occur: Redness Swelling Pus Pain at the site Other reasons to notify your healthcare provider are: Catheter becomes partially or totally removed Unable to infuse medication/fluid Unable to draw back blood from the catheter. This may be an early sign that a clot is forming on the end of the catheter. If this occurs, a medicine called Cathflo may be used to dissolve this clot. Ask the PICC nurse or your doctor, any questions you may have so you feel secure in consenting to having a PICC line. References: Vascular Access Device Selection, Insertion, and Management, [employer] 08/09. A Review of the Efficacy, Safety, Use, and Administration of Cathflo, [employer] 2005 * Initial Assessments - Rand Winston MSW - 01/26/2022 10:36 AM EDT Office of Care Management Initial Assessment LAURENCE Watters reviewed record and discussed patient with Care Team. Source of Information: Team, bedside nurse, medical record, and Chart Review LAURENCE Winston Introduced self/reviewed role; services accepted. Reason for Hospitalization: Cellulitis Right Hand Covid Vaccination Status: Last COVID test: 01/26/22 Negative Lab Results Component Value Date [id number] Not Detected 01/25/2022 Past medical History: No past medical history on file. Hospitalizations Within the Past 30 Days: no previous admission in last 30 days Current Decision-Making Capacity: Self Advance Care Planning: Attempt Cardiopulmonary Resuscitation - Inpatient <no information> -Advanced Directive: No, need to discuss If AD's have not been completed Sig Other: [phone] would be surrogate decision maker per [place] surrogate decision making law. (Only good for 180 days) Any patient receiving care at [facility] must abide by [place] law. The hierarchy for surrogate decision making is: (a) Patient???s spouse, or civil union partner or common law spouse unless there is a divorce proceeding, separation agreement, or restraining order limiting that person???s relationship with the patient. (b) Any adult son or daughter of the patient. (c) Either parent of the patient. (d) Any adult brother or sister of the patient. (e) Any adult grandchild of the patient. (f) Any grandparent of the patient. (g) Any adult aunt, uncle, niece, or nephew of the patient. (h) A close friend of the patient. (i) The agent with financial power of oracle ebs developer or a conservator appointed in accordance with RSA 464-A. (j) The guardian of the patient???s estate. Current Coping/Education/Information Needs: Advanced Directive Current Functional Ability: Independent Functional Status Prior to Admission: Independent Prior iADLS: Independent with all iADLs Home Environment: Others in the home: friend(s). Current Living Arrangements: home/apartment/condo. Accessibility Concerns: . Current DME: none Home Address confirmed as: [address] [facility] [address] Social & Family Supports: All names listed below confirmed with patient as current and correct Extended Emergency Contact Information Primary Emergency Contact: [employer] Mobile Relation: Significant Other Secondary Emergency Contact: Dara Jett Mobile Relation: Child Current Care Provided by: self Provides Primary Care For: no one Caregiver if needed: none Quality of Family relationships: supportive Community Resources being provided currently: none Behavioral Health History: Substance Use/Abuse listed: Social History Tobacco Use Smoking Status Not on file Smokeless Tobacco Not on file 0 No problems reported 1-2 Low level 3-5 Moderate level 6-8 Substantial level 9- 10 Severe level 0 to 7 points: Low risk 8 to 15 points: Medium risk 16 to 19 points: High risk 20 to 40 points: Addiction likely Other Pertinent/Service Specific Information: none Health/Prescription Coverage: Primary Insurance: [employer] Payor: [place] CARE / Plan: [employer] / Product Type: *No Product type* / Secondary Insurance: N/A Prescription Coverage: Yes Preferred Pharmacy: No Pharmacies Listed Status: Patient is a : No Primary Care Provider: None None Patient/Caregiver Goals of Treatment: Return home when medically ready Potential Needs for Transition of Care: outpatient care Agency Referrals: Not Applicable Transportation: no concerns Transportation Anticipated: car, drives self Concerns to be Addressed: no discharge needs identified Assessment: Patient is admitted to Ortho-Trauma service for I&D in [place] Plan: Pt to be admitted to ortho-trauma. Discharge disposition pending. A member of the Care Management team will continue to monitor progress, follow for continuity of care and assist with transition of care planning. Rand DANG * Consult Note - Luis Mendez MD - 01/25/2022 7:59 PM EDT Images from the original note were not included. Orthopaedic Surgery Hand Consult Note Consult Received: 2:40pm Called Back: 2:50pm Patient Seen: 3:10pm Attending: Dr. Guevara We are seeing Meka Ray at the request of German Harrell MD for the evaluation of R hand pain Chief Complaint: R hand pain History of Present Illness: Meka Ray is a 56 y.o. LHD female with COPD who presents with 6 days of worsening hand pain, swelling, and redness with drainage. She reports she got a splinter last Sunday and injured her hand after hitting it on a tree. Per patient, she had increased pain and swelling, presented to OSH where her dorsal hand swelling was aspirated and frayed presumed tendon sheath was noted from the wound. She received IV clindamycin at that time and was discharged on oral clindamycin. She has had worsening symptoms since then with cottage cheese drainage. She has pain with using her hand, but denies numbness or tingling. She denies fevers, chills, other injuries, chest pain, or SOB. Past Medical History: Patient Active Problem List Diagnosis Code ??? Cellulitis of right hand L03.113 Past Surgical History: No past surgical history on file. Allergies Allergen Reactions ??? Codeine ??? Iodine And Iodide Containing Products ??? Theophylline (Bulk) No current facility-administered medications on file prior to encounter. No current outpatient medications on file prior to encounter. Family History: Aunt had lung blood clots Social History: Social History Socioeconomic History ??? Marital status: Single Spouse name: Not on file ??? Number of children: Not on file ??? Years of education: Not on file ??? Highest education level: Not on file Occupational History ??? Not on file Tobacco Use ??? Smoking status: Not on file ??? Smokeless tobacco: Not on file Substance and Sexual Activity ??? Alcohol use: Not on file ??? Drug use: Not on file ??? Sexual activity: Not on file Other Topics Concern ??? Not on file Social History Narrative ??? Not on file Social Determinants of Health Financial Resource Strain: Not on file Food Insecurity: Not on file Transportation Needs: Not on file Physical Activity: Not on file Housing Stability: Not on file Tobacco: 1ppd for past several decades EtOH: denies Illicits: MJ, past IV drug use last Jul Living Situation: Resides with friend Review of Systems: As per HPI, otherwise negative Objective: Temp: [36.7 ??C (98 ??F)] Heart Rate: [67] Resp: [16] BP: (110)/(76) SpO2: [95 %] Heart Rate from SpO2: -- Physical Exam General: awake/alert, responds to questions HEENT: normocephalic, atraumatic CVS: regular rate assessed peripherally Pulm: non-labored breathing Skin: Intact Psych: Normal mood and affect Left Upper Extremity Exam: No ecchymosis, erythema, or overlying skin changes. No effusion in shoulder / elbow / wrist No TTP clavicle, shoulder, humerus, elbow, forearm. TTP wrist and hand see below Painless range of motion of shoulder, wrist/hand/finger painful ROM noted below Sensation intact to light touch in Ax/M/R/U/LABC distributions Motor intact shoulder abduction and forward flexion, elbow flexion/extension, wrist flexion/extension, center medical specialist, AIN/PIN/IO intact Brisk capillary refill distally 2+ radial pulse Left Hand 6cm indurated erythematous and swelling over the dorsal hand with pus draining central wound. Patient has abnormal cascade, long finger can only flex half way down due to extensor pain. She is able to straighten all fingers. No flexor tendon pain. TTP over wrist, hand, no TTP over fingers Full extension and flexion of MCP, IP joints Sensation intact to light touch in radial, median ulnar distributions Motor intact wrist flexion/extension, center medical specialist, AIN/PIN/IO intact Brisk capillary refill distally 2+ radial pulse Labs: Last CRP, SEDRATE Recent Labs 01/25/22 1820 01/25/22 1622 CRP 6.1* -- SEDRATE -- 23 Imaging: Xray R hand (01/25/22): Prominent swelling over the dorsum of the hand. No subcutaneous air or radiodense foreign body. No underlying fracture or dislocation. No periostitis or erosion. CT R hand (01/25/22): There is extensive dorsal soft tissue swelling with a focal nodular protuberance of the dorsal margin of the hand best appreciated on image 258 series 5. Soft tissue swelling projects in the subcutaneous soft tissues, along the extensor tendons and distorting the fat planes in the interosseous regions between the second through fourth metacarpals. No gross fluid collection is identified. There is no evidence of osseous erosion or periostitis. No fracture deformities. Milder diffuse subcutaneous soft tissue swelling seen in the hand. Procedures: Bedside I&D After r/m/u nerve block by the ED team (see note by Dr. Guillen), we injected 5cc of 1% lidocaine superficially around the dorsal R hand abscess wound. Presumed frayed tendon sheath fiber seen in thewound. Per patient, OSH noted this as well and was unable to remove the frayed tissue. We then extended the opening 3mm proximally and distally. And we able to express latonia pus from the wound. The wound was washed with normal saline, dressed with xeroform, gauze, and placed in a volar resting splint. The patient tolerated the procedure well and had no concerns. Assessment/Plan: 56 y.o. LHD female who presents with worsening dorsal R hand swelling, redness, and drainage concerning for infection. Given previous failed ED aspiration and extensor involvement onCT, the patient would likely benefit from operative I&D. We will plan to admit her overnight tothe CDU for vanc/ceftriaxone and reassess in the AM. - Activity: NWB RUE - DVT prophylaxis: hold - Antibiotics: Ceftriaxone, Vancomycin - Diet: NPO - Medications prescribed: none - Imaging needed: none Luis Mendez MD Orthopaedic Surgery Pager: [phone] * ED Procedure Note - Dinh Guillen MD - 01/25/2022 7:26 PM EDT I performed a median, ulnar, radial nerve block. The blocks were done under dynamic ultrasound guidance. Initially, identified the ulnar artery and subsequently identified the ulnar nerve. The area was cleaned with chlorhexidine, allowed to dry and prepped in a sterile fashion. Under dynamic ultrasound guidance using the in plane method, I inserted a total of 2 cc of 0.25% bupivacaine coating thenerve. The patient tolerated the procedure well. Subsequently, the radial artery was identified andthe radial nerve was identified tracking alongside the radial artery. Under dynamic ultrasound lyssa nce and using the in plane method, I inserted a total of 1.5 cc of 0.25% bupivacaine around the radial nerve. The patient tolerated procedure well. Lastly, identified the median artery and subsequently the median nerve. Using the out of plane method, I inserted a total of 1.5 cc of 0.25 bupivicainearound the median nerve. The patient tolerated the procedure well and there were no immediate complications. Associated attestation - Be Cain MD - 01/27/2022 4:24 PM EDT ED ATTENDING ATTESTATION NOTE I was present for and supervised the entire procedure. * ED Triage - Mandeep Peck RN - 01/25/2022 1:52 PM EDT HPI (Adult) Stated Reason for Visit: I got a splinter in my R hand 7 days ago regular tree wood. I reinjured Sunday when I fell and slammed it against the ground and was seen at [facility] 4 days ago and again today and they sent me here. History Obtained From: patient Pt. Transfer by POV from [facility] for worsening R hand infection s/p getting a splinter 1 week ago. R hand swollen with abscess posterior hand. Pt. Here with packet from [facility]. documented in this encounter Plan of Treatment Not on file documented as of this encounter Procedures Procedure Name Priority Date/Time Associated Diagnosis Comments HC VANCOMYCIN Timed 01/27/2022 7:27 AM EDT HEMOGRAM Routine 01/27/2022 4:01 AM EDT DIFFERENTIAL, AUTOMATED Routine 01/27/2022 4:01 AM EDT HC CBC,PLT & AUTO DIFF Routine 01/27/2022 4:01 AM EDT SPLINT APPLICATION, SHORT ARM Routine 01/26/2022 7:20 PM EDT TENDON REPAIR, EXTENSOR, HAND, W/O FREE GRAFT 1?? OR 2??, , EA Routine 01/26/2022 7:20 PM EDT ANAEROBIC CULTURE Routine 01/26/2022 6:4 0 PM EDT HC WOUND/ABSCESS CX Routine 01/26/2022 6 :40 PM EDT ABSCESS/WOUND ASPIRATE CULTURE Routine 01/26/2022 6:40 PM EDT Apply Forearm Splint, Static ([id number]) 01/26/2022 6:08 PM EDT Right hand abscess Repair Exten Tendon, Dorsum Hand, Ea ([id number]) 01/26/2022 6:08 PM EDT Right hand abscess Debridement Bone Muscle &/Fascia 20 Sq Cm/< ([id number]) 01/26/2022 6:08 PM EDT Right hand abscess DEBRIDEMENT SKIN, SUBCU, MUSCLE, BONE UPPER EXTREMITY Routine 01/26/2022 5:50 PM EDT US EXTREMITY NON VASCULAR LIMITED ANATOMIC SPECIFIC RIGHT STAT 01/26/2022 1:[address] PICC LINE: CONTACT VASCULAR ACCESS Routine 01/26/2022 11:20 AM EDT XR PICC PLACEMENT OVER 5 YEARS (IV TEAM) STAT 01/26/2022 11:10 AM EDT RAPID COVID-19 PCR ([facility]) STAT 01/25/2022 10:[address] HAND WO CONTRAST RIGHT STAT 01/25/2022 6:20 PM EDT HC C-REACTIVE PROTEIN STAT 01/25/2022 6:20 PM EDT LAVENDER TUBE HOLD STAT 01/25/2022 6: 20 PM EDT CREATININE STAT 01/25/2022 6:20 PM EDT HEMOGRAM STAT 01/25/2022 4:22 PM EDT DIFFERENTIAL, AUTOMATED STAT 01/25/2022 4:22 PM EDT HC ESR-SEDIMENTATION RATE, BLOOD STAT 01/25/2022 4:22 PM EDT HC CBC,PLT & AUTO DIFF STAT 01/25/2022 4:22 PM EDT XR HAND MIN 3 VIEWS RIGHT STAT 01/25/2022 3:28 PM EDT documented in this encounter Results * Vancomycin, trough (01/27/2022 7:27 AM EDT) Vanc Trough 11.9 mg/L [facility] Comment: Therapeutic range for complicated infections such as bacteremia, endocarditis, osteomyelitis, meningitis, and hospital-acquired pneumonia caused by S. aureus: 15-20 mg/L Therapeutic range for other indications: 10-15 mg/L Toxic: >20 mg/L Reference: Vancomycin Therapeutic Monitoring: Review and Recommendations from the ASHP, IDSA and SIDP Task Force. ??Am J Health-Syst Pharm. 2009; 66:82-98 Blood 01/27/2022 7:27 AM EDT 01/27/2022 7:44 AM EDT Narrative Resulting Agency Comment Spec In Lab Arabella Guevara MD CHEMISTRY ORDERABLES [facility] [place] [address] * (ABNORMAL) Differential, Automated (01/27/2022 4:01 AM EDT) Neutrophils % 48.6 % [facility] Neutr Abs (ANC) 3.84 1.70 - 6.10 x10(3)/mc L [facility] Lymphocytes % 41.6 % [facility] Lymphocytes Abs 3.3(H) 0.9 - 3.2 x10(3)/mc L [facility] Monocytes % 6.8 % [facility] Monocyte Abs 0.5 0.3 - 0.9 x10(3)/[facility] [place] [facility] Eosinophils % 1.8 % [facility] Eosinophils Abs 0.1 0.0 - 0.4 x10(3)/[facility] [place] [facility] Basophils % 0.9 % [facility] Basophils Abs 0.1 0.0 - 0.1 x10(3)/[facility] [place] [facility] Immature Gran % 0.30 % [facility] Comment: Immature granulocytes(IG's)percentage and absolute count will include metamyelocytes, myelocytes, and promyelocytes. Blood smears from CBCs yielding IG's will be scanned manually for concordance. If this scan disagrees with the automated IG or if promyelocytes are noted, a manual differential will be performed. Sneha Gran Abs 0.02 0.00 - 0.04 x10(3)/[facility] [place] [facility] Blood 01/27/2022 4:01 AM EDT 01/27/2022 4:05 AM EDT Narrative Resulting Agency Comment Spec In Lab Makeda Sosa MD HEMATOLOGY ORDERABLE S [facility] [place] [address] * (ABNORMAL) Hemogram (01/27/2022 4:01 AM EDT) WBC 7.9 4.0 - 9.5 x10(3)/[facility] RBC 3.94(L) 4.00 - 5.21 x10(6)/[facility] Hemoglobin 12.0 11.7 - 15.5 g/dL [facility] Hematocrit 36.6 35.7 - 45.8 % [facility] MCV 92.9 82.6 - 94.4 fL [facility] MCH 30.5 27.1 - 32.0 pg [facility] MCHC 32.8 31.7 - 35.0 g/dL [facility] Platelets 258 145 - 357 x10(3)/[facility] RDWSD 49.8(H) 37.0 - 46.0 fL [facility] RDWCV 14.4(H) 11.5 - 14.1 % [facility] MPV 8.9 7.6 - 12.9 [facility] nRBC % Auto 0.0 % [facility] nRBC Abs Auto 0.000 0.000 - 0.000 x10(3)/[facility] Blood 01/27/2022 4:01 AM EDT 01/27/2022 4:05 AM EDT Narrative Resulting Agency Comment Spec In Lab Makeda Sosa MD HEMATOLOGY ORDERABLE S Performing Organization Address City/[facility]/[place] [address] * Anaerobic Culture (01/26/2022 6:40 PM EDT) Anaerobic Culture No anaerobic organisms isolated [facility] Abscess STRUCTURE OF RIGHT HAND / Unknown 01/26/2022 6:40 PM EDT 01/26/2022 7:25 PM EDT Comment:Right dorsal hand ab scess Narrative Resulting Agency Comment Spec In Lab Arabella Guevara MD MICROBIOLOGY - GENER AL ORDERABLES Performing Organization Address City/[facility]/ZIP Co de Phone Number [facility] [place] [address] * (ABNORMAL) Abscess/Wound Aspirate Culture (01/26/2022 6:40 PM EDT) Abscess/Wound Aspirate Culture Moderate Staphylococcus aureus(A) [facility] Gram Stain Many Neutrophils seen Moderate Gram Positive Cocci seen (A) [facility] Organism Staphylococcus aureus(A) [facility] Organism Gram Positive Cocci(A) [facility] Abscess STRUCTURE OF RIGHT HAND / Unknown 01/26/2022 6:40 PM EDT 01/26/2022 7:25 PM EDT Comment:Right dorsal hand ab scess Narrative Resulting Agency Comment Spec In Lab Organism Antibiotic Method Susceptibility Staphylococcus aureus Clindamycin VITEK 2 METHOD Resistant Staphylococcus aureus Erythromycin VITEK 2 METHOD Resistant Staphylococcus aureus Gentamicin VITEK 2 METHOD Sensitive Comment:Gentamicin i s not appropriate for [place]-therapy. Staphylococcus aureus Oxacillin VITEK 2 METHOD Sensitive Comment: Oxacillin (methicillin) susceptibility is a surrogate for the oral and parenteral cephalosporins, beta-lactam combination agents (amoxicillin-clavulanate, ampicillin-sulbactam and piperacillin-tazobactam) and carbapenem agents. ??It is NOT a surrogate for penicillin, ampicillin or piperacillin susceptibility. Staphylococcus aureus Trimethoprim/Sulfa VITEK 2 METHO D Sensitive Staphylococcus aureus Tetracycline VITEK 2 METHOD Sensitive Staphylococcus aureus Vancomycin VITEK 2 METHOD Sensitive Arabella Guevara MD MICROBIOLOGY - GENER AL ORDERABLES [facility] [place] [address] * US Extremity Non Vascular Limited Right (01/26/2022 1:25 PM EDT) Anatomical Region Laterality Modality Ultrasound Impressions 01/26/2022 1:56 PM EDT 1. ??Small amount of fluid, sterile or infected, beneath the open wound. 2. ??No foreign body seen 3. ??Interrupted extensor tendon of the long finger. The tendon defect is 11.7 mm. The retracted proximal end of the torn tendon is located approximately 30 mm distal to the metacarpal base and is immediately beneath the wound. Thank you for letting us participate in the care of this patient. ??If you are a health care provider and have any questions regarding this report, please contact the number below. ??For patients who have questions please contact the health pharmacy customer care specialist that requested your imaging first. ? Electronically signed by: Viv Herring MD, [facility] ([phone]), at 01/26/2022 1:56 PM Narrative 01/26/2022 1:56 PM EDT EXAMINATION: US EXTREMITY NON VASCULAR LIMITED RIGHT CLINICAL HISTORY: foreign body assessment in dorsum of R hand prior to OR today TECHNIQUE: The soft tissues of the RIGHT extensive soft tissues were examined using a high frequency transducer. Color doppler images were acquired. A sterile probe cover was used. FINDINGS: Diffuse soft tissue swelling in dorsum of hand. There is small amount of fluid beneath the wound which is located at mid carpal level. No foreign body seen. Extensor tendons of long finger- Interrupted extensor tendon immediately beneath the open wound site. The proximal end of the tendon is retracted and is located at about 7 mm from the base of metacarpal. The tendon defect is 11 mm. There is extensive surrounding soft tissue edema and increased Doppler flow. Procedure Note Viv Herring MD - 01/26/2022 EXAMINATION: US EXTREMITY NON VASCULAR LIMITED RIGHT CLINICAL HISTORY: foreign body assessment in dorsum of R hand prior to ORto TECHNIQUE: The soft tissues of the RIGHT extensive soft tissues were examined using ahigh frequency transducer. Color doppler images were acquired. A sterile probecover was used. FINDINGS: Diffuse soft tissue swelling in dorsum of hand. There is small amount offluid beneath the wound which is located at mid carpal level. No foreign body seen. Extensor tendons of long finger- Interrupted extensor tendon immediately beneath the open wound site. The proximal end of the tendon is retracted and is located at about 7 mm fromthe base of metacarpal. The tendon defect is 11 mm. There is extensive surrounding soft tissue edema and increased Dopplerflow. IMPRESSION 1. Small amount of fluid, sterile or infected, beneath the open wound. 2. No foreign body seen 3. Interrupted extensor tendon of the long finger. The tendon defect is11.7 mm. The retracted proximal end of the torn tendon is located [id number] mm distal to the metacarpal base and is immediately beneath the wound. Thank you for letting us participate in the care of this patient. If youare a health care provider and have any questions regarding this report,please contact the number below. For patients who have questions please contactthe health pharmacy customer care specialist that requested your imaging first. Electronically signed by: Viv Herring MD, [facility]([phone]), at 01/26/2022 1:56 PM German Harrell MD IMG US GEN ORDERABLE S * Place PICC Line: Contact Vascular Access Page [phone] Extremity to exclude: No restrictions; Is PICC procedure required PRIOR to patients discharge? Yes (01/26/2022 11:20 AM EDT) Narrative Gina Lilly RN - 01/26/2022 11:20 AM EDT Gina Lilly RN ? 01/26/2022 11:24 AM PICC/Midline Insertion Procedure Note Indications: Access This insertion was not to replace a malfunctioning catheter. This insertion was not due to a suspected line-associated infection. Location of Procedure: X-Ray Room 11 Risks and Benefits: The risks and benefits of this procedure were reviewed and informed consent was obtained. Time Out: Prior to the start of the procedure, the patient's identity, intended procedure, site/side, correct patient positioning and presence of the site heike was confirmed as applicable. The medical history and chart were reviewed to rule out potential contraindications to the planned procedure. Hand Hygiene: The hand paint mixer did perform hand hygiene prior to line insertion. Catheter type: PICC Lot number: [id number] Procedure Technique: Skin was prepped with chlorhexidine. Skin preparation agent was completely dry at the time of first skin puncture. The following barrier precaution methods were used:large sterile drape, maske/eye shield, large sterile gown, sterile gloves and cap. 3 ml of 1% Lidocaine was used for skin wheal. Ultrasound was used for guidance. ??Radiographic contrast agent was not injected for vein identification. Procedure Details: Order received for catheter placement. A 5 Fr. double lumen Bard Power catheter was placed into the left basilic vein over a 0.018 inch guidewire using modified seldinger technique and fluoroscopy. Arm circumference was 28 cm at 2 cm above the insertion site. Final catheter length (with trimming): 39 cm Internal: 39 cm External: 0 cm Tip in SVC per Dr. Natarajan. The line was not placed over a guidewire. Post Procedure: Diagnosis: cellulitis Blood return noted on aspiration of line after placement confirmed. 5 mls of normal saline infused free flowing to gravity via PICC after insertion. Sterile dressing applied: CHG Impregnated Tegaderm. Findings: The patient did tolerate the procedure well. No Complications. Procedure Comments: Gina Lilly RN 01/26/2022 Kristine Barrientos MD PROCEDURE/MINOR SURG ICAL ORDERABLES * XR PICC Placement Over 5 Years with Imaging Guidance (IV Team) (01/26/2022 11:10 AM EDT) Anatomical Region Laterality Modality N/A Radio Fluoroscop y Narrative 01/26/2022 11:13 AM EDT EXAMINATION: XR PICC PLACEMENT OVER 5 YEARS WITH IMAGING GUIDANCE (IV TEAM) CLINICAL HISTORY: Confirmation of PICC line placement TECHNIQUE: C-arm placement of PICC line. Limited view of the line tip only. COMPARISON: None. FINDINGS: Intraprocedural frontal radiograph of the mediastinum demonstrates a left PICC line, with the catheter tip projected at the inferior aspect of the SVC. Thank you for letting us participate in the care of this patient. ??If you are a health care provider and have any questions regarding this report, please contact the number below. ??For patients who have questions please contact the health pharmacy customer care specialist that requested your imaging first. ? Electronically signed by: Yeni Natarajan MD, [facility] ([phone]), at 01/26/2022 11:13 AM Procedure Note Yeni Chang MD - 01/26/2022 EXAMINATION: XR PICC PLACEMENT OVER 5 YEARS WITH IMAGING GUIDANCE (IVTEAM) CLINICAL HISTORY: Confirmation of PICC line placement TECHNIQUE: C-arm placement of PICC line. Limited view of the line tiponly. COMPARISON: None. FINDINGS: Intraprocedural frontal radiograph of the mediastinumdemonstrates a left PICC line, with the catheter tip projected at the inferior aspect ofthe SVC. Thank you for letting us participate in the care of this patient. If youare a health care provider and have any questions regarding this report,please contact the number below. For patients who have questions please contactthe health pharmacy customer care specialist that requested your imaging first. Electronically signed by: Yeni Natarajan MD, [facility] ([phone]), at 01/26/2022 11:13 AM Kristine Barrientos MD IMG FLUORO ORDERABLE S * COVID-19 PCR (01/25/2022 10:02 PM EDT) Pathologist [facility] [place] SARS-CoV-2 RNA PCR Not Detected Not Detected [facility] Comment: This result should be interpreted in combination with the clinical observations, patient history and epidemiological information. For testing of asymptomatic individuals, assay performance characteristics and clinical utility have not been evaluated. Testing for SARS-CoV-2 (Severe acute respiratory syndrome coronavirus 2, formerly known as 2019 novel coronavirus or 2019-nCoV) to aid in the diagnosis of COVID-19 is performed using the Simplexa COVID-19 Direct Assay by [employer] as authorized by the FDA issued Emergency Use Authorization (EUA). This assay is intended for In-vitro Diagnostic (IVD) use with nasopharyngeal swabs collected from individuals meeting the CDC criteria for testing. The assay is performed based on the instructions for use and additional guidance provided by the FDA. Testing is performed in the Microbiology Laboratory within the Department of Pathology and Laboratory Medicine at [facility], certified under the Clinical Laboratory Improvement Amendments of 1988 (CLIA), 42 U.S.C. section 263a, to perform high complexity tests. Assay performance has been verified according to clinical laboratory regulatory requirements. Test results are provided above. A result of Not Detected indicates that the viral RNA target is not present but does not preclude SARS-CoV-2 infection. False negative results may occur if a specimen is improperly collected, transported or handled; if amplification inhibitors are present; or if inadequate numbers of viral particles are present in the specimen. A result of Detected suggests a current or recent infection and the patient is presumed to be infected. Positive and negative predictive values for this test are highly dependent on disease prevalence. A result of Invalid indicates the inability to conclusively determine the presence or absence of SARS-CoV-2 RNA in the sample which can be due to a variety of factors. Recollection is recommended in the case of an invalid result. CDC COVID-19 criteria for testing on human specimens and clinical management guidance information are available at the CDC Coronavirus Disease 2019 (COVID-19) webpage under Information for Healthcare Professionals (https://www.cdc.gov/coronavirus/2019-ncov/hcp/index.html). Additional information about this and other EUA tests can be found in provider and patient fact sheets at the following FDA website: https://www.fda.gov/medical-devices/wuronocwmqt-btyncvz-3826-nlhjm-46-yqnujkhfn- use-a bqsxcfmfnxzxp-ndpwqqr-oxgggpq/exleu-rmghzomigoo-fxzc SARS-CoV-2 Source [employer] Swab [facility] Nasopharyngeal Swab 01/26/20 10:02 PM EDT 01/25/2022 11:24 PM EDT Comment:Symptoms->Surveillan ce Narrative Resulting Agency Comment Spec In Lab German Harrell MD MICROBIOLOGY - GENER AL ORDERABLES [facility] [place] [address] * Creatinine (01/25/2022 6:20 PM EDT) Creatinine 0.75 0.70 - 1.20 mg/dL [facility] Estimated GFR 90 >=60 mL/min/1. 73 m?? [facility] Comment: This patient? s estimated glomerular filtration rate (eGFR) is between 90 mL/min/1.73 m2 (patients with less muscle mass) and 105 mL/min/1.73 m2 (patients with more muscle mass) as determined by the CKD-EPI equation. Assessment of eGFR is not appropriate when creatinine concentrations are rapidly changing. For clinical decisions where creatinine clearance will affect therapy, a 24-hour urine creatinine clearance may be advised. Assignment of CKD stage 1 - 5 for patients with an eGFR near the transition point between stages may be based on clinical assessment of muscle mass and symptoms in addition to eGFR. Blood Venous Draw / Unknown 01/25/2022 6:20 PM EDT 01/25/2022 8:29 PM EDT Narrative Resulting Agency Comment Spec In Lab Joel PÉREZ CHEMISTRY ORDERABLE S [facility] [address] * Lavender Tube HOLD (01/25/2022 6:20 PM EDT) Lavender Hold Sample in lab. [facility] Blood Venous Draw / Unknown 01/25/2022 6:20 PM EDT 01/25/2022 8:00 PM EDT Luis Mendez MD HEMATOLOGY ORDERABLE S Performing Organization Address City/[facility]/ZIP Co de Phone Number [facility] [place] [address] * (ABNORMAL) CRP, acute inflammation (01/25/2022 6:20 PM EDT) CRP 6.1(H) <=4.9 mg/L [facility] Blood 01/25/2022 6:20 PM EDT 01/25/2022 7:59 PM EDT Narrative Resulting Agency Comment Spec In Lab Arabella Guevara MD CHEMISTRY ORDERABLES Performing Organization Address City/[facility]/ZIP Co de Phone Number [facility] [place] [address] * CT Hand wo Contrast Right (Generic) (01/25/2022 6:20 PM EDT) Anatomical Region Laterality Modality Hand Right Computed Tomogra phy 01/25/2022 6:30 PM EDT Impressions 01/25/2022 6:57 PM EDT Stents of dorsal soft tissue swelling without evidence of underlying osseous erosion or periostitis. Noncontrast exam. No gross collection. No radiopaque foreign body seen. Thank you for letting us participate in the care of this patient. ??If you are a health care provider and have any questions regarding this report, please contact the number below. ??For patients who have questions please contact the health pharmacy customer care specialist that requested your imaging first. ? Electronically signed by: Arabella De La Garza MD, [facility] ([phone]), at 01/25/2022 6:57 PM Narrative 01/25/2022 6:57 PM EDT EXAMINATION: CT HAND WO CONTRAST RIGHT (GENERIC) CLINICAL HISTORY: pain swelling dorsal hand on Metacarpals, please go up to mid forearm TECHNIQUE: CT right hand noncontrast COMPARISON: Plain film x-ray examination right hand dated 01/25/2022 Right hand x-ray dated 01/21/2022 FINDINGS: There is extensive dorsal soft tissue swelling with a focal nodular protuberance of the dorsal margin of the hand best appreciated on image 258 series 5. Soft tissue swelling projects in the subcutaneous soft tissues, along the extensor tendons and distorting the fat planes in the interosseous regions between the second through fourth metacarpals. No gross fluid collection is identified. There is no evidence of osseous erosion or periostitis. No fracture deformities. Milder diffuse subcutaneous soft tissue swelling seen in the hand. Procedure Note Arabella De La Garza MD - 01/25/2022 EXAMINATION: CT HAND WO CONTRAST RIGHT (GENERIC) CLINICAL HISTORY: pain swelling dorsal hand on Metacarpals, please go upto mid forearm TECHNIQUE: CT right hand noncontrast COMPARISON: Plain film x-ray examination right hand dated 01/25/2022 Right hand x-ray dated 01/21/2022 FINDINGS: There is extensive dorsal soft tissue swelling with a focal nodularprotuberance of the dorsal margin of the hand best appreciated on image 258 series 5.Soft tissue swelling projects in the subcutaneous soft tissues, along theextensor tendons and distorting the fat planes in the interosseous regions betweenthe second through fourth metacarpals. No gross fluid collection isidentified. There is no evidence of osseous erosion or periostitis. No fracture deformities. Milder diffuse subcutaneous soft tissue swellingseen in the hand. IMPRESSION Stents of dorsal soft tissue swelling without evidence of underlyingosseous erosion or periostitis. Noncontrast exam. No gross collection. No radiopaque foreign body seen. Thank you for letting us participate in the care of this patient. If youare a health care provider and have any questions regarding this report,please contact the number below. For patients who have questions please contactthe health pharmacy customer care specialist that requested your imaging first. Martinez Jovel DO [facility]LES * (ABNORMAL) Differential, Automated (01/25/2022 4:22 PM EDT) Neutrophils % 44.6 % [facility] Neutr Abs (ANC) 4.06 1.70 - 6.10 x10(3)/mc L [facility] Lymphocytes % 44.6 % [facility] Lymphocytes Abs 4.0(H) 0.9 - 3.2 x10(3)/mc L [facility] Monocytes % 7.4 % [facility] Monocyte Abs 0.7 0.3 - 0.9 x10(3)/mc L [facility] Eosinophils % 1.9 % [facility] Eosinophils Abs 0.2 0.0 - 0.4 x10(3)/mc L [facility] Basophils % 1.3 % [facility] Basophils Abs 0.1 0.0 - 0.1 x10(3)/mc L [facility] Immature Gran % 0.20 % [facility] Comment: Immature granulocytes(IG's)percentage and absolute count will include metamyelocytes, myelocytes, and promyelocytes. Blood smears from CBCs yielding IG's will be scanned manually for concordance. If this scan disagrees with the automated IG or if promyelocytes are noted, a manual differential will be performed. Sneha Gran Abs 0.02 0.00 - 0.04 x10(3)/mc L [facility] Blood 01/25/2022 4:22 PM EDT 01/25/2022 5:22 PM EDT Narrative Resulting Agency Comment Spec In Lab Joel PÉREZ HEMATOLOGY ORDERABL ES [facility] [place] [address] * (ABNORMAL) Hemogram (01/25/2022 4:22 PM EDT) WBC 9.1 4.0 - 9.5 x10(3)/[facility] RBC 5.02 4.00 - 5.21 x10(6)/[facility] Hemoglobin 15.1 11.7 - 15.5 g/dL [facility] Hematocrit 47.0(H) 35.7 - 45.8 % [facility] MCV 93.6 82.6 - 94.4 fL [facility] MCH 30.1 27.1 - 32.0 pg [facility] MCHC 32.1 31.7 - 35.0 g/dL [facility] Platelets 314 145 - 357 x10(3)/[facility] RDWSD 50.1(H) 37.0 - 46.0 fL [facility] RDWCV 14.6(H) 11.5 - 14.1 % [facility] MPV 9.5 7.6 - 12.9 fL [facility] nRBC % Auto 0.0 % [facility] nRBC Abs Auto 0.000 0.000 - 0.000 x10(3)/mcL [facility] Blood 01/25/2022 4:22 PM EDT 01/25/2022 5:22 PM EDT Narrative Resulting Agency Comment Spec In Lab Joel PÉREZ HEMATOLOGY ORDERABL ES Performing Organization Address [facility] Co de Phone Number [facility] [place] [address] * Sedimentation rate (01/25/2022 4:22 PM EDT) Sed Rate 23 2 - 39 mm/hr [facility] Comment: Effective October 15, 2019 new capillary photometric technology has resulted in a change in reference ranges. It is recommended that each ESR result be reviewed with its own age appropriate reference range. Blood 01/25/2022 4:22 PM EDT 01/25/2022 5:22 PM EDT Narrative Resulting Agency Comment Spec In Lab Martinez Jovel DO HEMATOLOGY ORDERABLE S Performing Organization Address [facility] Co de Phone Number [facility] [place] [address] * XR Hand Min 3 views Right (Generic) (01/25/2022 3:28 PM EDT) Anatomical Region Laterality Modality Hand Right Digital Radiogra phy Impressions 01/25/2022 3:40 PM EDT Prominent right hand dorsal soft tissue swelling. I have personally reviewed the image(s) and the resident's interpretation and agree with the findings, Viv Herring MD at 01/25/2022 3:40 PM Thank you for letting us participate in the care of this patient. ??If you are a health care provider and have any questions regarding this report, please contact the number below. ??For patients who have questions please contact the health pharmacy customer care specialist that requested your imaging first. ? Electronically signed by: Viv Herring MD, [facility] ([phone]), at 01/25/2022 3:40 PM Narrative 01/25/2022 3:40 PM EDT EXAMINATION: XR HAND MIN 3 VIEWS RIGHT (GENERIC) CLINICAL HISTORY: Pain dorsal infection TECHNIQUE: 3 views RIGHT hand COMPARISON: Hand radiographs 01/21/2022. FINDINGS: Prominent swelling over the dorsum of the hand. No subcutaneous air or radiodense foreign body. No underlying fracture or dislocation. No periostitis or erosion. Procedure Note Viv Herring MD - 01/25/2022 EXAMINATION: XR HAND MIN 3 VIEWS RIGHT (GENERIC) CLINICAL HISTORY: Pain dorsal infection TECHNIQUE: 3 views RIGHT hand COMPARISON: Hand radiographs 01/21/2022. FINDINGS: Prominent swelling over the dorsum of the hand. No subcutaneous air or radiodense foreign body. No underlying fracture or dislocation. Noperiostitis or erosion. IMPRESSION Prominent right hand dorsal soft tissue swelling. I have personally reviewed the image(s) and the resident's interpretationand agree with the findings, Viv Herring MD at 01/25/2022 3:40 PM Thank you for letting us participate in the care of this patient. If youare a health care provider and have any questions regarding this report,please contact the number below. For patients who have questions please contactthe health pharmacy customer care specialist that requested your imaging first. Electronically signed by: Viv Herring MD, [facility]([phone]), at 01/25/2022 3:40 PM Martinez Jovel DO [employer] DX ORDERABLES documented in this encounter Visit Diagnoses Diagnosis Cellulitis of right hand- Primary Cellulitis and abscess of hand, except fingers and thumb Cellulitis of right hand Cellulitis and abscess of hand, except fingers and thumb documented in this encounter Admitting Diagnoses Diagnosis Cellulitis of right hand Cellulitis and abscess of hand, except fingers and thumb documented in this encounter Administered Medications Inactive Administered Medications - up to 3 most recent administrations Medication Order MAR Action Action Date Dose Rate Site acetaminophen (Tylenol) tablet 1,000 mg 1,000 mg, Oral, ONCE, 1 dose, On Sun01/25/22 at 1658, Maximum dose of acetaminophen is 4000 mg from all sources in 24 hours. When ordered for pain, acetaminophen should be given even when other ordered pain medications are indicated. , STAT Given 01/25/2022 5:01 PM EDT 1,000 mg acetaminophen (Tylenol) tablet 1,000 mg 1,000 mg, Oral, EVERY 8 HOURS SCHEDULED, First dose on Margarita 01/26/22 at 2200, Until Discontinued, Maximum dose of acetaminophen is 4000 mg from all sources in 24 hours. When ordered for pain, acetaminophen should be given even when other ordered pain medications are indicated., Routine Given 01/27/2022 5:40 AM EDT 1,000 mg Given 01/26/2022 9:47 PM EDT 1,000 mg acetaminophen (Tylenol) tablet 1,000 mg 1,000 mg, Oral, EVERY 6 HOURS SCHEDULED, First dose (after last modification) on Sun01/27/22 at 1200, Until Discontinued, Maximum dose of acetaminophen is 4000 mg from all sources in 24 hours. When ordered for pain, acetaminophen should be given even when other ordered pain medications are indicated., Routine Given 01/27/2022 6:11 PM EDT 1,000 mg Given 01/27/2022 12:19 PM EDT 1,000 mg acetaminophen (Tylenol) tablet 650 mg 650 mg, Oral, EVERY 6 HOURS PRN, Starting on Sun01/25/22 at 1920, Until Sun01/27/22 at 0710, Pain, Maximum dose of acetaminophen is 4000 mg from all sources in 24 hours. When ordered for pain, acetaminophen should be given even when other ordered pain medications are indicated. , STAT Given 01/27/2022 2:40 AM EDT 650 mg Given 01/26/2022 2:53 PM EDT 650 mg Given 01/26/2022 9:03 AM EDT 650 mg bisacodyL (Dulcolax) suppository 10 mg 10 mg, Rectal, DAILY PRN, Starting on Sun01/26/22 at 1952, Until Sun01/27/22 at 2102, Constipation, Administer if needed per patient's routine or if no bowel movement within 48 hours to achieve: (1) One bowel movement at least every 48 hours, AND (2) Without straining. - If multiple PRN bowel medications ordered, start with magnesium hydroxide, then bisacodyl. - Multiple medications may be given concomitantly for constipation., Routine BUpivacaine (pf) (Marcaine) (2.5 mg/mL) 0.25% injection 25 mg 25 mg (10 mL), Intrapleural, ONCE, 1 dose, On Sun01/26/22 at 0342, Routine Given 01/26/2022 3:43 AM EDT 25 mg BUpivacaine (pf) (Marcaine) 0.25 % (2.5 mg/mL) injection 1 dose, Starting on Sun01/25/22 at 1855, Until Sun01/26/22 at 0343, MANDEEP PECK: cabinet override cefTRIAXone (Rocephin) 1 g vial attach to sodium chloride 0.9% 50 mL Mini-Bag Plus 1 g, Intravenous, EVERY 24 HOURS, First dose on Sun01/25/22 at 1439, Until Discontinued, Administer over 30 Minutes, Attach to 50 mL sodium chloride 0.9% Mini-Bag Plus , Indication for (Active or Suspected): Skin/Skin Structure New Bag 01/26/2022 2:54 PM EDT 1 g 100 mL/hr New Bag 01/25/2022 4:57 PM EDT 1 g 100 mL/hr docusate sodium (Colace) capsule 100 mg 100 mg, Oral, 2 TIMES DAILY, First dose on Sun01/26/22 at 2100, Until Discontinued, Routine Given 01/27/2022 8:31 AM EDT 100 mg Given 01/26/2022 9:47 PM EDT 100 mg dronabinoL (Marinol) capsule 10 mg 10 mg, Oral, 2 TIMES DAILY, First dose (after last modification) on Sun01/27/22 at 0900, Until Discontinued, Routine Given 01/27/2022 8:31 AM EDT 10 mg dronabinoL (Marinol) capsule 5 mg 5 mg, Oral, 2 TIMES DAILY, First dose on Sun01/26/22 at 1335, Until Discontinued, Routine Given 01/26/2022 9:46 PM EDT 5 mg Given 01/26/2022 2:03 PM EDT 5 mg HYDROmorphone (Dilaudid) (1 mg/mL) injection syringe 0.5 mg 0.5 mg, Intravenous, ONCE, 1 dose, On Sun01/27/22 at 0345, Routine Given 01/27/2022 3:11 AM EDT 0.5 mg HYDROmorphone (Dilaudid) (2 mg/mL) multi-dose injection solution 0.4 mg 0.4 mg, Intravenous, EVERY 10 MIN PRN, Starting on Margarita 01/26/22 at 1940, Until Sun01/26/22 at 2009, Pain, For Mild to Moderate Pain (1-5 out of 10), Hold for respiratory rate less than 10 per minute. Maximum dose 4 mg over one hour including administrations in the OR. If multiple pain medications are ordered, start with HYDROmorphone or morphine and use fentaNYL for breakthrough pain, PACU Recovery, Routine Given 01/26/2022 8:03 PM EDT 0.4 mg Given 01/26/2022 7:45 PM EDT 0.4 mg HYDROmorphone (Dilaudid) (2 mg/mL) multi-dose injection solution 0.4 mg 0.4 mg, Intravenous, EVERY 10 MIN PRN, Starting on Sun01/26/22 at 2016, Until Sun01/26/22 at 2134, Pain, For Moderate to Severe Pain (6-10 out of 10), Hold for respiratory rate less than 10 per minute. Maximum dose 3 mg over one hour including administrations in the OR. If multiple pain medications are ordered, start with HYDROmorphone or morphine and use fentaNYL for breakthrough pain, PACU Recovery, Routine Given 01/26/2022 8:43 PM EDT 0.4 mg HYDROmorphone (Dilaudid) (2 mg/mL) multi-dose injection solution 0.6 mg 0.6 mg, Intravenous, EVERY 10 MIN PRN, Starting on Margarita 01/26/22 at 1940, Until Sun01/26/22 at 2010, Pain, For Moderate to Severe Pain (6-10 out of 10), Hold for respiratory rate less than 10 per minute. Maximum dose 4 mg over one hour including administrations in the OR. If multiple pain medications are ordered, start with HYDROmorphone or morphine and use fentaNYL for breakthrough pain, PACU Recovery, Routine Given 01/26/2022 7:57 PM EDT 0.6 mg Given 01/26/2022 7:35 PM EDT 0.6 mg ipratropium-albuteroL (Duoneb) 0.5 mg-3 mg(2.5 mg base)/3 mL nebulizer solution 3 mL 3 mL, Nebulization, EVERY 4 HOURS PRN, Starting on Sun01/25/22 at 1919, Until Sun01/27/22 at 2102, Wheezing, SOB, Routine ketorolac (Toradol) (30 mg/mL) injection 15 mg 15 mg, Intravenous, ONCE, 1 dose, On Sun01/25/22 at 1658, Routine Given 01/25/2022 5:53 PM EDT 15 mg ketorolac (Toradol) (30 mg/mL) injection 15 mg 15 mg, Intravenous, EVERY 6 HOURS PRN, Starting on Sun01/25/22 at 1920, Until Sun01/27/22 at 2102, Pain, Routine Given 01/27/2022 3:38 PM EDT 15 mg Given 01/26/2022 11:18 PM EDT 15 mg Given 01/26/2022 6:48 PM EDT 15 mg lidocaine (Lidoderm) 5% patch 3 patch 3 patch, Transdermal, DAILY, First dose on Sun01/27/22 at 0430, Until Discontinued, Apply patch(es) for 12 hours, and then remove for 12 hours., Routine Patch Applied 01/27/2022 4:46 AM EDT 3 patches 10- Arm Upper (Right) lidocaine (Lidoderm) topical patch REMOVAL Transdermal, EVERY 24 HOURS, First dose on Sun01/27/22 at 2100, Until Discontinued, Remove lidocaine 5% patch LORazepam (Ativan) (2 mg/mL) injection 1 mg 1 mg, Intravenous, ONCE, 1 dose, On Sun01/25/22 at 1852, Routine Given 01/25/2022 7:20 PM EDT 1 mg LORazepam (Ativan) tablet 0.5 mg 0.5 mg, Oral, ONCE, 1 dose, On Sun01/26/22 at 1147, STAT Given 01/26/2022 11:52 AM EDT 0.5 mg LORazepam (Ativan) tablet 1 mg 1 mg, Oral, ONCE, 1 dose, On Sun01/26/22 at 0334, STAT Given 01/26/2022 3:41 AM EDT 1 mg LORazepam (Ativan) tablet 1 mg 1 mg, Oral, EVERY 6 HOURS PRN, Starting on Sun01/27/22 at 1332, Until Sun01/27/22 at 2102, Anxiety, Routine Given 01/27/2022 3:38 PM EDT 1 mg nicotine (Nicoderm CQ) 14 mg/24 hr patch 14 mg 14 mg (1 patch), Transdermal, Administer over 24 Hours, ONCE, 1 dose, On Sun01/25/22 at 1852, Apply new patch to nonhairy, clean, dry skin on the upper body or upper outer arm; each patch should be applied to a different site , STAT Given 01/25/2022 7:21 PM EDT 14 mg 07- Back Lower (Left) nicotine polacrilex (Commit) lozenge 4 mg 4 mg, Buccal, EVERY 2 HOURS PRN, Starting on Sun01/25/22 at 1850, Until Sun01/27/22 at 210, Smoking cessation, Do not chew or swallow. Place in mouth and allow to slowly dissolve., Routine oxyCODONE (Roxicodone) tablet 10 mg 10 mg, Oral, EVERY 4 HOURS PRN, Starting on Sun01/26/22 at 2008, Until Sun01/27/22 at 210, Pain, moderate pain (4-6), May give additional 5 mg in 30 minutes once if pain not relieved., Routine oxyCODONE (Roxicodone) tablet 15 mg 15 mg, Oral, EVERY 4 HOURS PRN, Starting on Sun01/26/22 at 2008, Until Sun01/27/22 at 210, Pain, severe pain or opiate tolerant patient (7-10), Do not start patient with 15 mg dose. Do not give 15 mg if patient is opiate niave., Routine Given 01/27/2022 4:36 PM EDT 15 mg Given 01/27/2022 12:32 PM EDT 15 mg Given 01/27/2022 9:35 AM EDT 15 mg oxyCODONE (Roxicodone) tablet 5 mg 5 mg, Oral, EVERY 4 HOURS PRN, Starting on Margarita 01/26/22 at 2008, Until Sun01/27/22 at 2101, Pain, mild pain (1-3), May give additional 5 mg in 30 minutes once if pain not relieved., Routine piperacillin-tazobactam (Zosyn) 3.375 g vial attach to sodium chloride 0.9% 50 mL Mini-Bag Plus 3.375 g, Intravenous, EVERY 8 HOURS, First dose (after last reorder) on Margarita 01/26/22 at 2014, Until Discontinued, Administer over 4 Hours, Warning Vesicant/Irritant Medication Do not administer or Y-site with lactated ringers., Indication for (Active or Suspected): Skin/Skin Structure New Bag 01/27/2022 12:19 PM EDT 3.375 g 12.5 mL/hr New Bag 01/27/2022 4:52 AM EDT 3.375 g 12.5 mL/hr New Bag 01/26/2022 9:56 PM EDT 3.375 g 12.5 mL/hr vancomycin (Vancocin) 1 gram in sodium chloride 0.9% 250 mL infusion 1 g, Intravenous, at 250 mL/hr, EVERY 12 HOURS, First dose on Sun01/25/22 at 2000, Until Discontinued, Maximum infusion rate is 1 gram/hour. If flushing of the face, neck, upper body, arms, and/or back occurs decrease infusion rate by 50% to reduce the severity of symptoms. This medication may have an associated drug lab level. Please see MAR for scheduled level. Warning Vesicant/Irritant Medication , Routine New Bag 01/27/2022 8:33 AM EDT 1 g 250 mL/hr New Bag 01/26/2022 10:06 PM EDT 1 g 250 mL/hr Restarted 01/26/2022 12:00 PM EDT 250 mL/hr documented in this encounter Active and Recently Administered Medications Times are shown in EDT. Scheduled Medication Order 01/25/2022 01/26/2022 01/27/2022 acetaminophen (Tylenol) tablet 1,000 mg (COMPLETED) 1,000 mg, Oral, ONCE, 1 dose, On Sun01/25/22 at 1658, Maximum dose of acetaminophen is 4000 mg from all sources in 24 hours. When ordered for pain, acetaminophen should be given even when other ordered pain medications are indicated. , STAT 1654 (Due)1701 (Given - Provider: Mandeep Peck RN) acetaminophen (Tylenol) tablet 1,000 mg (CANCELED) 1,000 mg, Oral, EVERY 8 HOURS SCHEDULED, First dose on Margarita 01/26/22 at 2200, Until Discontinued, Maximum dose of acetaminophen is 4000 mg from all sources in 24 hours. When ordered for pain, acetaminophen should be given even when other ordered pain medications are indicated., Routine 214 (Given - Provider: Royer Turcios RN) 0540 (Given - Provider: Royer Turcios RN) acetaminophen (Tylenol) tablet 1,000 mg 1,000 mg, Oral, EVERY 6 HOURS SCHEDULED, First dose (after last modification) on Sun01/27/22 at 1200, Until Discontinued, Maximum dose of acetaminophen is 4000 mg from all sources in 24 hours. When ordered for pain, acetaminophen should be given even when other ordered pain medications are indicated., Routine 1219 (Given - Provider: Janine Avelar, CASEY)1811 (Given - Provider: Janine Avelar RN) BUpivacaine (pf) (Marcaine) (2.5 mg/mL) 0.25% injection 25 mg (COMPLETED) 25 mg (10 mL), Intrapleural, ONCE, 1 dose, On Margarita 01/26/22 at 0342, Routine 0343 (Given - Provider: Jodie Britt RN) cefTRIAXone (Rocephin) 1 g vial attach to sodium chloride 0.9% 50 mL Mini-Bag Plus (CANCELED) 1 g, Intravenous, EVERY 24 HOURS, First dose on Sun01/25/22 at 1439, Until Discontinued, Administer over 30 Minutes, Attach to 50 mL sodium chloride 0.9% Mini-Bag Plus , Indication for (Active or Suspected): Skin/Skin Structure 1657 (New Bag - Provider: Mandeep Peck RN)1727 (Stopped - Provider: Mandeep Peck RN) 1454 (New Bag - Provider: Savita Yancey LPN)1524 (Stopped - Provider: Janine Avelar RN)180 (JAN Hold - Provider: Admin Adt - Reason: Transfer to a Procedural area)2127 ([facility] Unhold - Provider: Royer Turcios RN) docusate sodium (Colace) capsule 100 mg 100 mg, Oral, 2 TIMES DAILY, First dose on Margarita 01/26/22 at 2100, Until Discontinued, Routine 2147 (Given - Provider: Royer Turcios RN) 0831 (Given - Provider: Janine Avelar RN) dronabinoL (Marinol) capsule 10 mg 10 mg, Oral, 2 TIMES DAILY, First dose (after last modification) on Sun01/27/22 at 0900, Until Discontinued, Routine 08 (Given - Provider: Janine Avelar RN) dronabinoL (Marinol) capsule 5 mg (CANCELED) 5 mg, Oral, 2 TIMES DAILY, First dose on Sun01/26/22 at 1335, Until Discontinued, Routine 1403 (Given - Provider: Janine Avelar RN)180 (JAN Hold - Provider: Admin Adt - Reason: Transfer to a Procedural area)2100 (Automatically Held - Provider: Admin Adt)2127 ([facility] Unhold - Provider: Royer Turcios RN)214 (Given - Provider: Royer Turcios RN) HYDROmorphone (Dilaudid) (1 mg/mL) injection syringe 0.5 mg (COMPLETED) 0.5 mg, Intravenous, ONCE, 1 dose, On Sun01/27/22 at 0345, Routine 0311 (Given - Provider: Royer Turcios RN) ketorolac (Toradol) (30 mg/mL) injection 15 mg (COMPLETED) 15 mg, Intravenous, ONCE, 1 dose, On Sun01/25/22 at 1658, Routine 1753 (Given - Provider: Mandeep Peck RN) lidocaine (Lidoderm) 5% patch 3 patch(Linked Group 1) 3 patch, Transdermal, DAILY, First dose on Sun01/27/22 at 0430, Until Discontinued, Apply patch(es) for 12 hours, and then remove for 12 hours., Routine 0446 (Patch Applied - Provider: Royer Turcios RN) lidocaine (Lidoderm) topical patch REMOVAL(Linked Group 1) Transdermal, EVERY 24 HOURS, First dose on Sun01/27/22 at 2100, Until Discontinued, Remove lidocaine 5% patch LORazepam (Ativan) (2 mg/mL) injection 1 mg (COMPLETED) 1 mg, Intravenous, ONCE, 1 dose, On Sun01/25/22 at 1852, Routine 1920 (Given - Provider: Mandeep Peck, RN) LORazepam (Ativan) tablet 0.5 mg (COMPLETED) 0.5 mg, Oral, ONCE, 1 dose, On Sun01/26/22 at 1147, STAT 1152 (Given - Provider: Blayne Rosado) LORazepam (Ativan) tablet 1 mg (COMPLETED) 1 mg, Oral, ONCE, 1 dose, On Sun01/26/22 at 0334, STAT 0341 (Given - Provider: Jodie Britt RN) nicotine (Nicoderm CQ) 14 mg/24 hr patch 14 mg (COMPLETED) 14 mg (1 patch), Transdermal, Administer over 24 Hours, ONCE, 1 dose, On Sun01/25/22 at 1852, Apply new patch to nonhairy, clean, dry skin on the upper body or upper outer arm; each patch should be applied to a different site , STAT 1921 (Given - Provider: Mandeep Peck, CASEY) piperacillin-tazobactam (Zosyn) 3.375 g vial attach to sodium chloride 0.9% 50 mL Mini-Bag Plus 3.375 g, Intravenous, EVERY 8 HOURS, First dose (after last reorder) on Sun01/26/22 at 2015, Until Discontinued, Administer over 4 Hours, Warning Vesicant/Irritant Medication Do not administer or Y-site with lactated ringers., Indication for (Active or Suspected): Skin/Skin Structure 2156 (New Bag - Provider: Royer Turcios, CASEY) 0156 (Stopped - Provider: Royer Turcios RN)0452 (New Bag - Provider: Royer Turcios RN)0852 (Stopped - Provider: Janine Avelar, CASEY)1219 (New Bag - Provider: Janine Avelar, CASEY)1619 (Stopped - Provider: Janine Avelar RN) vancomycin (Vancocin) 1 gram in sodium chloride 0.9% 250 mL infusion 1 g, Intravenous, at 250 mL/hr, EVERY 12 HOURS, First dose on Sun01/25/22 at 2000, Until Discontinued, Maximum infusion rate is 1 gram/hour. If flushing of the face, neck, upper body, arms, and/or back occurs decrease infusion rate by 50% to reduce the severity of symptoms. This medication may have an associated drug lab level. Please see MAR for scheduled level. Warning Vesicant/Irritant Medication , Routine 2250 (New Bag - Provider: Mandeep Peck RN - Comment: IV access had to be resolved)2350 (Stopped - Provider: Jodie Britt RN) 0812 (New Bag - Provider: Blayne Rosado)0815 (Paused - Provider: Blayne Rosado)1200 (Restarted - Provider: Blayne Rosado)1808 (MAR Hold - Provider: Admin Adt - Reason: Transfer to a Procedural area)1999 (Automatically Held - Provider: Admin Adt)2127 (MAR Unhold - Provider: Royer Turcios RN)2204 (Canceled Entry - Provider: Royer Turcios RN - Reason: Entered in Error)2206 (New Bag - Provider: Royer Turcios RN)2306 (Stopped - Provider: Royer Turcios RN) 0833 (New Bag - Provider: Janine Avelar, CASEY)0933 (Stopped - Provider: Janine Avelar RN) PRN Medication Order 01/25/2022 01/26/2022 01/27/2022 acetaminophen (Tylenol) tablet 650 mg (CANCELED) 650 mg, Oral, EVERY 6 HOURS PRN, Starting on Sun01/25/22 at 1920, Until Sun01/27/22 at 0710, Pain, Maximum dose of acetaminophen is 4000 mg from all sources in 24 hours. When ordered for pain, acetaminophen should be given even when other ordered pain medications are indicated. , STAT 0206 (Given - Provider: Jodie Britt RN)0903 (Given - Provider: Blayne Rosado)1453 (Given - Provider: Savita Yancey LPN)180 (MAR Hold - Provider: Admin Adt - Reason: Transfer to a Procedural area)2127 (MAR Unhold - Provider: Royer Turcios, CASEY) 0240 (Given - Provider: Royer Turcios RN) bisacodyL (Dulcolax) suppository 10 mg 10 mg, Rectal, DAILY PRN, Starting on Margarita 01/26/22 at 1952, Until Sun01/27/22 at 210, Constipation, Administer if needed per patient's routine or if no bowel movement within 48 hours to achieve: (1) One bowel movement at least every 48 hours, AND (2) Without straining. - If multiple PRN bowel medications ordered, start with magnesium hydroxide, then bisacodyl. - Multiple medications may be given concomitantly for constipation., Routine BUpivacaine-EPINEPHrine (Marcaine-epiNEPHrine) 0.25 %-1:200,000 injection (CANCELED) ONCE PRN, Starting on Margarita 01/26/22 at 1837, Until Sun01/27/22 at 210, Intra-Operative (Intra-Procedure), Routine 1836 (Given - Provider: Arabella Guevara MD) HYDROmorphone (Dilaudid) (2 mg/mL) multi-dose injection solution 0.4 mg (CANCELED)(Linked Group 2) 0.4 mg, Intravenous, EVERY 10 MIN PRN, Starting on Margarita 01/26/22 at 1940, Until Sun01/26/22 at 2009, Pain, For Mild to Moderate Pain (1-5 out of 10), Hold for respiratory rate less than 10 per minute. Maximum dose 4 mg over one hour including administrations in the OR. If multiple pain medications are ordered, start with HYDROmorphone or morphine and use fentaNYL for breakthrough pain, PACU Recovery, Routine 1934 (See Alternative - Provider: Lindsey Youssef, CASEY)1944 (Given - Provider: Lindsey Youssef RN)1956 (See Alternative - Provider: Lindsey Youssef, CASEY)2002 (Given - Provider: Lindsey Youssef RN) HYDROmorphone (Dilaudid) (2 mg/mL) multi-dose injection solution 0.4 mg (CANCELED)(Linked Group 3) 0.4 mg, Intravenous, EVERY 10 MIN PRN, Starting on Margarita 01/26/22 at 2016, Until Sun01/26/22 at 213, Pain, For Moderate to Severe Pain (6-10 out of 10), Hold for respiratory rate less than 10 per minute. Maximum dose 3 mg over one hour including administrations in the OR. If multiple pain medications are ordered, start with HYDROmorphone or morphine and use fentaNYL for breakthrough pain, PACU Recovery, Routine 2042 (Given - Provider: Lindsey Youssef, CASEY) HYDROmorphone (Dilaudid) (2 mg/mL) multi-dose injection solution 0.6 mg (CANCELED)(Linked Group 2) 0.6 mg, Intravenous, EVERY 10 MIN PRN, Starting on Margarita 01/26/22 at 1940, Until Margarita 01/26/22 at 2009, Pain, For Moderate to Severe Pain (6-10 out of 10), Hold for respiratory rate less than 10 per minute. Maximum dose 4 mg over one hour including administrations in the OR. If multiple pain medications are ordered, start with HYDROmorphone or morphine and use fentaNYL for breakthrough pain, PACU Recovery, Routine 1934 (Given - Provider: Lindsey Youssef RN)1944 (See Alternative - Provider: Lindsey Youssef RN)1956 (Given - Provider: Lindsey Youssef RN)2002 (See Alternative - Provider: Lindsey Youssef RN) ipratropium-albuteroL (Duoneb) 0.5 mg-3 mg(2.5 mg base)/3 mL nebulizer solution 3 mL 3 mL, Nebulization, EVERY 4 HOURS PRN, Starting on Sun01/25/22 at 1919, Until Sun01/27/22 at 2102, Wheezing, SOB, Routine 1808 (JAN Hold - Provider: Admin Adt - Reason: Transfer to a Procedural area)2127 (JAN Unhold - Provider: Royer Turcios RN) ketorolac (Toradol) (30 mg/mL) injection 15 mg 15 mg, Intravenous, EVERY 6 HOURS PRN, Starting on Sun01/25/22 at 1920, Until Sun01/27/22 at 2102, Pain, Routine 0206 (Given - Provider: Jodie Britt RN)1224 (Given - Provider: Blayne Rosado)1808 (JAN Hold - Provider: Admin Adt - Reason: Transfer to a Procedural area)1848 (Given - Provider: Zuleima Lawson CRNA)2127 (MAR Unhold - Provider: Royer Turcios RN)231 (Given - Provider: Royer Turcios RN) 153 (Given - Provider: Savita Yancey LPN) LORazepam (Ativan) tablet 1 mg 1 mg, Oral, EVERY 6 HOURS PRN, Starting on Sun01/27/22 at 1332, Until Sun01/27/22 at 2102, Anxiety, Routine 153 (Given - Provid er: Savita Yancey LPN) nicotine polacrilex (Commit) lozenge 4 mg 4 mg, Buccal, EVERY 2 HOURS PRN, Starting on Sun01/25/22 at 1850, Until Sun01/27/22 at 210, Smoking cessation, Do not chew or swallow. Place in mouth and allow to slowly dissolve., Routine 180 (MAR Hold - Provider: Admin Adt - Reason: Transfer to a Procedural area)2127 (MAR Unhold - Provider: Royer Turcios RN) oxyCODONE (Roxicodone) tablet 10 mg(Linked Group 4) 10 mg, Oral, EVERY 4 HOURS PRN, Starting on Margarita 01/26/22 at 2008, Until Sun01/27/22 at 210, Pain, moderate pain (4-6), May give additional 5 mg in 30 minutes once if pain not relieved., Routine 2020 (See Alternative - Provider: Lindsey Youssef RN)2343 (See Alternative - Provider: Royer Turcios RN) 0240 (See Alternative - Provider: Royer Turcios RN)0540 (See Alternative - Provider: Royer Turcios RN)0935 (See Alternative - Provider: Janine Avelar, CASEY)1232 (See Alternative - Provider: Janine Avelar, CASEY)1636 (See Alternative - Provider: Savita Yancey LPN) oxyCODONE (Roxicodone) tablet 15 mg(Linked Group 4) 15 mg, Oral, EVERY 4 HOURS PRN, Starting on Margarita 01/26/22 at 2008, Until Sun01/27/22 at 210, Pain, severe pain or opiate tolerant patient (7-10), Do not start patient with 15 mg dose. Do not give 15 mg if patient is opiate niave., Routine 2020 (Given - Provider: Lindsey Youssef RN)2343 (Given - Provider: Royer Turcios RN) 0240 (Given - Provider: Royer Turcios RN)0540 (Given - Provider: Royer Turcios RN)0935 (Given - Provider: Janine Avelar, CASEY)1232 (Given - Provider: Janine Avelar RN)1636 (Given - Provider: Savita Yancey LPN) oxyCODONE (Roxicodone) tablet 5 mg(Linked Group 4) 5 mg, Oral, EVERY 4 HOURS PRN, Starting on Sun01/26/22 at 2008, Until Sun01/27/22 at 210, Pain, mild pain (1-3), May give additional 5 mg in 30 minutes once if pain not relieved., Routine 2020 (See Alternative - Provider: Lindsey Youssef RN)2343 (See Alternative - Provider: Royer Turcios RN) 0240 (See Alternative - Provider: Royer Turcios RN)0540 (See Alternative - Provider: Royer Turcios RN)0935 (See Alternative - Provider: Janine Avelar RN)1232 (See Alternative - Provider: Janine Avelar RN)1636 (See Alternative - Provider: Savita Yancey LPN) Linked Groups Order Group 1: lidocaine (Lidoderm) 5% patch 3 patchJump to med 3 patch, Transdermal, DAILY, First dose on Sun01/27/22 at 0430, Until Discontinued, Apply patch(es) for 12 hours, and then remove for 12 hours., Routine And lidocaine (Lidoderm) topical patch REMOVALJump to med Transdermal, EVERY 24 HOURS, First dose on Sun01/27/22 at 2100, Until Discontinued, Remove lidocaine 5% patch Group 2: HYDROmorphone (Dilaudid) (2 mg/mL) multi-dose injection solution 0.4 mg (CANCELED)Jump to med 0.4 mg, Intravenous, EVERY 10 MIN PRN, Starting on Sun01/26/22 at 1940, Until Sun01/26/22 at 2009, Pain, For Mild to Moderate Pain (1-5 out of 10), Hold for respiratory rate less than 10 per minute. Maximum dose 4 mg over one hour including administrations in the OR. If multiple pain medications are ordered, start with HYDROmorphone or morphine and use fentaNYL for breakthrough pain, PACU Recovery, Routine Or HYDROmorphone (Dilaudid) (2 mg/mL) multi-dose injection solution 0.6 mg (CANCELED)Jump to med 0.6 mg, Intravenous, EVERY 10 MIN PRN, Starting on Margarita 01/26/22 at 1940, Until Margarita 01/26/22 at 2010, Pain, For Moderate to Severe Pain (6-10 out of 10), Hold for respiratory rate less than 10 per minute. Maximum dose 4 mg over one hour including administrations in the OR. If multiple pain medications are ordered, start with HYDROmorphone or morphine and use fentaNYL for breakthrough pain, PACU Recovery, Routine Group 3: HYDROmorphone (Dilaudid) (2 mg/mL) multi-dose injection solution 0.2 mg (CANCELED) 0.2 mg, Intravenous, EVERY 10 MIN PRN, Starting on Margarita 01/26/22 at 2015, Until Margarita 01/26/22 at 213, Pain, For Mild to Moderate Pain (1-5 out of 10), Hold for respiratory rate less than 10 per minute. Maximum dose 3 mg over one hour including administrations in the OR. If multiple pain medications are ordered, start with HYDROmorphone or morphine and use fentaNYL for breakthrough pain, PACU Recovery, Routine Or HYDROmorphone (Dilaudid) (2 mg/mL) multi-dose injection solution 0.4 mg (CANCELED)Jump to med 0.4 mg, Intravenous, EVERY 10 MIN PRN, Starting on Margarita 01/26/22 at 2015, Until Margarita 01/26/22 at 2134, Pain, For Moderate to Severe Pain (6-10 out of 10), Hold for respiratory rate less than 10 per minute. Maximum dose 3 mg over one hour including administrations in the OR. If multiple pain medications are ordered, start with HYDROmorphone or morphine and use fentaNYL for breakthrough pain, PACU Recovery, Routine Group 4: oxyCODONE (Roxicodone) tablet 5 mgJump to med 5 mg, Oral, EVERY 4 HOURS PRN, Starting on Margarita 01/26/22 at 2008, Until Sun01/27/22 at 2101, Pain, mild pain (1-3), May give additional 5 mg in 30 minutes once if pain not relieved., Routine Or oxyCODONE (Roxicodone) tablet 10 mgJump to med 10 mg, Oral, EVERY 4 HOURS PRN, Starting on Margarita 01/26/22 at 2008, Until Sun01/27/22 at 2101, Pain, moderate pain (4-6), May give additional 5 mg in 30 minutes once if pain not relieved., Routine Or oxyCODONE (Roxicodone) tablet 15 mgJump to med 15 mg, Oral, EVERY 4 HOURS PRN, Starting on Margarita 01/26/22 at 2008, Until Sun01/27/22 at 2101, Pain, severe pain or opiate tolerant patient (7-10), Do not start patient with 15 mg dose. Do not give 15 mg if patient is opiate niave., Routine documented in this encounter Care Teams Hardener Helper Relationship Specialty Start Date End Date None None PCP - General 01/25/22 documented as of this encounter
--- OUTSIDE RECORDS SUMMARY | 2024-05-19 02:22 | XMS_ITS | Encounter Summary ---
Author Organization [facility] Address [facility] [place] [address] Care Team Providers Care Hot Repairman Name Role Phone None Primary Care Provider Unavailabl e Reason for Visit * Reason Comments Hand Injury Infection Hospital Transfer * Auth/Cert Specialty Diagnoses / Procedures Referred By Contac t Referred To Contact Diagnoses Cellulitis of right hand hand abscess Procedures emerg obsvo Referral ID Status Reason Start Date Expiration Date Visits Re quested Visits Authorized [id number] 1 1 Encounter Details Date Type Department Care Team (Late st Contact Info) Description 01/26/2022 5:56 PM EDT - 01/26/2022 7:39 PM EDT [place] [id number] Arabella Guevara MD [facility] [place] [address] TENDON REPAIR, EXTENSOR, HAND, W/O FREE GRAFT 1?? OR 2??, EA (WRVU 4.77) Social History Tobacco Use Types Packs/Day Years Used Date Smoking Tobacco: Never Assessed Sex and Gender Information Value Date Recorded Sex Assigned at Not on file Gender Identity Not on file Sexual Orientation Not on file documented as of this encounter Last Filed Vital Signs Vital Sign Reading Time Taken Comments Blood Pressure 108/81 01/26/2022 7:30 PM EDT Pulse 75 01/26/2022 7:30 PM EDT Temperature 36.7 ??C (98.1 ??F) 01/26/2022 7:21 PM ED T Respiratory Rate 21 01/26/2022 7:30 PM EDT Oxygen Saturation 97% 01/26/2022 7:30 PM EDT Inhaled Oxygen Concentration - - Weight 56.7 kg (125 lb) 01/25/2022 1:50 PM EDT Height - - Body Mass Index - - documented in this encounter Discharge Summaries * Georgi Parker PA - 01/27/2022 6:56 AM EDT Images from the original note were not included. Discharge Summary Patient Name: Meka Ray Patient Age: 56 y.o. Language: Citizen Of [place] Race: White Ethnicity: Not nor Admit date: 01/25/2022 Discharge date and time: 01/27/2022 Attending Physician: Arabella Guevara MD Discharge Physician: Arabella Guevara MD Follow-up Recommendations for Providers: See discharge instructions for additional details. Future Appointments Date Time Provider Department Center 02/09/2022 8:00 AM Sarah Beth Mcneal, OT [facility] 02/09/2022 9:00 AM NURSE, PLASTIC SURGERY [facility] Inpatient Provider Contact Information: Arabella Guevara MD Plastic Surgery [phone] After hours and weekends, call [facility] Lens Grinder Rough, , and have the Plastic Surgery resident paged. Discharge Diagnoses (Hospital Problems) and Secondary Diagnoses (Chronic Problems): Active Hospital Problems Diagnosis ??? Cellulitis of right hand Resolved Hospital Problems No resolved problems to display. There are no active non-hospital problems to display for this patient. Operations/Major Procedures: 01/26/2022 PICC INSERTION Catheter type: PICC Lot number: [id number] Procedure Details: Order received for catheter placement. [...] about scheduling, please contact our administrative officesat [phone] For clinical questions, please call our nurses at [phone] Both offices are open Sunday thru Sunday 8a - 5p. With emergencies after hours, call the hospital cup trimming machine operator at [phone] and ask for the Plastic Surgery Resident transportation broker. General Instructions None Future Appointments and Orders Future Appointments and Orders Future Appointments Provider Department Dept Phone 02/09/2022 8:00 AM Sarah Beth Mcneal OT Occupational Therapy at [facility] Arrive at: Water Plant Pump Operator Supervisor [address] South [phone] 02/09/2022 9:00 AM NURSE, PLASTIC SURGERY Plastic Surgery at [facility] Arrive at: Water Plant Pump Operator Supervisor Area Plastic Surgery Nursing Orders: - wound check [...] about scheduling, please contact our administrative officesat [phone] For clinical questions, please call our nurses at [phone] Both offices are open Sunday thru Sunday 8a - 5p. With emergencies after hours, call the hospital cup trimming machine operator at [phone] and ask for the Plastic Surgery Resident transportation broker. documented in this encounter Medications at Time [...] Avelar RN - 01/27/2022 5:33 PM EDT [facility] Short Stay Unit Discharge Note All relevant discharge milestones have been met by the patent. After Visit Summary and discharge teaching reviewed with the patient. IV access has been discontinued. All personal belongings have been returned to the patient/family upon their departure from the unit. Patient has been discharged to home The patient has been discharged without VNA services. * Catalina Bill APRN - 01/27/2022 6:53 AM EDT Plastic Surgery Inpatient Progress Note (Team Pager #[phone]) Date of surgery: 01/26/22 CC/Procedure(s): I & D washout / tendon repair right hand Surgeon: Kuldeep (consult by Ortho Millicent Barbosa) Subjective: Awake, seated in bed, c/o [...] in addition to home needs for the lead case manager to consider): Home with PO antibiotics 01/27 or 01/28? 10. Adjust antibiotics therapy pending culture results Plastic Surgery Inpatient Team Pager #[phone] Catalina Bill APRN * Be Qureshi MD [...] - UOP adequate Be Qureshi MD Pager: [phone] * Royer Turcios RN - 01/27/2022 2:00 AM EDT [facility] Short Stay Unit Shift Note The [...] SpO2 O2 Flow Rate (L/min) O2 Device 01/26/22213 -- -- 74 16 123/87 95 % [...] 73 11 103/73 97 % -- -- 01/26/222113 -- 73 bpm 80 15 -- 97 [...] meet their relevant discharge milestones. * Cindy Kaet RN - 01/26/2022 9:14 PM EDT Received report, Pt ready to go to room. * Lindsey Youssef RN - 01/26/2022 7:52 PM EDT Arrived from OR In bed, tossing and turning Anesthetics without narcotic during procedure Had blockye (worn off) Incontinent of urine Linen changed 1934 medicated with Dilaudid to total 1 mg Waiting on effect 1954 repeated Dilaudid Spoke to Dr Ian Valero range increased and given 15mg Oxycodone po [...] y.o. Surgery/Issue: Right hand abscess Attending: Dr. Nigriny SUBJECTIVE / INTERVAL HISTORY: Patient with increased [...] data in the 24 hours ending 01/25/22 1897 BMI: Weight: 56.7 kg (125 lb) (01/25/22 [...] Center 02/06/2022 8:30 AM Randall Asencio MD [facility] [address] [place] [address] documented in this encounter H&P Notes * [...] to the planned procedure. Hand Hygiene: The brief writer did perform hand hygiene prior to line insertion. Catheter type: PICC Lot number: [id number] Procedure Technique: Skin was prepped with chlorhexidine. [...] pain on subsequent flush. IV team paged. [phone]: PT seen by IV team, IV removed, [...] emerge department for being seen twice at [facility] for problems with a right hand infection. [...] 15.1 1744 Platelets: 314 1902 Sed Rate: 23 1901 COMPARISON: Hand radiographs 01/21/2022. ?? FINDINGS: [...] a few days. She was seen at [facility] a few days ago and placed on [...] CDU cellulitis protocol Joel Ashley PA 01/25/22 2945 Joel Ashley PA 01/25/22 1908 Joel Ashley PA 01/25/221954 * Demond Fowler, - 01/25/2022 11:27 AM EDT EM attending brief transfer acceptance note: Meka Ray is a 56 y.o. who is coming from [facility] The patient will be evaluated in the [...] - Initial Consultation ID: Meka Ray Room: [address] Consulting Service: Consulting Attending: Arabella Guevara MD Admission Date: 01/25/2022 Subjective Reason for Consult: R hand abscess s/p I&D HPI: Meka Ray is a 56 y.o. female with Hx of IVDU who developed R hand injury around 01/18, reportedly from a splinter, resulting in subsequent infection. She was seen at [facility] ED on 01/21, at which point she [...] fevers or chills. Ultimately, she re-presented to [facility] on 12/28 for evaluation, at which point it was felt that she would likely benefit from evaluation by a hand surgeon. She was subsequently referred to the [facility] ED on 12/28, at which point her [...] she lives with her best friend in [place]. Previously worked as a fisherman. Objective Vitals: [...] many PMNs, moderate GPCs I called the [facility] microbiology, who stated that no cultures were collected on 01/21. Radiology/Studies/Procedures: CT hand w/o IV contrast (01/25/2022) Stents of dorsal soft tissue swelling without evidence of underlying osseous erosion or periostitis. No gross collection. No radiopaque foreign body seen. Impression & Recommendations Impression: Meka Ray is a 56 y.o. female with Hx of IVDU who was transferred to [facility] on 12/28 for management of a R [...] Operative Note Patient Name: Meka Ray : [id number] MR#: [id number] Case Date: 01/26/2022 Surgeon: Surgeon(s) and Role: [...] Guevara MD - 01/26/2022 6:35 PM EDT [facility] Operative Note Patient Name: Meka Ray : [id number] MR#: [id number] Case Date: 01/26/2022 Surgeon: Surgeon(s) and Role: [...] Drain/Device Site 01/26/22 Right back of hand Consuelo (Active) Surgical Closure: Primary Closure - skin [...] with a modified Marquez technique. 1/4 inch [place] drain was inserted andbrought out through the [...] 01/30/2022 * Consult Note - Isaura Chávez [facility] - 01/26/2022 11:59 AM EDT TelePharmacy Home Medication List Update for Medication Reconciliation 01/26/22 11:59 AM Meka Ray 1965 Allergies Allergen Reactions ??? Codeine ??? Iodine And Iodide Containing Products ??? Theophylline (Bulk) ??? Person Interviewed: patient ??? Quality of Interview/accuracy of medication list: good ??? Sources used to compile medication list: [x] [facility] medication list [x] SureScripts [] PCP/Specialist list [...] (PICC) Teaching Sheet Peripherally inserted central catheters (vzrl-jy-fqao) (PICC) are used when you need IV [...] midline catheter? PICC lines are used for terminal press operator treatments. PICC lines may be used for [...] can be set up via the nurse Viscosity Inspector to help you. What are possible complications [...] 01/26/22 Negative Lab Results Component Value Date [id number] Not Detected 01/25/2022 Past medical History: No past medical history on file. Hospitalizations Within the Past 30 Days: no previous admission in last 30 days Current Decision-Making Capacity: Self Advance Care Planning: Attempt Cardiopulmonary Resuscitation - Inpatient <no information> -Advanced Directive: No, need to discuss If AD's have not been completed Sig Other: [phone] would be surrogate decision maker per [place] surrogate decision making law. (Only good for 180 days) Any patient receiving care at [facility] must abide by [place] law. The hierarchy for surrogate decision making [...] (i) The agent with financial power of fisher weir or a conservator appointed in accordance with RSA 464-A. (j) The guardian of the patient???s estate. Current Coping/Education/Information Needs: Advanced Directive Current Functional Ability: Independent Functional Status Prior to Admission: Independent Prior iADLS: Independent with all iADLs Home Environment: Others in the home: friend(s). Current Living Arrangements: home/apartment/condo. Accessibility Concerns: . Current DME: none Home Address confirmed as: [address] [facility] [address] Social & Family Supports: All names listed below confirmed with patient as current and correct Extended Emergency Contact Information Primary Emergency Contact: Sunshine Mcgill Mobile Relation: Significant Other Secondary Emergency Contact: MalihaDara Mobile Relation: Child Current Care Provided by: [...] Specific Information: none Health/Prescription Coverage: Primary Insurance: [place] Payor[place] / Plan: [place] [employer] / Product [...] and forward flexion, elbow flexion/extension, wrist flexion/extension, liquid loader, AIN/PIN/IO intact Brisk capillary refill distally 2+ [...] median ulnar distributions Motor intact wrist flexion/extension, liquid loader, AIN/PIN/IO intact Brisk capillary refill distally 2+ [...] We will plan to admit her overnight tot CDU for vanc/ceftriaxone and reassess in the AM. - Activity: NWB RUE - DVT prophylaxis: hold - Antibiotics: Ceftriaxone, Vancomycin - Diet: NPO - Medications prescribed: none - Imaging needed: none Luis Mendez MD Orthopaedic Surgery Pager: [phone] * ED Procedure Note - Dinh Guillen [...] the entire procedure. * ED Triage - Maira Peres RN - 01/25/2022 1:52 PM EDT HPI (Adult) Stated Reason for Visit: I got a splinter in my R hand 7 days ago regular tree wood. I reinjured Sunday when I fell and slammed it against the ground and was seen at [facility] 4 days ago and again today and they sent me here. History Obtained From: patient Pt. Transfer by POV from [facility] for worsening R hand infection s/p getting a splinter 1 week ago. R hand swollen with abscess posterior hand. Pt. Here with packet from [facility]. documented in this encounter Plan of Treatment [...] 6:40 PM EDT Apply Forearm Splint, Static ([id number]) 01/26/2022 6:08 PM EDT Right hand abscess Repair Exten Tendon, Dorsum Hand, Ea ([id number]) 01/26/2022 6:08 PM EDT Right hand abscess Debridement Bone Muscle &/Fascia 20 Sq Cm/< (75237) 01/26/2022 6:08 PM EDT Right hand abscess DEBRIDEMENT SKIN, SUBCU, MUSCLE, BONE UPPER EXTREMITY Routine 01/26/2022 5:50 PM EDT US EXTREMITY NON VASCULAR LIMITED ANATOMIC SPECIFIC RIGHT STAT 01/26/2022 1:[address] PICC LINE: CONTACT VASCULAR ACCESS Routine 01/26/2022 11:20 AM EDT XR PICC PLACEMENT OVER 5 YEARS (IV TEAM) STAT 01/26/2022 11:10 AM EDT RAPID COVID-19 PCR ([facility]) STAT 01/25/2022 10:[address] [...] 7:27 AM EDT) Vanc Trough 11.9 mg/L [facility] Comment: Therapeutic range for complicated [...] In Lab Arabella Guevara MD CHEMISTRY ORDERABLES [facility] [place] [address] * (ABNORMAL) Differential, Automated (01/27/2022 4:01 AM EDT) Neutrophils % 48.6 % [facility] Neutr Abs (ANC) 3.84 1.70 - 6.10 x10(3)/mc L [facility] Lymphocytes % 41.6 % [facility] Lymphocytes Abs 3.3(H) 0.9 - 3.2 x10(3)/mc L [facility] Monocytes % 6.8 % [facility] Monocyte Abs 0.5 0.3 - 0.9 x10(3)/mc L [facility] Eosinophils % 1.8 % [facility] Eosinophils Abs 0.1 0.0 - 0.4 x10(3)/[facility]OR[facility] Basophils % 0.9 % [facility] Basophils Abs 0.1 0.0 - 0.1 x10(3)/[facility] LABORATORY Immature Gran % 0.30 % [facility] Comment: Immature granulocytes(IG's)percentage and absolute count will include metamyelocytes, myelocytes, and promyelocytes. Blood smears from CBCs yielding IG's will be scanned manually for concordance. If this scan disagrees with the automated IG or if promyelocytes are noted, a manual differential will be performed. Sneha Gran Abs 0.02 0.00 - 0.04 x10(3)/[facility] Blood 01/27/2022 4:01 AM EDT 01/27/2022 4:05 AM EDT Narrative Resulting Agency Comment Spec In Lab Makeda Sosa MD HEMATOLOGY ORDERABLE S [facility] [place] [place] [address] * (ABNORMAL) Hemogram (01/27/2022 4:01 AM EDT) WBC 7.9 4.0 - 9.5 x10(3)/[facility] LABORATORY RBC 3.94(L) 4.00 - 5.21 x10(6)/[facility] Hemoglobin 12.0 11.7 - 15.5 g/dL [facility] Hematocrit 36.6 35.7 - 45.8 % [facility] MCV 92.9 82.6 - 94.4 fL [facility] MCH 30.5 27.1 - 32.0 pg [facility] MCHC 32.8 31.7 - 35.0 g/dL [facility] Platelets 258 145 - 357 x10(3)/[facility] LABORATORY RDWSD 49.8(H) 37.0 - 46.0 fL [facility] RDWCV 14.4(H) 11.5 - 14.1 % [facility] MPV 8.9 7.6 - 12.9 fL [facility] nRBC % Auto 0.0 % [facility] nRBC Abs Auto 0.000 0.000 - 0.000 x10(3)/mcL [facility] Blood 01/27/2022 4:01 AM EDT 01/27/2022 4:05 AM EDT Narrative Resulting Agency Comment Spec In Lab Makdea Sosa MD HEMATOLOGY ORDERABLE S Performing Organization Address City/[facility]/ZIP Co de Phone Number [facility] [place] [address] * Anaerobic Culture (01/26/2022 6:40 PM EDT) Anaerobic Culture No anaerobic organisms isolated [facility] Abscess STRUCTURE OF RIGHT HAND / Unknown 01/26/2022 6:40 PM EDT 01/26/2022 7:25 PM EDT Comment:Right dorsal hand ab scess Narrative Resulting Agency Comment Spec In Lab Arabella Guevara MD MICROBIOLOGY - GENER AL ORDERABLES Performing Organization Address City/[facility]/ZIP Co de Phone Number [facility] [place] [address] * (ABNORMAL) Abscess/Wound Aspirate Culture (01/26/2022 6:40 PM EDT) Abscess/Wound Aspirate Culture Moderate Staphylococcus aureus(A) [facility] Gram Stain Many Neutrophils seen Moderate Gram Positive Cocci seen (A) [facility] Organism Staphylococcus aureus(A) [facility] Organism Gram Positive Cocci(A) [facility] Abscess STRUCTURE OF RIGHT HAND / Unknown 01/26/2022 6:40 PM EDT 01/26/2022 7:25 PM EDT Comment:Right dorsal hand ab scess Narrative Resulting Agency Comment Spec In Lab Organism Antibiotic Method Susceptibility Staphylococcus aureus Clindamycin VITEK 2 METHOD Resistant Staphylococcus aureus Erythromycin VITEK 2 METHOD Resistant Staphylococcus aureus Gentamicin VITEK 2 METHOD Sensitive Comment:Gentamicin i s not appropriate for [place]-therapy. Staphylococcus aureus Oxacillin VITEK 2 METHOD Sensitive [...] Guevara MD MICROBIOLOGY - GENER AL ORDERABLES [facility] [place] [address] * US Extremity Non Vascular Limited Right [...] who have questions please contact the health career resource technician that requested your imaging first. ? Narrative 01/26/2022 1:56 PM EDT EXAMINATION: US [...] in dorsum of R hand prior to ORtoday TECHNIQUE: The soft tissues of the RIGHT [...] end of the torn tendon is located [id number] mm distal to the metacarpal base and is immediately beneath the wound. Thank you for letting us participate in the care of this patient. If youare a health care provider and have any questions regarding this report,please contact the number below. For patients who have questions please contactthe health career resource technician that requested your imaging first. German DAVIDSON US GEN ORDERABLE S * Place PICC Line: Contact Vascular Access Page [phone] Extremity to exclude: No restrictions; Is PICC [...] to the planned procedure. Hand Hygiene: The brief writer did perform hand hygiene prior to line insertion. Catheter type: PICC Lot number: [id number] Procedure Technique: Skin was prepped with chlorhexidine. [...] who have questions please contact the health career resource technician that requested your imaging first. ? Procedure Note Yeni Chang MD - 01/26/2022 [...] patients who have questions please contactthe health career resource technician that requested your imaging first. Kristine Barrientos MD IMG FLUORO ORDERABLE S * COVID-19 PCR (01/25/2022 10:02 PM EDT) SARS-CoV-2 RNA PCR Not Detected Not Detected [facility] Comment: This result should be interpreted [...] using the Simplexa COVID-19 Direct Assay by [employer] as authorized by the FDA issued Emergency [...] Department of Pathology and Laboratory Medicine at [facility], certified under the Clinical Laboratory Improvement Amendments [...] fact sheets at the following FDA website: https://www.fda.gov/medical-devices/uznbgxqjnmn-ucjctpy-9698-qixou-53-ynlqfhkqd- use-a qfvehrdorpsiz-pqnkuno-xjqtoxa/fmppj-lktqrwetvyo-udmw SARS-CoV-2 Source JAVA LEAD ARCHITECT Swab [facility] Nasopharyngeal Swab 01/26/20 10:02 PM EDT 01/25/2022 11:24 PM EDT Comment:Symptoms->Surveillan ce Narrative Resulting Agency Comment Spec In Lab German Harrell MD MICROBIOLOGY - GENER AL ORDERABLES [facility] [place] [address] * Creatinine (01/25/2022 6:20 PM EDT) Creatinine 0.75 0.70 - 1.20 mg/dL [facility] Estimated GFR 90 >=60 mL/min/1. 73 m?? [facility] Comment: This patient? s estimated glomerular [...] In Lab Joel PÉREZ CHEMISTRY ORDERABLE S [facility] [place] [address] * Lavender Tube HOLD (01/25/2022 6:20 PM EDT) Lavender Hold Sample in lab. [facility] Blood Venous Draw / Unknown 01/25/2022 6:20 PM EDT 01/25/2022 8:00 PM EDT Luis Mendez MD HEMATOLOGY ORDERABLE S Performing Organization Address City/[facility]/ZIP Co de Phone Number [facility] [place] [address] * (ABNORMAL) CRP, acute inflammation (01/25/2022 6:20 PM EDT) CRP 6.1(H) <=4.9 mg/L [facility] Blood 01/25/2022 6:20 PM EDT 01/25/2022 7:59 PM EDT Narrative Resulting Agency Comment Spec In Lab Arabella Guevara MD CHEMISTRY ORDERABLES Performing Organization Address City/[facility] Co de Phone Number [facility] [place] [address] * CT Hand wo Contrast Right (Generic) [...] who have questions please contact the health career resource technician that requested your imaging first. ? Narrative 01/25/2022 6:57 PM EDT EXAMINATION: CT [...] patients who have questions please contactthe health career resource technician that requested your imaging first. Martinez Jovel DO IMG CT ORDERABLES * (ABNORMAL) Differential, Automated (01/25/2022 4:22 PM EDT) Neutrophils % 44.6 % [facility] Neutr Abs (ANC) 4.06 1.70 - 6.10 x10(3)/mc L [facility] Lymphocytes % 44.6 % [facility] Lymphocytes Abs 4.0(H) 0.9 - 3.2 x10(3)/mc L [facility] Monocytes % 7.4 % [facility] Monocyte Abs 0.7 0.3 - 0.9 x10(3)/mc L [facility] Eosinophils % 1.9 % [facility] Eosinophils Abs 0.2 0.0 - 0.4 x10(3)/mc L [facility] Basophils % 1.3 % [facility] Basophils Abs 0.1 0.0 - 0.1 x10(3)/mc L [facility] Immature Gran % 0.20 % [facility] Comment: Immature granulocytes(IG's)percentage and absolute count will include metamyelocytes, myelocytes, and promyelocytes. Blood smears from CBCs yielding IG's will be scanned manually for concordance. If this scan disagrees with the automated IG or if promyelocytes are noted, a manual differential will be performed. Sneha Gran Abs 0.02 0.00 - 0.04 x10(3)/[facility] Blood 01/25/2022 4:22 PM EDT 01/25/2022 5:22 PM EDT Narrative Resulting Agency Comment Spec In Lab Joel PÉREZ HEMATOLOGY ORDERABL ES [facility] [place] [address] * (ABNORMAL) Hemogram (01/25/2022 4:22 PM EDT) WBC 9.1 4.0 - 9.5 x10(3)/[facility] LABORATORY RBC 5.02 4.00 - 5.21 x10(6)/[facility] LABORATORY Hemoglobin 15.1 11.7 - 15.5 g/dL [facility] Hematocrit 47.0(H) 35.7 - 45.8 % [facility] MCV 93.6 82.6 - 94.4 fL [facility] MCH 30.1 27.1 - 32.0 pg [facility] MCHC 32.1 31.7 - 35.0 g/dL [facility] Platelets 314 145 - 357 x10(3)/[facility] LABORATORY RDWSD 50.1(H) 37.0 - 46.0 fL [facility] RDWCV 14.6(H) 11.5 - 14.1 % [facility] MPV 9.5 7.6 - 12.9 fL [facility] nRBC % Auto 0.0 % [facility] nRBC Abs Auto 0.000 0.000 - 0.000 x10(3)/mcL [facility] Blood 01/25/2022 4:22 PM EDT 01/25/2022 5:22 PM EDT Narrative Resulting Agency Comment Spec In Lab Joel PÉREZ HEMATOLOGY ORDERABL ES Performing Organization Address [facility] Co de Phone Number [facility] [place] [address] * Sedimentation rate (01/25/2022 4:22 PM EDT) Sed Rate 23 2 - 39 mm/hr [facility] Comment: Effective October 15, 2019 new capillary photometric technology has resulted in a change in reference ranges. It is recommended that each ESR result be reviewed with its own age appropriate reference range. Blood 01/25/2022 4:22 PM EDT 01/25/2022 5:22 PM EDT Narrative Resulting Agency Comment Spec In Lab Martinez Jovel DO HEMATOLOGY ORDERABLE S Performing Organization Address [facility] de Phone Number [facility] [place] [place] [address] * XR Hand Min 3 views Right [...] who have questions please contact the health career resource technician that requested your imaging first. ? Narrative 01/25/2022 3:40 PM EDT EXAMINATION: XR [...] patients who have questions please contactthe health career resource technician that requested your imaging first. Martinez Jovel DO IMG DX ORDERABLES documented in this encounter Visit Diagnoses Not on filedocumented in this encounter Admitting Diagnoses Diagnosis Cellulitis [...] Given 01/27/2022 12:19 PM EDT 1,000 mg bisacodyL (Dulcolax) suppository 10 mg 10 [...] constipation., Routine BUpivacaine-EPINEPHrine (Marcaine-epiNEPHrine) 0.25 %-1:200,000 injection ONCE PRN, Starting on Sun01/26/22 at 1837, Until Sun01/27/22 at 2102, Intra-Operative (Intra-Procedure), Routine Given 01/26/2022 6:37 PM EDT 20 mLs docusate sodium (Colace) capsule 100 mg 100 [...] Given 01/27/2022 8:31 AM EDT 10 mg ipratropium-albuteroL (Duoneb) 0.5 mg-3 mg(2.5 mg [...] Discontinued, Remove lidocaine 5% patch LORazepam (Ativan) tablet 1 mg 1 mg, Oral, EVERY 6 HOURS PRN, Starting on Sun01/27/22 at 1332, Until Sun01/27/22 at 210, Anxiety, Routine Given 01/27/2022 3:38 PM EDT 1 mg nicotine polacrilex (Commit) lozenge 4 mg 4 [...] on Sun01/26/22 at 2008, Until Sun01/27/22 at 2101, Pain, [...] , STAT 1654 (Due)1701 (Given - Provider: Maira Peres RN) acetaminophen (Tylenol) tablet 1,000 mg (CANCELED) 1,000 mg, Oral, EVERY 8 HOURS SCHEDULED, First dose on Margarita 01/26/22 at 2200, Until Discontinued, Maximum dose of acetaminophen is 4000 mg from all sources in 24 hours. When ordered for pain, acetaminophen should be given even when other ordered pain medications are indicated., Routine 2147 (Given - Provider: Royer Turcios RN) 0540 [...] Janine Avelar, CASEY)1811 (Given - Provider: Janine Avelar, CASEY) BUpivacaine (pf) (Marcaine) (2.5 mg/mL) 0.25% injection [...] Skin/Skin Structure 1657 (New Bag - Provider: Maira Peres RN)1727 (Stopped - Provider: Maira Peres RN) 1454 (New Bag - Provider: Savita Yancey LPN)1524 (Stopped - Provider: Janine Avelar RN)1808 (JAN Hold - Provider: Admin Adt - Reason: Transfer to a Procedural area)2127 (JAN Unhold - Provider: Royer Turcios RN) docusate sodium (Colace) capsule 100 mg 100 mg, Oral, 2 TIMES DAILY, First dose on Sun01/26/22 at 2100, Until Discontinued, Routine 2147 (Given - Provider: Royer Turcios RN) 0831 (Given - Provider: Janine Avelar RN) dronabinoL (Marinol) capsule 10 mg 10 mg, Oral, 2 TIMES DAILY, First dose (after last modification) on Sun01/27/22 at 0900, Until Discontinued, Routine 0831 (Given - Provider: Janine Avelar RN) dronabinoL (Marinol) capsule 5 mg (CANCELED) 5 mg, Oral, 2 TIMES DAILY, First dose on Margarita 01/26/22 at 1335, Until Discontinued, Routine 1403 (Given - Provider: Janine Avelar RN)180 (JAN Hold - Provider: Admin Adt - Reason: Transfer to a Procedural area)2100 (Automatically Held - Provider: Admin Adt)212 (JAN Unhold - Provider: Royer Turcios RN)214 (Given - Provider: Royer Turcios RN) HYDROmorphone (Dilaudid) (1 mg/mL) injection syringe 0.5 mg (COMPLETED) 0.5 mg, Intravenous, ONCE, 1 dose, On Sun01/27/22 at 0345, Routine 0311 (Given - Provider: Royer Turcios RN) ketorolac (Toradol) (30 mg/mL) injection 15 mg (COMPLETED) 15 mg, Intravenous, ONCE, 1 dose, On Sun01/25/22 at 1658, Routine 1753 (Given - Provider: Maira Peres RN) lidocaine (Lidoderm) 5% patch 3 patch(Linked [...] at 1852, Routine 1920 (Given - Provider: Maira Peres RN) LORazepam (Ativan) tablet 0.5 mg (COMPLETED) [...] applied to a different site , STAT 192 (Given - Provider: Maira Peres RN) piperacillin-tazobactam (Zosyn) 3.375 g vial attach to sodium chloride 0.9% 50 mL Mini-Bag Plus 3.375 g, Intravenous, EVERY 8 HOURS, First dose (after last reorder) on Sun01/26/22 at 2015, Until Discontinued, Administer over 4 Hours, Warning Vesicant/Irritant Medication Do not administer or Y-site with lactated ringers., Indication for (Active or Suspected): Skin/Skin Structure 215 (New Bag - Provider: Royer Turcios RN) 0156 (Stopped - Provider: Royer Turcios, CASEY)0452 (New Bag - Provider: Royer Turcios RN)0852 (Stopped - Provider: Janine Avelar RN)1219 (New Bag - Provider: Janine Avelar RN)1619 (Stopped - Provider: Janine Avelar RN) vancomycin [...] , Routine 2250 (New Bag - Provider: Maira Peres RN - Comment: IV access had to be resolved)2350 (Stopped - Provider: Jodie Britt RN) 0812 (New Bag - Provider: Blayne Rosado)0815 (Paused - Provider: Blayne Rosado)1200 (Restarted - Provider: Blayne Rosado)1808 (MAR Hold - Provider: Admin Adt - Reason: Transfer to a Procedural area)2000 (Automatically Held - Provider: Admin Adt)2128 ([facility] Unhold - Provider: Royer Turcios RN)2204 (Canceled Entry - Provider: Royer Turcios RN - Reason: Entered in Error)2206 (New Bag - Provider: Royer Turcios RN)2306 (Stopped - Provider: Royer Turcios RN) 0833 (New Bag - Provider: Janine Avelar RN)0933 (Stopped - Provider: Janine Avelar RN) PRN [...] Blayne Rosado)1453 (Given - Provider: Savita Yancey LPN)1807 (JAN Hold - Provider: Admin Adt - Reason: Transfer to a Procedural area)2127 (JAN Unhold - Provider: Royer Turcios, CASEY) 239 (Given - Provider: Royer Turcios, CASEY) bisacodyL (Dulcolax) suppository 10 mg 10 mg, Rectal, DAILY PRN, Starting on Margarita 01/26/22 at 1952, Until Sun01/27/22 at 2101, Constipation, Administer if needed per patient's routine [...] Margarita 01/26/22 at 1837, Until Sun01/27/22 at 2101, Intra-Operative (Intra-Procedure), Routine 1836 (Given - Provider: Arabella Guevara MD) HYDROmorphone (Dilaudid) (2 mg/mL) multi-dose injection solution 0.4 mg (CANCELED)(Linked Group 2) 0.4 mg, Intravenous, EVERY 10 MIN PRN, Starting on Margarita 01/26/22 at 1940, Until Margarita 01/26/22 at 2009, Pain, For Mild to Moderate Pain (1-5 out of 10), Hold for respiratory rate less than 10 per minute. Maximum dose 4 mg over one hour including administrations in the OR. If multiple pain medications are ordered, start with HYDROmorphone or morphine and use fentaNYL for breakthrough pain, PACU Recovery, Routine 1934 (See Alternative - Provider: Lindsey Youssef RN)1944 (Given - Provider: Lindsey Youssef RN)1956 (See Alternative - Provider: Lindsey Youssef, CASEY)2002 (Given - Provider: Lindsey Youssef, CASEY) HYDROmorphone (Dilaudid) (2 mg/mL) multi-dose injection solution 0.4 mg (CANCELED)(Linked Group 3) 0.4 mg, Intravenous, EVERY 10 MIN PRN, Starting on Margarita 01/26/22 at 2016, Until Margarita 01/26/22 at 2133, Pain, For Moderate to Severe Pain (6-10 out of 10), Hold for respiratory rate less than 10 per minute. Maximum dose 3 mg over one hour including administrations in the OR. If multiple pain medications are ordered, start with HYDROmorphone or morphine and use fentaNYL for breakthrough pain, PACU Recovery, Routine 2042 (Given - Provider: Lindsey Youssef RN) HYDROmorphone [...] Jodie Britt RN)1224 (Given - Provider: Blayne Rosado)1807 (JAN Hold - Provider: Admin Adt - Reason: Transfer to a Procedural area)184 (Given - Provider: Zuleima Lawson CRNA)2127 ([facility] Unhold - Provider: Royer Turcios, CASEY)231 (Given - Provider: Royer Turcios RN) 153 [...] on Sun01/25/22 at 1850, Until Sun01/27/22 at 2102, Smoking cessation, Do not chew or swallow. Place in mouth and allow to slowly dissolve., Routine 1807 (JAN Hold - Provider: Admin Adt - Reason: Transfer to a Procedural area)2127 ([facility] Unhold - Provider: Royer Turcios RN) oxyCODONE (Roxicodone) tablet 10 mg(Linked Group 4) 10 mg, Oral, EVERY 4 HOURS PRN, Starting on Sun01/26/22 at 2009, Until Sun01/27/22 at 2102, Pain, moderate pain (4-6), May give additional 5 mg in 30 minutes once if pain not relieved., Routine 2020 (See Alternative - Provider: Lindsey Youssef RN)2343 (See Alternative - Provider: Royer Turcios RN) 0240 (See Alternative - Provider: Royer Turcios, CASEY)0540 (See Alternative - Provider: Royer Turcios RN)0935 (See Alternative - Provider: Janine Avelar, CASEY)1232 (See Alternative - Provider: Janine Avelar RN)1636 [...] Janine Avelar, CASEY)1232 (Given - Provider: Janine Avelar, CASEY)1636 (Given - Provider: Savita Yancey LPN) oxyCODONE [...] Until Margarita 01/26/22 at 2009, Pain, For Mild to Moderate [...] 01/26/22 at 2015, Until Margarita 01/26/22 at 2133, Pain, For Mild to Moderate Pain (1-5 [...] Starting on Margarita 01/26/22 at 2015, Until Amrgarita 01/26/22 at 2133, Pain, For Moderate to Severe Pain (6-10 [...] Routine documented in this encounter Care Teams Hot Repairman Relationship Specialty Start Date End Date None None PCP - General 01/25/22 documented as of this encounter
--- OUTSIDE RECORDS SUMMARY | 2024-05-19 02:22 | XMS_ITS | Encounter Summary ---
Author Organization [facility] Address [facility] [place] [address] Care Team Providers Care Software Applications Developer Name Role Phone Refugio Meyer MD Primary Care Provider [phone] Encounter Details Date Type Department Care Team (Late st Contact Info) Description 01/21/2022 3:30 PM EDT Ancillary Procedure [place] [id number] Isma Levine MD [address] [place] [address] [place] [address] Social History Tobacco Use Types Packs/Day Years [...] Diagnosis Comments FILM LIBRARY STORAGE ONLY DX WRIST Routine 01/21/2022 3:22 PM EDT documented in this encounter Results * Film Library- Storage Only DX Wrist (01/21/2022 3:22 PM EDT) Narrative [facility] - 01/21/2022 3:22 PM EDT This exam is auto-finalizing. It's purpose is for storage only. Isma Major MD IMG FILM LIBRAR Y ORDERABLES [place], [place] documented in this encounter Visit Diagnoses Not on filedocumented in this encounter Care Teams Software Applications Developer Relationship Specialty Start Date End Date Refugio Meyer MD [address] [facility] [place] [address] PCP - General 02/24/19 01/24/22 documented as of this encounter
--- NOTE | 2024-05-26 08:04 | DI.CT_ITS ---
Exam(s) CT CHEST WO EXAM: CT CHEST WO CLINICAL HISTORY: COPD, J44.9; multiple lung nodules on CT, R91.8; SOB, R06.02. TECHNIQUE: Imaging protocol: Axial computed tomography images were obtained and coronal and sagittal reformatted images were created and reviewed. COMPARISON: CT CT CHEST PE CTA from 05/23/[address] CHEST WO from 11/21/[address] ABDOMEN PELVIS WO from 05/19/2024 FINDINGS: Tracheobronchial tree: Patent where visualized. No bronchiectasis. Pulmonary parenchyma: Moderate centrilobular emphysematous changes are again seen. There is a stable 4 mm nodule in the anterior aspect of the left upper lobe (series 7, image 288). The area of nodula rity more inferiorly is again seen and measures 5 mm. (Series 7, image 340). There is a 6 mm area o f nodularity in the right upper lobe (series 7, image 175). This was not present on the prior examin ation. No architectural distortion. Mediastinum and Angelica: No dominant adenopathy or fluid collection. The esophagus is unremarkable. Thyroid gland: Unremarkable. Pleura: No effusion or pneumothorax. Heart: The heart is not dilated. Mild coronary artery calcification. No pericardial effusion. Aorta: Thoracic aorta non-dilated. Atherosclerotic calcification is present. Upper abdomen: Unremarkable. Lymph nodes: Within normal limits. Soft tissues: Unremarkable. Bones:Within normal limits for the patient's age. IMPRESSION: 1. Pulmonary nodules are again seen. There is a new 6 mm area of nodularity in the right upper lobe. Continued monitoring of the pulmonary nodules is recommended in this patient. Follow-up examinatio n in 6-12 months should be considered. 2. Moderate centrilobular emphysema. RADIATION DOSE DELIVERED: Total DLP Total DLP DATA REPOSITORY: All CT scans at this facility are submitted to the National Radiology Data Registry (NRDR) Dose Index Registry (DIR) with the [employer] (ACR). RADIATION OPTIMIZATION: All CT scans at this facility use at least one of these dose optimization te chniques: automated exposure control; mA and/or kV adjustment per patient size (includes targeted exa ms where dose is matched to clinical indication); or iterative reconstruction.
== END ==
PROVIDERS: PCP Nurse Practitioner Family; Visit Provider Internal Medicine
DX: J44.9 Chronic obstructive pulmonary disease, unspecified (principal); R91.8 Other nonspecific abnormal finding of lung field; R06.02 Shortness of breath; J43.2 Centrilobular emphysema
CPT/HCPCS: 71250

== ENCOUNTER → 2024-05-26 00:38 | Outpatient (CLI) | payer MEDICAID, SELFPAY ==
--- NOTE | 2024-05-26 | DI.US_ITS ---
Exam(s) US ABDOMEN LIMITED EXAM: US ABDOMEN LIMITED CLINICAL HISTORY: Upper abd pain, R10.10; eval liver, specifically biliary ducts and GB TECHNIQUE: Ultrasound abdomen performed using standard protocol. COMPARISON: CT CT ABDOMEN PELVIS WO from 05/19/2024 FINDINGS: PANCREAS: Normal where visualized. LIVER: Normal. Hepatopetal flow in the Portal Vein. The liver measures in 15.5 cm length. No evidence of a hepatic mass. GALLBLADDER: No evidence of cholelithiasis. No evidence of wall thickening. No pericholecystic fluid identified. BILIARY SYSTEM: Common bile duct measures up to 1.1 cm. No intrahepatic biliary ductal dilation. GIANG'S SIGN: Negative. RIGHT KIDNEY: Kidney is normal in size. No evidence of renal calculi. No evidence of hydronephrosis. No renal mass or cyst identified. ASCITES: None seen. IMPRESSION: There is dilatation of the extrahepatic common bile duct measuring up to 1.1 cm. No choledocholithia sis is seen. No pancreatic mass is seen sonographically. Further evaluation with MRCP should be con sidered. Unexpected findings DATA REPOSITORY:
== END ==
PROVIDERS: PCP Nurse Practitioner Family; Visit Provider Nurse Practitioner Family
DX: R10.10 Upper abdominal pain, unspecified (principal); R91.1 Solitary pulmonary nodule; J43.2 Centrilobular emphysema
CPT/HCPCS: 76705